=== PATIENT | male | born 1955 | race Caucasian/White ===

== ENCOUNTER 2017-06-16 23:08 | Inpatient (IN) | payer BC ==
--- NOTE | 2017-06-16 23:12 | PDOC ---
History of Present Illness - General History Source: Patient, Family, Old Records Exam Limitations: No Limitations - History of Present Illness Initial Comments: 06/17/17 03:52 Patient is a 61 year old male with a significant past medical history of sciatica who presents to the ED with complaints of fever that began 3 weeks ago. As per patient's daughter, patient was taken to urgent care 3 weeks ago for increased fever and body aches and was diagnosed with strep and given penicillin prescription. She reports after finishing prescription over 1 week, patient began to develop rash from the penicillin and began to take benadryl, relieving the rash in 2 days. Patient's daughter reports, [facility] symptoms of increased fever and associated bilateral leg pain and weakness. She reports patient was given X Ray, CT abdomen, flu culture and labs, before being diagnosed with pleuritic chest pain. Patient's daughter reports bringing patient into the ED for further evaluation tonight after patient's bilateral leg pain and weakness did not subside causing her to worry. She reports patient has been experiencing decreased appetite for the last few days. Denies chest pain, Sob. Denies nausea, vomiting. Denies contact with sick individuals, out of state traveling. Denies diarrhea, constipation, dysuria, hematuria. Denies any other symptoms. Allergies: Iodine, Shellfish. Social history: No smoking. No alcohol. No illicit drugs. Surgical history: None. PMD: Dr. Mendoza. <Elijah Ding - Last Filed: 06/17/17 05:50> <Kailey Rajan - Last Filed: 06/17/17 06:04> - General Stated Complaint: FEVER,WEAKNESS Time Seen by Provider: 06/16/17 23:12 Past History <Elijah Ding - Last Filed: 06/17/17 05:50> - Immunization History Immunization Up to Date: No - Suicide/Smoking/Psychosocial Hx Smoking History: Never smoked Have you smoked in the past 12 months: No Hx Alcohol Use: Yes Substance Use Type: Alcohol <Kailey Rajna - Last Filed: 06/17/17 06:04> - Past Medical History Allergies/Adverse Reactions: Allergies Allergy/AdvReac Type Severity Reaction Status Date / Time iodine Allergy Verified 06/16/17 23:23 shellfish derived Allergy Verified 06/16/17 23:23 Home Medications: Ambulatory Orders Ibuprofen [Motrin -] 800 mg PO TID PRN #21 tablet 11/04/13 Gabapentin [Neurontin -] 100 mg PO Q8H 06/16/17 Review of Systems - Review of Systems Able to Perform ROS?: Yes Comments:: 06/17/17 03:52 GENERAL/CONSTITUTIONAL: +Fevers. +Chills. No weakness. HEAD, EYES, EARS, NOSE AND THROAT: No change in vision. No ear pain or discharge. No sore throat. CARDIOVASCULAR: No chest pain or shortness of breath. RESPIRATORY: No cough, wheezing, or hemoptysis. GASTROINTESTINAL: No nausea, vomiting, diarrhea or constipation. GENITOURINARY: No dysuria, frequency, or change in urination. MUSCULOSKELETAL: +Bilateral leg pain. No joint or muscle swelling. No neck or back pain. SKIN: No rash NEUROLOGIC: +Bilateral leg weakness. No headache, vertigo, loss of consciousness, ENDOCRINE: No increased thirst. No abnormal weight change. HEMATOLOGIC/LYMPHATIC: No anemia, easy bleeding, or history of blood clots. ALLERGIC/IMMUNOLOGIC: No hives or skin allergy. All Other Systems: Reviewed and Negative <Elijah Ding - Last Filed: 06/17/17 05:50> *Physical Exam - Vital Signs Last Vital Signs Temp Pulse Resp BP Pulse Ox 102.8 F H 120 H 30 H 143/93 97 06/16/17 23:24 06/16/17 23:24 06/16/17 23:24 06/16/17 23:24 06/16/17 23:24 - Physical Exam Comments: 06/17/17 03:52 GENERAL: +Morbidly obese. +Barely able to move. +Warm to touch. Awake, alert, and fully oriented, in no acute distress HEAD: No signs of trauma EYES: PERRLA, EOMI, sclera anicteric, conjunctiva clear ENT: +Mouth extremely dry. Auricles normal inspection, hearing grossly normal, nares patent, oropharynx clear without exudates. NECK: Normal ROM, supple, no lymphadenopathy, JVD, or masses LUNGS: Breath sounds equal, clear to auscultation bilaterally. No wheezes, and no crackles HEART: +Tachycardic. Regular rhythm, normal S1 and S2, no murmurs, rubs or gallops ABDOMEN: Soft, nontender, normoactive bowel sounds. No guarding, no rebound. No masses EXTREMITIES: +Bilateral leg edema. +Old hematoma on upper right extremity. Normal range of motion, no edema. No clubbing or cyanosis. No cords, erythema, or tenderness NEUROLOGICAL: Cranial nerves II through XII grossly intact. Normal speech, normal gait SKIN: Warm, Dry, normal turgor, no rashes or lesions noted. <Elijah Ding - Last Filed: 06/17/17 05:50> ED Treatment Course - LABORATORY CBC & Chemistry Diagram: 06/17/17 00:30 06/17/17 00:30 - ADDITIONAL ORDERS Additional order review: Laboratory Results 06/17/17 06/17/17 06/17/17 00:30 00:30 00:30 PT with INR INR PTT (Actin FS) VBG pH POC VBG pCO2 POC VBG pO2 Mixed VBG HCO3 Sodium 134 L Potassium 4.1 Chloride 97 L Carbon Dioxide 29 Anion Gap 8 BUN 15 Creatinine 1.4 H Creat Clearance w eGFR 51.18 Random Glucose 156 H Lactic Acid 1.5 Calcium 8.8 Total Bilirubin 0.9 AST 130 H ALT 84 H Alkaline Phosphatase 115 Creatine Kinase 551 H Creatine Kinase Index 0.4 CK-MB (CK-2) 2.311 Troponin I 0.05 Total Protein 8.8 H Albumin 1.5 L Blood Type O POSITIVE Antibody Screen Negative 06/17/17 06/17/17 00:30 00:14 PT with INR 20.50 H INR 1.81 H PTT (Actin FS) 33.1 VBG pH 7.47 H POC VBG pCO2 38.5 POC VBG pO2 51.6 H Mixed VBG HCO3 27.7 H Sodium Potassium Chloride Carbon Dioxide Anion Gap BUN Creatinine Creat Clearance w eGFR Random Glucose Lactic Acid Calcium Total Bilirubin AST ALT Alkaline Phosphatase Creatine Kinase Creatine Kinase Index CK-MB (CK-2) Troponin I Total Protein Albumin Blood Type Antibody Screen 06/17/17 00:30 RBC 3.96 L MCV 80.5 MCHC 33.7 RDW 14.4 MPV 8.4 Neutrophils % 80.3 Lymphocytes % 8.5 Monocytes % 10.7 H Eosinophils % 0.2 Basophils % 0.3 - Medications Given in the ED: ED Medications Discontinued Medications Generic Name Dose Route Start Last Admin Trade Name Freq PRN Reason Stop Dose Admin Sodium Chloride 1,000 ml 06/16/17 23:58 06/17/17 00:41 Normal Saline - IV 06/16/17 23:59 1,000 ml ONCE STA Administration <Elijah Ding - Last Filed: 06/17/17 05:50> - LABORATORY CBC & Chemistry Diagram: 06/17/17 00:30 06/17/17 00:30 <Kailey Rajan - Last Filed: 06/17/17 06:04> Medical Decision Making - Medical Decision Making 06/17/17 05:[address] Mendoza @5:50am, called service number and cell phone number. Both mailboxes are full. <Elijah Ding - Last Filed: 06/17/17 05:50> - Medical Decision Making 06/17/17 03:30 Patient Name: SERA REESE THIS IS A PRELIMINARY REPORT FROM [facility] DATE OF SERVICE: 2017-06-17 01:46:04 IMAGES: 62 EXAM: DUPLEX VASCULAR US-2 LEGS HISTORY: Venous duplex bilateral lower extremity COMPARISON: Swelling FINDINGS: There is no DVT of the right or left lower extremity. 3.2 x 1.1 x 2.2 cm right-sided Beach's cyst is noted. IMPRESSION: No DVT. Moderate size right Beach's cyst. 06/17/17 05:29 Patient Name: SERA REESE THIS IS A PRELIMINARY REPORT FROM [facility] DATE OF SERVICE: 2017-06-17 03:22:56 IMAGES: 1 EXAM: CHEST X-RAY PORTABLE* HISTORY: Rule out pneumonia COMPARISON: None. FINDINGS: Heart size is not well evaluated portable technique. Lungs are grossly clear. Vague left basilar density appears to be due to overlying soft tissue. No pleural effusion. IMPRESSION: No evidence of acute pathology. THIS DOCUMENT HAS BEEN ELECTRONICALLY SIGNED Pt still has not gotten an EKG though I ordered it 6 grs ago. 06/17/17 05:34 UA is negative. Pt remains febrile.Motrin and Ofirmev given. I treated with ceftriaxione and zithromax IV, as he seems to have right sided increased markings which may indicate a pneumonia Pt will require ID eval. 06/17/17 06:02 Pt has a different daughter at the bedside and they are now telling me that pt' s fever resolved after step throat treatment and that he went to Dr. Mendoza's office for bilateral leg pain and swelling. Dr. Mendoza called back and tells me that she has not seen the patient in 3 years and that he suddenly went back to her office last week with the leg pain. He was not complaining of fever at that time. She will admit the patient and work him up. She is requesting another rapid strep. <Kailey Rajan - Last Filed: 06/17/17 06:04> *DC/Admit/Observation/Transfer - Attestations Scribe Attestion: 06/17/17 03:52 Documentation prepared by Elijah Ding, acting as medical laboratory scientist for Kailey Rajan MD/DO. <Elijah Ding - Last Filed: 06/17/17 05:50> - Discharge Dispostion Admit: Yes <Kailey Rajan - Last Filed: 06/17/17 06:04> Diagnosis at time of Disposition: Sepsis - Discharge Dispostion Condition at time of disposition: Poor
[2017-06-16] MEDS ORDERED: SODIUM CHLORIDE 0.9% 1000 ML INFUS.BAG IV STA (23:58)
[2017-06-17 00:47] LABS: VENOUS PC02 38.5 mmHg (38-52); VENOUS PH 7.47 (7.32-7.42); VENOUS PO2 51.6 mmHg (28-48)
[2017-06-17 00:49] LABS: BASO % 0.3 % (0-2.0); EOS % 0.2 % (0-4.5); HEMATOCRIT 31.9 % (35.4-49); HEMOGLOBIN 10.7 GM/dL (11.7-16.9); LYMPH % 8.5 % (8-40); MCH 27.1 pg (25.7-33.7); MCHC 33.7 g/dl (32.0-35.9); MEAN CELL VOLUME 80.5 fl (80-96); MEAN PLT VOLUME 8.4 fl (7.5-11.1); MONO % 10.7 % (3.8-10.2); NEUT % 80.3 % (42.8-82.8); PLATELET COUNT 304 K/MM3 (134-434); RBC 3.96 M/mm3 (4.00-5.60); RDW 14.4 % (11.9-15.9); WHITE BLOOD COUNT 11.2 K/mm3 (4.0-10.0)
[2017-06-17 01:02] LABS: INR 1.81 (0.82-1.09); PROTHROMBIN TIME (PATIENT) 20.5 SEC (9.98-11.88)
[2017-06-17 01:05] LABS: ACTIVATED PTT 33.1 SECONDS (26.9-34.4)
[2017-06-17 01:12] LABS: ALBUMIN 1.5 g/dl (3.4-5.0); ANION GAP 8 (8-16); BILIRUBIN,TOTAL 0.9 mg/dL (0.2-1.0); BLOOD UREA NITROGEN 15 mg/dL (7-18); CALCIUM 8.8 mg/dL (8.5-10.1); CHLORIDE 97 mmol/L (98-107); CO2 29 mmol/L (21-32); CREATININE 1.4 mg/dL (0.7-1.3); GLUCOSE,RANDOM 156 mg/dL (74-106); SGPT/ALT 84 U/L (12-78); SODIUM 134 mmol/L (136-145); TOT PROT 8.8 g/dl (6.4-8.2)
[2017-06-17 01:15] LABS: ALK PHOS 115 U/L (45-117); POTASSIUM 4.1 mmol/L (3.5-5.1); SGOT/AST 130 U/L (15-37)
[2017-06-17] MEDS ORDERED: CEFTRIAXONE 1 GM in DEXTROSE 5%-WATER - 50 ML IVPB ONE (03:55)
[2017-06-17] MEDS ORDERED: AZITHROMYCIN IVPB 500 MG in DEXTROSE 5%-WATER - 250 ML IVPB ONE (03:56)
[2017-06-17] MEDS ORDERED: CEFTRIAXONE 1 GM/50 ML BAG ONE (04:38)
[2017-06-17 04:59] LABS: URINE APPEARANCE SLCLOUDY; URINE BILIRUBIN NEGATIVE (NEGATIVE); URINE BLOOD NEGATIVE (NEGATIVE); URINE GLUCOSE (UA) NEGATIVE (NEGATIVE); URINE KETONE NEGATIVE (NEGATIVE); URINE LEUK ESTERASE NEGATIVE (NEGATIVE); URINE NITRITE NEGATIVE (NEGATIVE); URINE PROTEIN NEGATIVE (NEGATIVE); URINE UROBILINOGEN 4.0 E.U/dl mg/dL (0.2-1.0)
[2017-06-17 05:02] LABS: URINE COLOR YELLOW
[2017-06-17] MEDS ORDERED: ACETAMINOPHEN 1000 MG/100 ML VIAL (NON FORMULARY) IVPB ONE (05:30)
[2017-06-17] MEDS ORDERED: SODIUM CHLORIDE 0.9% 500 ML INFUS.BAG IV ONE (05:30)
[2017-06-17] MEDS ORDERED: IBUPROFEN 600 MG TABLET (FP) PO ONE ×3 (05:30→18:39)
--- NOTE | 2017-06-17 05:48 | PN ---
Teaching Attending Note Name of Resident: Tristen Pisano ATTENDING PHYSICIAN STATEMENT I saw and evaluated the patient. I reviewed the resident's note and discussed the case with the resident. I agree with the resident's findings and plan as documented. SUBJECTIVE: OBJECTIVE: ASSESSMENT AND PLAN:
[2017-06-17] MEDS ORDERED: ACETAMINOPHEN INJECTION 100 ML IVPB ONE (06:13)
[2017-06-17] MEDS ORDERED: OSELTAMIVIR PHOSPHATE 75 MG CAPSULE PO SCH (10:00)
--- NOTE | 2017-06-17 12:32 | HP ---
Admitting History and Physical - Primary Care Physician PCP: Heriberto Mendoza - Admission History of Present Illness: 61 year old male with a significant past medical history of sciatica who presents to the ED with complaints of fever that began 3 weeks ago. As per patient's daughter, patient was taken to urgent care 3 weeks ago for increased fever and body aches and was diagnosed with strep and given penicillin prescription. She reports after finishing prescription over 1 week, patient began to develop rash from the penicillin and began to take benadryl, relieving the rash in 2 days. Patient's daughter reports, patient was then taken to [facility] on June 08 for similar symptoms of increased fever and associated bilateral leg pain and weakness. She reports patient was given X Ray, CT abdomen, flu culture and labs, before being diagnosed with pleuritic chest pain. Patient's daughter reports bringing patient into the ED for further evaluation tonight after patient's bilateral leg pain and weakness did not subside causing her to worry. - Smoking History Smoking history: Never smoked Have you smoked in the past 12 months: No - Alcohol/Substance Use Hx Alcohol Use: Yes Home Medications - Allergies Allergies/Adverse Reactions: Allergies Allergy/AdvReac Type Severity Reaction Status Date / Time iodine Allergy Verified 06/16/17 23:23 shellfish derived Allergy Verified 06/16/17 23:23 - Home Medications Home Medications: Ambulatory Orders Ibuprofen [Motrin -] 800 mg PO TID PRN #21 tablet 11/04/13 Gabapentin [Neurontin -] 100 mg PO Q8H 06/16/17 Physical Examination Vital Signs: Vital Signs Temperature 100.1 F H 06/17/17 04:30 Pulse Rate 95 H 06/17/17 05:30 Respiratory Rate 18 06/17/17 05:30 Blood Pressure 126/63 06/17/17 05:30 O2 Sat by Pulse Oximetry (%) 97 06/17/17 05:30 Constitutional: Yes: Calm HENT: Yes: Atraumatic Neck: Yes: Supple Cardiovascular: Yes: Regular Rate and Rhythm Respiratory: Yes: CTA Bilaterally, Rhonchi Gastrointestinal: Yes: Normal Bowel Sounds Extremities: Yes: WNL Edema: LLE: 3+, RLE: 3+ Peripheral Pulses WNL: Yes Neurological: Yes: Alert, Oriented Labs: CBC, BMP 06/17/17 00:30 06/17/17 00:30 Problem List - Problems (1) Neuropathy Assessment/Plan: pt is on gabapentin will get neuro involved Code(s): G62.9 - POLYNEUROPATHY, UNSPECIFIED (2) Elevated creatine kinase Code(s): R74.8 - ABNORMAL LEVELS OF OTHER SERUM ENZYMES (3) Elevated serum creatinine Assessment/Plan: ckd? monitor iv hydration nephroconsult Code(s): R79.89 - OTHER SPECIFIED ABNORMAL FINDINGS OF BLOOD CHEMISTRY (4) Anasarca Code(s): R60.1 - GENERALIZED EDEMA (5) Anemia Assessment/Plan: chronic will do studies and get heme involved Code(s): D64.9 - ANEMIA, UNSPECIFIED (6) CKD (chronic kidney disease) Code(s): N18.9 - CHRONIC KIDNEY DISEASE, UNSPECIFIED (7) Coagulation defect Code(s): D68.9 - COAGULATION DEFECT, UNSPECIFIED Assessment/Plan Laboratory Tests 06/17/17 06/17/17 06/17/17 00:14 00:30 00:30 WBC 11.2 H RBC 3.96 L Hgb 10.7 L Hct 31.9 L MCV 80.5 MCH 27.1 MCHC 33.7 RDW 14.4 Plt Count 304 MPV 8.4 Neutrophils % 80.3 Lymphocytes % 8.5 Monocytes % 10.7 H Eosinophils % 0.2 Basophils % 0.3 PT with INR 20.50 H INR 1.81 H PTT (Actin FS) 33.1 VBG pH 7.47 H POC VBG pCO2 38.5 POC VBG pO2 51.6 H Mixed VBG HCO3 27.7 H Sodium Potassium Chloride Carbon Dioxide Anion Gap BUN Creatinine Creat Clearance w eGFR Random Glucose Lactic Acid Calcium Total Bilirubin AST ALT Alkaline Phosphatase Creatine Kinase Creatine Kinase Index CK-MB (CK-2) Troponin I Total Protein Albumin Urine Color Urine Appearance Urine pH Ur Specific [place] Urine Protein Urine Glucose (UA) Urine Ketones Urine Blood Urine Nitrite Urine Bilirubin Urine Urobilinogen Ur Leukocyte Esterase Blood Type Antibody Screen 06/17/17 06/17/17 06/17/17 00:30 00:30 00:30 WBC RBC Hgb Hct MCV MCH MCHC RDW Plt Count MPV Neutrophils % Lymphocytes % Monocytes % Eosinophils % Basophils % PT with INR INR PTT (Actin FS) VBG pH POC VBG pCO2 POC VBG pO2 Mixed VBG HCO3 Sodium 134 L Potassium 4.1 Chloride 97 L Carbon Dioxide 29 Anion Gap 8 BUN 15 Creatinine 1.4 H Creat Clearance w eGFR 51.18 Random Glucose 156 H Lactic Acid 1.5 Calcium 8.8 Total Bilirubin 0.9 AST 130 H ALT 84 H Alkaline Phosphatase 115 Creatine Kinase 551 H Creatine Kinase Index 0.4 CK-MB (CK-2) 2.311 Troponin I 0.05 Total Protein 8.8 H Albumin 1.5 L Urine Color Urine Appearance Urine pH Ur Specific [place] Urine Protein Urine Glucose (UA) Urine Ketones Urine Blood Urine Nitrite Urine Bilirubin Urine Urobilinogen Ur Leukocyte Esterase Blood Type O POSITIVE Antibody Screen Negative 06/17/17 04:51 WBC RBC Hgb Hct MCV MCH MCHC RDW Plt Count MPV Neutrophils % Lymphocytes % Monocytes % Eosinophils % Basophils % PT with INR INR PTT (Actin FS) VBG pH POC VBG pCO2 POC VBG pO2 Mixed VBG HCO3 Sodium Potassium Chloride Carbon Dioxide Anion Gap BUN Creatinine Creat Clearance w eGFR Random Glucose Lactic Acid Calcium Total Bilirubin AST ALT Alkaline Phosphatase Creatine Kinase Creatine Kinase Index CK-MB (CK-2) Troponin I Total Protein Albumin Urine Color Yellow Urine Appearance Slcloudy Urine pH 5.0 Ur Specific [place] 1.012 Urine Protein Negative Urine Glucose (UA) Negative Urine Ketones Negative Urine Blood Negative Urine Nitrite Negative Urine Bilirubin Negative Urine Urobilinogen 4.0 e.u/dl Ur Leukocyte Esterase Negative Blood Type Antibody Screen Active Medications Generic Name Dose Route Start Last Admin Trade Name Freq PRN Reason Stop Dose Admin Gabapentin 100 mg 06/17/17 14:00 06/17/17 14:34 Neurontin - PO 100 mg TID [facility] Administration Heparin Sodium (Porcine) 5,000 unit 06/17/17 12:45 06/17/17 17:35 Heparin - SQ Not Given BID [facility] CEFTRIAXONE 1 G/50 ML PREMIX 50 mls @ 100 mls/hr 06/18/17 10:00 Ceftriaxone 1 Gm-D5w Bag IVPB DAILY [facility]
--- NOTE | 2017-06-17 12:43 | CON.ID ---
Consult Consult Specialty:: infectious diseases Reason for Consultation:: fever,weakness - History of Present Illness Chief Complaint: weakness,lehtargy History of Present Illness: 61 year old male with a significant past medical history of sciatica who presents to the ED with complaints of fever that began 3 weeks ago. patient unable to give hisotry his at the bedside who gives the history according tot he patient has been sick for quite some times about a month, his symptoms started as weakness fatigue and swelling in the legs--she mentions thatn his legs wee never this swollen He initially went to urgent care couple of weeks back--was diagnosed with strep throat--given pcn--developed rash which improved in couple of days after taking benadryl. . Patient then according to the , patient was then taken to [facility] on June 08 for similar symptoms of increased fever and associated bilateral leg pain and weakness. She reports patient was given X Ray , CT abdomen, flu culture and labs, before being diagnosed with pleuritic chest pain. 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 - History Source History Provided By: Family Member Limitations to Obtaining History: Clinical Condition - Alcohol/Substance Use Hx Alcohol Use: Yes - Smoking History Smoking history: Never smoked Have you smoked in the past 12 months: No Home Medications - Allergies Allergies/Adverse Reactions: Allergies Allergy/AdvReac Type Severity Reaction Status Date / Time iodine Allergy Verified 06/16/17 23:23 shellfish derived Allergy Verified 06/16/17 23:23 - Home Medications Home Medications: Ambulatory Orders Ibuprofen [Motrin -] 800 mg PO TID PRN #21 tablet 11/04/13 Gabapentin [Neurontin -] 100 mg PO Q8H 06/16/17 Review of Systems Unable to obtain ROS, reason: unable to obtain Physical Exam Vital Signs: Vital Signs Temperature 100.1 F H 06/17/17 04:30 Pulse Rate 95 H 06/17/17 05:30 Respiratory Rate 18 06/17/17 05:30 Blood Pressure 126/63 06/17/17 05:30 O2 Sat by Pulse Oximetry (%) 97 06/17/17 05:30 Constitutional: Yes: No Distress, Calm, Obese (morbid) Eyes: Yes: Conjunctiva Clear HENT: Yes: Atraumatic, Normocephalic Neck: Yes: Supple, Trachea Midline Cardiovascular: Yes: Regular Rate and Rhythm Respiratory: Yes: Regular, Poor Air Entry Gastrointestinal: Yes: Normal Bowel Sounds, Soft Musculoskeletal: Yes: WNL Edema: LLE: 2+ (non pitting), RLE: 2+ (non pitting) Neurological: Yes: Lethargy, Other (opens eyes) Psychiatric: Yes: Other Labs: CBC, BMP 06/17/17 00:30 06/17/17 00:30 Imaging - Results Chest X-ray: Report Reviewed, Image Reviewed Cat Scan: Report Reviewed, Image Reviewed Assessment/Plan on evaluating this patient i cannot find specific cause of the fever,he did have a strp some time back but norman havees have osas treated. is the patient this lethargic because he does have charlene other thing is that patient has increased lft and has non pitting edema--does he any other process like connective tissue disorder going on r/o infective process ct disorder cardiac process sepsis i do not see any gross infective process at this time,but we dont have flu done as no swabs are there plan if patient continues to spike fever then justina valentin tamiflu will start patient on ceftriaxone rest as per primary cardiology to see the patient
[2017-06-17] MEDS: GABAPENTIN 100 MG CAPSULE (FP) PO SCH ×2 (14:34→21:03)
--- NOTE | 2017-06-17 14:48 | CON.CARD ---
Consult Consult Specialty:: cardiology Referred by:: Dr. Mendoza Reason for Consultation:: edema and an enlarged heart on chest x-ray with pulmonary vascular congestion - History of Present Illness Chief Complaint: fever or chills swelling body aches and sore throat weakness History of Present Illness: 61-year-old man with a history of obesity and sciatica recently treated for fever or chills body aches sore throat right neck swelling at [facility] for presumed strep throat. Treated with penicillin subsequently developed a rash which was treated with Benadryl. His initial complaint was bilateral lower extremity edema. He had a CTA of the chest that ruled out pulmonary embolism at [facility] and further workup of his edema was deferred to outpatient setting and he was treated for strep throat. As an outpatient his symptoms progressed with continued fever or chills total body weakness rash and edema thus he came to the emergency room. She was seen and examined in the emergency room lethargic but arousable, diaphoretic, complains of being thirsty as well as joint pain involving his right wrist right clavicle and bilateral feet. Denies having any chest pain or palpitations. No PND or orthopnea. He has had decreased appetite. 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 - History Source History Provided By: Patient, Family Member, Medical Record Limitations to Obtaining History: Physical Impairment - Alcohol/Substance Use Hx Alcohol Use: Yes - Smoking History Smoking history: Never smoked Have you smoked in the past 12 months: No - Social History Usual Living Arrangement: With Spouse ADL: Independent History of Recent Travel: No Home Medications - Allergies Allergies/Adverse Reactions: Allergies Allergy/AdvReac Type Severity Reaction Status Date / Time iodine Allergy Verified 06/16/17 23:23 shellfish derived Allergy Verified 06/16/17 23:23 - Home Medications Home Medications: Ambulatory Orders Ibuprofen [Motrin -] 800 mg PO TID PRN #21 tablet 11/04/13 Gabapentin [Neurontin -] 100 mg PO Q8H 06/16/17 Family Disease History - Family Disease History Family History: Denies Review of Systems - Review of Systems Constitutional: reports: Chills, Diaphoresis, Fever, Lethargy, Loss of Appetite , Malaise, Weakness. denies: No Symptoms, Night Sweats, Unintentional Wgt. Loss , Other Eyes: denies: No Symptoms, Blind Spots, Blurred Vision, Double Vision, Eye Pain , Floaters, Photophobia, Recent Change in Vision, Other HENT: reports: Difficult Swallowing, Throat Pain. denies: No Symptoms, Ear Discharge, Ear Pain, Epistaxis, Gingival Bleeding, Hearing Loss, Mouth Swelling , Nasal Congestion, Ocular Prosthesis, Toothache, Ringing in Ears, Other Neck: reports: Swollen Glands, Tenderness. denies: No Symptoms, Decreased ROM, Lumps, Pain on Movement, Stiffness, Other Cardiovascular: reports: Edema, Shortness of Breath. denies: No Symptoms, Chest Pain, Palpitations, Other Respiratory: reports: Exercise Intolerance, Snoring, SOB, SOB on Exertion. denies: No Symptoms, Cough, Hemoptysis, Orthopnea, PND, Wheezing, Other Gastrointestinal: denies: No Symptoms, Abdominal Pain, Bloating, Constipation, Diarrhea, Dysphagia, Indigestion, Melena, Nausea, Rectal Bleeding, Vomiting, Vomiting Blood, Other Genitourinary: denies: No Symptoms, Burning, Discharge, Dysuria, Flank Pain, Frequency, Hematuria, Incontinence, Lesions, Menses, Pain, Testicular Mass, Testicular Pain, Testicular Swelling, Urgency, Vaginal Bleeding, Other Breasts: denies: No Symptoms Reported, See HPI, Breast Implants, Discharge from Nipple, Lumps, Pain, Skin Changes, Other Musculoskeletal: reports: Extremity Pain, Joint Pain, Muscle Pain, Muscle Weakness. denies: No Symptoms, Back Pain, Crepitus, Decreased ROM, Joint Swelling, Muscle Cramps, Other Integumentary: reports: Rash. denies: No Symptoms, Blister, Bruising, Change in Color, Eczema, Erythema, Incision, Lesions, Lump, Pallor, Pruritis, Wound, Other Neurological: reports: Change in LOC, Unsteady Gait, Weakness. denies: No Symptoms, Change in Speech, Confusion, Dizziness, Headache, Incoordination, Numbness, Parasthesia, Pre-Existing Deficit, Seizure, Syncope, Tremors, Other Endocrine: denies: No Symptoms, Excessive Sweating, Flushing, Increased Hunger, Increased Thirst, Intolerance to Cold, Intolerance to Heat, Unexplained Weight Gain, Unexplained Weight Loss, Other Hematology/Lymphatic: denies: No Symptoms, Easily Bruised, Excessive Bleeding, Swollen Glands, Other Psychiatric: denies: No Symptoms, Altered Sleep Pattern, Anxiety, Depression, Hallucinations, Panic, Paranoia, Suicidal, Other Vital Signs: Vital Signs Temperature 100.1 F H 06/17/17 04:30 Pulse Rate 95 H 06/17/17 05:30 Respiratory Rate 19 06/17/17 09:00 Blood Pressure 126/63 06/17/17 05:30 O2 Sat by Pulse Oximetry (%) 97 06/17/17 09:00 Constitutional: Yes: Calm, Diaphoresis, Mild Distress, Obese Eyes: Yes: Conjunctiva Clear, EOM Intact, PERRL HENT: Yes: Atraumatic, Normocephalic Neck: Yes: Supple, Trachea Midline Respiratory: Yes: Regular, Diminished, On Nasal O2, SOB. No: Rales, Rhonchi, Wheezes Gastrointestinal: Yes: Normal Bowel Sounds, Soft. No: Distention, Tenderness Cardiovascular: Yes: Regular Rate and Rhythm. No: Bradycardia, Tachycardia, Pulse Irregular, Gallop, Rub, Varicosities JVD: No Carotid Bruit: No PMI: Non-Displaced Heart Sounds: Yes: S1, S2. No: Split S2, S3, S4, Clicks, Gallop, Rub, Bruit Murmur: No: Systolic Murmur, Diastolic Murmur Musculoskeletal: Yes: Joint Stiffness, Joint Swelling, Muscle Weakness Edema: Yes Edema: RUE: 1+ (nonpitting), LLE: 1+ (nonpitting), RLE: 1+ (nonpitting) Peripheral Pulses WNL: Yes Peripheral Pulses: 2+ Left Doralis Pedis, 2+ Right Dorsalis Pedis Integumentary: Yes: Rash Neurological: Yes: Oriented, Lethargy, Weakness. No: Alert Psychiatric: Yes: Oriented. No: Alert - Other Data Labs, Other Data: CBC, BMP 06/17/17 00:30 06/17/17 00:30 INR, PTT INR 1.81 (0.82-1.09) H 06/17/17 00:30 Troponin, BNP 06/17/17 06/17/17 00:30 13:27 Troponin I 0.05 0.03 D Troponin, BNP 06/17/17 06/17/17 00:30 13:27 Troponin I 0.05 0.03 D EKG was done in the emergency room not available currently for my review, no reported significant abnormalities Echo: Pending Imaging - Results Chest X-ray: Report Reviewed Ultrasound: Report Reviewed Other: Report Reviewed, Image Reviewed Assessment/Plan 61-year-old man with a history of obesity and sciatica recently treated for fever or chills body aches sore throat right neck swelling at [facility] for presumed strep throat. Treated with penicillin subsequently developed a rash which was treated with Benadryl. His initial complaint was bilateral lower extremity edema. He had a CTA of the chest that ruled out pulmonary embolism at [facility] and further workup of his edema was deferred to outpatient setting and he was treated for strep throat. As an outpatient his symptoms progressed with continued fever or chills total body weakness rash and edema thus he came to the emergency room. She was seen and examined in the emergency room lethargic but arousable, diaphoretic, complains of being thirsty as well as joint pain involving his right wrist right clavicle and bilateral feet. Denies having any chest pain or palpitations. No PND or orthopnea. He has had decreased appetite. edema-patient does not clinically appear volume overloaded in fact he appears more likely intravascularily depleted -likely a degree of third spacing given his hypoalbuminemia 1.5 -Would not diurese at this time -Concern for sepsis -Follow-up echo today to evaluate for structural heart disease, if structurally normal would recommend IV fluid hydration -if there is cardiac dysfunction will likely still be able to use IV fluid hydration but would be more cautious -Enlarged cardiac silhouette on chest x-ray not reliable due to portable imaging study fever chills body aches and muscle pain or joint pain swelling and right neck and recent diagnosis of strep throat -Concerning for sepsis/pneumonia -Possible viral illness which could include influenza -possible strep -receiving antibiotics -Consider Tamiflu although due to the duration of his illness may not be effective at this point -infectious disease is evaluating rash- -Possibly due to current infectious process or side effect to recent penicillin usage
--- NOTE | 2017-06-17 15:59 | PN ---
Progress Note (short form) - Note Progress Note: PULMONARY CONSULTATION DICTATED 06/17/17 IMP RECENT STREP THROAT S/P RX WITH PCN DEV RASH GENERALIZED EDEMA SECONDARY TO HYPOALBUMENIA ELEVATED TP ? MM,? INFECTIOUS,IMMUNOLOGIC KADIE COAGULOPATHY ELEVATED LFTS PULMONARY HTN SUSPECTED OSAS PLAN ABX PER ID CHEST /ABD CT ESR,CRP,RALPH,RF MONITOR LYTES,RENAL FUNCTION MONITOR CBC,INR SPEP,IPEP AVOID NSAIDS HIV SCREEN SLEEP STUDIES OUTPATIENT DR STEEN
--- NOTE | 2017-06-17 16:45 | CONSULT ---
Consult Consult Specialty:: hematology/oncology - History of Present Illness History of Present Illness: 61 year old male with a significant past medical history of sciatica who presents to the ED with complaints of fever that began 3 weeks ago. As per patient's daughter, patient was taken to urgent care 3 weeks ago for increased fever and body aches and was diagnosed with strep and given penicillin prescription. She reports after finishing prescription over 1 week, patient began to develop rash from the penicillin and began to take benadryl, relieving the rash in 2 days. Patient's daughter reports, patient was then taken to [facility] on June [facility] for similar symptoms of increased fever and associated bilateral leg pain and weakness. She reports patient was given X Ray, CT abdomen, flu culture and labs, before being diagnosed with pleuritic chest pain. Patient's daughter reports bringing patient into the ED for further evaluation tonight after patient's bilateral leg pain and weakness did not subside Pt seen and examined. Hematology is consulted for elevated total protein. Daughter and at pts bedside. - History Source History Provided By: Patient, Family Member - Alcohol/Substance Use Hx Alcohol Use: Yes - Smoking History Smoking history: Never smoked Have you smoked in the past 12 months: No - Social History Usual Living Arrangement: With Spouse ADL: Independent History of Recent Travel: No Home Medications - Allergies Allergies/Adverse Reactions: Allergies Allergy/AdvReac Type Severity Reaction Status Date / Time iodine Allergy Verified 06/16/17 23:23 shellfish derived Allergy Verified 06/16/17 23:23 - Home Medications Home Medications: Ambulatory Orders Ibuprofen [Motrin -] 800 mg PO TID PRN #21 tablet 11/04/13 Gabapentin [Neurontin -] 100 mg PO Q8H 06/16/17 Physical Exam Vital Signs: Vital Signs Temperature 98.7 F 06/17/17 14:15 Pulse Rate 81 06/17/17 14:15 Respiratory Rate 18 06/17/17 14:15 Blood Pressure 128/72 06/17/17 14:15 O2 Sat by Pulse Oximetry (%) 97 06/17/17 09:00 Constitutional: Yes: Well Nourished, Obese Eyes: Yes: Conjunctiva Clear HENT: Yes: Atraumatic, Normocephalic Neck: Yes: Supple, Trachea Midline Cardiovascular: Yes: Regular Rate and Rhythm Respiratory: Yes: Regular, CTA Bilaterally Gastrointestinal: Yes: Normal Bowel Sounds, Abdomen, Obese Extremities: Yes: Erythema Edema: Yes Edema: LUE: 2+, RUE: 2+, LLE: 2+, RLE: 2+ Labs: CBC, BMP 06/17/17 00:30 06/17/17 00:30 Assessment/Plan Patient with a high protein gap. concern for post-streptococcal sequel for a multi-tude of tests, work up in progress for screening anemia work-up renal/pulm/cardiology/ID consults reviewed consider rheum evaluation. will follow
[2017-06-17 17:23] VITALS: BMI 56.9
[2017-06-17] MEDS: HEPARIN NA (PORCINE) 5,000 UNITS/ML 1ML VIAL SQ SCH ×2 (17:35→21:03)
--- NOTE | 2017-06-17 18:12 | CONS ---
DATE OF CONSULTATION: 06/17/2017 PULMONARY CONSULTATION REFERRING PHYSICIAN: Heriberto Mendoza M.D. HISTORY OF PRESENT ILLNESS: The patient is a 61-year-old male with past medical history of obesity and sciatica, recently treated approximately 3 weeks ago in [facility] secondary to sore throat, generalized body aches. At the time, he had in 1 hospital also lower extremity edema. Apparently he has had presumed sore throat and he was treated with penicillin, for which he subsequently developed a rash, which was treated with Benadryl. He was also given gabapentin for the generalized pains. Initially he complained of bilateral lower extremity edema. Apparently at [place] he had a chest CTA which was negative for PE, and further workup edema as an outpatient. Over the course of the next 2-3 weeks he has been complaining of continued fevers, chills, generalized body aches and weakness, and rash as well as edema. He also noted increasing right upper extremity edema as well as some mild left upper extremity edema. He presented to the emergency room today with the above complaints. In the ER he was noted to be anemic. He was also noted to have mildly elevated creatinine at 1.4 and platelet count of 156. Labs also revealed evidence of albumin at 1.5 and protein of 8.8, a mild transaminase elevation. Patient is a nonsmoker. He denies any recent travel. He denies any history of occupational exposure to chemicals or fumes. He was born on [place] and moved to the [place] at age 2. He denies any history of DVT or PE in the past. There is no history of chronic cough or hemoptysis. Has been complaining of chest pain, which is pressure like, associated with all these other generalized pains. PAST MEDICAL HISTORY: Again includes sciatica as well as obesity. REVIEW OF SYSTEMS: Positive fever. Positive chills. Positive generalized body aches. Positive generalized extremity swelling and generalized pain throughout. Denies any weight loss or night sweats. There is no hemoptysis. CURRENT MEDICATIONS: Include gabapentin, Neurontin, ceftriaxone. PHYSICAL EXAMINATION: General: The patient is an obese male, alert, in no acute distress. Vital signs: T-max 102.8, he is currently 98.7. Blood pressure 128/72. Respiratory rate is 18. HEENT: Head is normocephalic, atraumatic. Neck: Supple. Heart: Regular. S1, S2. Chest: Diminished breath sounds bilaterally. Abdomen: Soft. Obese. Nontender. Extremities: Bilateral edema throughout all 4 extremities. LABORATORY: Sodium 134, BUN 15, creatinine 1.4, CK 551, protein 8.8, albumin 1.5, INR 1.81. WBC 11.2, hemoglobin 10.7, hematocrit 31.9 with platelet count of 304 ,000. Chest x-ray, poor inspiratory effort. No acute infiltrates or effusions. Echocardiogram, normal LV, normal RV, mild tricuspid as well as mitral regurgitation, pulmonary systolic pressure of 39, consistent with moderate pulmonary hypertension. IMPRESSION: 1. Fever, generalized joint pains, lower extremity swelling etiology to be determined whether it is infectious, the patient is being treated for strep. 2. Possible immunologic reaction. 3. Rule out possible malignancy, possible Multiple myeloma. 4. Acute kidney injury. 5. Anemia. 6. Coagulopathy. PLAN: Antibiotics as per infectious disease. Immunologic workup. Consider RALPH , CRP, rheumatoid factor, as well as ESR, consider HIV testing, consider SPEP and IPEP, also obtain CT scan of chest and abdomen. Monitor CBC and INR. Monitor electrolytes. LFTs. ELOY STEEN M.D. [id number] MTDD
[2017-06-17] MEDS ORDERED: guaiFENesin/D-METHORPHAN HB 10 ML UNIT-DOSE CUPS ONE (18:40)
--- NOTE | 2017-06-17 20:40 | CONSULT ---
Consult Consult Specialty:: Nephrology Reason for Consultation:: CKD - History of Present Illness Chief Complaint: fever History of Present Illness: Pt is a 61 year old male with pmhx of obesity and sciatica who presents to the ER complaining of a three week history of fever. He initially went to urgent care who prescribed PCN. He developed a rash after the PCN for which he took benedryl. HE denies weight loss. He complains of bilateral lower extremity pain. Pt also complains of generalized weakness. He denies shortness of breath or palpitations. He denies dysuria or hematuria. 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 He has a long history of heavy NSAID use. He was also found to have elevated total protein. He denies family history of kidney disease. - History Source History Provided By: Patient, Family Member, Medical Record - Past Medical History Musculoskeletal: Yes: Other (sciatica) Additional Medical History: obesity - Alcohol/Substance Use Hx Alcohol Use: Yes - Smoking History Smoking history: Never smoked Have you smoked in the past 12 months: No - Social History Usual Living Arrangement: With Spouse ADL: Independent History of Recent Travel: No Home Medications - Allergies Allergies/Adverse Reactions: Allergies Allergy/AdvReac Type Severity Reaction Status Date / Time iodine Allergy Verified 06/16/17 23:23 shellfish derived Allergy Verified 06/16/17 23:23 - Home Medications Home Medications: Ambulatory Orders Ibuprofen [Motrin -] 800 mg PO TID PRN #21 tablet 11/04/13 Gabapentin [Neurontin -] 100 mg PO Q8H 06/16/17 Family Disease History - Family Disease History Family History: Denies Review of Systems - Review of Systems Constitutional: reports: Fever, Loss of Appetite, Malaise. denies: Chills Eyes: reports: No Symptoms HENT: reports: No Symptoms Neck: reports: No Symptoms Cardiovascular: reports: No Symptoms Respiratory: reports: No Symptoms Gastrointestinal: reports: No Symptoms Genitourinary: reports: No Symptoms Musculoskeletal: reports: Extremity Pain, Muscle Weakness Integumentary: reports: Rash, Other (rash now resolved) Neurological: reports: Weakness Hematology/Lymphatic: reports: No Symptoms Psychiatric: reports: No Symptoms Physical Exam Vital Signs: Vital Signs Temperature 98.7 F 06/17/17 14:15 Pulse Rate 81 06/17/17 14:15 Respiratory Rate 18 06/17/17 14:15 Blood Pressure 128/72 06/17/17 14:15 O2 Sat by Pulse Oximetry (%) 97 06/17/17 09:00 Constitutional: Yes: Calm Eyes: Yes: Conjunctiva Clear HENT: Yes: Atraumatic Neck: Yes: Supple Cardiovascular: Yes: S1, S2 Respiratory: Yes: CTA Bilaterally Gastrointestinal: Yes: Soft, Abdomen, Obese Renal/: Yes: WNL Musculoskeletal: Yes: Muscle Weakness Edema: Yes Edema: LLE: 1+, RLE: 1+ Integumentary: Yes: WNL Neurological: Yes: Oriented Psychiatric: Yes: Oriented Labs: CBC, BMP 06/17/17 00:30 06/17/17 00:30 Laboratory Tests 06/17/17 06/17/17 06/17/17 00:30 00:30 00:30 WBC 11.2 H Hgb 10.7 L PT with INR 20.50 H INR 1.81 H Sodium 134 L Potassium 4.1 BUN 15 Creatinine 1.4 H AST 130 H ALT 84 H Creatine Kinase 551 H Total Protein 8.8 H Urine Protein Urine Blood 06/17/17 06/17/17 04:51 13:27 WBC Hgb PT with INR INR Sodium Potassium BUN Creatinine AST ALT Creatine Kinase 395 H Total Protein Urine Protein Negative Urine Blood Negative Imaging - Results Chest X-ray: Report Reviewed Ultrasound: Report Reviewed Problem List - Problems (1) Anemia Code(s): D64.9 - ANEMIA, UNSPECIFIED (2) CKD (chronic kidney disease) Code(s): N18.9 - CHRONIC KIDNEY DISEASE, UNSPECIFIED (3) Elevated creatine kinase Code(s): R74.8 - ABNORMAL LEVELS OF OTHER SERUM ENZYMES (4) Neuropathy Code(s): G62.9 - POLYNEUROPATHY, UNSPECIFIED Assessment/Plan Current Medications Generic Name Dose Route Start Last Admin Trade Name Freq PRN Reason Stop Dose Admin Acetaminophen 650 mg 06/17/17 19:17 Tylenol - PO Q6H PRN FEVER Gabapentin 100 mg 06/17/17 14:00 06/17/17 14:34 Neurontin - PO 100 mg TID AJ Administration Heparin Sodium (Porcine) 5,000 unit 06/17/17 12:45 06/17/17 17:35 Heparin - SQ Not Given BID AJ CEFTRIAXONE 1 G/50 ML PREMIX 50 mls @ 100 mls/hr 06/18/17 10:00 Ceftriaxone 1 Gm-D5w Bag IVPB DAILY AJ Sodium Chloride 1,000 mls @ 75 mls/hr 06/17/17 19:30 Normal Saline - IV ASDIR AJ Impression 1. likely CKD vs KADIE 2. anemia 3. fevers 4. rash - which has resolved 5. obesity 6. lower ext pain and weekness 7. elevated total protein 8. transaminitis Plan - check renal ultrasound - send spep and upep - urine is negative for blood or protein on ua - check prt produce manager ratio - pt had rash that resolved and muscle weakness, r/o myositis - recommend neuro and rheum eval - will need to r/o myeloma as well - differential is broad at this point, will collect more data and run further testing - repeat labs in am - send blood cultures - will follow pt closely - discussed case in detail and at great length with family who assisted with history - chronic nsaid use may have contributed to renal disease Dr Ugarte
[2017-06-17] MEDS: ACETAMINOPHEN 325 MG TABLET (FP) PO PRN (21:03)
[2017-06-17] MEDS: SODIUM CHLORIDE 1,000 ML IV SCH (21:04)
--- NOTE | 2017-06-17 23:16 | EKG ---
Test Reason : Blood Pressure : / mmHG Vent. Rate : 103 BPM Atrial Rate : 103 BPM P-R Int : 140 ms QRS Dur : 102 ms QT Int : 332 ms P-R-T Axes : 053 -30 016 degrees QTc Int : 434 ms SINUS TACHYCARDIA LEFT AXIS DEVIATION VOLTAGE CRITERIA FOR LEFT VENTRICULAR HYPERTROPHY ABNORMAL ECG NO PREVIOUS ECGS AVAILABLE Confirmed by JOSE MANUEL SALAZAR MD ([id number]) on 06/17/2017 11:16:17 PM Referred By: Confirmed By:JOSE MANUEL SALAZAR MD
[2017-06-18] MEDS: GABAPENTIN 100 MG CAPSULE (FP) PO SCH ×3 (05:46→22:49)
[2017-06-18] MEDS: ACETAMINOPHEN 325 MG TABLET (FP) PO PRN ×2 (05:46→22:52)
[2017-06-18 08:29] LABS: BASO % 0.2 % (0-2.0); EOS % 1.1 % (0-4.5); HEMATOCRIT 28.3 % (35.4-49); HEMOGLOBIN 9.4 GM/dL (11.7-16.9); LYMPH % 10.2 % (8-40); MCHC 33.3 g/dl (32.0-35.9); MEAN CELL VOLUME 81.1 fl (80-96); MONO % 10.1 % (3.8-10.2); NEUT % 78.4 % (42.8-82.8); PLATELET COUNT 248 K/MM3 (134-434); RDW 14.7 % (11.9-15.9); WHITE BLOOD COUNT 9.9 K/mm3 (4.0-10.0)
[2017-06-18 08:38] LABS: INR 1.78 (0.82-1.09); PROTHROMBIN TIME (PATIENT) 20.1 SEC (9.98-11.88)
[2017-06-18 08:40] LABS: ACTIVATED PTT 31.3 SECONDS (26.9-34.4)
[2017-06-18 09:01] LABS: ALBUMIN 1.5 g/dl (3.4-5.0); ANION GAP 7 (8-16); BILIRUBIN,TOTAL 0.9 mg/dL (0.2-1.0); BLOOD UREA NITROGEN 20 mg/dL (7-18); CALCIUM 8.1 mg/dL (8.5-10.1); CHLORIDE 100 mmol/L (98-107); CO2 27 mmol/L (21-32); CREATININE 1.1 mg/dL (0.7-1.3); GLUCOSE,RANDOM 102 mg/dL (74-106); POTASSIUM 4.1 mmol/L (3.5-5.1); SGOT/AST 86 U/L (15-37); SODIUM 134 mmol/L (136-145); TOT PROT 8.1 g/dl (6.4-8.2)
[2017-06-18 09:03] LABS: ALBUMIN 1.5 g/dl (3.4-5.0); ALK PHOS 98 U/L (45-117); ANION GAP 9 (8-16); BLOOD UREA NITROGEN 21 mg/dL (7-18); CHLORIDE 99 mmol/L (98-107); CO2 26 mmol/L (21-32); CREATININE 1.1 mg/dL (0.7-1.3); GLUCOSE,RANDOM 100 mg/dL (74-106); POTASSIUM 4.1 mmol/L (3.5-5.1); SGOT/AST 86 U/L (15-37); SGPT/ALT 64 U/L (12-78); SODIUM 134 mmol/L (136-145)
[2017-06-18 09:06] LABS: ALK PHOS 96 U/L (45-117); BILIRUBIN,TOTAL 0.7 mg/dL (0.2-1.0); SGPT/ALT 65 U/L (12-78); TOT PROT 8.1 g/dl (6.4-8.2)
--- NOTE | 2017-06-18 09:23 | PN ---
Progress Note, Physician Chief Complaint: no acute distress History of Present Illness: echo with dilated LV but normal LV fxn no effusion Mild PHTN which is likely due to body habitus, probable chronic ANJELICA and likely diastolic dysfx - Current Medication List Current Medications: Active Medications Acetaminophen (Tylenol -) 650 mg PO Q6H PRN PRN Reason: FEVER Last Admin: 06/18/17 05:46 Dose: 650 mg Gabapentin (Neurontin -) 100 mg PO TID [facility] Last Admin: 06/18/17 05:46 Dose: 100 mg Heparin Sodium (Porcine) (Heparin -) 5,000 unit SQ BID AJ Last Admin: 06/17/17 21:03 Dose: 5,000 unit CEFTRIAXONE 1 G/50 ML PREMIX (Ceftriaxone 1 Gm-D5w Bag) 50 mls @ 100 mls/hr IVPB DAILY [facility] Sodium Chloride (Normal Saline -) 1,000 mls @ 75 mls/hr IV ASDIR [facility] Last Admin: 06/17/17 21:04 Dose: 75 mls/hr - Objective Vital Signs: Vital Signs Temperature 100.3 F H 06/18/17 06:18 Pulse Rate 104 H 06/18/17 06:18 Respiratory Rate 20 06/18/17 06:18 Blood Pressure 147/71 06/18/17 06:18 O2 Sat by Pulse Oximetry (%) 95 06/17/17 21:00 Constitutional: Yes: Calm Eyes: Yes: Conjunctiva Clear Cardiovascular: Yes: Regular Rate and Rhythm Respiratory: Yes: CTA Bilaterally Gastrointestinal: Yes: Soft, Abdomen, Obese Edema: Yes Edema: LLE: 2+, RLE: 2+ Neurological: Yes: Alert, Oriented ...Motor Strength: WNL Labs: CBC, BMP 06/18/17 07:45 06/18/17 07:45 INR, PTT INR 1.81 (0.82-1.09) H 06/17/17 00:30 Microbiology 06/17/17 00:30 Blood - Peripheral Venous Blood Culture - Preliminary NO GROWTH OBTAINED AFTER 24 HOURS, INCUBATION TO CONTINUE FOR 4 DAYS. 06/17/17 00:30 Blood - Peripheral Venous Blood Culture - Preliminary NO GROWTH OBTAINED AFTER 24 HOURS, INCUBATION TO CONTINUE FOR 4 DAYS. Laboratory Tests 06/18/17 06/18/17 07:45 07:45 WBC 9.9 Hgb 9.4 L D Plt Count 248 Sodium 134 L Potassium 4.1 Creatinine 1.1 Assessment/Plan IMP: Fever Edema PHTN 1. Edema-patient does not clinically appear volume overloaded in fact he appears more likely intravascularily depleted -likely a degree of third spacing given his hypoalbuminemia 1.5 -Would not diurese at this time -Concern for sepsis -Echo shows normal LV function w/ mildly dilated LV 2. fever chills body aches: - recent diagnosis of strep throat -Concerning for sepsis/pneumonia -Possible viral illness which could include influenza -possible strep -infectious disease is evaluating 3. Rash- -Possibly due to current infectious process or side effect to recent penicillin usage; eval as per PMD
[2017-06-18] MEDS: CEFTRIAXONE 1 G/50 ML PREMIX 50 ML IVPB SCH (09:41)
[2017-06-18] MEDS: HEPARIN NA (PORCINE) 5,000 UNITS/ML 1ML VIAL SQ SCH ×2 (09:41→22:49)
--- NOTE | 2017-06-18 12:58 | PN ---
Progress Note, Physician History of Present Illness: PULMONARY ALERT,-RESP DISTRESS, TMAX 100.3. CHEST CT,CT ABD/PELVIS NEGATIVE ACUTE PATHOLOGY - Current Medication List Current Medications: Active Medications Acetaminophen (Tylenol -) 650 mg PO Q6H PRN PRN Reason: FEVER Last Admin: 06/18/17 05:46 Dose: 650 mg Gabapentin (Neurontin -) 100 mg PO TID [facility] Last Admin: 06/18/17 05:46 Dose: 100 mg Heparin Sodium (Porcine) (Heparin -) 5,000 unit SQ BID [facility] Last Admin: 06/18/17 09:41 Dose: 5,000 unit CEFTRIAXONE 1 G/50 ML PREMIX (Ceftriaxone 1 Gm-D5w Bag) 50 mls @ 100 mls/hr IVPB DAILY [facility] Last Admin: 06/18/17 09:41 Dose: 100 mls/hr Sodium Chloride (Normal Saline -) 1,000 mls @ 75 mls/hr IV ASDIR [facility] Last Admin: 06/17/17 21:04 Dose: 75 mls/hr - Objective Vital Signs: Vital Signs Temperature 99.6 F 06/18/17 09:58 Pulse Rate 103 H 06/18/17 09:58 Respiratory Rate 20 06/18/17 09:58 Blood Pressure 153/80 06/18/17 09:58 O2 Sat by Pulse Oximetry (%) 96 06/18/17 09:00 Constitutional: Yes: Calm, Obese Eyes: Yes: WNL HENT: Yes: WNL Neck: Yes: WNL Cardiovascular: Yes: Regular Rate and Rhythm, S1, S2 Respiratory: Yes: Diminished Gastrointestinal: Yes: Normal Bowel Sounds, Soft Extremities: Yes: WNL Edema: Yes Edema: LLE: 3+, RLE: 3+ Labs: CBC, BMP 06/18/17 07:45 06/18/17 07:45 INR, PTT INR 1.78 (0.82-1.09) H 06/18/17 07:45 Laboratory Tests 06/17/17 06/17/17 06/17/17 20:45 20:45 20:45 ESR 65 H C-Reactive Protein 22.2 H Rheumatoid Factor < 10.0 Problem List - Problems (1) Coagulation defect Code(s): D68.9 - COAGULATION DEFECT, UNSPECIFIED (2) Fever Code(s): R50.9 - FEVER, UNSPECIFIED (3) Pulmonary HTN Code(s): I27.20 - PULMONARY HYPERTENSION, UNSPECIFIED (4) Elevated creatine kinase Code(s): R74.8 - ABNORMAL LEVELS OF OTHER SERUM ENZYMES (5) Anasarca Code(s): R60.1 - GENERALIZED EDEMA Assessment/Plan IMP RECENT STREP THROAT S/P RX WITH PCN DEV RASH GENERALIZED EDEMA SECONDARY TO HYPOALBUMENIA ELEVATED TP ? MM,? INFECTIOUS,IMMUNOLOGIC KADIE COAGULOPATHY ELEVATED LFTS PULMONARY HTN SUSPECTED OSAS PLAN ABX PER ID MONITOR LYTES,RENAL FUNCTION MONITOR CBC,INR AVOID NSAIDS HIV SCREEN SLEEP STUDIES OUTPATIENT DR STEEN
--- NOTE | 2017-06-18 14:28 | CON.NEURO ---
Consult - History of Present Illness History of Present Illness: 61 year old male with a significant past medical history of sciatica who presents to the ED with complaints of fever that began 3 weeks ago. As per patient's daughter, patient was taken to urgent care 3 weeks ago for increased fever and body aches and was diagnosed with strep and given penicillin prescription. She reports after finishing prescription over 1 week, patient began to develop rash from the penicillin and began to take benadryl, relieving the rash in 2 days. Patient's daughter reports, patient was then taken to [facility] on June 08 for similar symptoms of increased fever and associated bilateral leg pain and weakness, LE >UE. mild numbness R hand. He reports patient was given X Ray, CT abdomen, flu culture and labs, before being diagnosed with pleuritic chest pain. noted to elevated CPKS, LFTS and elevated total protein, called for eval r/o myopathy. no hx of statin (only new RX was PCN0 , at baseline home walking and drives , now unable to walk. - History Source History Provided By: Patient, Medical Record - Past Medical History Musculoskeletal: Yes: Other (sciatica) Additional Medical History: obesity - Alcohol/Substance Use Hx Alcohol Use: Yes - Smoking History Smoking history: Never smoked Have you smoked in the past 12 months: No - Social History Usual Living Arrangement: With Spouse ADL: Independent History of Recent Travel: No Home Medications - Allergies Allergies/Adverse Reactions: Allergies Allergy/AdvReac Type Severity Reaction Status Date / Time iodine Allergy Verified 06/16/17 23:23 shellfish derived Allergy Verified 06/16/17 23:23 - Home Medications Home Medications: Ambulatory Orders Ibuprofen [Motrin -] 800 mg PO TID PRN #21 tablet 11/04/13 Gabapentin [Neurontin -] 100 mg PO Q8H 06/16/17 Physical Exam-Neuro Vital Signs: Vital Signs Temperature 99.6 F 06/18/17 09:58 Pulse Rate 103 H 06/18/17 09:58 Respiratory Rate 20 06/18/17 09:58 Blood Pressure 153/80 06/18/17 09:58 O2 Sat by Pulse Oximetry (%) 96 06/18/17 09:00 Constitutional: Yes: Mild Distress, Obese Neck: Yes: Supple Cardiovascular: Yes: Regular Rate and Rhythm Edema: LUE: 3+, RUE: 3+, LLE: 3+, RLE: 3+ Labs: CBC, BMP 06/18/17 07:45 06/18/17 07:45 INR, PTT INR 1.78 (0.82-1.09) H 06/18/17 07:45 - Neuro Exam Level Of Consciousness: Yes: Alert (awake and answering requests, EOMI, no facial, no neck stiffness, MOtoro UE 5/5, with best effeort; although weakness in hands intersossei, LE: weakness IP , quads, and hams TA --very limited 2/5( pain /swelling also may be factor) ) Assessment/Plan 61 year old male with a significant past medical history of sciatica who presents to the ED with complaints of fever that began 3 weeks ago. As per patient's daughter, patient was taken to urgent care 3 weeks ago for increased fever and body aches and was diagnosed with strep and given penicillin prescription. progressive weakness of limbs, LE >UE, setting of elevated CPks, LFTS and fever, and signifcant peripheral edema-- suspect underlying hematologic vs rheumatolgic issue at hand , though there may be a component of a neuropathy /myopathy would also check CT LS spine just to ensure no epidural abscess ( wont fit in MRI machine) FU sent labs, rheum/Hem check EMG (NC will be low yield given edema) , FU cpks Dr Redi
[2017-06-18] MEDS: SODIUM CHLORIDE 1,000 ML IV SCH ×2 (14:35→22:49)
--- NOTE | 2017-06-18 15:11 | PN ---
Progress Note, Physician History of Present Illness: patient much more awake and alert family in the room no complaints still weak - Current Medication List Current Medications: Active Medications Acetaminophen (Tylenol -) 650 mg PO Q6H PRN PRN Reason: FEVER Last Admin: 06/18/17 05:46 Dose: 650 mg Gabapentin (Neurontin -) 100 mg PO TID [facility] Last Admin: 06/18/17 14:35 Dose: 100 mg Heparin Sodium (Porcine) (Heparin -) 5,000 unit SQ BID [facility] Last Admin: 06/18/17 09:41 Dose: 5,000 unit CEFTRIAXONE 1 G/50 ML PREMIX (Ceftriaxone 1 Gm-D5w Bag) 50 mls @ 100 mls/hr IVPB DAILY [facility] Last Admin: 06/18/17 09:41 Dose: 100 mls/hr Sodium Chloride (Normal Saline -) 1,000 mls @ 75 mls/hr IV ASDIR [facility] Last Admin: 06/18/17 14:35 Dose: 75 mls/hr Oseltamivir Phosphate (Tamiflu -) 75 mg PO BID [facility] Stop: 06/23/17 21:59 - Objective Vital Signs: Vital Signs Temperature 99.7 F H 06/18/17 15:03 Pulse Rate 99 H 06/18/17 15:03 Respiratory Rate 20 06/18/17 09:58 Blood Pressure 146/87 06/18/17 15:03 O2 Sat by Pulse Oximetry (%) 96 06/18/17 09:00 Constitutional: Yes: No Distress, Calm Cardiovascular: Yes: Regular Rate and Rhythm Respiratory: Yes: Regular, Other (poor air entry) Musculoskeletal: Yes: WNL Extremities: Yes: Other Neurological: Yes: Alert, Oriented Psychiatric: Yes: Alert, Oriented Labs: CBC, BMP 06/18/17 07:45 06/18/17 07:45 INR, PTT INR 1.78 (0.82-1.09) H 06/18/17 07:45 Assessment/Plan r/o infective process ct disorder cardiac process sepsis plan will start tamiflu continue ceftriaxone rest await for all work up discussed with family in detail
--- NOTE | 2017-06-18 16:03 | PN ---
Progress Note, Physician History of Present Illness: Pt seen and examined at bedside. He feels a little better than he did yesterday. He denies shortness of breath however he now is on oxygen. - Current Medication List Current Medications: Active Medications Acetaminophen (Tylenol -) 650 mg PO Q6H PRN PRN Reason: FEVER Last Admin: 06/18/17 05:46 Dose: 650 mg Gabapentin (Neurontin -) 100 mg PO TID [facility] Last Admin: 06/18/17 14:35 Dose: 100 mg Heparin Sodium (Porcine) (Heparin -) 5,000 unit SQ BID [facility] Last Admin: 06/18/17 09:41 Dose: 5,000 unit CEFTRIAXONE 1 G/50 ML PREMIX (Ceftriaxone 1 Gm-D5w Bag) 50 mls @ 100 mls/hr IVPB DAILY [facility] Last Admin: 06/18/17 09:41 Dose: 100 mls/hr Sodium Chloride (Normal Saline -) 1,000 mls @ 75 mls/hr IV ASDIR [facility] Last Admin: 06/18/17 14:35 Dose: 75 mls/hr Oseltamivir Phosphate (Tamiflu -) 75 mg PO BID [facility] Stop: 06/23/17 21:59 - Objective Vital Signs: Vital Signs Temperature 99.7 F H 06/18/17 15:03 Pulse Rate 99 H 06/18/17 15:03 Respiratory Rate 20 06/18/17 09:58 Blood Pressure 146/87 06/18/17 15:03 O2 Sat by Pulse Oximetry (%) 96 06/18/17 09:00 Constitutional: Yes: Calm Eyes: Yes: Conjunctiva Clear HENT: Yes: Atraumatic Neck: Yes: Supple Cardiovascular: Yes: S1, S2 Respiratory: Yes: CTA Bilaterally, On Nasal O2 Gastrointestinal: Yes: Soft, Abdomen, Obese Genitourinary: Yes: WNL Musculoskeletal: Yes: Muscle Weakness Edema: Yes Edema: LLE: 1+, RLE: 1+ Neurological: Yes: Oriented Psychiatric: Yes: Oriented Labs: CBC, BMP 06/18/17 07:45 06/18/17 07:45 INR, PTT INR 1.78 (0.82-1.09) H 06/18/17 07:45 Problem List - Problems (1) Anemia Code(s): D64.9 - ANEMIA, UNSPECIFIED (2) CKD (chronic kidney disease) Code(s): N18.9 - CHRONIC KIDNEY DISEASE, UNSPECIFIED (3) Elevated creatine kinase Code(s): R74.8 - ABNORMAL LEVELS OF OTHER SERUM ENZYMES (4) Neuropathy Code(s): G62.9 - POLYNEUROPATHY, UNSPECIFIED Assessment/Plan Current Medications Generic Name Dose Route Start Last Admin Trade Name Freq PRN Reason Stop Dose Admin Acetaminophen 650 mg 06/17/17 19:17 06/18/17 05:46 Tylenol - PO 650 mg Q6H PRN Administration FEVER Gabapentin 100 mg 06/17/17 14:00 06/18/17 14:35 Neurontin - PO 100 mg TID AJ Administration Heparin Sodium (Porcine) 5,000 unit 06/17/17 12:45 06/18/17 09:41 Heparin - SQ 5,000 unit BID AJ Administration CEFTRIAXONE 1 G/50 ML PREMIX 50 mls @ 100 mls/hr 06/18/17 10:00 06/18/17 09: 41 Ceftriaxone 1 Gm-D5w Bag IVPB 100 mls/hr DAILY AJ Administration Sodium Chloride 1,000 mls @ 75 mls/hr 06/17/17 19:30 06/18/17 14:35 Normal Saline - IV 75 mls/hr ASDIR AJ Administration Oseltamivir Phosphate 75 mg 06/18/17 22:00 Tamiflu - PO 06/23/17 21:59 BID AJ Laboratory Tests 06/17/17 06/17/17 06/18/17 20:45 20:45 07:45 IgG Pending IgA Pending IgM Pending DOREEN & SPEP Interp Pending Rheumatoid Factor < 10.0 RALPH Screen Pending c-ANCA p-ANCA Atypical p-ANCA Myeloperoxidase Ab GERMAN-1 Antibody 06/18/17 06/18/17 07:45 07:45 IgG IgA IgM DOREEN & SPEP Interp Rheumatoid Factor RALPH Screen c-ANCA Pending p-ANCA Pending Atypical p-ANCA Pending Myeloperoxidase Ab Pending GERMAN-1 Antibody Pending Impression 1. likely CKD vs KADIE 2. anemia 3. fevers 4. rash - which has resolved 5. obesity 6. lower ext pain and weekness 7. elevated total protein 8. transaminitis Plan - workup is in progress - will decrease rate of fluids for now - repeat labs in am - rheumatology evaluation - discussed with neurology - cont to follow cultures - chronic nsaid use may have contributed to renal disease Dr Ugarte
--- NOTE | 2017-06-18 17:32 | PN ---
Progress Note, Physician History of Present Illness: no new complaints - Current Medication List Current Medications: Active Medications Acetaminophen (Tylenol -) 650 mg PO Q6H PRN PRN Reason: FEVER Last Admin: 06/18/17 05:46 Dose: 650 mg Gabapentin (Neurontin -) 100 mg PO TID [facility] Last Admin: 06/18/17 14:35 Dose: 100 mg Heparin Sodium (Porcine) (Heparin -) 5,000 unit SQ BID [facility] Last Admin: 06/18/17 09:41 Dose: 5,000 unit CEFTRIAXONE 1 G/50 ML PREMIX (Ceftriaxone 1 Gm-D5w Bag) 50 mls @ 100 mls/hr IVPB DAILY [facility] Last Admin: 06/18/17 09:41 Dose: 100 mls/hr Sodium Chloride (Normal Saline -) 1,000 mls @ 40 mls/hr IV ASDIR [facility] Oseltamivir Phosphate (Tamiflu -) 75 mg PO BID [facility] Stop: 06/23/17 21:59 - Objective Vital Signs: Vital Signs Temperature 99.7 F H 06/18/17 15:03 Pulse Rate 99 H 06/18/17 15:03 Respiratory Rate 20 06/18/17 09:58 Blood Pressure 146/87 06/18/17 15:03 O2 Sat by Pulse Oximetry (%) 96 06/18/17 09:00 Constitutional: Yes: No Distress HENT: Yes: Atraumatic Neck: Yes: Supple Cardiovascular: Yes: Regular Rate and Rhythm Respiratory: Yes: CTA Bilaterally Gastrointestinal: Yes: Normal Bowel Sounds Edema: RUE: 3+, LLE: 3+ Neurological: Yes: Alert, Oriented Labs: CBC, BMP 06/18/17 07:45 06/18/17 07:45 INR, PTT INR 1.78 (0.82-1.09) H 06/18/17 07:45 Problem List - Problems (1) Neuropathy Assessment/Plan: pt is on gabapentin will get neuro involved Code(s): G62.9 - POLYNEUROPATHY, UNSPECIFIED (2) Elevated creatine kinase Assessment/Plan: rhabdo iv hydration Code(s): R74.8 - ABNORMAL LEVELS OF OTHER SERUM ENZYMES (3) Elevated serum creatinine Assessment/Plan: ckd? monitor iv hydration nephroconsult Code(s): R79.89 - OTHER SPECIFIED ABNORMAL FINDINGS OF BLOOD CHEMISTRY (4) Anasarca Code(s): R60.1 - GENERALIZED EDEMA (5) Anemia Assessment/Plan: chronic? hematology consult reviewed Code(s): D64.9 - ANEMIA, UNSPECIFIED (6) CKD (chronic kidney disease) Code(s): N18.9 - CHRONIC KIDNEY DISEASE, UNSPECIFIED (7) Coagulation defect Code(s): D68.9 - COAGULATION DEFECT, UNSPECIFIED (8) Fever Assessment/Plan: cxs negative on abx Code(s): R50.9 - FEVER, UNSPECIFIED
[2017-06-18] MEDS: OSELTAMIVIR PHOSPHATE 75 MG CAPSULE PO SCH (22:49)
[2017-06-19 06:09] LABS: SERUM IRON SATURATION 17 (15-55); TOTAL IRON BINDING CAPACITY 126 (250-450); UIBC 105 ug/dL (111-343)
[2017-06-19] MEDS: GABAPENTIN 100 MG CAPSULE (FP) PO SCH ×3 (06:20→22:50)
[2017-06-19 08:08] LABS: BASO % 0.4 % (0-2.0); EOS % 0.5 % (0-4.5); HEMATOCRIT 29.6 % (35.4-49); HEMOGLOBIN 9.7 GM/dL (11.7-16.9); LYMPH % 10.5 % (8-40); MCH 26.4 pg (25.7-33.7); MCHC 32.9 g/dl (32.0-35.9); MEAN CELL VOLUME 80.3 fl (80-96); MEAN PLT VOLUME 8.7 fl (7.5-11.1); MONO % 10.4 % (3.8-10.2); NEUT % 78.2 % (42.8-82.8); PLATELET COUNT 257 K/MM3 (134-434); RBC 3.69 M/mm3 (4.00-5.60); RDW 14.6 % (11.9-15.9); WHITE BLOOD COUNT 10.2 K/mm3 (4.0-10.0)
[2017-06-19 08:38] LABS: ALBUMIN 1.4 g/dl (3.4-5.0); ANION GAP 8 (8-16); BLOOD UREA NITROGEN 16 mg/dL (7-18); CALCIUM 8.5 mg/dL (8.5-10.1); CHLORIDE 99 mmol/L (98-107); CO2 26 mmol/L (21-32); GLUCOSE,RANDOM 138 mg/dL (74-106); POTASSIUM 4.3 mmol/L (3.5-5.1); SODIUM 133 mmol/L (136-145)
[2017-06-19 08:44] LABS: ALK PHOS 105 U/L (45-117); BILIRUBIN,TOTAL 0.9 mg/dL (0.2-1.0); CREATININE 0.9 mg/dL (0.7-1.3); SGOT/AST 80 U/L (15-37); SGPT/ALT 63 U/L (12-78); TOT PROT 8.3 g/dl (6.4-8.2)
[2017-06-19] MEDS: OSELTAMIVIR PHOSPHATE 75 MG CAPSULE PO SCH ×2 (09:01→22:50)
[2017-06-19] MEDS: CEFTRIAXONE 1 G/50 ML PREMIX 50 ML IVPB SCH (09:02)
--- NOTE | 2017-06-19 09:04 | CONSULT ---
Consult Consult Specialty:: Rheumatology - History of Present Illness History of Present Illness: 61 year old male with a significant past medical history of morbid obesity and sciatica admitted with fever, edema of lower limbs and weakness. HPI. Three weeks ago the patient developed sore throat, fever and aches and pains. He was started on Penicillin and apparently later on on another antibiotic. He developed a skin rash treated with [place] since then he has had fever, back pain when he stands up, weakness and peroigression of edema in lower limbs (he usually has some edema). The patient was not able to walk, he was seen at the ER of [facility] on 06/09/17, and then admitted to [facility] on . At the present time he reports he is feeling better, he does not have pain when resting in bed and edema of lower limbs improved. On admission Temp was 102.8, on 06/18 T max 100.3 and then not febrile. He was started on Ceftriaxone. Work-up: ESR 65, creatinine on admission 1.4 and today 0.9, CK 551 and today 188 , AST: 130 and now 80, ALT: 84 now 63. ECHO: LV mildly dilated, Ej.Fr 55-60% pulm syst pressure 39. No pericardial effusion. CT chest and abdomen: mild bibasilar atelectasis, mild spenomegaly. - Past Medical History Musculoskeletal: Yes: Other (sciatica) Additional Medical History: obesity - Alcohol/Substance Use Hx Alcohol Use: Yes - Smoking History Smoking history: Never smoked Have you smoked in the past 12 months: No - Social History Usual Living Arrangement: With Spouse ADL: Independent History of Recent Travel: No Home Medications - Allergies Allergies/Adverse Reactions: Allergies Allergy/AdvReac Type Severity Reaction Status Date / Time iodine Allergy Verified 06/16/17 23:23 shellfish derived Allergy Verified 06/16/17 23:23 - Home Medications Home Medications: Ambulatory Orders Ibuprofen [Motrin -] 800 mg PO TID PRN #21 tablet 11/04/13 Gabapentin [Neurontin -] 100 mg PO Q8H 06/16/17 Review of Systems - Review of Systems Constitutional: reports: Lethargy, Malaise Eyes: reports: No Symptoms HENT: reports: No Symptoms Neck: reports: No Symptoms Cardiovascular: reports: No Symptoms Respiratory: reports: No Symptoms Gastrointestinal: reports: No Symptoms Musculoskeletal: reports: Muscle Weakness (No peripheral joint pain.), Other Physical Exam Vital Signs: Vital Signs Temperature 99.0 F 06/19/17 07:05 Pulse Rate 103 H 06/19/17 07:05 Respiratory Rate 20 06/19/17 07:05 Blood Pressure 114/75 06/19/17 07:05 O2 Sat by Pulse Oximetry (%) 96 06/18/17 21:00 Constitutional: Yes: Mild Distress Eyes: Yes: WNL HENT: Yes: WNL Neck: Yes: WNL Cardiovascular: Yes: WNL Respiratory: Yes: WNL Gastrointestinal: Yes: WNL Musculoskeletal: Yes: Other (No active joints. Mild edema in hands and feet.) Labs: CBC, BMP 06/19/17 07:33 06/19/17 07:35 Problem List - Problems (1) Elevated creatine kinase Assessment/Plan: Probable mild rhabdomyolysis related to septic process, improving. It is unlikely to have epidural abscess or connective tissue disease. Plan: Continue with PT and same medications. Code(s): R74.8 - ABNORMAL LEVELS OF OTHER SERUM ENZYMES
--- NOTE | 2017-06-19 10:31 | PN ---
Progress Note, Physician Chief Complaint: no acute complaints - Current Medication List Current Medications: Active Medications Acetaminophen (Tylenol -) 650 mg PO Q6H PRN PRN Reason: FEVER Last Admin: 06/18/17 22:52 Dose: 650 mg Gabapentin (Neurontin -) 100 mg PO TID [facility] Last Admin: 06/19/17 06:20 Dose: 100 mg Heparin Sodium (Porcine) (Heparin -) 5,000 unit SQ BID [facility] Last Admin: 06/18/17 22:49 Dose: 5,000 unit CEFTRIAXONE 1 G/50 ML PREMIX (Ceftriaxone 1 Gm-D5w Bag) 50 mls @ 100 mls/hr IVPB DAILY [facility] Last Admin: 06/19/17 09:02 Dose: 100 mls/hr Sodium Chloride (Normal Saline -) 1,000 mls @ 40 mls/hr IV ASDIR [facility] Last Admin: 06/18/17 22:49 Dose: 40 mls/hr Oseltamivir Phosphate (Tamiflu -) 75 mg PO BID [facility] Stop: 06/23/17 21:59 Last Admin: 06/19/17 09:01 Dose: 75 mg - Objective Vital Signs: Vital Signs Temperature 99.0 F 06/19/17 07:05 Pulse Rate 103 H 06/19/17 07:05 Respiratory Rate 20 06/19/17 07:05 Blood Pressure 114/75 06/19/17 07:05 O2 Sat by Pulse Oximetry (%) 96 06/18/17 21:00 Constitutional: Yes: No Distress Eyes: Yes: Conjunctiva Clear Cardiovascular: Yes: Regular Rate and Rhythm Respiratory: Yes: CTA Bilaterally Gastrointestinal: Yes: Soft, Abdomen, Obese Edema: Yes Edema: LLE: 1+, RLE: 1+ Neurological: Yes: Alert, Oriented Labs: CBC, BMP 06/19/17 07:33 06/19/17 07:35 INR, PTT INR 1.78 (0.82-1.09) H 06/18/17 07:45 Laboratory Tests 06/19/17 06/19/17 07:33 07:35 WBC 10.2 H Hgb 9.7 L Plt Count 257 Sodium 133 L Potassium 4.3 Creatinine 0.9 Assessment/Plan IMP: Fever Edema PHTN 1. Edema-patient does not clinically appear volume overloaded in fact he appears more likely intravascularily depleted -likely a degree of third spacing given his hypoalbuminemia 1.5 -Would not diurese at this time -Concern for sepsis -Echo shows normal LV function w/ mildly dilated LV 2. fever chills body aches: - recent diagnosis of strep throat -Concerning for sepsis/pneumonia -Possible viral illness which could include influenza -possible strep -infectious disease is evaluating 3. Rash- -Possibly due to current infectious process or side effect to recent penicillin usage; eval as per PMD
--- NOTE | 2017-06-19 11:34 | PN ---
Progress Note, Physician History of Present Illness: PULMONARY AWAKE,FEELING BETTER,-RESP DISTRESS. - Current Medication List Current Medications: Active Medications Acetaminophen (Tylenol -) 650 mg PO Q6H PRN PRN Reason: FEVER Last Admin: 06/18/17 22:52 Dose: 650 mg Gabapentin (Neurontin -) 100 mg PO TID [facility] Last Admin: 06/19/17 06:20 Dose: 100 mg Heparin Sodium (Porcine) (Heparin -) 5,000 unit SQ BID [facility] Last Admin: 06/18/17 22:49 Dose: 5,000 unit CEFTRIAXONE 1 G/50 ML PREMIX (Ceftriaxone 1 Gm-D5w Bag) 50 mls @ 100 mls/hr IVPB DAILY [facility] Last Admin: 06/19/17 09:02 Dose: 100 mls/hr Sodium Chloride (Normal Saline -) 1,000 mls @ 40 mls/hr IV ASDIR [facility] Last Admin: 06/18/17 22:49 Dose: 40 mls/hr Oseltamivir Phosphate (Tamiflu -) 75 mg PO BID [facility] Stop: 06/23/17 21:59 Last Admin: 06/19/17 09:01 Dose: 75 mg - Objective Vital Signs: Vital Signs Temperature 99.0 F 06/19/17 07:05 Pulse Rate 103 H 06/19/17 07:05 Respiratory Rate 20 06/19/17 07:05 Blood Pressure 114/75 06/19/17 07:05 O2 Sat by Pulse Oximetry (%) 96 06/18/17 21:00 Constitutional: Yes: Well Nourished, Calm, Obese Eyes: Yes: WNL HENT: Yes: WNL Neck: Yes: WNL Cardiovascular: Yes: Regular Rate and Rhythm, S1, S2 Respiratory: Yes: Diminished Gastrointestinal: Yes: Normal Bowel Sounds, Soft Extremities: Yes: WNL Edema: Yes Labs: CBC, BMP 06/19/17 07:33 06/19/17 07:35 INR, PTT INR 1.78 (0.82-1.09) H 06/18/17 07:45 Problem List - Problems (1) Coagulation defect Code(s): D68.9 - COAGULATION DEFECT, UNSPECIFIED (2) Fever Code(s): R50.9 - FEVER, UNSPECIFIED (3) Pulmonary HTN Code(s): I27.20 - PULMONARY HYPERTENSION, UNSPECIFIED (4) Elevated creatine kinase Code(s): R74.8 - ABNORMAL LEVELS OF OTHER SERUM ENZYMES (5) Anasarca Code(s): R60.1 - GENERALIZED EDEMA Assessment/Plan IMP RECENT STREP THROAT S/P RX WITH PCN DEV RASH GENERALIZED EDEMA SECONDARY TO HYPOALBUMENIA ELEVATED TP ? MM,? INFECTIOUS,IMMUNOLOGIC KADIE IMPROVED COAGULOPATHY ELEVATED LFTS PULMONARY HTN SUSPECTED OSAS PLAN ABX PER ID MONITOR LYTES,RENAL FUNCTION MONITOR CBC,INR AVOID NSAIDS HIV SCREEN SLEEP STUDIES OUTPATIENT DR STEEN
[2017-06-19] MEDS: HEPARIN NA (PORCINE) 5,000 UNITS/ML 1ML VIAL SQ SCH ×2 (13:33→21:54)
--- NOTE | 2017-06-19 13:33 | PN ---
Progress Note, Physician History of Present Illness: Pt seen and examined at bedside. He is awake and alert. He feels a little better today. - Current Medication List Current Medications: Active Medications Acetaminophen (Tylenol -) 650 mg PO Q6H PRN PRN Reason: FEVER Last Admin: 06/18/17 22:52 Dose: 650 mg Gabapentin (Neurontin -) 100 mg PO TID [facility] Last Admin: 06/19/17 06:20 Dose: 100 mg Heparin Sodium (Porcine) (Heparin -) 5,000 unit SQ BID [facility] Last Admin: 06/18/17 22:49 Dose: 5,000 unit CEFTRIAXONE 1 G/50 ML PREMIX (Ceftriaxone 1 Gm-D5w Bag) 50 mls @ 100 mls/hr IVPB DAILY [facility] Last Admin: 06/19/17 09:02 Dose: 100 mls/hr Sodium Chloride (Normal Saline -) 1,000 mls @ 40 mls/hr IV ASDIR [facility] Last Admin: 06/18/17 22:49 Dose: 40 mls/hr Oseltamivir Phosphate (Tamiflu -) 75 mg PO BID [facility] Stop: 06/23/17 21:59 Last Admin: 06/19/17 09:01 Dose: 75 mg - Objective Vital Signs: Vital Signs Temperature 99.0 F 06/19/17 07:05 Pulse Rate 103 H 06/19/17 07:05 Respiratory Rate 20 06/19/17 07:05 Blood Pressure 114/75 06/19/17 07:05 O2 Sat by Pulse Oximetry (%) 96 06/18/17 21:00 Constitutional: Yes: Calm Eyes: Yes: Conjunctiva Clear HENT: Yes: Atraumatic Cardiovascular: Yes: S1, S2 Respiratory: Yes: On Nasal O2 Gastrointestinal: Yes: Soft, Abdomen, Obese Genitourinary: Yes: WNL Musculoskeletal: Yes: Muscle Weakness Edema: Yes Edema: LLE: 1+, RLE: 1+ Neurological: Yes: Oriented Psychiatric: Yes: Oriented Labs: CBC, BMP 06/19/17 07:33 06/19/17 07:35 INR, PTT INR 1.78 (0.82-1.09) H 06/18/17 07:45 Problem List - Problems (1) Anemia Code(s): D64.9 - ANEMIA, UNSPECIFIED (2) CKD (chronic kidney disease) Code(s): N18.9 - CHRONIC KIDNEY DISEASE, UNSPECIFIED (3) Elevated creatine kinase Code(s): R74.8 - ABNORMAL LEVELS OF OTHER SERUM ENZYMES (4) Neuropathy Code(s): G62.9 - POLYNEUROPATHY, UNSPECIFIED Assessment/Plan Current Medications Generic Name Dose Route Start Last Admin Trade Name Freq PRN Reason Stop Dose Admin Acetaminophen 650 mg 06/17/17 19:17 06/18/17 22:52 Tylenol - PO 650 mg Q6H PRN Administration FEVER Gabapentin 100 mg 06/17/17 14:00 06/19/17 06:20 Neurontin - PO 100 mg TID AJ Administration Heparin Sodium (Porcine) 5,000 unit 06/17/17 12:45 06/18/17 22:49 Heparin - SQ 5,000 unit BID AJ Administration CEFTRIAXONE 1 G/50 ML PREMIX 50 mls @ 100 mls/hr 06/18/17 10:00 06/19/17 09: 02 Ceftriaxone 1 Gm-D5w Bag IVPB 100 mls/hr DAILY AJ Administration Sodium Chloride 1,000 mls @ 40 mls/hr 06/18/17 16:03 06/18/17 22:49 Normal Saline - IV 40 mls/hr ASDIR AJ Administration Oseltamivir Phosphate 75 mg 06/18/17 22:00 06/19/17 09:01 Tamiflu - PO 06/23/17 21:59 75 mg BID AJ Administration Laboratory Tests 06/17/17 06/17/17 06/18/17 20:45 20:45 07:45 Creatinine Total Protein (PEP) M-Murali % TSH 3.06 Urine Total Protein Urine PEP Interpret Rheumatoid Factor < 10.0 RALPH Screen Pending GERMAN-1 Antibody 06/18/17 06/18/17 06/19/17 07:45 18:15 07:35 Creatinine 0.9 Total Protein (PEP) Pending M-Murali % Pending TSH Urine Total Protein Pending Urine PEP Interpret Pending Rheumatoid Factor RALPH Screen GERMAN-1 Antibody Pending Impression 1. likely CKD vs KADIE 2. anemia 3. fevers 4. rash - which has resolved 5. obesity 6. lower ext pain and weekness 7. elevated total protein 8. transaminitis Plan - renal function is improved today - follow up renal function - check bladder scan tomorrow - urology eval for urinary retention - rheum eval appreciated - follow cultures - repeat cpk - chronic nsaid use may have contributed to renal disease Dr Ugarte
--- NOTE | 2017-06-19 14:10 | PN ---
Progress Note, Physician History of Present Illness: patient feeling much better has been afebrile now for some time weakness worried about the leg swelling - Current Medication List Current Medications: Active Medications Acetaminophen (Tylenol -) 650 mg PO Q6H PRN PRN Reason: FEVER Last Admin: 06/18/17 22:52 Dose: 650 mg Gabapentin (Neurontin -) 100 mg PO TID [facility] Last Admin: 06/19/17 06:20 Dose: 100 mg Heparin Sodium (Porcine) (Heparin -) 5,000 unit SQ BID [facility] Last Admin: 06/19/17 13:33 Dose: Not Given CEFTRIAXONE 1 G/50 ML PREMIX (Ceftriaxone 1 Gm-D5w Bag) 50 mls @ 100 mls/hr IVPB DAILY [facility] Last Admin: 06/19/17 09:02 Dose: 100 mls/hr Sodium Chloride (Normal Saline -) 1,000 mls @ 40 mls/hr IV ASDIR [facility] Last Admin: 06/18/17 22:49 Dose: 40 mls/hr Oseltamivir Phosphate (Tamiflu -) 75 mg PO BID [facility] Stop: 06/23/17 21:59 Last Admin: 06/19/17 09:01 Dose: 75 mg - Objective Vital Signs: Vital Signs Temperature 99.0 F 06/19/17 07:05 Pulse Rate 103 H 06/19/17 07:05 Respiratory Rate 20 06/19/17 07:05 Blood Pressure 114/75 06/19/17 07:05 O2 Sat by Pulse Oximetry (%) 96 06/18/17 21:00 Constitutional: Yes: No Distress, Calm, Obese Cardiovascular: Yes: Regular Rate and Rhythm Respiratory: Yes: Regular, CTA Bilaterally Gastrointestinal: Yes: Normal Bowel Sounds, Soft Musculoskeletal: Yes: WNL Extremities: Yes: Other Edema: LLE: 2+, RLE: 2+ Neurological: Yes: Alert, Oriented Psychiatric: Yes: Alert, Oriented Labs: CBC, BMP 06/19/17 07:33 06/19/17 07:35 INR, PTT INR 1.78 (0.82-1.09) H 06/18/17 07:45 Assessment/Plan r/o infective process ct disorder cardiac process sepsis plan will start tamiflu will stop abx watch without abx rest as per primary team
[2017-06-19 14:15] LABS: JO-1 ANTIBODY <0.2 AI (0.0-0.9)
--- NOTE | 2017-06-19 16:31 | PN ---
Progress Note (short form) - Note Progress Note: Pt seen and examined. says he is improving. Cr normalized. Seen by rhannam. O/E: General: Obese in NAD HEENT: NCAT Abd: obese LE: 2+ Pitting edema Lungs: CtA b/l Neuro: AAOx3 Last Vital Signs Temp Pulse Resp BP Pulse Ox 100.0 F H 105 H 20 158/85 96 06/19/17 14:36 06/19/17 14:36 06/19/17 07:05 06/19/17 14:36 06/18/17 21:00 CBC, BMP 06/19/17 07:33 06/19/17 07:35 Current Medications Generic Name Dose Route Start Last Admin Trade Name Freq PRN Reason Stop Dose Admin Acetaminophen 650 mg 06/17/17 19:17 06/18/17 22:52 Tylenol - PO 650 mg Q6H PRN Administration FEVER Gabapentin 100 mg 06/17/17 14:00 06/19/17 06:20 Neurontin - PO 100 mg TID AJ Administration Heparin Sodium (Porcine) 5,000 unit 06/17/17 12:45 06/19/17 13:33 Heparin - SQ Not Given BID AJ CEFTRIAXONE 1 G/50 ML PREMIX 50 mls @ 100 mls/hr 06/18/17 10:00 06/19/17 09: 02 Ceftriaxone 1 Gm-D5w Bag IVPB 100 mls/hr DAILY AJ Administration Sodium Chloride 1,000 mls @ 40 mls/hr 06/18/17 16:03 06/18/17 22:49 Normal Saline - IV 40 mls/hr ASDIR AJ Administration Oseltamivir Phosphate 75 mg 06/18/17 22:00 06/19/17 09:01 Tamiflu - PO 06/23/17 21:59 75 mg BID AJ Administration Still awaiting Protein studies, suspicious for a monoclonal disorder. Anemia, anemia of chronic disease Now on tamiflu Rheum consult noted. supportive care
--- NOTE | 2017-06-19 18:26 | PN ---
Progress Note, Physician History of Present Illness: no new complaints - Current Medication List Current Medications: Active Medications Acetaminophen (Tylenol -) 650 mg PO Q6H PRN PRN Reason: FEVER Last Admin: 06/18/17 22:52 Dose: 650 mg Gabapentin (Neurontin -) 100 mg PO TID [facility] Last Admin: 06/19/17 17:13 Dose: 100 mg Heparin Sodium (Porcine) (Heparin -) 5,000 unit SQ BID [facility] Last Admin: 06/19/17 13:33 Dose: Not Given CEFTRIAXONE 1 G/50 ML PREMIX (Ceftriaxone 1 Gm-D5w Bag) 50 mls @ 100 mls/hr IVPB DAILY [facility] Last Admin: 06/19/17 09:02 Dose: 100 mls/hr Sodium Chloride (Normal Saline -) 1,000 mls @ 40 mls/hr IV ASDIR [facility] Last Admin: 06/18/17 22:49 Dose: 40 mls/hr Oseltamivir Phosphate (Tamiflu -) 75 mg PO BID [facility] Stop: 06/23/17 21:59 Last Admin: 06/19/17 09:01 Dose: 75 mg - Objective Vital Signs: Vital Signs Temperature 100.0 F H 06/19/17 14:36 Pulse Rate 105 H 06/19/17 14:36 Respiratory Rate 20 06/19/17 07:05 Blood Pressure 158/85 06/19/17 14:36 O2 Sat by Pulse Oximetry (%) 96 06/18/17 21:00 Constitutional: Yes: No Distress HENT: Yes: Atraumatic Neck: Yes: Supple Cardiovascular: Yes: Regular Rate and Rhythm Respiratory: Yes: CTA Bilaterally Gastrointestinal: Yes: Normal Bowel Sounds Extremities: Yes: WNL Edema: RUE: 3+ (non pitting edema), LLE: 3+ Peripheral Pulses WNL: Yes Neurological: Yes: Alert, Oriented Labs: CBC, BMP 06/19/17 07:33 06/19/17 07:35 INR, PTT INR 1.78 (0.82-1.09) H 06/18/17 07:45 Problem List - Problems (1) Neuropathy Assessment/Plan: pt is on gabapentin better Code(s): G62.9 - POLYNEUROPATHY, UNSPECIFIED (2) Elevated creatine kinase Assessment/Plan: rhabdo iv hydration Code(s): R74.8 - ABNORMAL LEVELS OF OTHER SERUM ENZYMES (3) Elevated serum creatinine Assessment/Plan: ckd? monitor iv hydration nephroconsult Code(s): R79.89 - OTHER SPECIFIED ABNORMAL FINDINGS OF BLOOD CHEMISTRY (4) Anasarca Code(s): R60.1 - GENERALIZED EDEMA (5) Anemia Assessment/Plan: chronic? hematology consult reviewed Code(s): D64.9 - ANEMIA, UNSPECIFIED (6) CKD (chronic kidney disease) Code(s): N18.9 - CHRONIC KIDNEY DISEASE, UNSPECIFIED (7) Fever Assessment/Plan: cxs negative on abx Code(s): R50.9 - FEVER, UNSPECIFIED
[2017-06-19] MEDS: ACETAMINOPHEN 325 MG TABLET (FP) PO PRN (22:50)
[2017-06-19] MEDS: SODIUM CHLORIDE 1,000 ML IV SCH (22:52)
[2017-06-20] MEDS: GABAPENTIN 100 MG CAPSULE (FP) PO SCH ×3 (06:25→22:12)
[2017-06-20 06:51] LABS: HEMATOCRIT 28.6 % (35.4-49); HEMOGLOBIN 9.6 GM/dL (11.7-16.9); MCHC 33.6 g/dl (32.0-35.9); MEAN CELL VOLUME 80.3 fl (80-96); MEAN PLT VOLUME 9.1 fl (7.5-11.1); PLATELET COUNT 259 K/MM3 (134-434); RBC 3.56 M/mm3 (4.00-5.60); RDW 14.6 % (11.9-15.9); WHITE BLOOD COUNT 11.3 K/mm3 (4.0-10.0)
[2017-06-20 06:59] LABS: ALBUMIN 1.3 g/dl (3.4-5.0); ALK PHOS 120 U/L (45-117); ANION GAP 9 (8-16); BILIRUBIN,TOTAL 0.7 mg/dL (0.2-1.0); BLOOD UREA NITROGEN 19 mg/dL (7-18); CALCIUM 9.1 mg/dL (8.5-10.1); CHLORIDE 98 mmol/L (98-107); CO2 27 mmol/L (21-32); CREATININE 0.9 mg/dL (0.7-1.3); GLUCOSE,RANDOM 135 mg/dL (74-106); LDH 188 U/L (87-241); POTASSIUM 4.2 mmol/L (3.5-5.1); SGOT/AST 95 U/L (15-37); SGPT/ALT 66 U/L (12-78); SODIUM 134 mmol/L (136-145); TOT PROT 8.4 g/dl (6.4-8.2)
--- NOTE | 2017-06-20 10:26 | PN ---
Progress Note (short form) - Note Progress Note: Pt seen and examined. says he is improving. But continues to have Tmax around 100. +sweats Cr normalized. Seen by rhjose francisco. O/E: General: Obese in NAD HEENT: NCAT Abd: obese LE: 2+ Pitting edema Lungs: CtA b/l Neuro: AAOx3 Last Vital Signs Temp Pulse Resp BP Pulse Ox 100.0 F H 105 H 20 158/85 96 06/19/17 14:36 06/19/17 14:36 06/19/17 07:05 06/19/17 14:36 06/18/17 21:00 CBC, BMP 06/19/17 07:33 06/19/17 07:35 Current Medications Generic Name Dose Route Start Last Admin Trade Name Freq PRN Reason Stop Dose Admin Acetaminophen 650 mg 06/17/17 19:17 06/18/17 22:52 Tylenol - PO 650 mg Q6H PRN Administration FEVER Gabapentin 100 mg 06/17/17 14:00 06/19/17 06:20 Neurontin - PO 100 mg TID AJ Administration Heparin Sodium (Porcine) 5,000 unit 06/17/17 12:45 06/19/17 13:33 Heparin - SQ Not Given BID AJ CEFTRIAXONE 1 G/50 ML PREMIX 50 mls @ 100 mls/hr 06/18/17 10:00 06/19/17 09: 02 Ceftriaxone 1 Gm-D5w Bag IVPB 100 mls/hr DAILY AJ Administration Sodium Chloride 1,000 mls @ 40 mls/hr 06/18/17 16:03 06/18/17 22:49 Normal Saline - IV 40 mls/hr ASDIR AJ Administration Oseltamivir Phosphate 75 mg 06/18/17 22:00 06/19/17 09:01 Tamiflu - PO 06/23/17 21:59 75 mg BID JA Administration DOREEN noted, read as polyclonal IgG , IgA K and L. Unknown etiology for having a polyclonal spike. send K/L free Serum and urine. urine protein negative On tamiflu ?LE edema etiology supportive care
[2017-06-20] MEDS: HEPARIN NA (PORCINE) 5,000 UNITS/ML 1ML VIAL SQ SCH ×2 (10:55→22:12)
[2017-06-20] MEDS: OSELTAMIVIR PHOSPHATE 75 MG CAPSULE PO SCH ×2 (10:55→22:12)
[2017-06-20] MEDS: CEFTRIAXONE 1 G/50 ML PREMIX 50 ML IVPB SCH (10:55)
[2017-06-20 11:01] LABS: PLATELET ESTIMATE ADEQUATE
--- NOTE | 2017-06-20 12:13 | PN ---
Progress Note, Physician History of Present Illness: patient feeling much better afebrile no issues awaiting for all reports - Current Medication List Current Medications: Active Medications Acetaminophen (Tylenol -) 650 mg PO Q6H PRN PRN Reason: FEVER Last Admin: 06/19/17 22:50 Dose: 650 mg Gabapentin (Neurontin -) 100 mg PO TID [facility] Last Admin: 06/20/17 06:25 Dose: 100 mg Heparin Sodium (Porcine) (Heparin -) 5,000 unit SQ BID [facility] Last Admin: 06/20/17 10:55 Dose: 5,000 unit CEFTRIAXONE 1 G/50 ML PREMIX (Ceftriaxone 1 Gm-D5w Bag) 50 mls @ 100 mls/hr IVPB DAILY [facility] Last Admin: 06/20/17 10:55 Dose: 100 mls/hr Sodium Chloride (Normal Saline -) 1,000 mls @ 40 mls/hr IV ASDIR [facility] Last Admin: 06/19/17 22:52 Dose: 40 mls/hr Oseltamivir Phosphate (Tamiflu -) 75 mg PO BID [facility] Stop: 06/23/17 21:59 Last Admin: 06/20/17 10:55 Dose: 75 mg - Objective Vital Signs: Vital Signs Temperature 99.5 F 06/20/17 06:00 Pulse Rate 108 H 06/20/17 06:00 Respiratory Rate 20 06/20/17 06:00 Blood Pressure 128/70 06/20/17 06:00 O2 Sat by Pulse Oximetry (%) 98 06/19/17 21:00 Constitutional: Yes: No Distress, Calm, Obese Cardiovascular: Yes: Regular Rate and Rhythm Respiratory: Yes: Regular, CTA Bilaterally Gastrointestinal: Yes: Normal Bowel Sounds, Soft Musculoskeletal: Yes: WNL Extremities: Yes: WNL Neurological: Yes: Alert, Oriented Psychiatric: Yes: Alert, Oriented Labs: CBC, BMP 06/20/17 06:10 06/20/17 06:10 INR, PTT INR 1.78 (0.82-1.09) H 06/18/17 07:45 Assessment/Plan r/o infective process ct disorder cardiac process sepsis autoimmune process plan complete course of tamiflu await for all results rest as per primary team patient looks good
--- NOTE | 2017-06-20 13:09 | PN ---
Progress Note, Physician History of Present Illness: seen and examined today in [facility]. states he is feeling better, still has pain b/l feet. - Current Medication List Current Medications: Active Medications Acetaminophen (Tylenol -) 650 mg PO Q6H PRN PRN Reason: FEVER Last Admin: 06/19/17 22:50 Dose: 650 mg Gabapentin (Neurontin -) 100 mg PO TID [facility] Last Admin: 06/20/17 06:25 Dose: 100 mg Heparin Sodium (Porcine) (Heparin -) 5,000 unit SQ BID [facility] Last Admin: 06/20/17 10:55 Dose: 5,000 unit CEFTRIAXONE 1 G/50 ML PREMIX (Ceftriaxone 1 Gm-D5w Bag) 50 mls @ 100 mls/hr IVPB DAILY [facility] Last Admin: 06/20/17 10:55 Dose: 100 mls/hr Sodium Chloride (Normal Saline -) 1,000 mls @ 40 mls/hr IV ASDIR [facility] Last Admin: 06/19/17 22:52 Dose: 40 mls/hr Oseltamivir Phosphate (Tamiflu -) 75 mg PO BID [facility] Stop: 06/23/17 21:59 Last Admin: 06/20/17 10:55 Dose: 75 mg - Objective Vital Signs: Vital Signs Temperature 99.1 F 06/20/17 10:00 Pulse Rate 82 06/20/17 10:00 Respiratory Rate 20 06/20/17 10:00 Blood Pressure 160/80 06/20/17 10:00 O2 Sat by Pulse Oximetry (%) 98 06/20/17 09:00 Constitutional: Yes: No Distress, Calm, Obese Eyes: Yes: Conjunctiva Clear, EOM Intact, PERRL HENT: Yes: Atraumatic, Normocephalic Neck: Yes: Supple, Trachea Midline Cardiovascular: Yes: Regular Rate and Rhythm, S1, S2. No: Bradycardia, Tachycardia, Pulse Irregular, Bruit, JVD, Gallop, Murmur, Rub, S3, S4, Varicosities Respiratory: Yes: Regular, Diminished. No: Rales, Rhonchi, Wheezes Gastrointestinal: Yes: Normal Bowel Sounds, Soft. No: Distention, Tenderness Musculoskeletal: Yes: WNL Extremities: Yes: WNL Edema: Yes Peripheral Pulses WNL: Yes Neurological: Yes: Alert, Oriented Psychiatric: Yes: Alert, Oriented Labs: CBC, BMP 06/20/17 06:10 06/20/17 06:10 INR, PTT INR 1.78 (0.82-1.09) H 06/18/17 07:45 - ....Imaging Chest X-ray: Report Reviewed, Image Reviewed EKG: Report Reviewed, Image Reviewed Other: Report Reviewed, Image Reviewed Assessment/Plan IMP: Fever Edema PHTN 1. Edema-not clinically volume overloaded more likely intravascularily depleted -third spacing given his hypoalbuminemia -creatinine trended down -not diuresing, giving gentle IVF and po fluids -Echo shows normal LV function w/ mildly dilated LV 2. fever chills body aches: - recent diagnosis of strep throat -Concerning for sepsis/pneumonia -Possible viral illness which could include influenza -possible strep -infectious disease is evaluating 3. Rash- -Possibly due to current infectious process or side effect to recent penicillin usage; eval as per PMD
--- NOTE | 2017-06-20 13:53 | PN ---
Progress Note (short form) - Note Progress Note: PULMONARY Still with body aches but without shortness of breath, cough or wheezing. Sweats overnight. Last Vital Signs Temp Pulse Resp BP Pulse Ox 99.1 F 82 20 160/80 98 06/20/17 10:00 06/20/17 10:00 06/20/17 10:00 06/20/17 10:00 06/20/17 09:00 Gen: NAD at rest Heart: RRR Lung: decreased breath sounds at the bases Abd: soft, nontender Ext: + edema CBC, BMP 06/20/17 06:10 06/20/17 06:10 Active Medications Acetaminophen (Tylenol -) 650 mg PO Q6H PRN PRN Reason: FEVER Last Admin: 06/19/17 22:50 Dose: 650 mg Gabapentin (Neurontin -) 100 mg PO TID [facility] Last Admin: 06/20/17 06:25 Dose: 100 mg Heparin Sodium (Porcine) (Heparin -) 5,000 unit SQ BID [facility] Last Admin: 06/20/17 10:55 Dose: 5,000 unit CEFTRIAXONE 1 G/50 ML PREMIX (Ceftriaxone 1 Gm-D5w Bag) 50 mls @ 100 mls/hr IVPB DAILY [facility] Last Admin: 06/20/17 10:55 Dose: 100 mls/hr Sodium Chloride (Normal Saline -) 1,000 mls @ 40 mls/hr IV ASDIR [facility] Last Admin: 06/19/17 22:52 Dose: 40 mls/hr Oseltamivir Phosphate (Tamiflu -) 75 mg PO BID [facility] Stop: 06/23/17 21:59 Last Admin: 06/20/17 10:55 Dose: 75 mg A/P Recent Strep Throat Acute Kidney Injury improving Pulmonary HTN Likely ANJELICA - antibiotics per ID - monitor urine output, creatinine - outpt PFTs, PSG - DVT prophylaxis
--- NOTE | 2017-06-20 17:14 | PN ---
Progress Note, Physician History of Present Illness: complaining of night sweats - Current Medication List Current Medications: Active Medications Acetaminophen (Tylenol -) 650 mg PO Q6H PRN PRN Reason: FEVER Last Admin: 06/19/17 22:50 Dose: 650 mg Gabapentin (Neurontin -) 100 mg PO TID [facility] Last Admin: 06/20/17 15:18 Dose: 100 mg Heparin Sodium (Porcine) (Heparin -) 5,000 unit SQ BID [facility] Last Admin: 06/20/17 10:55 Dose: 5,000 unit CEFTRIAXONE 1 G/50 ML PREMIX (Ceftriaxone 1 Gm-D5w Bag) 50 mls @ 100 mls/hr IVPB DAILY [facility] Last Admin: 06/20/17 10:55 Dose: 100 mls/hr Sodium Chloride (Normal Saline -) 1,000 mls @ 40 mls/hr IV ASDIR [facility] Last Admin: 06/19/17 22:52 Dose: 40 mls/hr Oseltamivir Phosphate (Tamiflu -) 75 mg PO BID [facility] Stop: 06/23/17 21:59 Last Admin: 06/20/17 10:55 Dose: 75 mg - Objective Vital Signs: Vital Signs Temperature 98.1 F 06/20/17 15:19 Pulse Rate 98 H 06/20/17 15:19 Respiratory Rate 20 06/20/17 10:00 Blood Pressure 150/72 06/20/17 15:19 O2 Sat by Pulse Oximetry (%) 98 06/20/17 09:00 Constitutional: Yes: No Distress HENT: Yes: Atraumatic Neck: Yes: Supple Cardiovascular: Yes: Regular Rate and Rhythm Respiratory: Yes: CTA Bilaterally, Rhonchi Gastrointestinal: Yes: Normal Bowel Sounds Extremities: Yes: WNL Edema: Yes Edema: LLE: 3+, RLE: 3+ Peripheral Pulses WNL: Yes Neurological: Yes: Alert, Oriented, Weakness, Other (feels weak in lower extremities and sometimes upper extremeties) Labs: CBC, BMP 06/20/17 06:10 06/20/17 06:10 INR, PTT INR 1.78 (0.82-1.09) H 06/18/17 07:45 Problem List - Problems (1) Neuropathy Assessment/Plan: pt is on gabapentin better neuro on board Code(s): G62.9 - POLYNEUROPATHY, UNSPECIFIED (2) Elevated creatine kinase Assessment/Plan: rhabdo iv hydration Code(s): R74.8 - ABNORMAL LEVELS OF OTHER SERUM ENZYMES (3) Elevated serum creatinine Assessment/Plan: ckd? monitor iv hydration nephroconsult Code(s): R79.89 - OTHER SPECIFIED ABNORMAL FINDINGS OF BLOOD CHEMISTRY (4) Anasarca Code(s): R60.1 - GENERALIZED EDEMA (5) Anemia Assessment/Plan: chronic? hematology consult reviewed labs reviewed Code(s): D64.9 - ANEMIA, UNSPECIFIED (6) CKD (chronic kidney disease) Code(s): N18.9 - CHRONIC KIDNEY DISEASE, UNSPECIFIED (7) Fever Assessment/Plan: cxs negative on abx Code(s): R50.9 - FEVER, UNSPECIFIED
--- NOTE | 2017-06-20 17:20 | PN ---
Progress Note (short form) - Note Progress Note: 61 year old male with a significant past medical history of sciatica who presents to the ED with complaints of fever that began 3 weeks ago. As per patient's daughter, patient was taken to urgent care 3 weeks ago for increased fever and body aches and was diagnosed with strep and given penicillin prescription. She reports after finishing prescription over 1 week, patient began to develop rash from the penicillin and began to take benadryl, relieving the rash in 2 days. Patient's daughter reports, patient was then taken to [facility] on June 08 for similar symptoms of increased fever and associated bilateral leg pain and weakness, LE >UE. mild numbness R hand. He reports patient was given X Ray, CT abdomen, flu culture and labs, before being diagnosed with pleuritic chest pain. noted to elevated CPKS, LFTS and elevated total protein, called for eval r/o myopathy. no hx of statin (only new RX was PCN0 , at baseline home walking and drives , now unable to walk. FU : still with low grade temp diaphoretic as per always 'shakey" but more so now weakness TR 4/5 and paraplegia LE +asterixis painful joints L wrist and ankles seen by rheum - History Source History Provided By: Patient, Medical Record - Past Medical History Musculoskeletal: Yes: Other (sciatica) Additional Medical History: obesity - Alcohol/Substance Use Hx Alcohol Use: Yes - Smoking History Smoking history: Never smoked Have you smoked in the past 12 months: No - Social History Usual Living Arrangement: With Spouse ADL: Independent History of Recent Travel: No Home Medications - Allergies Allergies/Adverse Reactions: Allergies Allergy/AdvReac Type Severity Reaction Status Date / Time iodine Allergy Verified 06/16/17 23:23 shellfish derived Allergy Verified 06/16/17 23:23 - Home Medications Home Medications: Ambulatory Orders Ibuprofen [Motrin -] 800 mg PO TID PRN #21 tablet 11/04/13 Gabapentin [Neurontin -] 100 mg PO Q8H 06/16/17 Physical Exam-Neuro Vital Signs: Vital Signs Period Temp Pulse Resp BP Sys/Edmondson Pulse Ox Last 24 Hr 98.1 F-99.6 F 82-108 20-20 128-160/60-81 98-98 Constitutional: Yes: Mild Distress, Obese Neck: Yes: Supple Cardiovascular: Yes: Regular Rate and Rhythm Edema: LUE: 3+, RUE: 3+, LLE: 3+, RLE: 3+ Labs: CBCD WBC 11.3 K/mm3 (4.0-10.0) H 06/20/17 06:10 RBC 3.56 M/mm3 (4.00-5.60) L 06/20/17 06:10 Hgb 9.6 GM/dL (11.7-16.9) L 06/20/17 06:10 Hct 28.6 % (35.4-49) L 06/20/17 06:10 MCV 80.3 fl (80-96) 06/20/17 06:10 MCHC 33.6 g/dl (32.0-35.9) 06/20/17 06:10 RDW 14.6 % (11.9-15.9) 06/20/17 06:10 Plt Count 259 K/MM3 (134-434) 06/20/17 06:10 MPV 9.1 fl (7.5-11.1) 06/20/17 06:10 CMP Sodium 134 mmol/L (136-145) L 06/20/17 06:10 Potassium 4.2 mmol/L (3.5-5.1) 06/20/17 06:10 Chloride 98 mmol/L (98-107) 06/20/17 06:10 Carbon Dioxide 27 mmol/L (21-32) 06/20/17 06:10 Anion Gap 9 (8-16) 06/20/17 06:10 BUN 19 mg/dL (7-18) H 06/20/17 06:10 Creatinine 0.9 mg/dL (0.7-1.3) 06/20/17 06:10 Creat Clearance w eGFR > 60 (>60) 06/20/17 06:10 Calcium 9.1 mg/dL (8.5-10.1) 06/20/17 06:10 Total Bilirubin 0.7 mg/dL (0.2-1.0) D 06/20/17 06:10 AST 95 U/L (15-37) H 06/20/17 06:10 ALT 66 U/L (12-78) 06/20/17 06:10 Alkaline Phosphatase 120 U/L (45-117) H 06/20/17 06:10 Total Protein 8.4 g/dl (6.4-8.2) H 06/20/17 06:10 Albumin 1.3 g/dl (3.4-5.0) L 06/20/17 06:10 - Neuro Exam Level Of Consciousness: Yes: Alert (awake and answering requests, EOMI, no facial, no neck stiffness, MOtoro UE 5/5, with best effeort; although weakness in hands intersossei, LE: weakness IP , quads, and hams TA --very limited 2/5( pain /swelling also may be factor) ) Assessment/Plan 61 year old male with a significant past medical history of sciatica who presents to the ED with complaints of fever that began 3 weeks ago. As per patient's daughter, patient was taken to urgent care 3 weeks ago for increased fever and body aches and was diagnosed with strep and given penicillin prescription. progressive weakness of limbs, LE >UE, setting of elevated CPks, LFTS and fever , and signifcant peripheral edema-- suspect underlying hematologic vs rheumatolgic vs viral issue at hand , component of a neuropathy /myopathy weakness continues, worse as UE involved polyclonal spike-- ? infectious/inflam, rest labs P FU rheum/Hem CT LS SPINE will cosider LP, though suspect this is systemic issue (AIDP would not typically cause fever etc) check EMG (NC will be low yield given edema) , FU cpks Dr Reid
--- NOTE | 2017-06-20 19:42 | PN ---
Progress Note, Physician History of Present Illness: Pt seen and examined at bedside. He is awake and alert. He complains of night sweats. He also complains of lower ext edema. - Current Medication List Current Medications: Active Medications Acetaminophen (Tylenol -) 650 mg PO Q6H PRN PRN Reason: FEVER Last Admin: 06/19/17 22:50 Dose: 650 mg Gabapentin (Neurontin -) 100 mg PO TID [facility] Last Admin: 06/20/17 15:18 Dose: 100 mg Heparin Sodium (Porcine) (Heparin -) 5,000 unit SQ BID [facility] Last Admin: 06/20/17 10:55 Dose: 5,000 unit CEFTRIAXONE 1 G/50 ML PREMIX (Ceftriaxone 1 Gm-D5w Bag) 50 mls @ 100 mls/hr IVPB DAILY [facility] Last Admin: 06/20/17 10:55 Dose: 100 mls/hr Sodium Chloride (Normal Saline -) 1,000 mls @ 40 mls/hr IV ASDIR [facility] Last Admin: 06/19/17 22:52 Dose: 40 mls/hr Oseltamivir Phosphate (Tamiflu -) 75 mg PO BID [facility] Stop: 06/23/17 21:59 Last Admin: 06/20/17 10:55 Dose: 75 mg - Objective Vital Signs: Vital Signs Temperature 100.2 F H 06/20/17 19:31 Pulse Rate 107 H 06/20/17 19:31 Respiratory Rate 20 06/20/17 19:31 Blood Pressure 157/90 06/20/17 19:31 O2 Sat by Pulse Oximetry (%) 98 06/20/17 09:00 Constitutional: Yes: Calm Eyes: Yes: Conjunctiva Clear HENT: Yes: Atraumatic Neck: Yes: Supple Cardiovascular: Yes: S1, S2 Respiratory: Yes: On Nasal O2 Gastrointestinal: Yes: Soft, Abdomen, Obese Genitourinary: Yes: WNL Edema: Yes Edema: LLE: 1+, RLE: 1+ Neurological: Yes: Oriented Labs: CBC, BMP 06/20/17 06:10 06/20/17 06:10 INR, PTT INR 1.78 (0.82-1.09) H 06/18/17 07:45 Problem List - Problems (1) Anemia Code(s): D64.9 - ANEMIA, UNSPECIFIED (2) CKD (chronic kidney disease) Code(s): N18.9 - CHRONIC KIDNEY DISEASE, UNSPECIFIED (3) Elevated creatine kinase Code(s): R74.8 - ABNORMAL LEVELS OF OTHER SERUM ENZYMES (4) Neuropathy Code(s): G62.9 - POLYNEUROPATHY, UNSPECIFIED Assessment/Plan Current Medications Generic Name Dose Route Start Last Admin Trade Name Jamesq PRN Reason Stop Dose Admin Acetaminophen 650 mg 06/17/17 19:17 06/19/17 22:50 Tylenol - PO 650 mg Q6H PRN Administration FEVER Gabapentin 100 mg 06/17/17 14:00 06/20/17 15:18 Neurontin - PO 100 mg TID AJ Administration Heparin Sodium (Porcine) 5,000 unit 06/17/17 12:45 06/20/17 10:55 Heparin - SQ 5,000 unit BID AJ Administration CEFTRIAXONE 1 G/50 ML PREMIX 50 mls @ 100 mls/hr 06/18/17 10:00 06/20/17 10: 55 Ceftriaxone 1 Gm-D5w Bag IVPB 100 mls/hr DAILY AJ Administration Sodium Chloride 1,000 mls @ 40 mls/hr 06/18/17 16:03 06/19/17 22:52 Normal Saline - IV 40 mls/hr ASDIR AJ Administration Oseltamivir Phosphate 75 mg 06/18/17 22:00 06/20/17 10:55 Tamiflu - PO 06/23/17 21:59 75 mg BID AJ Administration Laboratory Tests 06/20/17 06:10 Creatine Kinase 137 Impression 1. likely CKD vs KADIE 2. anemia 3. fevers 4. rash - which has resolved 5. obesity 6. lower ext pain and weekness 7. elevated total protein 8. transaminitis Plan - renal function is stabilizing - pt still complains of night sweats - serologic workup in progress - follow kappa and lambda - neuro input appreciated - stop fluids as he has worsening edema - cpk improved Dr Ugarte
[2017-06-21 00:06] LABS: ATYPICAL pANCA <1:20 titer (Neg:<1:20); C-ANCA <1:20 titer (Neg:<1:20); P-ANCA <1:20 titer (Neg:<1:20); PROTEINASE-3 ANTIBODY <3.5 U/mL (0.0-3.5)
[2017-06-21] MEDS: GABAPENTIN 100 MG CAPSULE (FP) PO SCH ×3 (06:29→21:31)
--- NOTE | 2017-06-21 11:12 | CONS ---
DATE OF CONSULTATION: 06/21/2017 REFERRING PHYSICIAN: Leodan Reid DO HISTORY OF PRESENT ILLNESS: The patient is a 61-year-old man without reported past medical history who was admitted June 17, 2017, with weakness in his lower extremities, inability to ambulate. Patient evidently had a fever about 3 weeks prior to admission. Patient was taken to urgent care with complaints of fever, body aches, and diagnosed with strep throat, started on penicillin. The patient finished about a week of the medication but developed a rash. Penicillin resolved the rash; however, the patient was taken to [facility] with similar complaints of fever, lower extremity weakness, as well as pain in the lower extremities. Patient underwent imaging and was diagnosed with pleuritic chest pain. Patient developed further weakness, swelling, pain in the lower extremities and presented to the emergency room at [facility] later on June 16, 2017, and was admitted. Patient has undergone extensive workup including CT of the chest and vascular studies which showed no pulmonary embolism or DVT. Patient underwent rheumatologic evaluation and was thought to have rhabdomyolysis. CPKs were initially slightly elevated but have normalized. Last CPK done yesterday was 137 and normal. Had been as high as 395. Chemistry showed elevated creatinine on admission of 1.4. This has resolved also. Most recent chemistry showed a slightly low sodium 134, BUN elevated at 19, but normal creatinine 0.9. Creatinine clearance with estimated GFR was greater than 60. His AST is slightly elevated at 95, normal ALT at 66. CBC shows slight leukocytosis on admission, 11.2, and currently as of yesterday's CBC 11.3. He has decreased hemoglobin 9.6. Platelet count is normal at 259. Patient is on subcutaneous heparin for deep venous thrombosis prophylaxis and is on Neurontin 100 mg 3 times a day. He is also on Tamiflu started on June 18. Patient complains of a lot of swelling and pain in the lower extremities with movement, but he is able to move his lower extremities. He also has swelling in the right upper extremity and some numbness at times in the right upper extremity, weakness of the left upper limb. Patient was referred for electrodiagnostic evaluation to assess for peripheral neuropathy. Review of past medical and surgical history is essentially negative, although the patient has noted that at times in the past he has had transient weakness involving one of his lower extremities, with inability to move the lower extremity. SOCIAL HISTORY: Premorbidly he was working, ambulatory. Current function, patient is unable to stand or ambulate and is lying in the bed. REVIEW OF SYSTEMS: No headache. No lightheadedness, dizziness. No blurred vision, double vision. No nausea, vomiting, difficulty swallowing, difficulty chewing. No chest pain or shortness of breath. No abdominal discomfort. No bowel or bladder incontinence or retention. He does have some numbness as noted in the right hand, coldness in his feet, but no numbness, tingling in the feet. He has diffuse pain in the joints, swelling in the lower extremities and right upper extremity more than the left upper limb. No neck or back pain currently, but he has had complaints of back pain previous. PHYSICAL EXAMINATION: General: Morbidly obese man seen lying in bed. He is in no acute distress. He is awake, alert, and cooperative. HEENT: Normocephalic and atraumatic. Extraocular muscles appear intact. Neck: Supple. Musculoskeletal: Unable to examine his lumbar spine due to his size and being in the bed, inability to roll. Extremities: He has edema of the right upper extremity and bilateral lower extremities, +2 pitting edema, and diffuse both joint and muscle tenderness in the lower extremities as well as throughout his right hand. He is unable to supinate the left hand without significant pain. He also has difficulty raising his right shoulder due to pain, more than the left shoulder. He has normal sensation to pinprick, cold temperature, and vibration throughout the lower extremities, but he does have patches in the right upper extremity in ulnar and median nerve distributions with diminished pinprick. Unable to assess reflexes due to his guarding due to pain. Toes appear downgoing in the lower extremities, and he has significant swelling in the joints and tenderness knees, ankles, feet, and throughout his right hand, also left elbow and shoulders with some warmth. RESULTS OF ELECTROMYOGRAPHY NERVE CONDUCTION STUDIES: Please refer to reports for details. OVERALL IMPRESSION: 1. Very limited nerve conduction studies involving the lower extremities, as Neurology suspected, due to pitting edema as well as the patient's body habitus. 2. Limited needle electromyography of his lower extremities mainly due to pain when trying to recruit muscles. 3. He has no denervation in the lower extremities or evidence of an advanced axonal peripheral neuropathy or lumbosacral radiculopathy. 4. 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 5. Right moderate carpal tunnel syndrome. 6. Left borderline or mild carpal tunnel syndrome. 7. No myopathy or evidence of a diffuse delaminating neuropathy of the upper extremities. 8. Gait disorder, multifactorial. 9. Multiple swollen joints, myalgias, joint arthralgias. 10. Elevated risk for deep vein thrombosis due to immobility. 11. Morbid obesity. 12. Anemia. 13. Leukocytosis. PLAN/SUGGESTION: 1. Neurologic followup. 2. I explained to the patient to avoid bending the right elbow and keeping his wrists and elbows straight without any pressure through the right elbow. 3. Consider cockup splint for right carpal tunnel syndrome. 4. Agree with rheumatologic followup. 5. Physical therapy when appropriate. 6. Continue subcutaneous heparin for DVT prophylaxis until more mobile. 7. Skin precautions. Monitor heels and sacrum. 8. Patient will probably need extensive rehabilitation. Thank you very much for this consultation. IRAIDA ADKINS M.D. [id number]
[2017-06-21] MEDS: HEPARIN NA (PORCINE) 5,000 UNITS/ML 1ML VIAL SQ SCH ×2 (11:21→21:32)
[2017-06-21] MEDS: OSELTAMIVIR PHOSPHATE 75 MG CAPSULE PO SCH ×2 (11:21→21:31)
[2017-06-21] MEDS: CEFTRIAXONE 1 G/50 ML PREMIX 50 ML IVPB SCH (11:21)
[2017-06-21] MEDS: ACETAMINOPHEN 325 MG TABLET (FP) PO PRN (11:22)
--- NOTE | 2017-06-21 12:41 | PN ---
Progress Note (short form) - Note Progress Note: Pt seen and examined. chart reviewed in detail.Neuro/Rehab/Renal/Rheum/ID consults noted. still with night sweats O/E: General: Obese in NAD HEENT: NCAT Abd: obese LE: 2+ Pitting edema Lungs: CtA b/l Neuro: AAOx3 Last Vital Signs Temp Pulse Resp BP Pulse Ox 98.8 F 104 H 18 115/63 98 06/21/17 07:13 06/21/17 07:13 06/21/17 07:13 06/21/17 07:13 06/20/17 20:14 CBC, BMP 06/20/17 06:10 06/20/17 06:10 Current Medications Generic Name Dose Route Start Last Admin Trade Name Freq PRN Reason Stop Dose Admin Acetaminophen 650 mg 06/17/17 19:17 06/21/17 11:22 Tylenol - PO 650 mg Q6H PRN Administration FEVER Gabapentin 100 mg 06/17/17 14:00 06/21/17 06:29 Neurontin - PO 100 mg TID AJ Administration Heparin Sodium (Porcine) 5,000 unit 06/17/17 12:45 06/21/17 11:21 Heparin - SQ 5,000 unit BID AJ Administration CEFTRIAXONE 1 G/50 ML PREMIX 50 mls @ 100 mls/hr 06/18/17 10:00 06/21/17 11: 21 Ceftriaxone 1 Gm-D5w Bag IVPB 100 mls/hr DAILY AJ Administration Oseltamivir Phosphate 75 mg 06/18/17 22:00 06/21/17 11:21 Tamiflu - PO 06/23/17 21:59 75 mg BID AJ Administration DOREEN is polyclonal IgG , IgA K and L. Unknown etiology for having a polyclonal spike. etiology thus far seems an inflammatory infectious? f/u K/L free Serum and urine. urine protein negative f/u flow. On tamiflu ACD/ACI, continue to monitor appreciate neuro c/s supportive care
--- NOTE | 2017-06-21 13:36 | PN ---
Progress Note, Physician History of Present Illness: patient stable no complaints awaiting for imaging studies report remaining afebrile - Current Medication List Current Medications: Active Medications Acetaminophen (Tylenol -) 650 mg PO Q6H PRN PRN Reason: FEVER Last Admin: 06/21/17 11:22 Dose: 650 mg Gabapentin (Neurontin -) 100 mg PO TID [facility] Last Admin: 06/21/17 06:29 Dose: 100 mg Heparin Sodium (Porcine) (Heparin -) 5,000 unit SQ BID [facility] Last Admin: 06/21/17 11:21 Dose: 5,000 unit CEFTRIAXONE 1 G/50 ML PREMIX (Ceftriaxone 1 Gm-D5w Bag) 50 mls @ 100 mls/hr IVPB DAILY [facility] Last Admin: 06/21/17 11:21 Dose: 100 mls/hr Oseltamivir Phosphate (Tamiflu -) 75 mg PO BID [facility] Stop: 06/23/17 21:59 Last Admin: 06/21/17 11:21 Dose: 75 mg - Objective Vital Signs: Vital Signs Temperature 98.8 F 06/21/17 07:13 Pulse Rate 104 H 06/21/17 07:13 Respiratory Rate 18 06/21/17 07:13 Blood Pressure 115/63 06/21/17 07:13 O2 Sat by Pulse Oximetry (%) 98 06/20/17 20:14 Constitutional: Yes: No Distress, Calm, Obese (severe) Cardiovascular: Yes: Regular Rate and Rhythm Respiratory: Yes: Regular, Poor Air Entry (bases) Gastrointestinal: Yes: Normal Bowel Sounds, Soft Musculoskeletal: Yes: WNL Extremities: Yes: WNL Edema: LLE: 1+, RLE: 1+ Neurological: Yes: Alert, Oriented Psychiatric: Yes: Alert, Oriented Labs: CBC, BMP 06/20/17 06:10 06/20/17 06:10 INR, PTT INR 1.78 (0.82-1.09) H 06/18/17 07:45 Assessment/Plan r/o infective process ct disorder cardiac process sepsis autoimmune process plan will await for imaging result await for all results rest as per primary team patient looks good
--- NOTE | 2017-06-21 16:23 | PN ---
Progress Note, Physician History of Present Illness: Pt seen and examined at bedside. He still gets night sweats. - Current Medication List Current Medications: Active Medications Acetaminophen (Tylenol -) 650 mg PO Q6H PRN PRN Reason: FEVER Last Admin: 06/21/17 11:22 Dose: 650 mg Gabapentin (Neurontin -) 100 mg PO TID [facility] Last Admin: 06/21/17 14:49 Dose: 100 mg Heparin Sodium (Porcine) (Heparin -) 5,000 unit SQ BID [facility] Last Admin: 06/21/17 11:21 Dose: 5,000 unit CEFTRIAXONE 1 G/50 ML PREMIX (Ceftriaxone 1 Gm-D5w Bag) 50 mls @ 100 mls/hr IVPB DAILY [facility] Last Admin: 06/21/17 11:21 Dose: 100 mls/hr Oseltamivir Phosphate (Tamiflu -) 75 mg PO BID [facility] Stop: 06/23/17 21:59 Last Admin: 06/21/17 11:21 Dose: 75 mg - Objective Vital Signs: Vital Signs Temperature 99.7 F H 06/21/17 14:34 Pulse Rate 106 H 06/21/17 14:34 Respiratory Rate 20 06/21/17 10:00 Blood Pressure 153/86 06/21/17 14:34 O2 Sat by Pulse Oximetry (%) 97 06/21/17 09:00 Constitutional: Yes: Calm Eyes: Yes: Conjunctiva Clear HENT: Yes: Atraumatic Cardiovascular: Yes: S1, S2 Respiratory: Yes: CTA Bilaterally Gastrointestinal: Yes: Soft, Abdomen, Obese Genitourinary: Yes: WNL Edema: Yes Edema: LLE: 1+, RLE: 1+ Neurological: Yes: Oriented Psychiatric: Yes: Oriented Labs: CBC, BMP 06/20/17 06:10 06/20/17 06:10 INR, PTT INR 1.78 (0.82-1.09) H 06/18/17 07:45 Problem List - Problems (1) Anemia Code(s): D64.9 - ANEMIA, UNSPECIFIED (2) CKD (chronic kidney disease) Code(s): N18.9 - CHRONIC KIDNEY DISEASE, UNSPECIFIED (3) Elevated creatine kinase Code(s): R74.8 - ABNORMAL LEVELS OF OTHER SERUM ENZYMES (4) Neuropathy Code(s): G62.9 - POLYNEUROPATHY, UNSPECIFIED Assessment/Plan Current Medications Generic Name Dose Route Start Last Admin Trade Name Jamesq PRN Reason Stop Dose Admin Acetaminophen 650 mg 06/17/17 19:17 06/21/17 11:22 Tylenol - PO 650 mg Q6H PRN Administration FEVER Gabapentin 100 mg 06/17/17 14:00 06/21/17 14:49 Neurontin - PO 100 mg TID AJ Administration Heparin Sodium (Porcine) 5,000 unit 06/17/17 12:45 06/21/17 11:21 Heparin - SQ 5,000 unit BID AJ Administration CEFTRIAXONE 1 G/50 ML PREMIX 50 mls @ 100 mls/hr 06/18/17 10:00 06/21/17 11: 21 Ceftriaxone 1 Gm-D5w Bag IVPB 100 mls/hr DAILY AJ Administration Oseltamivir Phosphate 75 mg 06/18/17 22:00 06/21/17 11:21 Tamiflu - PO 06/23/17 21:59 75 mg BID AJ Administration Impression 1. likely CKD vs KADIE 2. anemia 3. fevers 4. rash - which has resolved 5. obesity 6. lower ext pain and weekness 7. elevated total protein 8. transaminitis Plan - renal function is stable - follow serologic workup - monitor renal function - follow kappa and lambda - will follow PRN - avoid nsaids Dr Ugarte
[2017-06-21 16:28] LABS: TOTAL PROTEIN, URINE 48.8 mg/dL (Not Estab.)
--- NOTE | 2017-06-21 17:03 | PATH ---
Surgical Pathology Report Patient Name: SERA REESE Med. Rec. #: [id number] /Age/Gender: 1955 (Age: 61) / M Account: [id number] Location: [address] [place] [address] Taken: 06/20/2017 Received: 06/20/2017 Reported: 06/21/2017 Physicians: Sparkle Whitlock M.D. Specimen(s) Received PERIPHERAL BLOOD Clinical History Rule out any plasma cells in peripheral blood Anemia/leukocytosis Final Diagnosis COMPREHENSIVE FLOW CYTOMETRY performed and interpreted at [facility], [place], [place] ([id number]) INTERPRETATION: There is no evidence of B or T-cell proliferative disorders or increased blasts. The monocytic cells are 10% of total cells. PHENOTYPE: In the sample analyzed there is a mixed population of granulocytes, monocytes, and lymphoid cells. CD34+ myeloblasts are less than 0.1%. Granulocytes are 79% of total cells. Monocytes are 10% of total cells. There is no overt abnormal myeloid antigen expression. The B-cells (1% of total) appear polytypic. The T-cells (8% of total) show no pal T-cell antigenic deletion. The C is D4:CD8 ratio is 3.5:1. The T-LGLs are 0.4% of total, the NK cells are 2.3% of total events. See [facility] report for details ([id number]). Electronically Signed Marisa Kothari M.D. Gross Description Received are 2 green top tubes of peripheral blood which are sent to [facility]. /06/20/2017 saudi/06/20/2017
--- NOTE | 2017-06-21 19:13 | PN ---
Progress Note, Physician - Current Medication List Current Medications: Active Medications Acetaminophen (Tylenol -) 650 mg PO Q6H PRN PRN Reason: FEVER Last Admin: 06/21/17 11:22 Dose: 650 mg Gabapentin (Neurontin -) 100 mg PO TID [facility] Last Admin: 06/21/17 14:49 Dose: 100 mg Heparin Sodium (Porcine) (Heparin -) 5,000 unit SQ BID [facility] Last Admin: 06/21/17 11:21 Dose: 5,000 unit CEFTRIAXONE 1 G/50 ML PREMIX (Ceftriaxone 1 Gm-D5w Bag) 50 mls @ 100 mls/hr IVPB DAILY [facility] Last Admin: 06/21/17 11:21 Dose: 100 mls/hr Oseltamivir Phosphate (Tamiflu -) 75 mg PO BID [facility] Stop: 06/23/17 21:59 Last Admin: 06/21/17 11:21 Dose: 75 mg - Objective Vital Signs: Vital Signs Temperature 99.7 F H 06/21/17 14:34 Pulse Rate 106 H 06/21/17 14:34 Respiratory Rate 20 06/21/17 10:00 Blood Pressure 153/86 06/21/17 14:34 O2 Sat by Pulse Oximetry (%) 97 06/21/17 09:00 Constitutional: Yes: Calm HENT: Yes: Atraumatic Neck: Yes: Supple Cardiovascular: Yes: Regular Rate and Rhythm Respiratory: Yes: CTA Bilaterally Edema: LLE: 3+, RLE: 3+ Neurological: Yes: Alert, Oriented Labs: CBC, BMP 06/20/17 06:10 06/20/17 06:10 INR, PTT INR 1.78 (0.82-1.09) H 06/18/17 07:45 Problem List - Problems (1) Neuropathy Assessment/Plan: pt is on gabapentin better neuro on board Code(s): G62.9 - POLYNEUROPATHY, UNSPECIFIED (2) Elevated creatine kinase Assessment/Plan: rhabdo iv hydration...improved Code(s): R74.8 - ABNORMAL LEVELS OF OTHER SERUM ENZYMES (3) Elevated serum creatinine Assessment/Plan: wnl Code(s): R79.89 - OTHER SPECIFIED ABNORMAL FINDINGS OF BLOOD CHEMISTRY (4) Anasarca Code(s): R60.1 - GENERALIZED EDEMA (5) Anemia Assessment/Plan: chronic? hematology consult reviewed labs reviewed Code(s): D64.9 - ANEMIA, UNSPECIFIED (6) CKD (chronic kidney disease) Code(s): N18.9 - CHRONIC KIDNEY DISEASE, UNSPECIFIED (7) Fever Assessment/Plan: cxs negative on abx Code(s): R50.9 - FEVER, UNSPECIFIED
[2017-06-22] MEDS: GABAPENTIN 100 MG CAPSULE (FP) PO SCH ×3 (06:19→22:01)
[2017-06-22 08:11] LABS: HEMOGLOBIN 9.5 GM/dL (11.7-16.9); MCH 26.5 pg (25.7-33.7); MCHC 32.8 g/dl (32.0-35.9); MEAN CELL VOLUME 80.9 fl (80-96); MEAN PLT VOLUME 9.5 fl (7.5-11.1); PLATELET COUNT 297 K/MM3 (134-434); RBC 3.58 M/mm3 (4.00-5.60); WHITE BLOOD COUNT 13.2 K/mm3 (4.0-10.0)
[2017-06-22 10:10] LABS: ALBUMIN 1.3 g/dl (3.4-5.0); ANION GAP 6 (8-16); BLOOD UREA NITROGEN 17 mg/dL (7-18); CHLORIDE 97 mmol/L (98-107); CO2 28 mmol/L (21-32); GLUCOSE,RANDOM 135 mg/dL (74-106); POTASSIUM 4.7 mmol/L (3.5-5.1); SGOT/AST 374 U/L (15-37); SGPT/ALT 168 U/L (12-78); SODIUM 131 mmol/L (136-145); TOT PROT 8.2 g/dl (6.4-8.2)
[2017-06-22 10:15] LABS: ALK PHOS 195 U/L (45-117); CALCIUM 9.6 mg/dL (8.5-10.1); CREATININE 0.9 mg/dL (0.7-1.3)
[2017-06-22] MEDS: OSELTAMIVIR PHOSPHATE 75 MG CAPSULE PO SCH (10:17)
[2017-06-22] MEDS: HEPARIN NA (PORCINE) 5,000 UNITS/ML 1ML VIAL SQ SCH ×2 (10:17→22:00)
[2017-06-22] MEDS: CEFTRIAXONE 1 G/50 ML PREMIX 50 ML IVPB SCH (10:17)
[2017-06-22 10:58] LABS: ANISOCYTOSIS 0; MACROCYTOSIS 0; PLATELET ESTIMATE NORMAL
--- NOTE | 2017-06-22 11:34 | PN ---
Progress Note (short form) - Note Progress Note: PULMONARY VSS/AFEBRILE POOR HISTORIAN:ORIGINAL COMPLAINT WEAKNESS/FEVER/B/L LEG PAIN FEELS IMPROVED BUT APPEARS CHRONICALLY ILL ANICTERIC DISTANT BREATH SOUNDS B/L ANTERIOR S1S2 DISTANT OBESE SOFT + EDEMA B/L LOWER EXT LABS/MEDS/NOTES/IMAGES/CT SPINE/MICRO/CONSULTS REVIEWED INTERMITTENT LOW GRADE TEMPS SINCE ADMISSION TREATED WITH TAMIFLU/ROCEPHIN/ZITHROMAX THUS FAR BUMP IN LFT'S THIS AM WITH NORMAL LIVER /GB/BILE DUCTS ON RECENT CT ABD NO INFILTRATE ON CT CHEST L/S SPINE REVEALS DESTRUCTION OF L4 ? OSTEO(FURTHER STUDIES REQUIRED)ESR 103 RECENT H/O STREP THROAT([facility]) WITH TREATMENT INTERRUPTED DUE TO RASH WOULD PURSUE OSTEOMYELITIS WORKUP WITH CONTRAST MRI SUGGESTED CONSIDER GI EVAL FOR TRANSAMINITIS HAVE ORDERED PSA/HIV PULMONARY STATUS APPEARS STABLE PRESENTLY WILL FOLLOW Patricia ZAPATA MD
--- NOTE | 2017-06-22 11:49 | PN ---
Progress Note, Physician History of Present Illness: stable no complaints - Current Medication List Current Medications: Active Medications Acetaminophen (Tylenol -) 650 mg PO Q6H PRN PRN Reason: FEVER Last Admin: 06/21/17 11:22 Dose: 650 mg Gabapentin (Neurontin -) 100 mg PO TID [facility] Last Admin: 06/22/17 06:19 Dose: 100 mg Heparin Sodium (Porcine) (Heparin -) 5,000 unit SQ BID [facility] Last Admin: 06/22/17 10:17 Dose: 5,000 unit CEFTRIAXONE 1 G/50 ML PREMIX (Ceftriaxone 1 Gm-D5w Bag) 50 mls @ 100 mls/hr IVPB DAILY [facility] Last Admin: 06/22/17 10:17 Dose: 100 mls/hr - Objective Vital Signs: Vital Signs Temperature 97.7 F 06/22/17 10:08 Pulse Rate 115 H 06/22/17 10:08 Respiratory Rate 20 06/22/17 10:08 Blood Pressure 137/94 06/22/17 10:08 O2 Sat by Pulse Oximetry (%) 97 06/22/17 09:00 Constitutional: Yes: No Distress, Calm, Obese Cardiovascular: Yes: Regular Rate and Rhythm Respiratory: Yes: Regular, Poor Air Entry (bases) Gastrointestinal: Yes: Normal Bowel Sounds, Soft Musculoskeletal: Yes: WNL Extremities: Yes: Other Edema: LLE: 2+, RLE: 2+ Neurological: Yes: Alert, Oriented Psychiatric: Yes: Alert, Oriented Labs: CBC, BMP 06/22/17 06:30 06/22/17 09:45 INR, PTT INR 1.78 (0.82-1.09) H 06/18/17 07:45 - ....Imaging Cat Scan: Report Reviewed, Image Reviewed Assessment/Plan r/o infective process ct disorder cardiac process sepsis autoimmune process r/o osteo plan work up for osteo mri as planned if the patient too big for that--i think tissues would be a very good choice i think we should try to get the biopsy from the spine rest continue current mgmt await for all rheum work up and plan from there side
--- NOTE | 2017-06-22 12:22 | PN ---
Progress Note (short form) - Note Progress Note: 61 year old male with a significant past medical history of sciatica who presents to the ED with complaints of fever that began 3 weeks ago. As per patient's daughter, patient was taken to urgent care 3 weeks ago for increased fever and body aches and was diagnosed with strep and given penicillin prescription. She reports after finishing prescription over 1 week, patient began to develop rash from the penicillin and began to take benadryl, relieving the rash in 2 days. Patient's daughter reports, patient was then taken to [facility] on June 08 for similar symptoms of increased fever and associated bilateral leg pain and weakness, LE >UE. mild numbness R hand. He reports patient was given X Ray, CT abdomen, flu culture and labs, before being diagnosed with pleuritic chest pain. noted to elevated CPKS, LFTS and elevated total protein, called for eval r/o myopathy. no hx of statin (only new RX was PCN0 , at baseline home walking and drives , now unable to walk. FU : CTL SPINE noted : IMPRESSION: Limited evaluation of soft tissue due to the patient's body habitus. L3-L4 moderate bilateral facet hypertrophy. L4-L5 marked left and moderate to marked right facet hypertrophy with deformity and decreased attenuation of the left L4 inferior facet with and questionable deformity of L5 and facet suspicious for bone destruction. Rule out osteomyelitis in view of the clinical history. Evaluation of the spinal canal contents is quite limited due to the patient's body habitus with questionable mild disc bulge and possibly moderate degenerative central spinal canal stenosis at this level. Correlation with contrast-enhanced MRI, if possible would be the study of choice to rule out osteomyelitis and to further evaluate for spinal canal. still with low grade temp diaphoretic as per always 'shakey" but more so now weakness TR 4/5 and paraplegia LE +asterixis painful joints L wrist and ankles seen by rheum - History Source History Provided By: Patient, Medical Record - Past Medical History Musculoskeletal: Yes: Other (sciatica) Additional Medical History: obesity - Alcohol/Substance Use Hx Alcohol Use: Yes - Smoking History Smoking history: Never smoked Have you smoked in the past 12 months: No - Social History Usual Living Arrangement: With Spouse ADL: Independent History of Recent Travel: No Home Medications - Allergies Allergies/Adverse Reactions: Allergies Allergy/AdvReac Type Severity Reaction Status Date / Time iodine Allergy Verified 06/16/17 23:23 shellfish derived Allergy Verified 06/16/17 23:23 - Home Medications Home Medications: Ambulatory Orders Ibuprofen [Motrin -] 800 mg PO TID PRN #21 tablet 11/04/13 Gabapentin [Neurontin -] 100 mg PO Q8H 06/16/17 Physical Exam-Neuro Vital Signs: Vital Signs Temperature 99.7 F H 06/21/17 14:34 Pulse Rate 106 H 06/21/17 14:34 Respiratory Rate 20 06/21/17 10:00 Blood Pressure 153/86 06/21/17 14:34 O2 Sat by Pulse Oximetry (%) 97 06/21/17 09:00 Constitutional: Yes: Mild Distress, Obese Neck: Yes: Supple Cardiovascular: Yes: Regular Rate and Rhythm Edema: LUE: 3+, RUE: 3+, LLE: 3+, RLE: 3+ Labs: CBCD WBC 11.3 K/mm3 (4.0-10.0) H 06/20/17 06:10 RBC 3.56 M/mm3 (4.00-5.60) L 06/20/17 06:10 Hgb 9.6 GM/dL (11.7-16.9) L 06/20/17 06:10 Hct 28.6 % (35.4-49) L 06/20/17 06:10 MCV 80.3 fl (80-96) 06/20/17 06:10 MCHC 33.6 g/dl (32.0-35.9) 06/20/17 06:10 RDW 14.6 % (11.9-15.9) 06/20/17 06:10 Plt Count 259 K/MM3 (134-434) 06/20/17 06:10 MPV 9.1 fl (7.5-11.1) 06/20/17 06:10 CMP Sodium 134 mmol/L (136-145) L 06/20/17 06:10 Potassium 4.2 mmol/L (3.5-5.1) 06/20/17 06:10 Chloride 98 mmol/L (98-107) 06/20/17 06:10 Carbon Dioxide 27 mmol/L (21-32) 06/20/17 06:10 Anion Gap 9 (8-16) 06/20/17 06:10 BUN 19 mg/dL (7-18) H 06/20/17 06:10 Creatinine 0.9 mg/dL (0.7-1.3) 06/20/17 06:10 Creat Clearance w eGFR > 60 (>60) 06/20/17 06:10 Calcium 9.1 mg/dL (8.5-10.1) 06/20/17 06:10 Total Bilirubin 0.7 mg/dL (0.2-1.0) D 06/20/17 06:10 AST 95 U/L (15-37) H 06/20/17 06:10 ALT 66 U/L (12-78) 06/20/17 06:10 Alkaline Phosphatase 120 U/L (45-117) H 06/20/17 06:10 Total Protein 8.4 g/dl (6.4-8.2) H 06/20/17 06:10 Albumin 1.3 g/dl (3.4-5.0) L 06/20/17 06:10 - Neuro Exam Level Of Consciousness: Yes: Alert (awake and answering requests, EOMI, no facial, no neck stiffness, MOtoro UE 5/5, with best effeort; although weakness in hands intersossei, LE: weakness IP , quads, and hams TA --very limited 2/5( pain /swelling also may be factor) ) Assessment/Plan 61 year old male with a significant past medical history of sciatica who presents to the ED with complaints of fever that began 3 weeks ago. As per patient's daughter, patient was taken to urgent care 3 weeks ago for increased fever and body aches and was diagnosed with strep and given penicillin prescription. progressive weakness of limbs, LE >UE, setting of elevated CPks, LFTS and fever , and signifcant peripheral edema-- suspect underlying hematologic vs rheumatolgic vs viral issue at hand , component of a neuropathy /myopathy weakness continues, worse as UE involved polyclonal spike-- ? infectious/inflam, CRP 22 FU rheum/Hem CT LS SPINE -- ? L4 bony destruction osetomyelitis-- repeat ESR/CRP- will need fluorguided BIOPSY /DR PRUETT, spoke to ID as well check EMG (NC will be low yield given edema) , FU cpks Will get CT C and T spine with contrast to r/o destructive lesions there.
--- NOTE | 2017-06-22 13:16 | PN ---
Progress Note (short form) - Note Progress Note: Pt seen and examined. chart reviewed in detail. unchanged status feels weak and continues to have temps around 100., tmx of 100.3 case d/w ID. O/E: General: Obese in NAD HEENT: NCAT Abd: obese LE: 2+ Pitting edema Lungs: CtA b/l Neuro: AAOx3 Last Vital Signs Temp Pulse Resp BP Pulse Ox 97.7 F 115 H 20 137/94 97 06/22/17 10:08 06/22/17 10:08 06/22/17 10:08 06/22/17 10:08 06/22/17 09:00 CBC, BMP 06/22/17 06:30 06/22/17 09:45 Current Medications Generic Name Dose Route Start Last Admin Trade Name Freq PRN Reason Stop Dose Admin Acetaminophen 650 mg 06/17/17 19:17 06/21/17 11:22 Tylenol - PO 650 mg Q6H PRN Administration FEVER Gabapentin 100 mg 06/17/17 14:00 06/22/17 06:19 Neurontin - PO 100 mg TID AJ Administration Heparin Sodium (Porcine) 5,000 unit 06/17/17 12:45 06/22/17 10:17 Heparin - SQ 5,000 unit BID AJ Administration CEFTRIAXONE 1 G/50 ML PREMIX 50 mls @ 100 mls/hr 06/18/17 10:00 06/22/17 10: 17 Ceftriaxone 1 Gm-D5w Bag IVPB 100 mls/hr DAILY AJ Administration DOREEN is polyclonal IgG , IgA K and L. Unknown etiology for having a polyclonal spike. the underlying etiology ?Osteo , ferritin and CRP elevated ( acute phase reactants) f/u K/L free Serum and urine. urine protein negative peripheral blood flow negative. ACD/ACI, continue to monitor appreciate neuro c/s , for bone biopsy. supportive care
[2017-06-22] MEDS: ACETAMINOPHEN 325 MG TABLET (FP) PO PRN ×2 (16:25→22:01)
--- NOTE | 2017-06-22 17:47 | PN ---
Progress Note, Physician Chief Complaint: Pt, with daughter at bedside, denies chest pain, dyspnea, or palpitations, but feels "hot' (febrile earlier). History of Present Illness: Patient is a 61 year old male with a significant past medical history of sciatica who presents to the ED with complaints of fever that began 3 weeks ago. As per patient's daughter, patient was taken to urgent care 3 weeks ago for increased fever and body aches and was diagnosed with strep and given penicillin prescription. She reports after finishing prescription over 1 week, patient began to develop rash from the penicillin and began to take benadryl, relieving the rash in 2 days. Patient's daughter reports, patient was then taken to [facility] on June 08 for similar symptoms of increased fever and associated bilateral leg pain and weakness. She reports patient was given X Ray, CT abdomen, flu culture and labs, before being diagnosed with pleuritic chest pain. Patient's daughter reports bringing patient into the ED for further evaluation tonight after patient's bilateral leg pain and weakness did not subside causing her to worry. She reports patient has been experiencing decreased appetite for the last few days. - Current Medication List Current Medications: Active Medications Acetaminophen (Tylenol -) 650 mg PO Q6H PRN PRN Reason: FEVER Last Admin: 06/22/17 16:25 Dose: 650 mg Gabapentin (Neurontin -) 100 mg PO TID [facility] Last Admin: 06/22/17 13:59 Dose: 100 mg Heparin Sodium (Porcine) (Heparin -) 5,000 unit SQ BID [facility] Last Admin: 06/22/17 10:17 Dose: 5,000 unit CEFTRIAXONE 1 G/50 ML PREMIX (Ceftriaxone 1 Gm-D5w Bag) 50 mls @ 100 mls/hr IVPB DAILY [facility] Last Admin: 06/22/17 10:17 Dose: 100 mls/hr - Objective Vital Signs: Vital Signs Temperature 100.4 F H 06/22/17 16:23 Pulse Rate 114 H 06/22/17 14:35 Respiratory Rate 20 06/22/17 14:35 Blood Pressure 135/73 06/22/17 14:35 O2 Sat by Pulse Oximetry (%) 97 06/22/17 09:00 Constitutional: Yes: Anxious Eyes: Yes: WNL HENT: Yes: WNL Neck: Yes: WNL Cardiovascular: Yes: S1, S2, S4 Respiratory: Yes: Diminished, Tachypnea Gastrointestinal: Yes: Soft, Abdomen, Obese ...Rectal Exam: Yes: Deferred Genitourinary: No: Anuria Musculoskeletal: Yes: Joint Stiffness, Muscle Weakness Extremities: Yes: Other (knees with decreased ROM) Edema: No Peripheral Pulses WNL: Yes Integumentary: Yes: WNL Neurological: Yes: WNL Psychiatric: Yes: Other Labs: CBC, BMP 06/22/17 06:30 06/22/17 09:45 INR, PTT INR 1.78 (0.82-1.09) H 06/18/17 07:45 Problem List - Problems (1) Diabetes Assessment/Plan: elevated glucose and HGBA1c. Strong family hx of diabetes. Morbid obesity; sedentary. Suggest further workup, and dietary consult. (Pt's insight into the relation of obesity with diabetes and other infirmities seems poor). Code(s): E11.9 - TYPE 2 DIABETES MELLITUS WITHOUT COMPLICATIONS (2) Hyperlipidemia Assessment/Plan: lipid profile. Code(s): E78.5 - HYPERLIPIDEMIA, UNSPECIFIED (3) Morbid obesity Assessment/Plan: see under "Diabetes" Code(s): E66.01 - MORBID (SEVERE) OBESITY DUE TO EXCESS CALORIES (4) Anasarca Code(s): R60.1 - GENERALIZED EDEMA (5) Anemia Code(s): D64.9 - ANEMIA, UNSPECIFIED (6) Fever Assessment/Plan: F/u cultures; on antibiotics; completed flu Rx. Code(s): R50.9 - FEVER, UNSPECIFIED (7) Sepsis Code(s): A41.9 - SEPSIS, UNSPECIFIED ORGANISM (8) Elevated LFTs Assessment/Plan: f/u GI workup; r/o hepatitis, acute rise from sepsis, cardiac congestion, autoimmune process, medications. Code(s): R79.89 - OTHER SPECIFIED ABNORMAL FINDINGS OF BLOOD CHEMISTRY (9) Osteomyelitis Code(s): M86.9 - OSTEOMYELITIS, UNSPECIFIED (10) Lower extremity weakness Assessment/Plan: ongoing neuro workup. Code(s): R29.898 - OTH SYMPTOMS AND SIGNS INVOLVING THE MUSCULOSKELETAL SYSTEM
--- NOTE | 2017-06-22 21:05 | PN ---
Progress Note, Physician - Current Medication List Current Medications: Active Medications Acetaminophen (Tylenol -) 650 mg PO Q6H PRN PRN Reason: FEVER Last Admin: 06/22/17 16:25 Dose: 650 mg Gabapentin (Neurontin -) 100 mg PO TID [facility] Last Admin: 06/22/17 13:59 Dose: 100 mg Heparin Sodium (Porcine) (Heparin -) 5,000 unit SQ BID [facility] Last Admin: 06/22/17 10:17 Dose: 5,000 unit CEFTRIAXONE 1 G/50 ML PREMIX (Ceftriaxone 1 Gm-D5w Bag) 50 mls @ 100 mls/hr IVPB DAILY [facility] Last Admin: 06/22/17 10:17 Dose: 100 mls/hr - Objective Vital Signs: Vital Signs Temperature 100.6 F H 06/22/17 18:00 Pulse Rate 113 H 06/22/17 18:00 Respiratory Rate 18 06/22/17 18:00 Blood Pressure 143/81 06/22/17 18:00 O2 Sat by Pulse Oximetry (%) 98 06/22/17 20:48 Labs: CBC, BMP 06/22/17 06:30 06/22/17 09:45 INR, PTT INR 1.78 (0.82-1.09) H 06/18/17 07:45
[2017-06-23 00:05] LABS: FREE KAPPA,SERUM 151.8 mg/L (3.3-19.4)
[2017-06-23 02:50] LABS: CHOLESTEROL 90 mg/dL (50-200); HDL CHOLESTEROL 13 mg/dL (40-60); LDL CHOLESTEROL (ONLY SJRH) 70 mg/dL (5-100); TRIGLYCERIDES 99 mg/dL (35-160)
[2017-06-23] MEDS: GABAPENTIN 100 MG CAPSULE (FP) PO SCH ×3 (06:25→21:23)
[2017-06-23 07:52] LABS: INR 1.71 (0.82-1.09); PROTHROMBIN TIME (PATIENT) 19.3 SEC (9.98-11.88)
[2017-06-23 07:55] LABS: ACTIVATED PTT 31.2 SECONDS (26.9-34.4)
[2017-06-23] MEDS: CEFTRIAXONE 1 G/50 ML PREMIX 50 ML IVPB SCH (09:34)
[2017-06-23] MEDS: HEPARIN NA (PORCINE) 5,000 UNITS/ML 1ML VIAL SQ SCH ×2 (09:35→21:23)
--- NOTE | 2017-06-23 11:15 | PN ---
Progress Note, Physician History of Present Illness: starting to spike fevers patient feels weak no specific cause of infection noted all cx negative so far - Current Medication List Current Medications: Active Medications Acetaminophen (Tylenol -) 650 mg PO Q6H PRN PRN Reason: FEVER Last Admin: 06/22/17 22:01 Dose: 650 mg Gabapentin (Neurontin -) 100 mg PO TID [facility] Last Admin: 06/23/17 06:25 Dose: 100 mg Heparin Sodium (Porcine) (Heparin -) 5,000 unit SQ BID [facility] Last Admin: 06/23/17 09:35 Dose: 5,000 unit - Objective Vital Signs: Vital Signs Temperature 100.4 F H 06/23/17 06:00 Pulse Rate 108 H 06/23/17 10:00 Respiratory Rate 20 06/23/17 10:00 Blood Pressure 136/72 06/23/17 10:00 O2 Sat by Pulse Oximetry (%) 98 06/23/17 09:00 Constitutional: Yes: No Distress, Calm, Obese Cardiovascular: Yes: Regular Rate and Rhythm Respiratory: Yes: Regular, CTA Bilaterally, Poor Air Entry (bases) Musculoskeletal: Yes: WNL Extremities: Yes: WNL Neurological: Yes: Alert, Oriented Psychiatric: Yes: Alert, Oriented Labs: CBC, BMP 06/22/17 06:30 06/22/17 09:45 INR, PTT INR 1.71 (0.82-1.09) H 06/23/17 06:40 Assessment/Plan r/o infective process ct disorder cardiac process sepsis autoimmune process r/o osteo plan work up for osteo mri as planned will see how patient does if continues to spike fever will start abx cause of fever still unclear as well as his general condition await for rheum neuro on case
--- NOTE | 2017-06-23 11:23 | PN ---
Progress Note (short form) - Note Progress Note: PULMONARY VSS/FEBRILE POOR HISTORIAN:ORIGINAL COMPLAINT WEAKNESS/FEVER/B/L LEG PAIN FEELS IMPROVED BUT APPEARS CHRONICALLY ILL ANICTERIC DISTANT BREATH SOUNDS B/L ANTERIOR S1S2 DISTANT OBESE SOFT + EDEMA B/L LOWER EXT LABS/MEDS/NOTES/IMAGES/CT SPINE/MICRO/CONSULTS REVIEWED INTERMITTENT LOW GRADE TEMPS SINCE ADMISSION TREATED WITH TAMIFLU/ROCEPHIN/ZITHROMAX THUS FAR BUMP IN LFT'S THIS AM WITH NORMAL LIVER /GB/BILE DUCTS ON RECENT CT ABD NO INFILTRATE ON CT CHEST L/S SPINE REVEALS DESTRUCTION OF L4 ? OSTEO(FURTHER STUDIES REQUIRED)ESR 103 RECENT H/O STREP THROAT([facility]) WITH TREATMENT INTERRUPTED DUE TO RASH WOULD PURSUE OSTEOMYELITIS WORKUP WITH CONTRAST MRI SUGGESTED CONSIDER GI EVAL FOR TRANSAMINITIS LUMBAR BX PLANNED PSA IS PENDING/HIV IS NEGATIVE PULMONARY STATUS APPEARS STABLE PRESENTLY WILL FOLLOW Patricia ZAPATA MD
--- NOTE | 2017-06-24 02:14 | PN ---
Progress Note, Physician Chief Complaint: Pt, with at bedside, denies chest pain, dyspnea, palpitations History of Present Illness: Patient is a 61 year old male with a significant past medical history of sciatica who presents to the ED with complaints of fever that began 3 weeks ago. As per patient's daughter, patient was taken to urgent care 3 weeks ago for increased fever and body aches and was diagnosed with strep and given penicillin prescription. She reports after finishing prescription over 1 week, patient began to develop rash from the penicillin and began to take benadryl, relieving the rash in 2 days. Patient's daughter reports, patient was then taken to [facility] on June 08 for similar symptoms of increased fever and associated bilateral leg pain and weakness. She reports patient was given X Ray, CT abdomen, flu culture and labs, before being diagnosed with pleuritic chest pain. Patient's daughter reports bringing patient into the ED for further evaluation tonight after patient's bilateral leg pain and weakness did not subside causing her to worry. She reports patient has been experiencing decreased appetite for the last few days. - Current Medication List Current Medications: Active Medications Acetaminophen (Tylenol -) 650 mg PO Q6H PRN PRN Reason: FEVER Last Admin: 06/22/17 22:01 Dose: 650 mg Gabapentin (Neurontin -) 100 mg PO TID [facility] Last Admin: 06/23/17 21:23 Dose: 100 mg Heparin Sodium (Porcine) (Heparin -) 5,000 unit SQ BID [facility] Last Admin: 06/23/17 21:23 Dose: 5,000 unit - Objective Vital Signs: Vital Signs Temperature 103 F H 06/24/17 01:30 Pulse Rate 112 H 06/24/17 01:30 Respiratory Rate 20 06/24/17 01:30 Blood Pressure 152/66 06/24/17 01:30 O2 Sat by Pulse Oximetry (%) 98 06/23/17 21:00 Constitutional: Yes: Anxious Eyes: Yes: WNL HENT: Yes: WNL Neck: Yes: WNL Cardiovascular: Yes: Tachycardia, S1, S2, S4 Respiratory: Yes: WNL Gastrointestinal: Yes: Soft, Abdomen, Obese ...Rectal Exam: Yes: Deferred Genitourinary: No: Anuria Musculoskeletal: Yes: Joint Swelling, Muscle Weakness Extremities: Yes: Cool Edema: No Peripheral Pulses WNL: Yes Integumentary: Yes: WNL Neurological: Yes: WNL Psychiatric: Yes: Other Labs: CBC, BMP 06/22/17 06:30 06/22/17 09:45 INR, PTT INR 1.71 (0.82-1.09) H 06/23/17 06:40 Abnormal Lab Results 06/22/17 06/23/17 09:45 06:40 PT with INR 19.30 H INR 1.71 H HDL Cholesterol 13 L Problem List - Problems (1) Diabetes Assessment/Plan: elevated glucose and HGBA1c. Strong family hx of diabetes. Morbid obesity; sedentary. Suggest further workup, and dietary consult. (Pt's insight into the relation of obesity with diabetes and other infirmities seems poor). Pt's (speaking to ) says the family has been trying to get him to change habits (diet, alcohol, lack of exercise) for years, but "he has to make up his mind". Code(s): E11.9 - TYPE 2 DIABETES MELLITUS WITHOUT COMPLICATIONS (2) Hyperlipidemia Assessment/Plan: total cholesterol 90 mg/dL. Code(s): E78.5 - HYPERLIPIDEMIA, UNSPECIFIED (3) Morbid obesity Assessment/Plan: see under "Diabetes" Code(s): E66.01 - MORBID (SEVERE) OBESITY DUE TO EXCESS CALORIES (4) Anasarca Code(s): R60.1 - GENERALIZED EDEMA (5) Anemia Code(s): D64.9 - ANEMIA, UNSPECIFIED (6) Fever Assessment/Plan: F/u cultures; on antibiotics; completed influenza Rx. Code(s): R50.9 - FEVER, UNSPECIFIED (7) Sepsis Code(s): A41.9 - SEPSIS, UNSPECIFIED ORGANISM (8) Elevated LFTs Assessment/Plan: f/u GI workup; r/o hepatitis, acute rise from sepsis, cardiac congestion, autoimmune process, medications. Code(s): R79.89 - OTHER SPECIFIED ABNORMAL FINDINGS OF BLOOD CHEMISTRY (9) Osteomyelitis Code(s): M86.9 - OSTEOMYELITIS, UNSPECIFIED (10) Lower extremity weakness Assessment/Plan: ongoing neuro workup. Code(s): R29.898 - OTH SYMPTOMS AND SIGNS INVOLVING THE MUSCULOSKELETAL SYSTEM (11) Hypoalbuminemia Code(s): E88.09 - OTH DISORDERS OF PLASMA-PROTEIN METABOLISM, NEC
[2017-06-24] MEDS: GABAPENTIN 100 MG CAPSULE (FP) PO SCH ×3 (06:34→22:30)
[2017-06-24] MEDS: HEPARIN NA (PORCINE) 5,000 UNITS/ML 1ML VIAL SQ SCH (10:31)
--- NOTE | 2017-06-24 10:49 | PN ---
Progress Note (short form) - Note Progress Note: 61 year old male with a significant past medical history of sciatica who presents to the ED with complaints of fever that began 3 weeks ago. As per patient's daughter, patient was taken to urgent care 3 weeks ago for increased fever and body aches and was diagnosed with strep and given penicillin prescription. She reports after finishing prescription over 1 week, patient began to develop rash from the penicillin and began to take benadryl, relieving the rash in 2 days. Patient's daughter reports, patient was then taken to [facility] on June 08 for similar symptoms of increased fever and associated bilateral leg pain and weakness, LE >UE. mild numbness R hand. He reports patient was given X Ray, CT abdomen, flu culture and labs, before being diagnosed with pleuritic chest pain. noted to elevated CPKS, LFTS and elevated total protein, called for eval r/o myopathy. no hx of statin (only new RX was PCN0 , at baseline home walking and drives , now unable to walk. FU : He denies back pain, appears mildly encephgalopathyic with inattentiveness CTL SPINE noted : IMPRESSION: Limited evaluation of soft tissue due to the patient's body habitus. L3-L4 moderate bilateral facet hypertrophy. L4-L5 marked left and moderate to marked right facet hypertrophy with deformity and decreased attenuation of the left L4 inferior facet with and questionable deformity of L5 and facet suspicious for bone destruction. Rule out osteomyelitis in view of the clinical history. Evaluation of the spinal canal contents is quite limited due to the patient's body habitus with questionable mild disc bulge and possibly moderate degenerative central spinal canal stenosis at this level. Correlation with contrast-enhanced MRI, if possible would be the study of choice to rule out osteomyelitis and to further evaluate for spinal canal. still with low grade temp diaphoretic as per always 'shakey" but more so now weakness TR 4/5 and paraplegia LE-is able to wiggle toes only +asterixis but less intense than yesterday ?? thoracic/lumbar epidural absces, await CT T/L spine.
--- NOTE | 2017-06-24 11:07 | PN ---
Progress Note, Physician History of Present Illness: seen and examined today in [facility]. states he is feeling better. remains very weak. has trouble just moving around in bed due to weakness. continued pain b/l LE but improving. - Current Medication List Current Medications: Active Medications Acetaminophen (Tylenol -) 650 mg PO Q6H PRN PRN Reason: FEVER Last Admin: 06/22/17 22:01 Dose: 650 mg Gabapentin (Neurontin -) 100 mg PO TID [facility] Last Admin: 06/24/17 06:34 Dose: 100 mg Heparin Sodium (Porcine) (Heparin -) 5,000 unit SQ BID [facility] Last Admin: 06/24/17 10:31 Dose: 5,000 unit - Objective Vital Signs: Vital Signs Temperature 100.3 F H 06/24/17 06:00 Pulse Rate 106 H 06/24/17 06:00 Respiratory Rate 20 06/24/17 06:00 Blood Pressure 134/60 06/24/17 06:00 O2 Sat by Pulse Oximetry (%) 98 06/23/17 21:00 Constitutional: Yes: No Distress, Calm Eyes: Yes: Conjunctiva Clear, EOM Intact, PERRL HENT: Yes: Atraumatic, Normocephalic Neck: Yes: Supple, Trachea Midline Cardiovascular: Yes: Regular Rate and Rhythm, S1, S2. No: Bradycardia, Tachycardia, Pulse Irregular, Bruit, JVD, Gallop, Murmur, Rub, S3, S4, Varicosities Respiratory: Yes: Regular, Diminished, On Nasal O2. No: Rales, Rhonchi, SOB, Wheezes Gastrointestinal: Yes: Normal Bowel Sounds, Soft. No: Distention, Tenderness Edema: Yes Edema: LUE: Trace, RUE: Trace, LLE: 1+, RLE: 1+ Peripheral Pulses WNL: Yes Neurological: Yes: Alert, Oriented Psychiatric: Yes: Alert, Oriented Labs: CBC, BMP 06/22/17 06:30 06/22/17 09:45 INR, PTT INR 1.71 (0.82-1.09) H 06/23/17 06:40 - ....Imaging Chest X-ray: Report Reviewed, Image Reviewed EKG: Report Reviewed, Image Reviewed Other: Report Reviewed, Image Reviewed Assessment/Plan IMP: Fever Edema PHTN 1. Edema-slightly improving -likely component of third spacing due to hypoalbuminemia -creatinine trended down -encourage adequate po fluid intake -Echo showed normal LV function w/ mildly dilated LV 2. fever chills body aches: -recent diagnosis of strep throat -Concerning for sepsis/pneumonia -Possible viral illness which could include influenza -possible strep -infectious disease is following -Creatinine trended down, WBC, LFTs were trending up over the weekend, repeat labs today 3. Muscle weaknes/rash -Lumbar spine CT was done, possibly c/w multiple myeloma, could not rule out osteomyelitis -ID/Rheum/Heme/Neuro following
[2017-06-24 13:10] LABS: HEMATOCRIT 30.3 % (35.4-49); HEMOGLOBIN 9.8 GM/dL (11.7-16.9); MCHC 32.3 g/dl (32.0-35.9); MEAN CELL VOLUME 80.5 fl (80-96); MEAN PLT VOLUME 8.8 fl (7.5-11.1); PLATELET COUNT 336 K/MM3 (134-434); RBC 3.77 M/mm3 (4.00-5.60); RDW 14.7 % (11.9-15.9); WHITE BLOOD COUNT 14.3 K/mm3 (4.0-10.0)
--- NOTE | 2017-06-24 13:17 | PN ---
Progress Note, Physician History of Present Illness: patient starting to spike fevers again spoke with daughter now starting to have periods of confusion currently awake and alert last set of wbc was on the higher side also patients shakes have increased according to the family - Current Medication List Current Medications: Active Medications Acetaminophen (Tylenol -) 650 mg PO Q6H PRN PRN Reason: FEVER Last Admin: 06/22/17 22:01 Dose: 650 mg Gabapentin (Neurontin -) 100 mg PO TID AJ Last Admin: 06/24/17 06:34 Dose: 100 mg Vancomycin HCl 1,250 mg/ (Dextrose) 250 mls @ 166.667 mls/hr IVPB DAILY AJ PRN Reason: Protocol Ertapenem 1 gm/ Sodium (Chloride) 50 mls @ 50 mls/hr IVPB DAILY AJ PRN Reason: Protocol - Objective Vital Signs: Vital Signs Temperature 100.5 F H 06/24/17 08:00 Pulse Rate 100 H 06/24/17 08:00 Respiratory Rate 20 06/24/17 08:00 Blood Pressure 152/88 06/24/17 08:00 O2 Sat by Pulse Oximetry (%) 96 06/24/17 08:00 Constitutional: Yes: No Distress, Calm, Obese Eyes: Yes: Conjunctiva Clear Cardiovascular: Yes: Regular Rate and Rhythm Respiratory: Yes: Regular, CTA Bilaterally Gastrointestinal: Yes: Normal Bowel Sounds, Soft Musculoskeletal: Yes: WNL Extremities: Yes: WNL Neurological: Yes: Alert, Confusion Psychiatric: Yes: Alert Labs: INR, PTT INR 1.71 (0.82-1.09) H 06/23/17 06:40 Assessment/Plan r/o infective process ct disorder cardiac process sepsis autoimmune process r/o osteo abn lft leukocytosis with the current patients condition and starting to spike fever i have restarted abx though i still think infectious process is on the lower spectrum causing him his fever though spine still needs to be evaluated properly his wbc has also started to increase and i have ordered a stat cbc now and will see where it stands neuro note noted patient needs an imaging studies to see if there is any pathology in his spine his liver enzymes have been going up including inr and if his confusion is a sign of hepatic encephalopathy also his muscles looks like it are quite weak and his inabilit plan await for cbc and bmp will start him on vanco and ertapenam close watch on his condition imaging studies of the spine if biopsy is planned please let me now so we can stop abx for at least 48 hours before biopsy is done monitor lft consider muscle biopsy
[2017-06-24 13:33] LABS: ANION GAP 10 (8-16); BLOOD UREA NITROGEN 21 mg/dL (7-18); CALCIUM 9.5 mg/dL (8.5-10.1); CHLORIDE 97 mmol/L (98-107); CO2 26 mmol/L (21-32); CREATININE 0.9 mg/dL (0.7-1.3); GLUCOSE,RANDOM 180 mg/dL (74-106); POTASSIUM 4.4 mmol/L (3.5-5.1); SODIUM 133 mmol/L (136-145)
[2017-06-24] MEDS ORDERED: ERTAPENEM SODIUM 1 GM in SODIUM CHLORIDE 50 ML IVPB SCH (13:45)
[2017-06-24] MEDS ORDERED: ERTAPENEM SODIUM 1 GM in SODIUM CHLORIDE 100 ML IVPB SCH (13:59)
[2017-06-24] MEDS: VANCOMYCIN 1,250 MG in DEXTROSE 5%-WATER - 250 ML IVPB SCH (14:28)
--- NOTE | 2017-06-24 15:30 | PN ---
Progress Note, Physician History of Present Illness: Pt seen and examined at bedside. He is having chills and fevers at times. He does get confused as well. - Current Medication List Current Medications: Active Medications Acetaminophen (Tylenol -) 650 mg PO Q6H PRN PRN Reason: FEVER Last Admin: 06/22/17 22:01 Dose: 650 mg Gabapentin (Neurontin -) 100 mg PO TID AJ Last Admin: 06/24/17 14:16 Dose: 100 mg Vancomycin HCl 1,250 mg/ (Dextrose) 250 mls @ 166.667 mls/hr IVPB DAILY AJ PRN Reason: Protocol Last Admin: 06/24/17 14:28 Dose: 166.667 mls/hr Ertapenem 1 gm/ Sodium (Chloride) 100 mls @ 100 mls/hr IVPB DAILY JA PRN Reason: Protocol - Objective Vital Signs: Vital Signs Temperature 100.5 F H 06/24/17 08:00 Pulse Rate 100 H 06/24/17 08:00 Respiratory Rate 20 06/24/17 08:00 Blood Pressure 152/88 06/24/17 08:00 O2 Sat by Pulse Oximetry (%) 96 06/24/17 08:00 Constitutional: Yes: Calm Eyes: Yes: Conjunctiva Clear HENT: Yes: Atraumatic Neck: Yes: Supple Cardiovascular: Yes: S1, S2 Respiratory: Yes: CTA Bilaterally Gastrointestinal: Yes: Soft, Abdomen, Obese Genitourinary: Yes: WNL Musculoskeletal: Yes: WNL Edema: Yes Edema: LLE: Trace, RLE: Trace Neurological: Yes: Oriented Labs: CBC, BMP 06/24/17 12:40 06/24/17 12:40 INR, PTT INR 1.71 (0.82-1.09) H 06/23/17 06:40 Problem List - Problems (1) Anemia Code(s): D64.9 - ANEMIA, UNSPECIFIED (2) CKD (chronic kidney disease) Code(s): N18.9 - CHRONIC KIDNEY DISEASE, UNSPECIFIED (3) Elevated creatine kinase Code(s): R74.8 - ABNORMAL LEVELS OF OTHER SERUM ENZYMES (4) Neuropathy Code(s): G62.9 - POLYNEUROPATHY, UNSPECIFIED Assessment/Plan Current Medications Generic Name Dose Route Start Last Admin Trade Name Freq PRN Reason Stop Dose Admin Acetaminophen 650 mg 06/17/17 19:17 06/22/17 22:01 Tylenol - PO 650 mg Q6H PRN Administration FEVER Gabapentin 100 mg 06/17/17 14:00 06/24/17 14:16 Neurontin - PO 100 mg TID AJ Administration Vancomycin HCl 1,250 mg/ 250 mls @ 166.667 mls/hr 06/24/17 12:45 06/24/17 14: 28 Dextrose IVPB 166.667 mls/hr DAILY AJ Administration Protocol Ertapenem 1 gm/ Sodium 100 mls @ 100 mls/hr 06/24/17 13:59 Chloride IVPB DAILY [facility] Protocol Laboratory Tests 06/17/17 06/17/17 06/17/17 04:51 20:45 20:45 Creatinine Urine Protein Negative Urine Blood Negative U Free Triumph Light Ch U Free Lambda Light Ch U Free Triumph/Lambda 24 Rheumatoid Factor < 10.0 RALPH Screen Negative c-ANCA Proteinase 3 (PR3) p-ANCA Atypical p-ANCA Myeloperoxidase Ab GERMAN-1 Antibody Free Triumph LC, Quant Free Lambda LC, Quant Free Triumph/Lambda Ratio HIV 1&2 Antibody Screen HIV P24 Antigen 06/18/17 06/18/17 06/21/17 07:45 07:45 07:15 Creatinine Urine Protein Urine Blood U Free Triumph Light Ch Pending U Free Lambda Light Ch Pending U Free Triumph/Lambda 24 Pending Rheumatoid Factor RALPH Screen c-ANCA <1:20 Proteinase 3 (PR3) <3.5 p-ANCA <1:20 Atypical p-ANCA <1:20 Myeloperoxidase Ab <9.0 GERMAN-1 Antibody <0.2 Free Triumph LC, Quant 151.8 H Free Lambda LC, Quant 194.7 H Free Triumph/Lambda Ratio 0.78 HIV 1&2 Antibody Screen HIV P24 Antigen 06/22/17 06/24/17 06:30 12:40 Creatinine 0.9 Urine Protein Urine Blood U Free Triumph Light Ch U Free Lambda Light Ch U Free Triumph/Lambda 24 Rheumatoid Factor RALPH Screen c-ANCA Proteinase 3 (PR3) p-ANCA Atypical p-ANCA Myeloperoxidase Ab GERMAN-1 Antibody Free Triumph LC, Quant Free Lambda LC, Quant Free Triumph/Lambda Ratio HIV 1&2 Antibody Screen Negative HIV P24 Antigen Negative Impression 1. likely CKD vs KADIE 2. anemia 3. fevers 4. rash - which has resolved 5. obesity 6. lower ext pain and weekness 7. elevated total protein 8. transaminitis Plan - renal workup negative so far - cont serologic workup per primary team - neuro/ID/rheum follow up - follow kappa and lambda - will follow PRN - avoid nsaids Dr Ugarte
[2017-06-24 15:48] LABS: PLATELET ESTIMATE NORMAL; TARGET CELLS 2+
--- NOTE | 2017-06-24 19:14 | PN ---
Progress Note, Physician History of Present Illness: feeling better has been having chills and fevers - Current Medication List Current Medications: Active Medications Acetaminophen (Tylenol -) 650 mg PO Q6H PRN PRN Reason: FEVER Last Admin: 06/22/17 22:01 Dose: 650 mg Gabapentin (Neurontin -) 100 mg PO TID AJ Last Admin: 06/24/17 14:16 Dose: 100 mg Vancomycin HCl 1,250 mg/ (Dextrose) 250 mls @ 166.667 mls/hr IVPB DAILY AJ PRN Reason: Protocol Last Admin: 06/24/17 14:28 Dose: 166.667 mls/hr Ertapenem 1 gm/ Sodium (Chloride) 100 mls @ 100 mls/hr IVPB DAILY AJ PRN Reason: Protocol - Objective Vital Signs: Vital Signs Temperature 99.4 F 06/24/17 15:56 Pulse Rate 112 H 06/24/17 15:56 Respiratory Rate 20 06/24/17 15:56 Blood Pressure 133/79 06/24/17 15:56 O2 Sat by Pulse Oximetry (%) 96 06/24/17 08:00 Constitutional: Yes: Calm HENT: Yes: Atraumatic Neck: Yes: Supple Cardiovascular: Yes: Regular Rate and Rhythm Respiratory: Yes: Rhonchi Gastrointestinal: Yes: Normal Bowel Sounds Extremities: Yes: WNL Edema: Yes Edema: LLE: 3+, RLE: 3+ Peripheral Pulses WNL: Yes Neurological: Yes: Alert, Oriented Labs: CBC, BMP 06/24/17 12:40 06/24/17 12:40 INR, PTT INR 1.71 (0.82-1.09) H 06/23/17 06:40 Problem List - Problems (1) Neuropathy Assessment/Plan: pt is on gabapentin better neuro on board Code(s): G62.9 - POLYNEUROPATHY, UNSPECIFIED (2) Elevated creatine kinase Assessment/Plan: rhabdo iv hydration...improved Code(s): R74.8 - ABNORMAL LEVELS OF OTHER SERUM ENZYMES (3) Elevated serum creatinine Assessment/Plan: wnl Code(s): R79.89 - OTHER SPECIFIED ABNORMAL FINDINGS OF BLOOD CHEMISTRY (4) Anasarca Code(s): R60.1 - GENERALIZED EDEMA (5) Anemia Assessment/Plan: chronic? hematology consult reviewed labs reviewed Code(s): D64.9 - ANEMIA, UNSPECIFIED (6) CKD (chronic kidney disease) Assessment/Plan: renal work up in progress Code(s): N18.9 - CHRONIC KIDNEY DISEASE, UNSPECIFIED (7) Fever Assessment/Plan: cxs negative on abx per id osteo lumbar spine?? biopsy pending Code(s): R50.9 - FEVER, UNSPECIFIED (8) Diabetes Code(s): E11.9 - TYPE 2 DIABETES MELLITUS WITHOUT COMPLICATIONS
--- NOTE | 2017-06-24 20:22 | PN ---
Progress Note, Physician History of Present Illness: Pt seen and examined on 06/23/17 however note is being entered late - Current Medication List Current Medications: Active Medications Acetaminophen (Tylenol -) 650 mg PO Q6H PRN PRN Reason: FEVER Last Admin: 06/22/17 22:01 Dose: 650 mg Gabapentin (Neurontin -) 100 mg PO TID AJ Last Admin: 06/24/17 14:16 Dose: 100 mg Vancomycin HCl 1,250 mg/ (Dextrose) 250 mls @ 166.667 mls/hr IVPB DAILY AJ PRN Reason: Protocol Last Admin: 06/24/17 14:28 Dose: 166.667 mls/hr Ertapenem 1 gm/ Sodium (Chloride) 100 mls @ 100 mls/hr IVPB DAILY AJ PRN Reason: Protocol - Objective Vital Signs: Vital Signs Temperature 99.4 F 06/24/17 15:56 Pulse Rate 112 H 06/24/17 15:56 Respiratory Rate 20 06/24/17 15:56 Blood Pressure 133/79 06/24/17 15:56 O2 Sat by Pulse Oximetry (%) 96 06/24/17 08:00 Labs: CBC, BMP 06/24/17 12:40 06/24/17 12:40 INR, PTT INR 1.71 (0.82-1.09) H 06/23/17 06:40
[2017-06-25] MEDS ORDERED: PT OWN MED DRAWER 7, Y5N ONE (03:04)
[2017-06-25] MEDS: GABAPENTIN 100 MG CAPSULE (FP) PO SCH ×3 (06:29→21:52)
--- NOTE | 2017-06-25 09:08 | PN ---
Progress Note, Physician Chief Complaint: no chest pain or SOB - Current Medication List Current Medications: Active Medications Acetaminophen (Tylenol -) 650 mg PO Q6H PRN PRN Reason: FEVER Last Admin: 06/22/17 22:01 Dose: 650 mg Gabapentin (Neurontin -) 100 mg PO TID JA Last Admin: 06/25/17 06:29 Dose: 100 mg Vancomycin HCl 1,250 mg/ (Dextrose) 250 mls @ 166.667 mls/hr IVPB DAILY AJ PRN Reason: Protocol Last Admin: 06/24/17 14:28 Dose: 166.667 mls/hr Ertapenem 1 gm/ Sodium (Chloride) 100 mls @ 100 mls/hr IVPB DAILY AJ PRN Reason: Protocol - Objective Vital Signs: Vital Signs Temperature 99.7 F H 06/25/17 06:00 Pulse Rate 108 H 06/25/17 06:00 Respiratory Rate 20 06/25/17 06:00 Blood Pressure 100/50 06/25/17 06:00 O2 Sat by Pulse Oximetry (%) 96 06/24/17 21:00 Constitutional: Yes: No Distress Eyes: Yes: Conjunctiva Clear Cardiovascular: Yes: Regular Rate and Rhythm Respiratory: Yes: CTA Bilaterally Gastrointestinal: Yes: Soft (non-tender), Abdomen, Obese Edema: No Neurological: Yes: Alert, Oriented Labs: CBC, BMP 06/24/17 12:40 06/24/17 12:40 INR, PTT INR 1.71 (0.82-1.09) H 06/23/17 06:40 Microbiology 06/17/17 00:30 Blood - Peripheral Venous Blood Culture - Final NO GROWTH AFTER 5 DAYS INCUBATION 06/17/17 00:30 Blood - Peripheral Venous Blood Culture - Final NO GROWTH AFTER 5 DAYS INCUBATION Laboratory Tests 06/24/17 06/24/17 12:40 12:40 WBC 14.3 H Hgb 9.8 L Hct 30.3 L Plt Count 336 Sodium 133 L Potassium 4.4 BUN 21 H D Creatinine 0.9 Assessment/Plan IMP: Fever Edema PHTN 1. Edema- improving -likely component of third spacing due to hypoalbuminemia -creatinine trended down -encourage adequate po fluid intake -Echo showed normal LV function w/ mildly dilated LV 2. Fever: -recent diagnosis of strep throat -initial concern for sepsis/PNA -Possible viral illness -infectious disease is following -Creatinine trended down, WBC, LFTs were trending up over the weekend 3. Muscle weaknes/rash -Lumbar spine CT was done, possibly c/w multiple myeloma, could not rule out osteomyelitis -ID/Rheum/Heme/Neuro following 4. Mild sinus tach -Likely due to deconditioned status, infection, anemia
[2017-06-25 09:41] LABS: INR 1.64 (0.82-1.09); PROTHROMBIN TIME (PATIENT) 18.5 SEC (9.98-11.88)
[2017-06-25] MEDS: VANCOMYCIN 1,250 MG in DEXTROSE 5%-WATER - 250 ML IVPB SCH (10:03)
--- NOTE | 2017-06-25 10:16 | PN ---
Progress Note (short form) - Note Progress Note: Resting in NAD on NC O2. No CP or SOB. Low grade temps persist. Intake & Output 06/22/17 06/23/17 06/24/17 06/25/17 23:59 23:59 23:59 23:59 Intake Total 1050 450 650 Output Total 1500 Balance 1050 450 650 -1500 Weight 394 lb 8 oz 390 lb 9.6 oz 388 lb 380 lb Last Vital Signs Temp Pulse Resp BP Pulse Ox 99.7 F H 108 H 20 100/50 96 06/25/17 06:00 06/25/17 06:00 06/25/17 06:00 06/25/17 06:00 06/24/17 21:00 Active Medications Acetaminophen (Tylenol -) 650 mg PO Q6H PRN PRN Reason: FEVER Last Admin: 06/22/17 22:01 Dose: 650 mg Gabapentin (Neurontin -) 100 mg PO TID AJ Last Admin: 06/25/17 06:29 Dose: 100 mg Vancomycin HCl 1,250 mg/ (Dextrose) 250 mls @ 166.667 mls/hr IVPB DAILY AJ PRN Reason: Protocol Last Admin: 06/25/17 10:03 Dose: 166.667 mls/hr Ertapenem 1 gm/ Sodium (Chloride) 100 mls @ 100 mls/hr IVPB DAILY AJ PRN Reason: Protocol Last Admin: 06/25/17 10:03 Dose: 100 mls/hr Gen: NAD at rest Heart: RRR Lung: decreased breath sounds at the bases Abd: soft, nontender Ext: + edema Laboratory Results - last 24 hr 06/23/17 06/24/17 06/24/17 06:40 12:40 12:40 WBC 14.3 H RBC 3.77 L Hgb 9.8 L Hct 30.3 L MCV 80.5 MCH 26.0 MCHC 32.3 RDW 14.7 Plt Count 336 MPV 8.8 Neutrophils % No Result Required. Neutrophils % (Manual) 72.0 Band Neutrophils % 0.0 Lymphocytes % No Result Required. Lymphocytes % (Manual) 12.0 Monocytes % (Manual) 11 H Eosinophils % (Manual) 2.0 D Basophils % (Manual) 0.0 Myelocytes % (Man) 1 Promyelocytes % (Man) 0 Nucleated RBC % 0 Metamyelocytes 2 Hypochromia 1+ Platelet Estimate Normal Target Cells 2+ PT with INR INR Sodium 133 L Potassium 4.4 Chloride 97 L Carbon Dioxide 26 Anion Gap 10 BUN 21 H D Creatinine 0.9 Random Glucose 180 H D Calcium 9.5 Prostate Specific Ag 0.50 06/25/17 09:05 WBC RBC Hgb Hct MCV MCH MCHC RDW Plt Count MPV Neutrophils % Neutrophils % (Manual) Band Neutrophils % Lymphocytes % Lymphocytes % (Manual) Monocytes % (Manual) Eosinophils % (Manual) Basophils % (Manual) Myelocytes % (Man) Promyelocytes % (Man) Nucleated RBC % Metamyelocytes Hypochromia Platelet Estimate Target Cells PT with INR 18.50 H INR 1.64 H Sodium Potassium Chloride Carbon Dioxide Anion Gap BUN Creatinine Random Glucose Calcium Prostate Specific Ag A/P Recent Strep Throat Fever DO not suspect PNA Acute Kidney Injury improving Pulmonary HTN Likely ANJELICA (?) MM (?) Osteomyelitis - antibiotics per ID - Fever workup ongoing - monitor urine output, creatinine - outpatient PFTs, PSG - DVT prophylaxis Dr Lopez
--- NOTE | 2017-06-25 10:20 | PN ---
Progress Note (short form) - Note Progress Note: Pt seen and examined. chart reviewed in detail. continues to spike. re-started on abx. All the outside sales consultant notes reviewed O/E: General: Obese in NAD HEENT: NCAT Abd: obese LE: 2+ Pitting edema Lungs: CtA b/l Neuro:appears fatigued Last Vital Signs Temp Pulse Resp BP Pulse Ox 100.0 F H 110 H 20 150/69 96 06/25/17 09:30 06/25/17 09:30 06/25/17 09:30 06/25/17 09:30 06/24/17 21:00 CBC, BMP 06/25/17 09:05 Current Medications Generic Name Dose Route Start Last Admin Trade Name Freq PRN Reason Stop Dose Admin Acetaminophen 650 mg 06/17/17 19:17 06/22/17 22:01 Tylenol - PO 650 mg Q6H PRN Administration FEVER Gabapentin 100 mg 06/17/17 14:00 06/25/17 06:29 Neurontin - PO 100 mg TID AJ Administration Vancomycin HCl 1,250 mg/ 250 mls @ 166.667 mls/hr 06/24/17 12:45 06/25/17 10: 03 Dextrose IVPB 166.667 mls/hr DAILY AJ Administration Protocol Ertapenem 1 gm/ Sodium 100 mls @ 100 mls/hr 06/24/17 13:59 06/25/17 10:03 Chloride IVPB 100 mls/hr DAILY AJ Administration Protocol 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 Abnormal LFts, Coagulopathy. progressive weakness. DOREEN is polyclonal IgG , IgA K and L. having a polyclonal spike. K/L ratio negative. urine protein studies negative The above making a monoclonal gammopathy less likely. peripheral blood flow negative. the underlying etiology ?Osteo , the CT c/L/S spine was reviewed concerning for septic joint, has ferritin and CRP elevated ( acute phase reactants) , for IR guided biopsy as per chart. give Vit K to correct INR. Etiology for LFTs increase? , ordered stat Chem consider NSG/GI eval
[2017-06-25] MEDS ORDERED: PHYTONADIONE 10 MG/1 ML AMP IVPB ONE (11:30)
--- NOTE | 2017-06-25 11:41 | PN ---
Progress Note (short form) - Note Progress Note: 61 year old male with a significant past medical history of sciatica who presents to the ED with complaints of fever that began 3 weeks ago. As per patient's daughter, patient was taken to urgent care 3 weeks ago for increased fever and body aches and was diagnosed with strep and given penicillin prescription. She reports after finishing prescription over 1 week, patient began to develop rash from the penicillin and began to take benadryl, relieving the rash in 2 days. Patient's daughter reports, patient was then taken to [facility] on June 08 for similar symptoms of increased fever and associated bilateral leg pain and weakness, LE >UE. mild numbness R hand. He reports patient was given X Ray, CT abdomen, flu culture and labs, before being diagnosed with pleuritic chest pain. noted to elevated CPKS, LFTS and elevated total protein, called for eval r/o myopathy. no hx of statin (only new RX was PCN0 , at baseline home walking and drives , now unable to walk. FU : CTL SPINE noted : IMPRESSION: Limited evaluation of soft tissue due to the patient's body habitus. L3-L4 moderate bilateral facet hypertrophy. L4-L5 marked left and moderate to marked right facet hypertrophy with deformity and decreased attenuation of the left L4 inferior facet with and questionable deformity of L5 and facet suspicious for bone destruction. Rule out osteomyelitis in view of the clinical history. Evaluation of the spinal canal contents is quite limited due to the patient's body habitus with questionable mild disc bulge and possibly moderate degenerative central spinal canal stenosis at this level. Correlation with contrast-enhanced MRI, if possible would be the study of choice to rule out osteomyelitis and to further evaluate for spinal canal. still with low grade temp diaphoretic as per always 'shakey" but more so now weakness TR 4/5 and paraplegia LE +asterixis painful joints L wrist and ankles seen by rheum - History Source History Provided By: Patient, Medical Record - Past Medical History Musculoskeletal: Yes: Other (sciatica) Additional Medical History: obesity - Alcohol/Substance Use Hx Alcohol Use: Yes - Smoking History Smoking history: Never smoked Have you smoked in the past 12 months: No - Social History Usual Living Arrangement: With Spouse ADL: Independent History of Recent Travel: No Home Medications - Allergies Allergies/Adverse Reactions: Allergies Allergy/AdvReac Type Severity Reaction Status Date / Time iodine Allergy Verified 06/16/17 23:23 shellfish derived Allergy Verified 06/16/17 23:23 - Home Medications Home Medications: Ambulatory Orders Ibuprofen [Motrin -] 800 mg PO TID PRN #21 tablet 11/04/13 Gabapentin [Neurontin -] 100 mg PO Q8H 06/16/17 Physical Exam-Neuro Vital Signs: Vital Signs Temperature 99.7 F H 06/21/17 14:34 Pulse Rate 106 H 06/21/17 14:34 Respiratory Rate 20 06/21/17 10:00 Blood Pressure 153/86 06/21/17 14:34 O2 Sat by Pulse Oximetry (%) 97 06/21/17 09:00 Constitutional: Yes: Mild Distress, Obese Neck: Yes: Supple Cardiovascular: Yes: Regular Rate and Rhythm Edema: LUE: 3+, RUE: 3+, LLE: 3+, RLE: 3+ Labs: CBCD WBC 11.3 K/mm3 (4.0-10.0) H 06/20/17 06:10 RBC 3.56 M/mm3 (4.00-5.60) L 06/20/17 06:10 Hgb 9.6 GM/dL (11.7-16.9) L 06/20/17 06:10 Hct 28.6 % (35.4-49) L 06/20/17 06:10 MCV 80.3 fl (80-96) 06/20/17 06:10 MCHC 33.6 g/dl (32.0-35.9) 06/20/17 06:10 RDW 14.6 % (11.9-15.9) 06/20/17 06:10 Plt Count 259 K/MM3 (134-434) 06/20/17 06:10 MPV 9.1 fl (7.5-11.1) 06/20/17 06:10 CMP Sodium 134 mmol/L (136-145) L 06/20/17 06:10 Potassium 4.2 mmol/L (3.5-5.1) 06/20/17 06:10 Chloride 98 mmol/L (98-107) 06/20/17 06:10 Carbon Dioxide 27 mmol/L (21-32) 06/20/17 06:10 Anion Gap 9 (8-16) 06/20/17 06:10 BUN 19 mg/dL (7-18) H 06/20/17 06:10 Creatinine 0.9 mg/dL (0.7-1.3) 06/20/17 06:10 Creat Clearance w eGFR > 60 (>60) 06/20/17 06:10 Calcium 9.1 mg/dL (8.5-10.1) 06/20/17 06:10 Total Bilirubin 0.7 mg/dL (0.2-1.0) D 06/20/17 06:10 AST 95 U/L (15-37) H 06/20/17 06:10 ALT 66 U/L (12-78) 06/20/17 06:10 Alkaline Phosphatase 120 U/L (45-117) H 06/20/17 06:10 Total Protein 8.4 g/dl (6.4-8.2) H 06/20/17 06:10 Albumin 1.3 g/dl (3.4-5.0) L 06/20/17 06:10 - Neuro Exam Level Of Consciousness: Yes: Alert (awake and answering requests, EOMI, no facial, no neck stiffness, MOtoro UE 5/5, with best effeort; although weakness in hands intersossei, LE: weakness IP , quads, and hams TA --very limited 2/5( pain /swelling also may be factor) ) Assessment/Plan 61 year old male with a significant past medical history of sciatica who presents to the ED with complaints of fever that began 3 weeks ago. As per patient's daughter, patient was taken to urgent care 3 weeks ago for increased fever and body aches and was diagnosed with strep and given penicillin prescription. progressive weakness of limbs, LE >UE, setting of elevated CPks, LFTS and fever , and signifcant peripheral edema-- suspect underlying hematologic vs rheumatolgic vs viral issue at hand , component of a neuropathy /myopathy weakness continues, worse as UE involved polyclonal spike-- ? infectious/inflam, CRP 22 FU rheum/Hem CT LS SPINE -- ? L4 bony destruction osetomyelitis-- repeat ESR/CRP- will need fluorguided BIOPSY /DR HERNANDEZ, spoke to ID as well CT T spine T8-9 evidence of possible infection as well as associated possible associated collection. CT check EMG (NC will be low yield given edema) , FU cpks Will get CT C and T spine without contrast (he has iodine allergy) to r/o destructive lesions there. CT guided biopsy of lesions not yet done yet due to elevated INR which is gradually trending down. Discussed with ID DR. Gillis, and left message for Dr. Hernandez of IR. Patient was started on empiric antibiotics out of concern that we couldn't just leave him unprotected, yet we also need to obtain tissue diagnosis. Will need to either do this through IR or open surgical intervention, and decide best site to obtain now, as he appears to have lesions at T8-9 and Cervical. Thanks. Will follow with you. Dr. Reid or Jesus to F/U tomorrow.
[2017-06-25 12:49] LABS: HEMATOCRIT 29.4 % (35.4-49); HEMOGLOBIN 9.5 GM/dL (11.7-16.9); MCH 26.3 pg (25.7-33.7); MCHC 32.2 g/dl (32.0-35.9); MEAN CELL VOLUME 81.8 fl (80-96); MEAN PLT VOLUME 9.7 fl (7.5-11.1); PLATELET COUNT 332 K/MM3 (134-434); WHITE BLOOD COUNT 13.6 K/mm3 (4.0-10.0)
[2017-06-25 13:12] LABS: ALBUMIN 1.2 g/dl (3.4-5.0); ALK PHOS 184 U/L (45-117); ANION GAP 6 (8-16); BLOOD UREA NITROGEN 20 mg/dL (7-18); CALCIUM 9.1 mg/dL (8.5-10.1); CHLORIDE 98 mmol/L (98-107); CO2 28 mmol/L (21-32); CREATININE 0.8 mg/dL (0.7-1.3); GLUCOSE,RANDOM 131 mg/dL (74-106); POTASSIUM 4.5 mmol/L (3.5-5.1); SGOT/AST 233 U/L (15-37); SGPT/ALT 115 U/L (12-78); SODIUM 132 mmol/L (136-145); TOT PROT 7.8 g/dl (6.4-8.2)
--- NOTE | 2017-06-25 14:02 | PN ---
Progress Note, Physician History of Present Illness: stable for biopsy today still wiht fevers tolerating abx still in and out of confusion - Current Medication List Current Medications: Active Medications Acetaminophen (Tylenol -) 650 mg PO Q6H PRN PRN Reason: FEVER Last Admin: 06/22/17 22:01 Dose: 650 mg Gabapentin (Neurontin -) 100 mg PO TID AJ Last Admin: 06/25/17 06:29 Dose: 100 mg Vancomycin HCl 1,250 mg/ (Dextrose) 250 mls @ 166.667 mls/hr IVPB DAILY AJ PRN Reason: Protocol Last Admin: 06/25/17 10:03 Dose: 166.667 mls/hr Ertapenem 1 gm/ Sodium (Chloride) 100 mls @ 100 mls/hr IVPB DAILY AJ PRN Reason: Protocol Last Admin: 06/25/17 10:03 Dose: 100 mls/hr - Objective Vital Signs: Vital Signs Temperature 100.0 F H 06/25/17 09:30 Pulse Rate 125 H 06/25/17 13:55 Respiratory Rate 23 06/25/17 13:55 Blood Pressure 176/99 06/25/17 13:55 O2 Sat by Pulse Oximetry (%) 99 06/25/17 13:55 Constitutional: Yes: No Distress, Calm, Obese Eyes: Yes: Conjunctiva Clear Cardiovascular: Yes: Regular Rate and Rhythm Respiratory: Yes: Regular, CTA Bilaterally Gastrointestinal: Yes: Normal Bowel Sounds, Soft Musculoskeletal: Yes: Other Extremities: Yes: Other Neurological: Yes: Alert, Oriented Psychiatric: Yes: Alert, Oriented Labs: CBC, BMP 06/25/17 09:05 06/25/17 09:05 INR, PTT INR 1.64 (0.82-1.09) H 06/25/17 09:05 Assessment/Plan r/o infective process ct disorder cardiac process sepsis autoimmune process r/o osteo abn lft leukocytosis will await for biopsy results continue current mgmt wbc marginally low plan continue abx close watch on the patient neuro following the case will repeat markers again in couple of days rest continue as per primary and neuro
[2017-06-25 14:16] LABS: ANISOCYTOSIS 1+; MACROCYTOSIS 0; PLATELET ESTIMATE NORMAL
--- NOTE | 2017-06-25 18:21 | PN ---
Progress Note, Physician - Current Medication List Current Medications: Active Medications Acetaminophen (Tylenol -) 650 mg PO Q6H PRN PRN Reason: FEVER Last Admin: 06/22/17 22:01 Dose: 650 mg Gabapentin (Neurontin -) 100 mg PO TID AJ Last Admin: 06/25/17 15:40 Dose: Not Given Vancomycin HCl 1,250 mg/ (Dextrose) 250 mls @ 166.667 mls/hr IVPB DAILY AJ PRN Reason: Protocol Last Admin: 06/25/17 10:03 Dose: 166.667 mls/hr Ertapenem 1 gm/ Sodium (Chloride) 100 mls @ 100 mls/hr IVPB DAILY AJ PRN Reason: Protocol Last Admin: 06/25/17 10:03 Dose: 100 mls/hr - Objective Vital Signs: Vital Signs Temperature 99.8 F H 06/25/17 15:35 Pulse Rate 115 H 06/25/17 15:35 Respiratory Rate 24 06/25/17 15:35 Blood Pressure 137/99 06/25/17 15:35 O2 Sat by Pulse Oximetry (%) 98 06/25/17 14:01 Constitutional: Yes: No Distress HENT: Yes: Atraumatic Neck: Yes: Supple Cardiovascular: Yes: Regular Rate and Rhythm Respiratory: Yes: CTA Bilaterally Gastrointestinal: Yes: Normal Bowel Sounds Extremities: Yes: WNL Edema: Yes Edema: RUE: 3+, LLE: 3+ Peripheral Pulses WNL: Yes Neurological: Yes: Alert, Oriented ...Motor Strength: LLE, RLE (weak...3/5) Labs: CBC, BMP 06/25/17 09:05 06/25/17 09:05 INR, PTT INR 1.64 (0.82-1.09) H 06/25/17 09:05 Problem List - Problems (1) Neuropathy Assessment/Plan: pt is on gabapentin also weak in b/l sanket d/w neuro and neuro surgery...need to have spinal decompression surgery Code(s): G62.9 - POLYNEUROPATHY, UNSPECIFIED (2) Elevated creatine kinase Assessment/Plan: rhabdo iv hydration...wnl now Code(s): R74.8 - ABNORMAL LEVELS OF OTHER SERUM ENZYMES (3) Elevated serum creatinine Assessment/Plan: wnl Code(s): R79.89 - OTHER SPECIFIED ABNORMAL FINDINGS OF BLOOD CHEMISTRY (4) Anasarca Assessment/Plan: same...no change from before Code(s): R60.1 - GENERALIZED EDEMA (5) Anemia Assessment/Plan: chronic? hematology consult reviewed labs reviewed Code(s): D64.9 - ANEMIA, UNSPECIFIED (6) CKD (chronic kidney disease) Assessment/Plan: renal work up negative cr wnl Code(s): N18.9 - CHRONIC KIDNEY DISEASE, UNSPECIFIED (7) Fever Assessment/Plan: cxs negative on abx per id osteo lumbar spine?? biopsy pending Code(s): R50.9 - FEVER, UNSPECIFIED (8) Diabetes Code(s): E11.9 - TYPE 2 DIABETES MELLITUS WITHOUT COMPLICATIONS Assessment/Plan s/p back biopsy will transfer pt to icu for monitoring
[2017-06-25] MEDS: ACETAMINOPHEN 325 MG TABLET (FP) PO PRN (19:57)
--- NOTE | 2017-06-25 21:26 | CONSULT ---
Consult Consult Specialty:: Pulmonary/Critical Care Medicine Reason for Consultation:: sepsis - History of Present Illness Chief Complaint: tachypnea, fever c/f sepsis History of Present Illness: Mr. Diaz is a 61yo male with a significant pmhx of morbid obesity, sciatica, and DMII, who initially presented to the ED with c/o fever x3 weeks prior to presentation. According to prior documentation, patient's daughter took patient to [facility] 3 weeks prior to admission for increased fever and body aches and was diagnosed with strep and given penicillin prescription. She reports after finishing prescription over 1 week, the patient began to develop a rash from the penicillin and began to self treat with benadryl, relieving the rash in 2 days. On Jun 08, patient went [facility] for similar symptoms of increased fever and associated bilateral LE pain and weakness. CXR, CTAP, flu culture and labs were done and patient was diagnosed with pleuritic chest pain. Bilateral LE pain and weakness continued, promping patient's daughter to bring patient to [facility] ER. While at [facility], patient has been seen by ID, Nuria , Heme, Renal, Neuro, and Rheum. Currently, patient continues with fevers with associated tachypnea and tachycardia. Normotensive. Being transferred to ICU for closer airway monitoring. Seen by MD Lopez earlier today. - History Source History Provided By: Patient, Transfer Record Limitations to Obtaining History: Other (altered) - Past Medical History Renal/: No: Other Musculoskeletal: Yes: Other (sciatica) Endocrine: Yes: Diabetes Mellitus Additional Medical History: obesity - Past Surgical History Additional Surgical History: s/p back biopsy - Alcohol/Substance Use Hx Alcohol Use: Yes - Smoking History Smoking history: Never smoked Have you smoked in the past 12 months: No - Social History Usual Living Arrangement: With Spouse ADL: Independent History of Recent Travel: No Home Medications - Allergies Allergies/Adverse Reactions: Allergies Allergy/AdvReac Type Severity Reaction Status Date / Time iodine Allergy Verified 06/16/17 23:23 shellfish derived Allergy Verified 06/16/17 23:23 - Home Medications Home Medications: Ambulatory Orders Ibuprofen [Motrin -] 800 mg PO TID PRN #21 tablet 11/04/13 Gabapentin [Neurontin -] 100 mg PO Q8H 06/16/17 Physical Exam Vital Signs: Home Medication List Medication Instructions Recorded Confirmed Type Gabapentin [Neurontin -] 100 mg PO Q8H 06/16/17 06/16/17 History Active Medications Generic Name Dose Route Start Last Admin Trade Name Freq PRN Reason Stop Dose Admin Acetaminophen 650 mg 06/17/17 19:17 06/25/17 19:57 Tylenol - PO 650 mg Q6H PRN Administration FEVER Gabapentin 100 mg 06/17/17 14:00 06/25/17 21:52 Neurontin - PO 100 mg TID AJ Administration Vancomycin HCl 1,250 mg/ 250 mls @ 166.667 mls/hr 06/24/17 12:45 06/25/17 10: 03 Dextrose IVPB 166.667 mls/hr DAILY AJ Administration Protocol Ertapenem 1 gm/ Sodium 100 mls @ 100 mls/hr 06/24/17 13:59 06/25/17 10:03 Chloride IVPB 100 mls/hr DAILY AJ Administration Protocol Vital Signs Temperature 99.8 F H 06/25/17 15:35 Pulse Rate 115 H 06/25/17 15:35 Respiratory Rate 24 06/25/17 15:35 Blood Pressure 137/99 06/25/17 15:35 O2 Sat by Pulse Oximetry (%) 98 06/25/17 14:01 Intake & Output 06/22/17 06/23/17 06/24/17 06/25/17 23:59 23:59 23:59 23:59 Intake Total 1050 450 650 150 Output Total 1900 Balance 1050 450 650 -1750 Weight 178.942 kg 177.173 kg 175.994 kg 172.365 kg Microbiology 06/17/17 00:30 Blood - Peripheral Venous Blood Culture - Final NO GROWTH AFTER 5 DAYS INCUBATION 06/17/17 00:30 Blood - Peripheral Venous Blood Culture - Final NO GROWTH AFTER 5 DAYS INCUBATION 06/17/17 04:51 Urine - Urine Clean Catch Urine Culture - Final NO GROWTH OBTAINED 06/17/17 06:00 Throat Throat Culture - Final NO BETA HEMOLYTIC STREPTOCOCCI ISOLATED 06/17/17 06:00 Throat Group A Strep Rapid Antigen - Final Constitutional: Yes: Obese Eyes: Yes: PERRL Neck: Yes: Supple Cardiovascular: Yes: Tachycardia. No: Regular Rate and Rhythm Respiratory: Yes: Diminished (diminished bases) Gastrointestinal: Yes: Normal Bowel Sounds, Soft, Abdomen, Obese ...Rectal Exam: Yes: Deferred Extremities: Yes: Other (warm) Peripheral Pulses WNL: Yes Neurological: Yes: Lethargy (AOx1-2, very lethargic, MAEx4 to command, nods yes/ no intermittently to questions) Labs: CBC, BMP 06/25/17 09:05 06/25/17 09:05 Hepatic Panel Total Bilirubin 1.0 mg/dL (0.2-1.0) 06/25/17 09:05 AST 233 U/L (15-37) H D 06/25/17 09:05 ALT 115 U/L (12-78) H D 06/25/17 09:05 Alkaline Phosphatase 184 U/L (45-117) H 06/25/17 09:05 Albumin 1.2 g/dl (3.4-5.0) L 06/25/17 09:05 Laboratory Results - last 24 hr 06/23/17 06/25/17 06/25/17 06:40 09:05 09:05 WBC 13.6 H RBC 3.60 L Hgb 9.5 L Hct 29.4 L MCV 81.8 MCH 26.3 MCHC 32.2 RDW 15.0 Plt Count 332 MPV 9.7 D Neutrophils % No Result Required. Neutrophils % (Manual) 67.0 Band Neutrophils % 5.0 Lymphocytes % No Result Required. Lymphocytes % (Manual) 10.0 Monocytes % (Manual) 10 Eosinophils % (Manual) 5.0 H D Basophils % (Manual) 0.0 Myelocytes % (Man) 1 Promyelocytes % (Man) 0 Nucleated RBC % 0 Metamyelocytes 0 D Hypochromia 0 Platelet Estimate Normal Polychromasia 0 Poikilocytosis 0 Anisocytosis 1+ Microcytosis 1+ Macrocytosis 0 PT with INR 18.50 H INR 1.64 H Sodium Potassium Chloride Carbon Dioxide Anion Gap BUN Creatinine Creat Clearance w eGFR Random Glucose Calcium Total Bilirubin AST ALT Alkaline Phosphatase Total Protein Albumin Prostate Specific Ag 0.50 Imaging - Results Cat Scan: Report Reviewed (THORACIC CT: IMPRESSION: 1. Fluid within bilateral T3-T4 and T8-T9 facets is likely secondary to degenerative arthropathy. However, cortical irregularity along the right T8-T9 posterior facet complex as described above is suspicious for superimposed nfection/ septic joint. Please correlate clinically. 2. Approximately 0.9 x 0.8 cm lateral to right posterolateral epidural lesion in between the T8 and T9 pedicles, at least mildly compromising the canal may be a degenerative or phlegmon/abscess. Further evaluation with contrast-enhanced MRI of the thoracic spine is recommended. 3. Severe narrowing of the right T8-T9 neural foramen with impingement of the exiting right T8 nerve root.), Other (LUMBAR CT : IMPRESSION: Limited evaluation of soft tissue due to the patient's body habitus. L3-L4 moderate bilateral facet hypertrophy. L4-L5 marked left and moderate to marked right facet hypertrophy with deformity and decreased attenuation of the left L4 inferior facet with and questionable deformity of L5 and facet suspicious for bone destruction. Rule out osteomyelitis in view of the clinical history. Evaluation of the spinal canal contents is quite limited due to the patient's body habitus with questionable mild disc bulge and possibly moderate degenerative central spinal canal stenosis at this level. Correlation with contrast-enhanced MRI, if possible would be the study of choice to rule out osteomyelitis and to further evaluate for spinal canal.) Ultrasound: Report Reviewed (ABD U/S: The gallbladder is normal in size and free of calculi with no evidence of intra or extrahepatic biliary duct dilatation. The liver is normal in size. It is hyperechoic in texture consistent with diffuse fatty infiltration. No discrete intrahepatic masses could be entified. Hepatopedal flow is documented within the main portal vein. The pancreas is poorly visualized due to overlying bowel gas. There is no evidence of hydronephrosis or acute abnormalities of the right kidney. There is no evidence of AAA. The IVC is patent. IMPRESSION: Limited study with suspected diffuse fatty infiltration of the liver), Other Assessment/Plan A/P: Ongoing fevers with associated tachypnea and tachycardia m/l in setting of sepsis, recent strep. Minimal O2 requirements, low s/f HAP. Likely has ANJELICA. KADIE improving. s/p lumbar biopsy today. Being ruled out of osteomyelitis. - continue antibiotics per ID - ongoing fever workup - monitor UOP, SCr - outpatient PFTs, PSG - monitor airway and O2 requirements, wean as able - incentive spirometer - consider lactulose given AMS with transaminitis, ? hepatic encephalopathy, ? HUGHES - check ABG to rule out hypercapneic component to patient's altered mental status - pt received versed for procedure today then was febrile and likely has ANJELICA, likely can benefit NIV overnight - DVT ppx - no inidication for GI ppx Critical Care Time: 35 minutes
[2017-06-25] MEDS ORDERED: MUPIROCIN 2% TOPICAL OINTMENT FOR DECOLONIZATION NS SCH (22:00)
[2017-06-25] MEDS ORDERED: CHLORHEXIDINE GLUCONATE 4% CLEANSER FOR DECOLONIZATION TP SCH (22:00)
[2017-06-25 23:00] LABS: ARTERIAL BLD GAS O2 SATURATION 93.5 % (90-98.9); ARTERIAL BLOOD GAS BASE EXCESS 5.4 meq/l (-2-2); ARTERIAL BLOOD GAS PCO2 43.1 mmHg (35-45); ARTERIAL BLOOD GAS PO2 69.4 mmHg (80-100); ARTERIAL BLOOD GAS pH 7.45 (7.35-7.45)
[2017-06-25 23:02] LABS: ALLENS TEST POSITIVE
[2017-06-25] MEDS ORDERED: ACETAMINOPHEN 325 MG TABLET (FP) PO PRN (23:30)
[2017-06-26] MEDS: GABAPENTIN 100 MG CAPSULE (FP) PO SCH ×4 (06:01→21:46)
[2017-06-26] MEDS ORDERED: BENZOIN/ALOE VERA/STORAX/TOLU 58 ML BOTTLE ONE (06:18)
[2017-06-26 06:55] LABS: INR 1.64 (0.82-1.09); PROTHROMBIN TIME (PATIENT) 18.5 SEC (9.98-11.88)
[2017-06-26 07:42] LABS: ACTIVATED PTT 30.6 SECONDS (26.9-34.4)
--- NOTE | 2017-06-26 08:28 | PN ---
Progress Note, Physician Chief Complaint: transferred to ICU overnight for closer monitoring as he became consistently tachypneic and mildly tachycardic Seen and examined in ICU. He does appear tachypneic Complains only of "dry mouth" TELE: Sinus tach History of Present Illness: Concern for L4 osteo - Current Medication List Current Medications: Active Medications Acetaminophen (Tylenol -) 650 mg PO Q6H PRN PRN Reason: FEVER Gabapentin (Neurontin -) 100 mg PO TID AJ Last Admin: 06/26/17 06:01 Dose: 100 mg Ertapenem 1 gm/ Sodium (Chloride) 100 mls @ 100 mls/hr IVPB DAILY AJ PRN Reason: Protocol Vancomycin HCl 1,250 mg/ (Dextrose) 250 mls @ 166.667 mls/hr IVPB DAILY AJ PRN Reason: Protocol - Objective Vital Signs: Vital Signs Temperature 98.6 F 06/26/17 06:00 Pulse Rate 100 H 06/26/17 07:00 Respiratory Rate 32 H 06/26/17 07:00 Blood Pressure 138/67 06/26/17 07:00 O2 Sat by Pulse Oximetry (%) 95 06/25/17 22:30 Cardiovascular: Yes: Tachycardia Respiratory: Yes: Other (no active wheezing) Gastrointestinal: Yes: Soft, Abdomen, Obese (nontender) Edema: Yes Edema: LLE: 1+, RLE: 1+ Neurological: Yes: Alert Labs: INR, PTT INR 1.64 (0.82-1.09) H 06/26/17 05:30 Fibrinogen 637.0 mg/dL (238-498) H 06/26/17 05:30 Laboratory Tests 06/17/17 06/25/17 06/25/17 20:45 09:05 09:05 WBC 13.6 H Hgb 9.5 L Plt Count 332 Fibrinogen ABG pH ABG pCO2 at Pt Temp ABG pO2 at Pt Temp Vent Mode Sodium Potassium 4.5 BUN 20 H Creatinine 0.8 AST 233 H D ALT 115 H D Alkaline Phosphatase 184 H TB Test (QFT) Negative 06/25/17 06/26/17 06/26/17 22:54 05:30 05:30 WBC Pending Hgb Pending Plt Count Fibrinogen 637.0 H ABG pH 7.45 ABG pCO2 at Pt Temp 43.1 ABG pO2 at Pt Temp 69.4 L Vent Mode No Result Required. 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 Edema- improving -likely component of third spacing due to hypoalbuminemia -creatinine trended down -Echo showed normal LV function w/ mildly dilated LV 2. Fever: -recent diagnosis of strep throat -initial concern for sepsis/PNA -Now concern for L4 osteo?, awaits CT guided biopsy -infectious disease is following -If INR remains an issue, can be given low dose Vitamin K to allow for biopsy 3. Muscle weaknes/rash -Lumbar spine CT was done, possibly c/w multiple myeloma, could not rule out osteomyelitis: plan as above -ID/Rheum/Heme/Neuro following 4. Mild sinus tach, tachypnea: -Likely due to deconditioned status, infection, anemia. Now transferred to ICU for closer monitoring -Repeat CXR this morning. -If CXR shows no obvious cause for tachypnea, would consider CTA to rule out PE.
[2017-06-26 08:32] LABS: HEMATOCRIT 28.3 % (35.4-49); HEMOGLOBIN 9.2 GM/dL (11.7-16.9); MCH 26.2 pg (25.7-33.7); MCHC 32.3 g/dl (32.0-35.9); MEAN CELL VOLUME 81.2 fl (80-96); MEAN PLT VOLUME 9.5 fl (7.5-11.1); PLATELET COUNT 344 K/MM3 (134-434); RBC 3.49 M/mm3 (4.00-5.60); RDW 15.1 % (11.9-15.9); WHITE BLOOD COUNT 13.3 K/mm3 (4.0-10.0)
[2017-06-26 08:43] LABS: ALBUMIN 1.2 g/dl (3.4-5.0); ALK PHOS 162 U/L (45-117); ANION GAP 6 (8-16); BLOOD UREA NITROGEN 21 mg/dL (7-18); CALCIUM 9.4 mg/dL (8.5-10.1); CHLORIDE 100 mmol/L (98-107); CO2 30 mmol/L (21-32); CREATININE 0.8 mg/dL (0.7-1.3); GLUCOSE,RANDOM 107 mg/dL (74-106); MAGNESIUM 1.9 mg/dL (1.8-2.4); PHOSPHOROUS 4.4 mg/dL (2.5-4.9); POTASSIUM 4.7 mmol/L (3.5-5.1); SGOT/AST 184 U/L (15-37); SGPT/ALT 96 U/L (12-78); SODIUM 136 mmol/L (136-145); TOT PROT 7.6 g/dl (6.4-8.2)
--- NOTE | 2017-06-26 09:29 | PN ---
Physical Exam: Patient transferred to ICU due to tachypena, tachycardia, for airway protection and closer monitoring. SUBJECTIVE: Patient seen and examined at bed side this morning. Complaints of random jerking movements since few weeks along with extremity tremors. Denies chest pain, sob, cough, palpitation, abdominal pain, nausea or vomiting. Overnight, had a Tmax of 103F. OBJECTIVE: Vital Signs Period Temp Pulse Resp BP Sys/Edmondson Pulse Ox Last 24 Hr 98.1 F-103 F 100-127 20-35 122-220/67-114 94-99 GENERAL: The patient is awake, alert, and oriented x 3 but seems to be confused , in no acute distress. HEAD: Normal with no signs of trauma. EYES: EOM intact, no pallor or icterus. ENT: Ears normal, moist mucous membranes. NECK: Supple. LUNGS: Breath sounds equal, clear to auscultation bilaterally, no wheezes, no crackles, no accessory muscle use. HEART: Regular rate and rhythm, S1, S2 without murmur. ABDOMEN: Soft, nontender, nondistended, normoactive bowel sounds, no guarding, no rebound, no hepatosplenomegaly, no masses. EXTREMITIES: 2+ pulses, warm, well-perfused, no edema. NEUROLOGICAL: No facial droop, power 3/5 in upper extremities, in LE- can wiggle toes-has pain; has tremors in the extremity with jerking movements lasting for 10 secs which resolves spontaneously, no other signs of seizure. PSYCH: Normal mood, normal affect. SKIN: Warm, dry, normal turgor, no rashes or lesions noted Laboratory Results - last 24 hr 06/25/17 06/25/17 06/25/17 09:05 09:05 09:05 WBC 13.6 H RBC 3.60 L Hgb 9.5 L Hct 29.4 L MCV 81.8 MCH 26.3 MCHC 32.2 RDW 15.0 Plt Count 332 MPV 9.7 D Neutrophils % No Result Required. Neutrophils % (Manual) 67.0 Band Neutrophils % 5.0 Lymphocytes % No Result Required. Lymphocytes % (Manual) 10.0 Monocytes % (Manual) 10 Eosinophils % (Manual) 5.0 H D Basophils % (Manual) 0.0 Myelocytes % (Man) 1 Promyelocytes % (Man) 0 Nucleated RBC % 0 Metamyelocytes 0 D Hypochromia 0 Platelet Estimate Normal Polychromasia 0 Poikilocytosis 0 Anisocytosis 1+ Microcytosis 1+ Macrocytosis 0 PT with INR 18.50 H INR 1.64 H PTT (Actin FS) Fibrinogen Anticoagulation Therapy Puncture Site ABG pH ABG pCO2 at Pt Temp ABG pO2 at Pt Temp ABG HCO3 ABG O2 Sat (Measured) ABG O2 Content ABG Base Excess Herbert Test O2 Delivery Device Oxygen Flow Rate Vent Mode Vent Rate Mechanical Rate Pressure Support Vent Sodium 132 L Potassium 4.5 Chloride 98 Carbon Dioxide 28 Anion Gap 6 L BUN 20 H Creatinine 0.8 Creat Clearance w eGFR > 60 Random Glucose 131 H D Calcium 9.1 Phosphorus Magnesium Total Bilirubin 1.0 AST 233 H D ALT 115 H D Alkaline Phosphatase 184 H Total Protein 7.8 Albumin 1.2 L 06/25/17 06/26/17 06/26/17 22:54 05:30 05:30 WBC RBC Hgb Hct MCV MCH MCHC RDW Plt Count MPV Neutrophils % Neutrophils % (Manual) Band Neutrophils % Lymphocytes % Lymphocytes % (Manual) Monocytes % (Manual) Eosinophils % (Manual) Basophils % (Manual) Myelocytes % (Man) Promyelocytes % (Man) Nucleated RBC % Metamyelocytes Hypochromia Platelet Estimate Polychromasia Poikilocytosis Anisocytosis Microcytosis Macrocytosis PT with INR 18.50 H INR 1.64 H PTT (Actin FS) 30.6 Fibrinogen 637.0 H Anticoagulation Therapy No Result Required. Puncture Site Right radial ABG pH 7.45 ABG pCO2 at Pt Temp 43.1 ABG pO2 at Pt Temp 69.4 L ABG HCO3 29.5 H ABG O2 Sat (Measured) 93.5 ABG O2 Content 14.9 L ABG Base Excess 5.4 H Herbert Test Positive O2 Delivery Device N/c-2lp Oxygen Flow Rate 2% Vent Mode No Result Required. Vent Rate No Result Required. Mechanical Rate No Result Required. Pressure Support Vent No Result Required. Sodium Potassium Chloride Carbon Dioxide Anion Gap BUN Creatinine Creat Clearance w eGFR Random Glucose Calcium Phosphorus Magnesium Total Bilirubin AST ALT Alkaline Phosphatase Total Protein Albumin 06/26/17 06/26/17 05:30 05:30 WBC 13.3 H RBC 3.49 L Hgb 9.2 L Hct 28.3 L MCV 81.2 MCH 26.2 MCHC 32.3 RDW 15.1 Plt Count 344 MPV 9.5 Neutrophils % No Result Required. Neutrophils % (Manual) Band Neutrophils % Lymphocytes % No Result Required. Lymphocytes % (Manual) Monocytes % (Manual) Eosinophils % (Manual) Basophils % (Manual) Myelocytes % (Man) Promyelocytes % (Man) Nucleated RBC % Metamyelocytes Hypochromia Platelet Estimate Polychromasia Poikilocytosis Anisocytosis Microcytosis Macrocytosis PT with INR INR PTT (Actin FS) Fibrinogen Anticoagulation Therapy Puncture Site ABG pH ABG pCO2 at Pt Temp ABG pO2 at Pt Temp ABG HCO3 ABG O2 Sat (Measured) ABG O2 Content ABG Base Excess Herbert Test O2 Delivery Device Oxygen Flow Rate Vent Mode Vent Rate Mechanical Rate Pressure Support Vent Sodium 136 Potassium 4.7 Chloride 100 Carbon Dioxide 30 Anion Gap 6 L BUN 21 H Creatinine 0.8 Creat Clearance w eGFR > 60 Random Glucose 107 H Calcium 9.4 Phosphorus 4.4 Magnesium 1.9 Total Bilirubin 1.0 AST 184 H D ALT 96 H Alkaline Phosphatase 162 H Total Protein 7.6 Albumin 1.2 L Active Medications Generic Name Dose Route Start Last Admin Trade Name Freq PRN Reason Stop Dose Admin Acetaminophen 650 mg 06/25/17 23:30 Tylenol - PO Q6H PRN FEVER Gabapentin 100 mg 06/26/17 06:00 06/26/17 06:01 Neurontin - PO 100 mg TID AJ Administration Ertapenem 1 gm/ Sodium 100 mls @ 100 mls/hr 06/26/17 10:00 Chloride IVPB DAILY AJ Protocol Vancomycin HCl 1,250 mg/ 250 mls @ 166.667 mls/hr 06/26/17 10:00 Dextrose IVPB DAILY AJ Protocol ASSESSMENT/PLAN: Patient is a 62 year old male with significant past medical history of recent Strep pharyngitis (rx with penicillin and had a rash after completion of abx) presented to the ED with fever, B/L weakness of his LE admitted in the ICU for Sepsis likely secondary to Epidural abscess and airway protection. # Neurology Sepsis likely secondary to epidural abscess, r/o tumor. Presented with B/L weakness of LE, hasn't walked since 10days. Had multiple imaging- CT spine, Thoracic spine CT, Abd/Pelvis CT CT spine showed 0.9 x0.8 lesion between T8-T9 Tmax 103 F last night, afebrile since, leukocytosis 13.6-->13.3 Blood cultures/Urine cultures negative CT guided bone biopsy done on 06/26/17- LACI, AFB, Fungal cx pending IV D5-1/2 NS @ 100mls/hr IV Tylenol 650mg Q6H IV Ertapenam 1gm IV Vancomycin 1000 mg BID Discussed case with Dr. Beal. Plan: possible Epidural abscess drainage in AM. NPO after midnight, Goal of INR < 1.2. 6 FFP to be given today, INR checks every 6 hrs. # Hematology Elevated INR- pt not on any meds causing rise in INR INR today: 1.64, s/p Vit K given yesterday FFP ordered for today-6 units Repeat INR at 3pm and 9 pm, will endorse it to the night team to check INR as needed after 9 pm depending upon the number Polyclonal gammopathy Hemoonc consult appreciated # Infectious Disease Sepsis likely secondary to epidural abscess ? Septic joint- L4 osteomyelitis Treatment as discussed above # Cardiovascular Echo: normal LV function with mildly dilated LV IV Lasix 40mg on hold due to sepsis, pt requiring IV fluids. # FEN IV IV D5-1/2 NS @ 100mls/hr Electrolyes: wnl Sodium controlled diet, NPO after midnight for possible epidural drainage # Prophylaxis FoR DVT: SCD's For GI: Not indicated # Code Status: Full Code # Dispo: Admitted in ICU. Continue further monitoring. Illness, Investigation and Plan of care explained to the patient. He verbalized understanding. Case discussed with Dr. Knox and Dr. Mosquera. Visit type - Emergency Visit Emergency Visit: Yes ED Registration Date: 06/17/17 Care time: The patient presented to the Emergency Department on the above date and was hospitalized for further evaluation of their emergent condition. - New Patient This patient is new to me today: Yes Date on this admission: 06/26/17 - Critical Care Critical Care patient: Yes Total Critical Care Time (in minutes): 35 Critical Care Statement: The care of this patient involved high complexity decision making to prevent further life threatening deterioration of the patient 's condition and/or to evaluate & treat vital organ system(s) failure or risk of failure. - Discharge Referral Referred to [facility] No
[2017-06-26] MEDS ORDERED: FUROSEMIDE 40 MG/4 ML INJECTABLE VIAL IVPUSH SCH (10:00)
[2017-06-26] MEDS: ERTAPENEM SODIUM 1 GM in SODIUM CHLORIDE 100 ML IVPB SCH (10:18)
[2017-06-26] MEDS: VANCOMYCIN 1,250 MG in DEXTROSE 5%-WATER - 250 ML IVPB SCH (10:19)
--- NOTE | 2017-06-26 10:37 | CONSULT ---
Consult - text type - Consultation Consultation Note: NEUROSURGERY CONSULTATION Fede Diaz is a 62 year old male who has a history of morbid obesity, Type 2 DM, and 2 months of fevers. He has been to see several physicians at different practice sites and ultimately presented to the [facility] ER on June 17 with progressive numbness and weakness in his legs. He has had progressive Neurological decline in his lower extremities since this time and now has only trace movements in his legs and gross sensation with no joint position sense. The patient cannot have MRI due to geometric concerns. CT demonstrates several areas of potential osteomyelitis, in particular, there is focal pathology at T89 involving the Right sided facet complex and a suggestion of 9mm epidural lesion (abscess versus cyst versus neoplasm). 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 Cultures appear to be negative to date although patient continues to spike fevers to 103F. I had a discussion with the patient concerning the multiple competing medical concerns. He has some process which is resulting in paraplegia, likely compression at T89 from epidural abscess versus tumor. Biopsy and cultures have not yielded a diagnosis and imaging options are limited. Delay in treatment will likely make his paraplegia permanent, if it is not already. Delay in diagnosis will make treatment of any infection/tumor more difficult. Decompression of the spinal cord may afford him a chance at recovery of Neurological function, at the risk of focal destabilization. This could be obviated by placing hardware, however, this can make frontload driver infection clearance harder, although stabilization and aggressive debridement are typically beneficial to clearance of infection. Selection of stabilization options should allow for subsequent easy removal in the possible setting of solid arthrodesis with persisting infection. I explained that a balanced consideration of these competing concerns may allow for a good outcome in a challenging clinical scenario, and that this may require extensive care, multiple procedures and a prolonged course of antibiotics and rehabilitation. I do not see a simple solution and fear that inaction will lead to an almost certainly poor outcome. I plan to discuss the surgical plans with the patient and family later today and if his PT/PTT and INR can be corrected, will plan for T89 decompression and stabilization with establishment of a tissue diagnosis for tomorrow morning. I remain available to discuss this case further with other members of the care team.
[2017-06-26 10:55] LABS: N-TERMINAL BNP 163.03 pg/ml (5-125)
[2017-06-26 11:06] LABS: PLATELET ESTIMATE NORMAL; TARGET CELLS 1+
[2017-06-26] MEDS ORDERED: PHYTONADIONE 5 MG TABLET PO ONE (11:18)
--- NOTE | 2017-06-26 11:54 | PN ---
Teaching Attending Note Name of Resident: Sylvie Blackman ATTENDING PHYSICIAN STATEMENT I saw and evaluated the patient. I reviewed the resident's note and discussed the case with the resident. I agree with the resident's findings and plan as documented. SUBJECTIVE: Pt seen and examined in the ICU. Transferred down for fevers, tachycardia, tachypnea. OBJECTIVE: Last Vital Signs Temp Pulse Resp BP Pulse Ox 98.8 F 105 H 20 111/77 94 L 06/26/17 10:00 06/26/17 10:00 06/26/17 10:00 06/26/17 10:06/26/17 08:49 Intake & Output 06/23/17 06/24/17 06/25/17 06/26/17 23:59 23:59 23:59 23:59 Intake Total 450 650 150 500 Output Total 1900 Balance 450 650 -1750 500 Weight 177.173 kg 175.994 kg 179.339 kg 181.3 kg Gen: mildly tachypneic at rest HEENT: dry mucous membranes Heart: tachycardic, regular Lung: decreased breath sounds at the bases Abd: soft, obese, nontender Ext: no edema CBC, BMP 06/26/17 05:30 06/26/17 05:30 Active Medications Acetaminophen (Tylenol -) 650 mg PO Q6H PRN PRN Reason: FEVER Furosemide (Lasix Injection -) 40 mg IVPUSH DAILY AJ Gabapentin (Neurontin -) 100 mg PO TID AJ Last Admin: 06/26/17 06:01 Dose: 100 mg Ertapenem 1 gm/ Sodium (Chloride) 100 mls @ 100 mls/hr IVPB DAILY AJ PRN Reason: Protocol Last Admin: 06/26/17 10:18 Dose: 100 mls/hr Vancomycin HCl 1,250 mg/ (Dextrose) 250 mls @ 166.667 mls/hr IVPB DAILY AJ PRN Reason: Protocol Last Admin: 06/26/17 10:19 Dose: 166.667 mls/hr Dextrose/Sodium Chloride (D5-1/2ns -) 1,000 mls @ 75 mls/hr IV ASDIR AJ ASSESSMENT AND PLAN: r/o Osteomyelitis r/o Epidural Abscess vs Mass Altered Mental Status Polyclonal Gammopathy Pulmonary HTN Elevated LFTs Coagulopathy - continue antibiotics per ID - f/u biopsy cultures and pathology - neurosurgery following - vitamin K, FFP today - monitor coags - hold lasix - IVF as pt appears clinically dry - outpt PFTs, PSG - hold AM heparin for OR tomorrow
[2017-06-26] MEDS ORDERED: PHYTONADIONE 10 MG/1 ML AMP IVPB ONE (12:01)
[2017-06-26] MEDS: DEXTROSE 5%-0.45% SALINE 1,000 ML IV SCH (12:13)
--- NOTE | 2017-06-26 12:13 | PN ---
Progress Note, Physician History of Present Illness: feeling better has been having chills and fevers - Current Medication List Current Medications: Active Medications Acetaminophen (Tylenol -) 650 mg PO Q6H PRN PRN Reason: FEVER Furosemide (Lasix Injection -) 40 mg IVPUSH DAILY AJ Gabapentin (Neurontin -) 100 mg PO TID [facility] Last Admin: 06/26/17 06:01 Dose: 100 mg Ertapenem 1 gm/ Sodium (Chloride) 100 mls @ 100 mls/hr IVPB DAILY AJ PRN Reason: Protocol Last Admin: 06/26/17 10:18 Dose: 100 mls/hr Vancomycin HCl 1,250 mg/ (Dextrose) 250 mls @ 166.667 mls/hr IVPB DAILY AJ PRN Reason: Protocol Last Admin: 06/26/17 10:19 Dose: 166.667 mls/hr Dextrose/Sodium Chloride (D5-1/2ns -) 1,000 mls @ 75 mls/hr IV ASDIR JA Phytonadione (Aqua Mephyton Injection -) 10 mg IVPB ONCE ONE Stop: 06/26/17 12:02 - Objective Vital Signs: Vital Signs Temperature 98.8 F 06/26/17 10:00 Pulse Rate 105 H 06/26/17 10:00 Respiratory Rate 20 06/26/17 10:00 Blood Pressure 111/77 06/26/17 10:00 O2 Sat by Pulse Oximetry (%) 94 L 06/26/17 08:49 Constitutional: Yes: Calm HENT: Yes: Atraumatic Neck: Yes: Supple Cardiovascular: Yes: Regular Rate and Rhythm Respiratory: Yes: CTA Bilaterally, Rhonchi Gastrointestinal: Yes: Normal Bowel Sounds Extremities: Yes: WNL Edema: Yes Edema: LLE: 3+, RLE: 3+ Neurological: Yes: Weakness ...Motor Strength: WNL (3/5), LUE, LLE, RUE (3/5) Labs: CBC, BMP 06/26/17 05:30 06/26/17 05:30 INR, PTT INR 1.64 (0.82-1.09) H 06/26/17 05:30 Fibrinogen 637.0 mg/dL (238-498) H 06/26/17 05:30 Problem List - Problems (1) Neuropathy Assessment/Plan: pt is on gabapentin also weak in b/l sanket d/w neuro and neuro surgery...need to have spinal decompression surgery Code(s): G62.9 - POLYNEUROPATHY, UNSPECIFIED (2) Elevated creatine kinase Assessment/Plan: rhabdo iv hydration...wnl now Code(s): R74.8 - ABNORMAL LEVELS OF OTHER SERUM ENZYMES (3) Elevated serum creatinine Assessment/Plan: wnl Code(s): R79.89 - OTHER SPECIFIED ABNORMAL FINDINGS OF BLOOD CHEMISTRY (4) Anasarca Assessment/Plan: same...no change from before Code(s): R60.1 - GENERALIZED EDEMA (5) Anemia Assessment/Plan: h/h stable Code(s): D64.9 - ANEMIA, UNSPECIFIED (6) CKD (chronic kidney disease) Assessment/Plan: renal work up negative cr wnl Code(s): N18.9 - CHRONIC KIDNEY DISEASE, UNSPECIFIED (7) Fever Assessment/Plan: cxs have sent Code(s): R50.9 - FEVER, UNSPECIFIED (8) Diabetes Code(s): E11.9 - TYPE 2 DIABETES MELLITUS WITHOUT COMPLICATIONS (9) Coagulation defect Assessment/Plan: will order ffp, vit K hematology to review Code(s): D68.9 - COAGULATION DEFECT, UNSPECIFIED (10) Elevated LFTs Assessment/Plan: will fu Code(s): R79.89 - OTHER SPECIFIED ABNORMAL FINDINGS OF BLOOD CHEMISTRY (11) Morbid obesity Code(s): E66.01 - MORBID (SEVERE) OBESITY DUE TO EXCESS CALORIES (12) Paraparesis of both lower limbs Assessment/Plan: for back surgery tomorrow Code(s): G82.20 - PARAPLEGIA, UNSPECIFIED
--- NOTE | 2017-06-26 13:41 | PN ---
Progress Note, Physician History of Present Illness: Pt seen and examined at bedside. He is now in the ICU. He is awake and appears comfortable. He has respiratory distress last night. - Current Medication List Current Medications: Active Medications Acetaminophen (Tylenol -) 650 mg PO Q6H PRN PRN Reason: FEVER Furosemide (Lasix Injection -) 40 mg IVPUSH DAILY [facility] Last Admin: 06/26/17 12:01 Dose: Not Given Gabapentin (Neurontin -) 100 mg PO TID [facility] Last Admin: 06/26/17 13:25 Dose: 100 mg Ertapenem 1 gm/ Sodium (Chloride) 100 mls @ 100 mls/hr IVPB DAILY AJ PRN Reason: Protocol Last Admin: 06/26/17 10:18 Dose: 100 mls/hr Vancomycin HCl 1,250 mg/ (Dextrose) 250 mls @ 166.667 mls/hr IVPB DAILY AJ PRN Reason: Protocol Last Admin: 06/26/17 10:19 Dose: 166.667 mls/hr Dextrose/Sodium Chloride (D5-1/2ns -) 1,000 mls @ 75 mls/hr IV ASDIR [facility] Last Admin: 06/26/17 12:13 Dose: 75 mls/hr Phytonadione (Aqua Mephyton Injection -) 10 mg IVPB ONCE ONE Stop: 06/26/17 12:02 - Objective Vital Signs: Vital Signs Temperature 98.8 F 06/26/17 10:00 Pulse Rate 105 H 06/26/17 10:00 Respiratory Rate 20 06/26/17 10:00 Blood Pressure 111/77 06/26/17 10:00 O2 Sat by Pulse Oximetry (%) 94 L 06/26/17 08:49 Constitutional: Yes: Calm Eyes: Yes: Conjunctiva Clear HENT: Yes: Atraumatic Cardiovascular: Yes: S1, S2 Respiratory: Yes: On Nasal O2 Gastrointestinal: Yes: Soft, Abdomen, Obese Genitourinary: Yes: WNL Musculoskeletal: Yes: Muscle Weakness Edema: Yes Edema: LLE: Trace, RLE: Trace Neurological: Yes: Oriented Labs: CBC, BMP 06/26/17 05:30 06/26/17 05:30 INR, PTT INR 1.64 (0.82-1.09) H 06/26/17 05:30 Fibrinogen 637.0 mg/dL (238-498) H 06/26/17 05:30 Problem List - Problems (1) Anemia Code(s): D64.9 - ANEMIA, UNSPECIFIED (2) CKD (chronic kidney disease) Code(s): N18.9 - CHRONIC KIDNEY DISEASE, UNSPECIFIED (3) Elevated creatine kinase Code(s): R74.8 - ABNORMAL LEVELS OF OTHER SERUM ENZYMES (4) Neuropathy Code(s): G62.9 - POLYNEUROPATHY, UNSPECIFIED Assessment/Plan Current Medications Generic Name Dose Route Start Last Admin Trade Name Freq PRN Reason Stop Dose Admin Acetaminophen 650 mg 06/25/17 23:30 Tylenol - PO Q6H PRN FEVER Furosemide 40 mg 06/26/17 10:00 06/26/17 12:01 Lasix Injection - IVPUSH Not Given DAILY AJ Gabapentin 100 mg 06/26/17 06:00 06/26/17 13:25 Neurontin - PO 100 mg TID AJ Administration Ertapenem 1 gm/ Sodium 100 mls @ 100 mls/hr 06/26/17 10:00 06/26/17 10:18 Chloride IVPB 100 mls/hr DAILY AJ Administration Protocol Vancomycin HCl 1,250 mg/ 250 mls @ 166.667 mls/hr 06/26/17 10:00 06/26/17 10: 19 Dextrose IVPB 166.667 mls/hr DAILY AJ Administration Protocol Dextrose/Sodium Chloride 1,000 mls @ 75 mls/hr 06/26/17 11:15 06/26/17 12:13 D5-1/2ns - IV 75 mls/hr ASDIR AJ Administration Phytonadione 10 mg 06/26/17 12:01 Aqua Mephyton Injection - IVPB 06/26/17 12:02 ONCE ONE Laboratory Tests 06/17/17 06/17/17 06/17/17 04:51 20:45 20:45 Urine Protein Negative Urine Blood Negative Rheumatoid Factor < 10.0 RALPH Screen Negative c-ANCA Proteinase 3 (PR3) p-ANCA Atypical p-ANCA Myeloperoxidase Ab GERMAN-1 Antibody Free Mcfarlan/Lambda Ratio 06/18/17 06/18/17 06/21/17 07:45 07:45 07:15 Urine Protein Urine Blood Rheumatoid Factor RALPH Screen c-ANCA <1:20 Proteinase 3 (PR3) <3.5 p-ANCA <1:20 Atypical p-ANCA <1:20 Myeloperoxidase Ab <9.0 GERMAN-1 Antibody <0.2 Free Mcfarlan/Lambda Ratio 0.78 Impression 1. likely CKD vs KADIE 2. anemia 3. fevers 4. rash - which has resolved 5. obesity 6. lower ext pain and weekness 7. elevated total protein 8. transaminitis 9. r/o Osteomyelitis 10. r/o Epidural Abscess vs Mass Plan - renal function is stable, likely had KADIE - renal workup negative so far - cont serologic workup per primary team - discussed with family - neuro and neurosurgery follow up - avoid NSAIDS Dr Ugarte
--- NOTE | 2017-06-26 13:55 | PN ---
Progress Note, Physician History of Present Illness: events noted from last night patient started spiking high grade fevers increased confusion patient transferred to icu currently feels better still with weakness in the lower legs neurosurgery on case had a bone biopsy done has bee afebrile liver enzymes and coag still on the higher side - Current Medication List Current Medications: Active Medications Acetaminophen (Tylenol -) 650 mg PO Q6H PRN PRN Reason: FEVER Furosemide (Lasix Injection -) 40 mg IVPUSH DAILY [facility] Last Admin: 06/26/17 12:01 Dose: Not Given Gabapentin (Neurontin -) 100 mg PO TID AJ Last Admin: 06/26/17 13:25 Dose: 100 mg Ertapenem 1 gm/ Sodium (Chloride) 100 mls @ 100 mls/hr IVPB DAILY AJ PRN Reason: Protocol Last Admin: 06/26/17 10:18 Dose: 100 mls/hr Vancomycin HCl 1,250 mg/ (Dextrose) 250 mls @ 166.667 mls/hr IVPB DAILY AJ PRN Reason: Protocol Last Admin: 06/26/17 10:19 Dose: 166.667 mls/hr Dextrose/Sodium Chloride (D5-1/2ns -) 1,000 mls @ 75 mls/hr IV ASDIR [facility] Last Admin: 06/26/17 12:13 Dose: 75 mls/hr Phytonadione (Aqua Mephyton Injection -) 10 mg IVPB ONCE ONE Stop: 06/26/17 12:02 - Objective Vital Signs: Vital Signs Temperature 98.8 F 06/26/17 10:00 Pulse Rate 110 H 06/26/17 13:00 Respiratory Rate 22 06/26/17 13:00 Blood Pressure 113/95 06/26/17 13:00 O2 Sat by Pulse Oximetry (%) 94 L 06/26/17 08:49 Constitutional: Yes: No Distress, Calm, Obese Cardiovascular: Yes: Regular Rate and Rhythm Respiratory: Yes: Regular, CTA Bilaterally Gastrointestinal: Yes: Normal Bowel Sounds, Soft Musculoskeletal: Yes: WNL Extremities: Yes: Other Neurological: Yes: Alert, Oriented Psychiatric: Yes: Alert, Oriented Labs: CBC, BMP 06/26/17 05:30 06/26/17 05:30 INR, PTT INR 1.64 (0.82-1.09) H 06/26/17 05:30 Fibrinogen 637.0 mg/dL (238-498) H 06/26/17 05:30 - ....Imaging Chest X-ray: Report Reviewed, Image Reviewed Ultrasound: Report Reviewed, Image Reviewed Assessment/Plan r/o infective process ct disorder cardiac process sepsis autoimmune process r/o osteo abn lft leukocytosis Problem List - Problems (1) Neuropathy Code(s): G62.9 - POLYNEUROPATHY, UNSPECIFIED (2) Elevated creatine kinase Code(s): R74.8 - ABNORMAL LEVELS OF OTHER SERUM ENZYMES (3) Elevated serum creatinine Code(s): R79.89 - OTHER SPECIFIED ABNORMAL FINDINGS OF BLOOD CHEMISTRY (4) Anasarca Code(s): R60.1 - GENERALIZED EDEMA (5) Anemia Code(s): D64.9 - ANEMIA, UNSPECIFIED (6) CKD (chronic kidney disease) Code(s): N18.9 - CHRONIC KIDNEY DISEASE, UNSPECIFIED (7) Fever Code(s): R50.9 - FEVER, UNSPECIFIED (8) Diabetes Code(s): E11.9 - TYPE 2 DIABETES MELLITUS WITHOUT COMPLICATIONS (9) Coagulation defect Code(s): D68.9 - COAGULATION DEFECT, UNSPECIFIED will await for biopsy results continue current mgmt plan continue abx close watch on the patient neuro following the case neurosurgery on case plan for or tomorrow awaiting for the biopsy result watch for fevers correction of inr cc time 40 min
[2017-06-26 15:17] LABS: KAPPA LAMBDA RATIO URIN 7.95
--- NOTE | 2017-06-26 15:40 | PATH ---
Surgical Pathology Report Patient Name: SERA REESE [facility]. Rec. 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 Specimen(s) Received BX L4 SPINE BIOPSY Clinical History 62-year-old male with focal osteopenia and possible destructive or?, r/o facet osteomyelitis, L4-L5 facet Final Diagnosis SPINE, LEFT, BIOPSY: FRAGMENTS OF SCANT FIBROUS TISSUE WITH ACUTE INFLAMMATION AND GRANULATION TISSUE IN A HEMORRHAGIC BACKGROUND. NO BONE FRAGMENTS IDENTIFIED. Electronically Signed Marisa Kothari M.D. Gross Description Received in formalin labeled "left spine biopsy," is a 1.2 x 0.9 x 0.1 cm aggregate of red-brown blood clot, possibly containing bone fragments. No definite bone is identified grossly. The specimen is submitted in toto in one cassette, following decalcification. /06/25/2017 saudi06/25/2017
--- NOTE | 2017-06-26 20:05 | PN ---
Progress Note (short form) - Note Progress Note: Pt seen and examined. chart reviewed in detail. Now in ICU All the field technical support consultant notes reviewed O/E: General: Obese in NAD HEENT: NCAT Abd: obese LE: 2+ Pitting edema Lungs: CtA b/l Neuro:appears fatigued Last Vital Signs Temp Pulse Resp BP Pulse Ox 99.6 F 109 H 28 H 150/89 94 L 06/26/17 18:37 06/26/17 18:00 06/26/17 18:00 06/26/17 18:00 06/26/17 08:49 CBC, BMP 06/26/17 05:30 06/26/17 05:30 Current Medications Generic Name Dose Route Start Last Admin Trade Name Freq PRN Reason Stop Dose Admin Acetaminophen 650 mg 06/25/17 23:30 Tylenol - PO Q6H PRN FEVER Furosemide 40 mg 06/26/17 10:00 06/26/17 12:01 Lasix Injection - IVPUSH Not Given DAILY AJ Gabapentin 100 mg 06/26/17 06:00 06/26/17 13:25 Neurontin - PO 100 mg TID AJ Administration Ertapenem 1 gm/ Sodium 100 mls @ 100 mls/hr 06/26/17 10:00 06/26/17 10:18 Chloride IVPB 100 mls/hr DAILY AJ Administration Protocol Vancomycin HCl 1,250 mg/ 250 mls @ 166.667 mls/hr 06/26/17 10:00 06/26/17 10: 19 Dextrose IVPB 166.667 mls/hr DAILY AJ Administration Protocol Dextrose/Sodium Chloride 1,000 mls @ 75 mls/hr 06/26/17 11:15 06/26/17 12:13 D5-1/2ns - IV 75 mls/hr ASDIR AJ Administration 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 Abnormal LFT, Coagulopathy. progressive weakness. Fatty liver OM Coagulaopathy, in the setting of an active inflammatory/infectious process/poor PO intake/now with LFT abn, no DIC ( high fibrinogen , an acute phase reactant) , was given vit K IV yesterday, noted that he received today, repeat coags pending Pt need to receive FFP prior to procedure. DOREEN is polyclonal IgG , IgA K and L. having a polyclonal spike. K/L ratio negative. urine protein studies negative,peripheral blood flow negative, making a monoclonal gammopathy less likely. the underlying etiology ?Osteo , the CT c/L/S spine was reviewed concerning for septic joint, has ferritin and CRP elevated ( acute phase reactants) ,NSG eval noted, for OR tomorrow
--- NOTE | 2017-06-26 20:07 | PN ---
Progress Note (short form) - Note Progress Note: 61 year old male with a significant past medical history of sciatica who presents to the ED with complaints of fever that began 3 weeks ago. As per patient's daughter, patient was taken to urgent care 3 weeks ago for increased fever and body aches and was diagnosed with strep and given penicillin prescription. She reports after finishing prescription over 1 week, patient began to develop rash from the penicillin and began to take benadryl, relieving the rash in 2 days. Patient's daughter reports, patient was then taken to [facility] on June 08 for similar symptoms of increased fever and associated bilateral leg pain and weakness, LE >UE. mild numbness R hand. He reports patient was given X Ray, CT abdomen, flu culture and labs, before being diagnosed with pleuritic chest pain. noted to elevated CPKS, LFTS and elevated total protein, called for eval r/o myopathy. no hx of statin (only new RX was PCN0 , at baseline home walking and drives , now unable to walk. FU : He denies back pain, appears mildly encephgalopathyic with inattentiveness CTL SPINE noted : IMPRESSION: Limited evaluation of soft tissue due to the patient's body habitus. L3-L4 moderate bilateral facet hypertrophy. L4-L5 marked left and moderate to marked right facet hypertrophy with deformity and decreased attenuation of the left L4 inferior facet with and questionable deformity of L5 and facet suspicious for bone destruction. Rule out osteomyelitis in view of the clinical history. Evaluation of the spinal canal contents is quite limited due to the patient's body habitus with questionable mild disc bulge and possibly moderate degenerative central spinal canal stenosis at this level. Correlation with contrast-enhanced MRI, if possible would be the study of choice to rule out osteomyelitis and to further evaluate for spinal canal. still with low grade temp diaphoretic as per always 'shakey" but more so now weakness TR 4/5 and paraplegia LE-is able to wiggle toes only +asterixis but less intense than yesterday ?? thoracic/lumbar epidural absces, await CT T/L spine. 06/26/17 Last 2 days events noted, he has been febrile, confused. Now mental status appears improved, he remains with paraplegia/areflexia in LEs. Motor strength in UEs-5/5. -?? T8/T9 region epid.abscess vs tumour -Await bone marrow bx. results -N/S eval.noted/d/w neurosurgery.
[2017-06-26 20:26] LABS: INR 1.5 (0.82-1.09)
[2017-06-26] MEDS ORDERED: PT OWN MED DRAWER 7, Y5N ONE (21:42)
[2017-06-27 06:13] LABS: HEMATOCRIT 25.3 % (35.4-49); HEMOGLOBIN 8.7 GM/dL (11.7-16.9); MCHC 34.5 g/dl (32.0-35.9); MEAN CELL VOLUME 81.1 fl (80-96); MEAN PLT VOLUME 9.2 fl (7.5-11.1); PLATELET COUNT 335 K/MM3 (134-434); RBC 3.12 M/mm3 (4.00-5.60); RDW 14.7 % (11.9-15.9); WHITE BLOOD COUNT 10.4 K/mm3 (4.0-10.0)
[2017-06-27] MEDS: GABAPENTIN 100 MG CAPSULE (FP) PO SCH ×3 (06:17→21:05)
[2017-06-27 06:27] LABS: INR 1.47 (0.82-1.09); PROTHROMBIN TIME (PATIENT) 16.6 SEC (9.98-11.88)
[2017-06-27 06:39] LABS: ALBUMIN 1.5 g/dl (3.4-5.0); BLOOD UREA NITROGEN 20 mg/dL (7-18); CALCIUM 10.1 mg/dL (8.5-10.1); CHLORIDE 97 mmol/L (98-107); GLUCOSE,RANDOM 125 mg/dL (74-106); POTASSIUM 4.2 mmol/L (3.5-5.1); SODIUM 137 mmol/L (136-145)
[2017-06-27 06:45] LABS: ALK PHOS 170 U/L (45-117); ANION GAP 11 (8-16); BILIRUBIN,TOTAL 0.9 mg/dL (0.2-1.0); CO2 29 mmol/L (21-32); CREATININE 0.7 mg/dL (0.7-1.3); MAGNESIUM 2.2 mg/dL (1.8-2.4); PHOSPHOROUS 3.9 mg/dL (2.5-4.9); SGOT/AST 123 U/L (15-37); SGPT/ALT 72 U/L (12-78); TOT PROT 7.9 g/dl (6.4-8.2)
--- NOTE | 2017-06-27 06:59 | PN ---
Progress Note, Physician History of Present Illness: 61 YOM with sciatica and supermorbid obesity who presented to ED with 3 wks of fever, body aches, leg weakness with inability to walk (ambulatory at baseline) , shakiness, asterixis, and mild encephalopathy, recently dx with Strep throat at and took one wk of PCN as prescribed, then developed a rash relieved by Benadryl. Subsequently had gone to [facility] with BLE>BUE pain and weakness, RUE mild numbness, pleuritic chest pain. Has elevated CPK, elevated total protein, elevated LFTs. CTL spine CT notable for T8-9 epidural abscess, awaiting bone marrow bx results, possibly to OR today or tomorrow awaiting INR < 1.2. 24 HOUR EVENTS INR still high; ordered 2 units FFP for this AM per Dr. Solomon. SUBJECTIVE States feeling well, no pain, nausea, SOB, or other sxs. Continues to be shaky. 24 HOUR INTAKE & OUTPUT Intake: 2632cc Output: 150cc Net: 2432cc + unmeasured voids BM: None reported LINES/TUBES/DRAINS - Current Medication List Current Medications: Active Medications Acetaminophen (Tylenol -) 650 mg PO Q6H PRN PRN Reason: FEVER Last Admin: 06/26/17 20:17 Dose: 650 mg Furosemide (Lasix Injection -) 40 mg IVPUSH DAILY [facility] Last Admin: 06/26/17 12:01 Dose: Not Given Gabapentin (Neurontin -) 100 mg PO TID AJ Last Admin: 06/27/17 06:17 Dose: 100 mg Ertapenem 1 gm/ Sodium (Chloride) 100 mls @ 100 mls/hr IVPB DAILY AJ PRN Reason: Protocol Last Admin: 06/26/17 10:18 Dose: 100 mls/hr Vancomycin HCl 1,250 mg/ (Dextrose) 250 mls @ 166.667 mls/hr IVPB DAILY AJ PRN Reason: Protocol Last Admin: 06/26/17 10:19 Dose: 166.667 mls/hr Dextrose/Sodium Chloride (D5-1/2ns -) 1,000 mls @ 75 mls/hr IV ASDIR AJ Last Admin: 06/26/17 12:13 Dose: 75 mls/hr - Objective Vital Signs: Vital Signs Temperature 99 F 06/27/17 04:00 Pulse Rate 99 H 06/27/17 04:00 Respiratory Rate 26 H 06/27/17 04:00 Blood Pressure 130/76 06/27/17 04:00 O2 Sat by Pulse Oximetry (%) 98 06/26/17 20:51 Constitutional: Yes: Well Nourished, No Distress, Calm, Obese, Other (BUE tremor , very tired, falling asleep mid-conversation) Eyes: Yes: WNL, Conjunctiva Clear, EOM Intact HENT: Yes: WNL, Atraumatic, Normocephalic Neck: Yes: WNL, Supple, Trachea Midline Cardiovascular: Yes: Tachycardia Respiratory: Yes: Regular, CTA Bilaterally, Tachypnea Gastrointestinal: Yes: WNL, Normal Bowel Sounds, Soft, Abdomen, Obese. No: Palpable Mass, Pulsatile Mass Musculoskeletal: Yes: WNL. No: Back Pain Extremities: No: Cold, Cool, Cyanosis, Deformity, Erythema, Pallor Edema: No Peripheral Pulses: Left Doralis Pedis: 2+, Right Dorsalis Pedis: 2+ Integumentary: Yes: WNL. No: Bruising, Erythema, Jaundice Neurological: Yes: WNL, Alert (tired but arousable), Oriented, Asterixis (marked ), Other. No: Dysarthria, Facial Droop ...Motor Strength: LUE (4/5 proximally, 4/5 distally), LLE (0/5 proximally, 3/5 toes), RUE (3/5 proximally, 4/5 distally), RLE (0/5 proximally, 3/5 toes) Psychiatric: No: Agitated Labs: CBC, BMP 06/27/17 05:10 06/27/17 05:10 INR, PTT INR 1.47 (0.82-1.09) H 06/27/17 05:10 Fibrinogen 637.0 mg/dL (238-498) H 06/26/17 05:30 Assessment/Plan 62 YOM with h/o recent Strep pharyngitis (rx with penicillin and had a rash after completion of abx) presented to the ED with fever, B/L weakness of his LE admitted in the ICU for sepsis (likely secondary to epidural abscess) and airway protection. NEURO #Sepsis, likely secondary to epidural abscess, r/o tumor. Presented with B/L weakness of LE, hasn't walked in almost 2 weeks. Had multiple imaging (CT CTL spine CT, Abd/Pelvis CT), showed e/o 0.9 x0.8 lesion between T8-T9. Febrile but improving. Leukocytosis to 13k's but improving now in 10k's. Blood cultures/ Urine cultures negative. CT guided bone biopsy done on 06/26/17- LACI, AFB, Fungal cx pending. -IV D5-1/2 NS @ 100mls/hr -IV Tylenol 650mg Q6H -IV Ertapenam 1gm -IV Vancomycin 1000 mg BID -Possible Epidural abscess drainage today if repeat INR improves enough after FFP x2 this AM HEME #Elevated INR, improving after multiple units FFP and vitamin K. Pt not on any meds causing rise in INR. -2 Units FFP this AM -Recheck INR and report to Neurosurgery #Polyclonal gammopathy #Anemia, worsening. Could be an argument for expanding epidural hematoma. -FU OR report from Neurosurgery -Trend H/H -Patient has T&S in system -Transfuse if necessary ID Sepsis likely secondary to epidural abscess ? Septic joint- L4 osteomyelitis Treatment as discussed above CV Echo: normal LV function with mildly dilated LV IV Lasix 40mg on hold due to sepsis, pt requiring IV fluids. FEN IV IV D5-1/2 NS @ 100mls/hr Electrolyes: wnl Sodium controlled diet, NPO after midnight for possible epidural drainage PPX DVT: SCD's GI: Not indicated PT: When able CODE STATUS Full Code DISPO Admitted in ICU. Continue further monitoring.
[2017-06-27] MEDS ORDERED: ACETAMINOPHEN 1000 MG/100 ML VIAL (NON FORMULARY) IVPB ONE (08:47)
[2017-06-27] MEDS ORDERED: PT OWN MED DRAWER 7, Y5N ONE ×3 (09:21→19:14)
[2017-06-27] MEDS: ERTAPENEM SODIUM 1 GM in SODIUM CHLORIDE 100 ML IVPB SCH (09:25)
[2017-06-27] MEDS: VANCOMYCIN 1,250 MG in DEXTROSE 5%-WATER - 250 ML IVPB SCH (09:26)
[2017-06-27] MEDS ORDERED: THROMBIN (BOVINE) 20,000 UNIT VIAL TP ONE (10:20)
[2017-06-27] MEDS ORDERED: VANCOMYCIN 1,000 MG VIAL (RESTRICTED TO ID ONLY) ONE (10:20)
[2017-06-27] MEDS ORDERED: GENTAMICIN SO4 80 MG/2 ML VIAL ONE (10:20)
[2017-06-27] MEDS ORDERED: LIDOCAINE 1%/EPI 1:100000 (20 ML MULTI DOSE VIAL) ONE (10:20)
[2017-06-27] MEDS ORDERED: PHYTONADIONE 10 MG/1 ML AMP IVPB ONE (10:35)
--- NOTE | 2017-06-27 11:03 | PN ---
Progress Note, Physician History of Present Illness: seen and examined today. - Current Medication List Current Medications: Active Medications Acetaminophen (Tylenol -) 650 mg PO Q6H PRN PRN Reason: FEVER Last Admin: 06/26/17 20:17 Dose: 650 mg Gabapentin (Neurontin -) 100 mg PO TID AJ Last Admin: 06/27/17 06:17 Dose: 100 mg Ertapenem 1 gm/ Sodium (Chloride) 100 mls @ 100 mls/hr IVPB DAILY AJ PRN Reason: Protocol Last Admin: 06/27/17 09:25 Dose: 100 mls/hr Vancomycin HCl 1,250 mg/ (Dextrose) 250 mls @ 166.667 mls/hr IVPB DAILY AJ PRN Reason: Protocol Last Admin: 06/27/17 09:26 Dose: 166.667 mls/hr Dextrose/Sodium Chloride (D5-1/2ns -) 1,000 mls @ 75 mls/hr IV ASDIR [facility] Last Admin: 06/26/17 12:13 Dose: 75 mls/hr - Objective Vital Signs: Vital Signs Temperature 100.4 F H 06/27/17 10:00 Pulse Rate 94 H 06/27/17 10:00 Respiratory Rate 32 H 06/27/17 10:00 Blood Pressure 143/75 06/27/17 10:00 O2 Sat by Pulse Oximetry (%) 94 L 06/27/17 09:00 Constitutional: Yes: No Distress, Calm HENT: Yes: Atraumatic, Normocephalic Neck: Yes: Supple, Trachea Midline Cardiovascular: Yes: Tachycardia, S1, S2. No: Regular Rate and Rhythm, Bradycardia, Pulse Irregular, Bruit, JVD, Gallop, Murmur, Rub, S3, S4, Varicosities Respiratory: Yes: Regular, Diminished. No: Rales, Rhonchi, SOB, Wheezes Gastrointestinal: Yes: Normal Bowel Sounds, Soft. No: Distention, Tenderness Extremities: Yes: WNL Edema: Yes Peripheral Pulses WNL: Yes Labs: CBC, BMP 06/27/17 05:10 06/27/17 05:10 INR, PTT INR 1.47 (0.82-1.09) H 06/27/17 05:10 Fibrinogen 637.0 mg/dL (238-498) H 06/26/17 05:30 - ....Imaging Chest X-ray: Report Reviewed, Image Reviewed EKG: Report Reviewed, Image Reviewed Other: Report Reviewed, Image Reviewed (tele-nsr, sinus tach, no sig arrhythmias recorded) Assessment/Plan IMP: Fever, sinus tachycardia, tachypnea Possible L4 Osteo Polyclonal gammopathy Edema PHTN 1. Edema- -likely component of third spacing due to hypoalbuminemia -creatinine trended down -Echo showed normal LV function w/ mildly dilated LV -diuresis on hold, receiving IVF 2. Fever: -recent diagnosis of strep throat -initial concern for sepsis/PNA -Now concern for L4 osteo, planned for OR stabilization and biopsy of spine today -infectious disease is following 3. Muscle weaknes/rash -Lumbar spine CT was done, possibly c/w multiple myeloma, could not rule out osteomyelitis: plan as above -ID/Rheum/Heme/Neuro following 4. Mild sinus tach, tachypnea: -Likely due to deconditioned status, infection, anemia.
[2017-06-27] MEDS ORDERED: ETOMIDATE 20 MG/10 ML AMPUL IVPUSH ONE (11:12)
[2017-06-27] MEDS ORDERED: fentaNYL CITRATE 250 MCG/5 ML VIAL ONE (11:12)
[2017-06-27] MEDS ORDERED: LIDOCAINE HCL/PF 2% SDV 5ML VIAL ONE (11:12)
[2017-06-27] MEDS ORDERED: ROCURONIUM BROMIDE 50 MG/5 ML VIAL ONE ×3 (11:12→15:08)
[2017-06-27] MEDS ORDERED: PROPOFOL 20 ML ONE ×3 (11:12→16:05)
--- NOTE | 2017-06-27 12:04 | PN ---
Teaching Attending Note Name of Resident: Katarina Maggie ATTENDING PHYSICIAN STATEMENT I saw and evaluated the patient. I reviewed the resident's note and discussed the case with the resident. I agree with the resident's findings and plan as documented. SUBJECTIVE: Pt seen and examined in the ICU. Fevers persist. Somnolent but arousable. For OR today. OBJECTIVE: Last Vital Signs Temp Pulse Resp BP Pulse Ox 100.4 F H 94 H 32 H 143/75 94 L 06/27/17 10:00 06/27/17 10:00 06/27/17 10:00 06/27/17 10:00 06/27/17 09:00 Intake & Output 06/24/17 06/25/17 06/26/17 06/27/17 23:59 23:59 23:59 23:59 Intake Total 774 867 9174 Output Total 1900 150 Balance 650 -1750 2482 Weight 175.994 kg 179.339 kg 181.3 kg 168.793 kg Gen: somnolent but arousalbe, diaphoretic Heart: RRR Lung: decreased breath sounds at the bases Abd: soft, nontender Ext: no edema CBC, BMP 06/27/17 05:10 06/27/17 05:10 Active Medications Acetaminophen (Tylenol -) 650 mg PO Q6H PRN PRN Reason: FEVER Last Admin: 06/26/17 20:17 Dose: 650 mg Gabapentin (Neurontin -) 100 mg PO TID [facility] Last Admin: 06/27/17 06:17 Dose: 100 mg Ertapenem 1 gm/ Sodium (Chloride) 100 mls @ 100 mls/hr IVPB DAILY AJ PRN Reason: Protocol Last Admin: 06/27/17 09:25 Dose: 100 mls/hr Vancomycin HCl 1,250 mg/ (Dextrose) 250 mls @ 166.667 mls/hr IVPB DAILY AJ PRN Reason: Protocol Last Admin: 06/27/17 09:26 Dose: 166.667 mls/hr Dextrose/Sodium Chloride (D5-1/2ns -) 1,000 mls @ 75 mls/hr IV ASDIR [facility] Last Admin: 06/26/17 12:13 Dose: 75 mls/hr ASSESSMENT AND PLAN: r/o Osteomyelitis r/o Epidural Abscess Altered Mental Status Polyclonal Gammopathy Pulmonary HTN Elevated LFTs Coagulopathy - continue antibiotics per ID - f/u biopsy cultures and pathology - to OR today for exploration - FFP today prior to OR - monitor coags - d/c lasix - continue IVF as pt appears clinically dry - outpt PFTs, PSG - hold heparin for OR tomorrow
[2017-06-27 12:23] LABS: INR 1.41 (0.82-1.09); PROTHROMBIN TIME (PATIENT) 15.9 SEC (9.98-11.88)
[2017-06-27 12:25] LABS: ACTIVATED PTT 29.2 SECONDS (26.9-34.4)
[2017-06-27] MEDS: DEXTROSE 5%-0.45% SALINE 1,000 ML IV SCH (12:47)
[2017-06-27] MEDS ORDERED: LIDOCAINE 1%/EPI 1:100000 (20 ML MULTI DOSE VIAL) IJ ONE (13:00)
--- NOTE | 2017-06-27 14:51 | PN ---
Progress Note, Physician History of Present Illness: continues to have intermittent confusion for operating room today calm no other issues still no specific cause higher lfts and inr - Current Medication List Current Medications: Active Medications Acetaminophen (Tylenol -) 650 mg PO Q6H PRN PRN Reason: FEVER Last Admin: 06/26/17 20:17 Dose: 650 mg Gabapentin (Neurontin -) 100 mg PO TID [facility] Last Admin: 06/27/17 14:22 Dose: Not Given Ertapenem 1 gm/ Sodium (Chloride) 100 mls @ 100 mls/hr IVPB DAILY AJ PRN Reason: Protocol Last Admin: 06/27/17 09:25 Dose: 100 mls/hr Vancomycin HCl 1,250 mg/ (Dextrose) 250 mls @ 166.667 mls/hr IVPB DAILY AJ PRN Reason: Protocol Last Admin: 06/27/17 09:26 Dose: 166.667 mls/hr Dextrose/Sodium Chloride (D5-1/2ns -) 1,000 mls @ 75 mls/hr IV ASDIR [facility] Last Admin: 06/27/17 12:47 Dose: 75 mls/hr - Objective Vital Signs: Vital Signs Temperature 99.5 F 06/27/17 12:00 Pulse Rate 122 H 06/27/17 12:00 Respiratory Rate 24 06/27/17 12:00 Blood Pressure 156/90 06/27/17 12:00 O2 Sat by Pulse Oximetry (%) 94 L 06/27/17 09:00 Constitutional: Yes: No Distress, Calm, Obese Eyes: Yes: Conjunctiva Clear Cardiovascular: Yes: Regular Rate and Rhythm Respiratory: Yes: Regular, CTA Bilaterally, On Nasal O2 Gastrointestinal: Yes: Normal Bowel Sounds, Soft Musculoskeletal: Yes: WNL Extremities: Yes: Other (weakness) Integumentary: Yes: WNL Neurological: Yes: Alert, Confusion Psychiatric: Yes: Alert, Other Labs: CBC, BMP 06/27/17 05:10 06/27/17 05:10 INR, PTT INR 1.41 (0.82-1.09) H 06/27/17 11:45 Fibrinogen 637.0 mg/dL (238-498) H 06/26/17 05:30 Assessment/Plan r/o infective process ct disorder cardiac process sepsis autoimmune process r/o osteo abn lft leukocytosis Problem List - Problems (1) Neuropathy Code(s): G62.9 - POLYNEUROPATHY, UNSPECIFIED (2) Elevated creatine kinase Code(s): R74.8 - ABNORMAL LEVELS OF OTHER SERUM ENZYMES (3) Elevated serum creatinine Code(s): R79.89 - OTHER SPECIFIED ABNORMAL FINDINGS OF BLOOD CHEMISTRY (4) Anasarca Code(s): R60.1 - GENERALIZED EDEMA (5) Anemia Code(s): D64.9 - ANEMIA, UNSPECIFIED (6) CKD (chronic kidney disease) Code(s): N18.9 - CHRONIC KIDNEY DISEASE, UNSPECIFIED (7) Fever Code(s): R50.9 - FEVER, UNSPECIFIED (8) Diabetes Code(s): E11.9 - TYPE 2 DIABETES MELLITUS WITHOUT COMPLICATIONS (9) Coagulation defect Code(s): D68.9 - COAGULATION DEFECT, UNSPECIFIED will await for biopsy results continue current mgmt plan continue abx close watch on the patient patient for or neuro following the case post or will await findings watch for fevers still no specific cause onco on case rheum on case cc time 40 min
[2017-06-27] MEDS ORDERED: MIDAZOLAM HCL 2 MG/2 ML SINGLE DOSE VIAL ONE (15:20)
--- NOTE | 2017-06-27 15:58 | PN ---
Progress Note (short form) - Note Progress Note: Pt seen and examined. chart reviewed in detail. Pt appears lethargic O/E: General: Obese in NAD HEENT: NCAT Abd: obese LE: 2+ Pitting edema Lungs: CtA b/l Neuro:appears fatigued Last Vital Signs Temp Pulse Resp BP Pulse Ox 99.5 F 122 H 24 156/90 94 L 06/27/17 12:00 06/27/17 12:00 06/27/17 12:00 06/27/17 12:00 06/27/17 09:00 CBC, BMP 06/27/17 05:10 06/27/17 05:10 Current Medications Generic Name Dose Route Start Last Admin Trade Name Freq PRN Reason Stop Dose Admin Acetaminophen 650 mg 06/25/17 23:30 06/26/17 20:17 Tylenol - PO 650 mg Q6H PRN Administration FEVER Gabapentin 100 mg 06/26/17 06:00 06/27/17 14:22 Neurontin - PO Not Given TID AJ Ertapenem 1 gm/ Sodium 100 mls @ 100 mls/hr 06/26/17 10:00 06/27/17 09:25 Chloride IVPB 100 mls/hr DAILY AJ Administration Protocol Vancomycin HCl 1,250 mg/ 250 mls @ 166.667 mls/hr 06/26/17 10:00 06/27/17 09: 26 Dextrose IVPB 166.667 mls/hr DAILY AJ Administration Protocol Dextrose/Sodium Chloride 1,000 mls @ 75 mls/hr 06/26/17 11:15 06/27/17 12:47 D5-1/2ns - IV 75 mls/hr ASDIR AJ Administration 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 Abnormal LFT, Coagulopathy. progressive weakness. Fatty liver OM Coagulaopathy, VitK/FFP pre-procedural DOREEN is polyclonal IgG , IgA K and L. having a polyclonal spike. K/L ratio negative. urine protein studies negative,peripheral blood flow negative, making a monoclonal gammopathy less likely. the underlying etiology ?Osteo , the CT c/L/S spine was reviewed concerning for septic joint, has ferritin and CRP elevated ( acute phase reactants) ,NSG eval noted, for OR today
[2017-06-27] MEDS ORDERED: PROPOFOL 1,000,000 MCG/100 ML VIAL ONE (16:05)
[2017-06-27] MEDS ORDERED: HYDROmorphone HCL CARPU-JECT 1 MG/1 ML DISP.SYRIN IVPUSH PRN (16:06)
[2017-06-27] MEDS ORDERED: ONDANSETRON 4 MG/2 ML VIAL IVPUSH PRN (16:06)
--- NOTE | 2017-06-27 16:25 | PN ---
Progress Note (short form) - Note Progress Note: Pt returned to ICU post-op. Remains intubated due to body habitus and sepsis syndrome with propofol gtt sedation. AC mode vent TV 500, rate 15, SpO2 50%. Reported 500cc EBL with 100-200cc urine output. Input of 1.5L to 2L of LR during procedure. Brief PE: Gen: I&S Lung: Rhonchous breath sounds anteriorly Cards: Tachycardic, no murmurs, distant sounds due to body habitus Abd: Obese, soft, hypoactive BS Legs: No overt pitting edema LINES/Drains/Tubes: Size 8 ET tube secured, CHERRY drain with about 10-20cc sanginuous fluid, espinal catheter in place with minimal collection (most likely bag changed over) a/p --Continue sedation while intubated with sedation vacation and possible extubation tomorrow --CXR and limb xrays --monitor CHERRY drainage --Monitor for signs of bleeding --Pt already received total of 8 ffp (6 pre-op, 2 perioperatively) and 1U PRBCs --Continue rest per daytime plans. --Monitor outputs Gianfranco West, DO - IM PGY-1
--- NOTE | 2017-06-27 16:54 | PN ---
Progress Note, Physician History of Present Illness: intubated and sedated s/p open biopsy today, bone and CSF cltx sent. still febrile, -?? T8/T9 region epid.abscess vs tumour - Current Medication List Current Medications: Active Medications Acetaminophen (Tylenol -) 650 mg PO Q6H PRN PRN Reason: FEVER Last Admin: 06/26/17 20:17 Dose: 650 mg Gabapentin (Neurontin -) 100 mg PO TID AJ Last Admin: 06/27/17 14:22 Dose: Not Given Hydromorphone HCl (Dilaudid Injection -) 0.5 mg IVPUSH [id number] PRN PRN Reason: PAIN-PACU ORDER X 4 DOSES ONLY Ertapenem 1 gm/ Sodium (Chloride) 100 mls @ 100 mls/hr IVPB DAILY AJ PRN Reason: Protocol Last Admin: 06/27/17 09:25 Dose: 100 mls/hr Vancomycin HCl 1,250 mg/ (Dextrose) 250 mls @ 166.667 mls/hr IVPB DAILY AJ PRN Reason: Protocol Last Admin: 06/27/17 09:26 Dose: 166.667 mls/hr Dextrose/Sodium Chloride (D5-1/2ns -) 1,000 mls @ 75 mls/hr IV ASDIR AJ Last Admin: 06/27/17 12:47 Dose: 75 mls/hr Propofol (Diprivan -) 1,000,000 mcg in 100 mls @ 30.383 mls/hr IVPB TITR AJ; 30 MCG/KG/MIN PRN Reason: Protocol Ondansetron HCl (Zofran Injection) 4 mg IVPUSH Q6H PRN PRN Reason: NAUSEA AND/OR VOMITING - Objective Vital Signs: Vital Signs Temperature 99.5 F 06/27/17 12:00 Pulse Rate 122 H 06/27/17 12:00 Respiratory Rate 18 06/27/17 16:45 Blood Pressure 156/90 06/27/17 12:00 O2 Sat by Pulse Oximetry (%) 96 06/27/17 16:45 Constitutional: Yes: Calm HENT: Yes: Atraumatic Neck: Yes: Supple Cardiovascular: Yes: Regular Rate and Rhythm Respiratory: Yes: Rhonchi Gastrointestinal: Yes: Normal Bowel Sounds Edema: Yes Edema: LLE: 3+, RLE: 3+ Peripheral Pulses WNL: Yes Neurological: Yes: Other (sedated) Labs: CBC, BMP 06/27/17 05:10 06/27/17 05:10 INR, PTT INR 1.41 (0.82-1.09) H 06/27/17 11:45 Fibrinogen 637.0 mg/dL (238-498) H 06/26/17 05:30 Problem List - Problems (1) Neuropathy Assessment/Plan: s/p spinal decompression surgery Code(s): G62.9 - POLYNEUROPATHY, UNSPECIFIED (2) Elevated creatine kinase Assessment/Plan: rhabdo iv hydration...wnl now Code(s): R74.8 - ABNORMAL LEVELS OF OTHER SERUM ENZYMES (3) Elevated serum creatinine Assessment/Plan: wnl Code(s): R79.89 - OTHER SPECIFIED ABNORMAL FINDINGS OF BLOOD CHEMISTRY (4) Anasarca Assessment/Plan: same...no change from before Code(s): R60.1 - GENERALIZED EDEMA (5) Anemia Assessment/Plan: h/h stable Code(s): D64.9 - ANEMIA, UNSPECIFIED (6) CKD (chronic kidney disease) Assessment/Plan: renal work up negative cr wnl Code(s): N18.9 - CHRONIC KIDNEY DISEASE, UNSPECIFIED (7) Fever Assessment/Plan: cxs have sent Code(s): R50.9 - FEVER, UNSPECIFIED (8) Diabetes Assessment/Plan: monitor blood sugars poor po intake Code(s): E11.9 - TYPE 2 DIABETES MELLITUS WITHOUT COMPLICATIONS (9) Coagulation defect Assessment/Plan: was given ffp and vit k Code(s): D68.9 - COAGULATION DEFECT, UNSPECIFIED (10) Morbid obesity Code(s): E66.01 - MORBID (SEVERE) OBESITY DUE TO EXCESS CALORIES (11) Paraparesis of both lower limbs Assessment/Plan: no change in condition Code(s): G82.20 - PARAPLEGIA, UNSPECIFIED Assessment/Plan cc time 35 min
[2017-06-27] MEDS: PROPOFOL 1,000,000 MCG/100 ML VIAL IVPB SCH ×2 (17:19→21:06)
--- NOTE | 2017-06-27 18:17 | PN ---
Progress Note, Physician History of Present Illness: 62 year old male with a significant past medical history of sciatica who presents to the ED with complaints of fever that began 3 weeks ago. As per patient's daughter, patient was taken to urgent care 3 weeks ago for increased fever and body aches and was diagnosed with strep and given penicillin prescription. She reports after finishing prescription over 1 week, patient began to develop rash from the penicillin and began to take benadryl, relieving the rash in 2 days. Patient's daughter reports, [facility] then [facility] for similar symptoms of increased fever and associated bilateral leg pain and weakness, LE >UE. mild numbness R hand. He reports patient was given X Ray, CT abdomen, flu culture and labs, before being diagnosed with pleuritic chest pain. noted to elevated CPKS, LFTS and elevated total protein, called for eval r/o myopathy. no hx of statin (only new RX was PCN0 , at baseline home walking and drives , now unable to walk. FU : s/p open biopsy today, bone and CSF cltx sent. still febrile, he remains with paraplegia/areflexia in LEs. Motor strength in UEs-5/5. -?? T8/T9 region epid.abscess vs tumour -- Fu BIOPSY results,cont ABX Dr Reid - Current Medication List Current Medications: Active Medications Acetaminophen (Tylenol -) 650 mg PO Q6H PRN PRN Reason: FEVER Last Admin: 06/26/17 20:17 Dose: 650 mg Gabapentin (Neurontin -) 100 mg PO TID [facility] Last Admin: 06/27/17 14:22 Dose: Not Given Hydromorphone HCl (Dilaudid Injection -) 0.5 mg IVPUSH [id number] PRN PRN Reason: PAIN-PACU ORDER X 4 DOSES ONLY Ertapenem 1 gm/ Sodium (Chloride) 100 mls @ 100 mls/hr IVPB DAILY [facility] PRN Reason: Protocol Last Admin: 06/27/17 09:25 Dose: 100 mls/hr Vancomycin HCl 1,250 mg/ (Dextrose) 250 mls @ 166.667 mls/hr IVPB DAILY [facility] PRN Reason: Protocol Last Admin: 06/27/17 09:26 Dose: 166.667 mls/hr Dextrose/Sodium Chloride (D5-1/2ns -) 1,000 mls @ 75 mls/hr IV ASDIR AJ Last Admin: 06/27/17 12:47 Dose: 75 mls/hr Propofol (Diprivan -) 1,000,000 mcg in 100 mls @ 30.383 mls/hr IVPB TITR AJ; 30 MCG/KG/MIN PRN Reason: Protocol Last Admin: 06/27/17 17:19 Dose: 30 mcg/kg/min, 30.383 mls/hr Ondansetron HCl (Zofran Injection) 4 mg IVPUSH Q6H PRN PRN Reason: NAUSEA AND/OR VOMITING - Objective Vital Signs: Vital Signs Temperature 99 F 06/27/17 18:09 Pulse Rate 86 06/27/17 18:09 Respiratory Rate 18 06/27/17 18:09 Blood Pressure 137/78 06/27/17 18:09 O2 Sat by Pulse Oximetry (%) 96 06/27/17 17:26 Labs: CBC, BMP 06/27/17 05:10 06/27/17 05:10 INR, PTT INR 1.41 (0.82-1.09) H 06/27/17 11:45 Fibrinogen 637.0 mg/dL (238-498) H 06/26/17 05:30 Problem List - Problems (1) Paraparesis of both lower limbs Code(s): G82.20 - PARAPLEGIA, UNSPECIFIED (2) Morbid obesity Code(s): E66.01 - MORBID (SEVERE) OBESITY DUE TO EXCESS CALORIES (3) Neuropathy Code(s): G62.9 - POLYNEUROPATHY, UNSPECIFIED
[2017-06-27 19:38] LABS: GLUCOSE,CSF 80 mg/dL (50-80)
[2017-06-27 20:11] LABS: INR 1.42 (0.82-1.09); PROTHROMBIN TIME (PATIENT) 16.1 SEC (9.98-11.88)
[2017-06-28] MEDS: GABAPENTIN 100 MG CAPSULE (FP) PO SCH ×3 (05:59→21:47)
--- NOTE | 2017-06-28 06:58 | PN ---
Progress Note, Physician History of Present Illness: 61 YOM with sciatica and supermorbid obesity who presented to ED with 3 wks of fever, body aches, leg weakness with inability to walk (ambulatory at baseline) , shakiness, asterixis, and mild encephalopathy, recently dx with Strep throat at and took one wk of PCN as prescribed, then developed a rash relieved by Benadryl. Subsequently had gone to [facility] with BLE>BUE pain and weakness, RUE mild numbness, pleuritic chest pain. Has elevated CPK, elevated total protein, elevated LFTs. CTL spine CT notable for T8-9 epidural abscess, awaiting bone marrow bx results, possibly to OR today or tomorrow awaiting INR < 1.2. 24 HOUR EVENTS Went to OR for Neurosurgery decompression, bone/muscle/CSF bx, posterior stabilization under general anesthesia with EBL 500 (UOP 125 and rec'd 1500cc LR intraoperatively). Received another 2 units FFP yesterday pre-op. SUBJECTIVE N/A 24 HOUR INTAKE & OUTPUT Intake: 2610cc Output: 1625cc Net: 985cc BM: None reported LINES/TUBES/DRAINS CHERRY drain placed 06/27/17 Fitzpatrick placed 06/27/17 PIV - Current Medication List Current Medications: Active Medications Acetaminophen (Tylenol -) 650 mg PO Q6H PRN PRN Reason: FEVER Last Admin: 06/26/17 20:17 Dose: 650 mg Gabapentin (Neurontin -) 100 mg PO TID AJ Last Admin: 06/28/17 05:59 Dose: Not Given Ertapenem 1 gm/ Sodium (Chloride) 100 mls @ 100 mls/hr IVPB DAILY AJ PRN Reason: Protocol Last Admin: 06/27/17 09:25 Dose: 100 mls/hr Vancomycin HCl 1,250 mg/ (Dextrose) 250 mls @ 166.667 mls/hr IVPB DAILY AJ PRN Reason: Protocol Last Admin: 06/27/17 09:26 Dose: 166.667 mls/hr Dextrose/Sodium Chloride (D5-1/2ns -) 1,000 mls @ 75 mls/hr IV ASDIR AJ Last Admin: 06/27/17 12:47 Dose: 75 mls/hr Propofol (Diprivan -) 1,000,000 mcg in 100 mls @ 30.383 mls/hr IVPB TITR AJ; 30 MCG/KG/MIN PRN Reason: Protocol Last Admin: 06/27/17 21:06 Dose: 25 mcg/kg/min, 25.319 mls/hr Ondansetron HCl (Zofran Injection) 4 mg IVPUSH Q6H PRN PRN Reason: NAUSEA AND/OR VOMITING - Objective Vital Signs: Vital Signs Temperature 100.3 F H 06/28/17 02:00 Pulse Rate 82 06/28/17 06:00 Respiratory Rate 16 06/28/17 06:00 Blood Pressure 149/87 06/28/17 06:00 O2 Sat by Pulse Oximetry (%) 100 06/27/17 20:25 Constitutional: Yes: Well Nourished, No Distress, Calm, Obese, Other (initially lightly sedated and intubated, family at bedside, after extubation is speaking with normal phonation, answering questions appropriately, states tired but able to stay awake for exam and conversation) Eyes: Yes: WNL, Conjunctiva Clear, EOM Intact HENT: Yes: WNL, Atraumatic, Normocephalic Neck: Yes: WNL, Supple, Trachea Midline Cardiovascular: Yes: WNL, Regular Rate and Rhythm Respiratory: Yes: Other (coarse bilaterally while still intubated but improved after suctioning, patient desaturates to 90% quickly after suctioning with prolonged persistent cough reflex lasting x30 seconds) Gastrointestinal: Yes: WNL, Normal Bowel Sounds, Soft, Abdomen, Obese Extremities: Yes: WNL. No: Cold, Cyanosis, Delayed Capillary Refill, Erythema, Pallor Edema: No Peripheral Pulses: Left Doralis Pedis: 2+, Right Dorsalis Pedis: 2+ Integumentary: Yes: WNL. No: Erythema Wound/Incision: Yes: Clean/Dry, Dressing Dry and Intact, Other (CHERRY drain with about 20 cc serosanguinous drainage) Neurological: Yes: Other (initially sedated/intubated but responsive, after extubation has grossly normal CNII-XII, moving all extremities) Psychiatric: Yes: WNL, Alert, Oriented Labs: CBC, BMP 06/27/17 05:10 06/27/17 05:10 INR, PTT INR 1.42 (0.82-1.09) H 06/27/17 18:00 Fibrinogen 637.0 mg/dL (238-498) H 06/26/17 05:30 - ....Imaging Chest X-ray: Report Reviewed, Image Reviewed, Other (mild bibasilar atelectasis , mild elevated right hemidiaphragm) Assessment/Plan 62 YOM with h/o recent Strep pharyngitis (rx with penicillin and had a rash after completion of abx) presented to the ED with fever, B/L weakness of his LE admitted in the ICU for sepsis (likely secondary to epidural abscess) and airway protection. S/P OR on 06/27/17 awaiting tissue and fluid sample workup. NEURO #Sepsis, likely secondary to epidural abscess, r/o tumor. Presented with B/L weakness of LE, hasn't walked in almost 2 weeks. Had multiple imaging (CT CTL spine CT, Abd/Pelvis CT), showed e/o 0.9 x0.8 lesion between T8-T9. Febrile but improving. Leukocytosis to 13k's but improving now in 10k's. Blood cultures/ Urine cultures negative. CT guided bone biopsy done on 06/26/17- LACI, AFB, Fungal cx pending. Now s/p OR on 06/27/17 awaiting sample workup. Returned to ICU still intubated d/t body habitus. -IV D5-1/2 NS @ 100mls/hr -IV Tylenol 650mg Q6H -IV Ertapenam 1gm -IV Vancomycin 1000 mg BID -Extubated today HEME #Elevated INR, improving after multiple units FFP and vitamin K. Pt not on any meds causing rise in INR. -Monitor coags #Polyclonal gammopathy -Heme following #Anemia, worsening. Hgb 8.4 this AM and patient states tired but otherwise no symptoms. -Trend H/H -Monitor CHERRY drain output, other sources of bleeding -Patient has T&S in system -Transfuse if necessary ID Sepsis likely secondary to epidural abscess, possible septic joint or L4 osteomyelitis. S/P OR on 06/27/17. -ID following -Continue ertapenem, vancomycin -FU biopsy and culture results CV Echo: normal LV function with mildly dilated LV IV Lasix 40mg on hold due to sepsis, pt requiring IV fluids FEN IV IV D5-1/2 NS @ 100mls/hr Electrolyes: wnl Sodium controlled diet PPX DVT: SCD's GI: Not indicated PT: When able CODE STATUS Full Code DISPO Continue further ICU monitoring.
--- NOTE | 2017-06-28 08:34 | PN ---
Progress Note, Physician Chief Complaint: intubated and sedated on propofol s/p open biopsy yesterday, bone and CSF cltx sent. -?? T8/T9 region epid.abscess vs tumo History of Present Illness: febrile TELE: NSR at 85bpm - Current Medication List Current Medications: Active Medications Acetaminophen (Tylenol -) 650 mg PO Q6H PRN PRN Reason: FEVER Last Admin: 06/26/17 20:17 Dose: 650 mg Gabapentin (Neurontin -) 100 mg PO TID [facility] Last Admin: 06/28/17 05:59 Dose: Not Given Ertapenem 1 gm/ Sodium (Chloride) 100 mls @ 100 mls/hr IVPB DAILY AJ PRN Reason: Protocol Last Admin: 06/27/17 09:25 Dose: 100 mls/hr Vancomycin HCl 1,250 mg/ (Dextrose) 250 mls @ 166.667 mls/hr IVPB DAILY AJ PRN Reason: Protocol Last Admin: 06/27/17 09:26 Dose: 166.667 mls/hr Dextrose/Sodium Chloride (D5-1/2ns -) 1,000 mls @ 75 mls/hr IV ASDIR AJ Last Admin: 06/27/17 12:47 Dose: 75 mls/hr Propofol (Diprivan -) 1,000,000 mcg in 100 mls @ 30.383 mls/hr IVPB TITR AJ; 30 MCG/KG/MIN PRN Reason: Protocol Last Admin: 06/27/17 21:06 Dose: 25 mcg/kg/min, 25.319 mls/hr Ondansetron HCl (Zofran Injection) 4 mg IVPUSH Q6H PRN PRN Reason: NAUSEA AND/OR VOMITING - Objective Vital Signs: Vital Signs Temperature 100.3 F H 06/28/17 02:00 Pulse Rate 82 06/28/17 06:00 Respiratory Rate 14 06/28/17 06:30 Blood Pressure 149/87 06/28/17 06:00 O2 Sat by Pulse Oximetry (%) 100 06/27/17 20:25 HENT: Yes: Other (+ ETT) Cardiovascular: Yes: Regular Rate and Rhythm Respiratory: Yes: Other (= breath sounds bilaterally, no wheezing or rales.) Gastrointestinal: Yes: Soft, Abdomen, Obese Edema: Yes Edema: LLE: 1+, RLE: 1+ Neurological: Yes: Other (as per Dr. Reid's note.) Labs: INR, PTT INR 1.42 (0.82-1.09) H 06/27/17 18:00 Fibrinogen 637.0 mg/dL (238-498) H 06/26/17 05:30 - ....Imaging Chest X-ray: Image Reviewed EKG: Image Reviewed Assessment/Plan Assessment/Plan IMP: Fever, sinus tachycardia, tachypnea 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 Edema- -likely component of third spacing due to hypoalbuminemia -creatinine trended down -Echo showed normal LV function w/ mildly dilated LV -diuresis on hold 2. Fever: -recent diagnosis of strep throat -initial concern for sepsis/PNA -Now concern for L4 osteo, s/p open bx yesterday -infectious disease is following 3. Muscle weaknes/rash -Lumbar spine CT was done, possibly c/w multiple myeloma, could not rule out osteomyelitis: plan as above -ID/Rheum/Heme/Neuro following 4. Mild sinus tach, tachypnea: -Likely due to deconditioned status, infection, anemia. 5. Respiratory failure: -remains intubated post op -Wean vent as tolerated as per Critical Care Team
[2017-06-28 08:39] LABS: BASO % 0.6 % (0-2.0); EOS % 3.1 % (0-4.5); HEMATOCRIT 24.8 % (35.4-49); HEMOGLOBIN 8.4 GM/dL (11.7-16.9); LYMPH % 11.5 % (8-40); MCH 27.9 pg (25.7-33.7); MCHC 33.9 g/dl (32.0-35.9); MEAN CELL VOLUME 82.5 fl (80-96); MEAN PLT VOLUME 8.7 fl (7.5-11.1); MONO % 8.2 % (3.8-10.2); NEUT % 76.6 % (42.8-82.8); PLATELET COUNT 264 K/MM3 (134-434); RDW 15.1 % (11.9-15.9); WHITE BLOOD COUNT 9.7 K/mm3 (4.0-10.0)
[2017-06-28 08:51] LABS: INR 1.47 (0.82-1.09); PROTHROMBIN TIME (PATIENT) 16.6 SEC (9.98-11.88)
[2017-06-28 08:53] LABS: ACTIVATED PTT 25.2 SECONDS (26.9-34.4)
--- NOTE | 2017-06-28 09:00 | PN ---
Progress Note (short form) - Note Progress Note: anesthesia POD#1 S/P Thoracic decompression CSF sampling and muscle biopsy under GA Remained intubated and sedated overnight. Stable hemodynamics. Temp 100.4 VSS, Hct 24 after one PRBC. A/P Extubation is planned as tolerated. PRBC as indicated. Pain is under control. Violetta Dan MD.
[2017-06-28 09:19] LABS: ALBUMIN 1.5 g/dl (3.4-5.0); ANION GAP 9 (8-16); BLOOD UREA NITROGEN 17 mg/dL (7-18); CALCIUM 9.5 mg/dL (8.5-10.1); CHLORIDE 99 mmol/L (98-107); CO2 30 mmol/L (21-32); GLUCOSE,RANDOM 139 mg/dL (74-106); POTASSIUM 4.4 mmol/L (3.5-5.1); SODIUM 138 mmol/L (136-145)
[2017-06-28 09:22] LABS: ALK PHOS 156 U/L (45-117); BILIRUBIN,TOTAL 0.7 mg/dL (0.2-1.0); CREATININE 0.8 mg/dL (0.7-1.3); MAGNESIUM 1.7 mg/dL (1.8-2.4); PHOSPHOROUS 4.3 mg/dL (2.5-4.9); SGOT/AST 93 U/L (15-37); SGPT/ALT 51 U/L (12-78); TOT PROT 7.3 g/dl (6.4-8.2)
[2017-06-28] MEDS: VANCOMYCIN 1,250 MG in DEXTROSE 5%-WATER - 250 ML IVPB SCH (09:24)
[2017-06-28] MEDS: DEXTROSE 5%-0.45% SALINE 1,000 ML IV SCH ×2 (09:24→15:05)
[2017-06-28] MEDS ORDERED: PT OWN MED DRAWER 7, Y5N ONE (09:28)
[2017-06-28] MEDS: ERTAPENEM SODIUM 1 GM in SODIUM CHLORIDE 100 ML IVPB SCH (09:34)
--- NOTE | 2017-06-28 11:52 | PN ---
Teaching Attending Note Name of Resident: Katarina Maggie ATTENDING PHYSICIAN STATEMENT I saw and evaluated the patient. I reviewed the resident's note and discussed the case with the resident. I agree with the resident's findings and plan as documented. SUBJECTIVE: Patient seen and examined in the ICU. Awake on AC Mode of vent. No pressors. OBJECTIVE: Intake & Output 06/25/17 06/26/17 06/27/17 06/28/17 23:59 23:59 23:59 23:59 Intake Total 150 2632 3571 Output Total 1786 455 8757 Balance -1750 2482 1946 Weight 395 lb 6 oz 399 lb 11.169 oz 372 lb 2 oz 321 lb 5 oz Last Vital Signs Temp Pulse Resp BP Pulse Ox 99.8 F H 102 H 25 H 168/81 98 06/28/17 10:00 06/28/17 10:00 06/28/17 10:59 06/28/17 10:00 06/28/17 08:38 Active Medications Acetaminophen (Tylenol -) 650 mg PO Q6H PRN PRN Reason: FEVER Last Admin: 06/26/17 20:17 Dose: 650 mg Gabapentin (Neurontin -) 100 mg PO TID AJ Last Admin: 06/28/17 05:59 Dose: Not Given Ertapenem 1 gm/ Sodium (Chloride) 100 mls @ 100 mls/hr IVPB DAILY AJ PRN Reason: Protocol Last Admin: 06/28/17 09:34 Dose: 100 mls/hr Vancomycin HCl 1,250 mg/ (Dextrose) 250 mls @ 166.667 mls/hr IVPB DAILY AJ PRN Reason: Protocol Last Admin: 06/28/17 09:24 Dose: 166.667 mls/hr Dextrose/Sodium Chloride (D5-1/2ns -) 1,000 mls @ 75 mls/hr IV ASDIR AJ Last Admin: 06/28/17 09:24 Dose: 75 mls/hr Propofol (Diprivan -) 1,000,000 mcg in 100 mls @ 30.383 mls/hr IVPB TITR AJ; 30 MCG/KG/MIN PRN Reason: Protocol Last Titration: 06/28/17 09:15 Dose: 0 mcg/kg/min, 0 mls/hr Ondansetron HCl (Zofran Injection) 4 mg IVPUSH Q6H PRN PRN Reason: NAUSEA AND/OR VOMITING Gen: Awake and alert, intubated Heart: RRR Lung: decreased breath sounds at the bases Abd: soft, obese, nontender Ext: (+) edema Neuro: LE weakness Laboratory Results - last 24 hr 06/26/17 06/26/17 06/27/17 10:03 11:16 11:45 WBC RBC Hgb Hct MCV MCH MCHC RDW Plt Count MPV Neutrophils % Lymphocytes % Monocytes % Eosinophils % Basophils % PT with INR 15.90 H INR 1.41 H PTT (Actin FS) 29.2 Sodium Potassium Chloride Carbon Dioxide Anion Gap BUN Creatinine Creat Clearance w eGFR Random Glucose Calcium Phosphorus Magnesium Total Bilirubin AST ALT Alkaline Phosphatase Total Protein Albumin CSF Glucose CSF Total Protein Blood Type O POSITIVE Antibody Screen Negative Crossmatch See Detail See Detail 06/27/17 06/27/17 06/28/17 17:45 18:00 08:10 WBC 9.7 RBC 3.00 L Hgb 8.4 L Hct 24.8 L MCV 82.5 MCH 27.9 MCHC 33.9 RDW 15.1 Plt Count 264 D MPV 8.7 Neutrophils % 76.6 Lymphocytes % 11.5 Monocytes % 8.2 Eosinophils % 3.1 D Basophils % 0.6 PT with INR 16.10 H INR 1.42 H PTT (Actin FS) Sodium Potassium Chloride Carbon Dioxide Anion Gap BUN Creatinine Creat Clearance w eGFR Random Glucose Calcium Phosphorus Magnesium Total Bilirubin AST ALT Alkaline Phosphatase Total Protein Albumin CSF Glucose 80 CSF Total Protein 62 H Blood Type Antibody Screen Crossmatch 06/28/17 06/28/17 08:10 08:10 WBC RBC Hgb Hct MCV MCH MCHC RDW Plt Count MPV Neutrophils % Lymphocytes % Monocytes % Eosinophils % Basophils % PT with INR 16.60 H INR 1.47 H PTT (Actin FS) 25.2 L Sodium 138 Potassium 4.4 Chloride 99 Carbon Dioxide 30 Anion Gap 9 BUN 17 Creatinine 0.8 Creat Clearance w eGFR > 60 Random Glucose 139 H Calcium 9.5 Phosphorus 4.3 Magnesium 1.7 L D Total Bilirubin 0.7 D AST 93 H D ALT 51 D Alkaline Phosphatase 156 H Total Protein 7.3 Albumin 1.5 L CSF Glucose CSF Total Protein Blood Type Antibody Screen Crossmatch ASSESSMENT AND PLAN: POS # 1: decompression, bone/muscle/CSF biopsy, posterior stabilization (?) Osteomyelitis (?) Epidural Abscess Altered Mental Status Polyclonal Gammopathy Pulmonary HTN Elevated LFTs Coagulopathy - continue antibiotics per ID - f/u biopsy cultures and pathology - Wean trials - monitor coags - Daily assessment for Lasix - IVF - outpt PFTs, PSG - VTE prophylaxis Dr Lopez Critical care time spent in reviewing chart, evaluating patient and formulating plan - 36 minutes.hold heparin for OR tomorrow
--- NOTE | 2017-06-28 14:33 | PN ---
Progress Note (short form) - Note Progress Note: surgery POD #1 right thoracic T8-T9 transpedicular costoveterbral decompression of epidural soft tissue mass, Muscle bx, CSF sampling and posterior stabilization. Patient seen and examined at bedside. He is off the vent and on a face mask. He denies any LE radicular pain or paresthesias and states his back pain is controlled and he only has minimal tenderness. He denies any CP, N/V/D or chills. Vital Signs Temp 99.8 F H 06/28/17 10:00 Pulse 102 H 06/28/17 10:00 Resp 22 06/28/17 11:45 BP 168/81 06/28/17 10:00 Pulse Ox 98 06/28/17 08:38 Intake & Output 06/27/17 06/28/17 06/28/17 23:59 11:59 23:59 Intake Total 3571 Output Total 1625 Balance 1946 Weight 321 lb 5 oz Intake: IV 2160 D5-1/2Ns - 1,000 ml @ 75 600 mls/hr IV ASDIR AJ Rx#: [id number] DIPRIVAN - 1,000,000 mcg 60 In 100 ml @ 30 MCG/KG/MIN 30.383 mls/hr IVPB TITR AJ Rx#:[id number] IVPB 450 Blood Product 961 Output: Urine 1125 Fitzpatrick 1000 Estimated Blood Loss 500 Other: Voiding Method Indwelling Catheter Indwelling Catheter Bowel Movement No Weight Measurement Method Built in [facility] CBC, BMP 06/28/17 08:10 06/28/17 08:10 PE: A&Ox3, NAD unlabored resp on 10L facemask dressing c/d/I with a few small spots of ss/brown d/c but no signs of active d/c , Surrounding tissue intact with no evidence of erythema/ecchymosis. J/P drain with SS/ brown discharge. B/L LE exam limited 2/2 pain with SCDS and +3 pitting edema over feet with +2 pedal pulses pain on palpation of plantar surface b/l which is a baseline for patient. No evidence of breakdown. Problem List - Problems (1) Fever Assessment/Plan: s/p thoracic decompression with biopsy and stabilization. In patient with FUO and several comorbidities. Plan: 1) CT myeolgram to be arranged by Dr Mosquera 2) Keep dressing clean and dry 3) Nutrition consult 4) DVT prophylaxis 5) Neuro sx to follow Code(s): R50.9 - FEVER, UNSPECIFIED
--- NOTE | 2017-06-28 15:22 | PN ---
Progress Note, Physician History of Present Illness: patient post op feeling well family in room no complaints patient extubated - Current Medication List Current Medications: Active Medications Acetaminophen (Tylenol -) 650 mg PO Q6H PRN PRN Reason: FEVER Last Admin: 06/26/17 20:17 Dose: 650 mg Gabapentin (Neurontin -) 100 mg PO TID AJ Last Admin: 06/28/17 15:06 Dose: Not Given Ertapenem 1 gm/ Sodium (Chloride) 100 mls @ 100 mls/hr IVPB DAILY AJ PRN Reason: Protocol Last Admin: 06/28/17 09:34 Dose: 100 mls/hr Vancomycin HCl 1,250 mg/ (Dextrose) 250 mls @ 166.667 mls/hr IVPB DAILY AJ PRN Reason: Protocol Last Admin: 06/28/17 09:24 Dose: 166.667 mls/hr Dextrose/Sodium Chloride (D5-1/2ns -) 1,000 mls @ 75 mls/hr IV ASDIR AJ Last Admin: 06/28/17 15:05 Dose: Not Given Propofol (Diprivan -) 1,000,000 mcg in 100 mls @ 30.383 mls/hr IVPB TITR AJ; 30 MCG/KG/MIN PRN Reason: Protocol Last Titration: 06/28/17 09:15 Dose: 0 mcg/kg/min, 0 mls/hr Ondansetron HCl (Zofran Injection) 4 mg IVPUSH Q6H PRN PRN Reason: NAUSEA AND/OR VOMITING - Objective Vital Signs: Vital Signs Temperature 99.8 F H 06/28/17 10:00 Pulse Rate 102 H 06/28/17 10:00 Respiratory Rate 22 06/28/17 11:45 Blood Pressure 168/81 06/28/17 10:00 O2 Sat by Pulse Oximetry (%) 98 06/28/17 08:38 Constitutional: Yes: No Distress, Calm, Obese Neck: Yes: Supple Cardiovascular: Yes: Regular Rate and Rhythm Respiratory: Yes: Other (on ventimask) Gastrointestinal: Yes: Normal Bowel Sounds, Soft Musculoskeletal: Yes: WNL Extremities: Yes: WNL, Other (weakness in lower legs) Integumentary: Yes: WNL Wound/Incision: Yes: Dressing Dry and Intact Neurological: Yes: Alert, Oriented Psychiatric: Yes: Alert, Oriented Labs: CBC, BMP 06/28/17 08:10 06/28/17 08:10 INR, PTT INR 1.47 (0.82-1.09) H 06/28/17 08:10 Fibrinogen 637.0 mg/dL (238-498) H 06/26/17 05:30 Assessment/Plan r/o infective process ct disorder cardiac process sepsis autoimmune process r/o osteo abn lft leukocytosis Problem List - Problems (1) Neuropathy Code(s): G62.9 - POLYNEUROPATHY, UNSPECIFIED (2) Elevated creatine kinase Code(s): R74.8 - ABNORMAL LEVELS OF OTHER SERUM ENZYMES (3) Elevated serum creatinine Code(s): R79.89 - OTHER SPECIFIED ABNORMAL FINDINGS OF BLOOD CHEMISTRY (4) Anasarca Code(s): R60.1 - GENERALIZED EDEMA (5) Anemia Code(s): D64.9 - ANEMIA, UNSPECIFIED (6) CKD (chronic kidney disease) Code(s): N18.9 - CHRONIC KIDNEY DISEASE, UNSPECIFIED (7) Fever Code(s): R50.9 - FEVER, UNSPECIFIED (8) Diabetes Code(s): E11.9 - TYPE 2 DIABETES MELLITUS WITHOUT COMPLICATIONS (9) Coagulation defect Code(s): D68.9 - COAGULATION DEFECT, UNSPECIFIED will await for biopsy results continue current mgmt plan continue abx close watch on the patient neuro following the case awaiting for the biopsy result watch for fevers await all results will check vanco levels cc time 40 min
[2017-06-28] MEDS: PROPOFOL 1,000,000 MCG/100 ML VIAL IVPB SCH (17:17)
--- NOTE | 2017-06-28 17:50 | PN ---
Progress Note, Physician Chief Complaint: paraplegia History of Present Illness: 62 year old male with a significant past medical history of sciatica who presents to the ED with complaints of fever that began 3 weeks ago. As per patient's daughter, patient was taken to urgent care 3 weeks ago for increased fever and body aches and was diagnosed with strep and given penicillin prescription. She reports after finishing prescription over 1 week, patient began to develop rash from the penicillin and began to take benadryl, relieving the rash in 2 days. Patient's daughter reports, patient was then taken to [facility] on June 08 for similar symptoms of increased fever and associated bilateral leg pain and weakness, LE >UE. mild numbness R hand. He reports patient was given X Ray, CT abdomen, flu culture and labs, before being diagnosed with pleuritic chest pain. noted to elevated CPKS, LFTS and elevated total protein, called for eval r/o myopathy. no hx of statin (only new RX was PCN0 , at baseline home walking and drives , now unable to walk. FU : s/p open biopsy today, bone and CSF cltx sent. still febrile, he remains with paraplegia/areflexia in LEs. Motor strength in UEs-5/5. -?? T8/T9 region epid.abscess vs tumour -- Fu BIOPSY results,cont ABX - Current Medication List Current Medications: Active Medications Acetaminophen (Tylenol -) 650 mg PO Q6H PRN PRN Reason: FEVER Last Admin: 06/26/17 20:17 Dose: 650 mg Gabapentin (Neurontin -) 100 mg PO TID [facility] Last Admin: 06/28/17 15:06 Dose: Not Given Ertapenem 1 gm/ Sodium (Chloride) 100 mls @ 100 mls/hr IVPB DAILY AJ PRN Reason: Protocol Last Admin: 06/28/17 09:34 Dose: 100 mls/hr Vancomycin HCl 1,250 mg/ (Dextrose) 250 mls @ 166.667 mls/hr IVPB DAILY AJ PRN Reason: Protocol Last Admin: 06/28/17 09:24 Dose: 166.667 mls/hr Dextrose/Sodium Chloride (D5-1/2ns -) 1,000 mls @ 75 mls/hr IV ASDIR [facility] Last Admin: 06/28/17 15:05 Dose: Not Given Propofol (Diprivan -) 1,000,000 mcg in 100 mls @ 30.383 mls/hr IVPB TITR AJ; 30 MCG/KG/MIN PRN Reason: Protocol Last Admin: 06/28/17 17:17 Dose: Not Given Ondansetron HCl (Zofran Injection) 4 mg IVPUSH Q6H PRN PRN Reason: NAUSEA AND/OR VOMITING - Objective Vital Signs: Vital Signs Temperature 99.1 F 06/28/17 14:00 Pulse Rate 89 06/28/17 17:08 Respiratory Rate 16 06/28/17 14:00 Blood Pressure 155/86 06/28/17 14:00 O2 Sat by Pulse Oximetry (%) 93 L 06/28/17 17:21 Neurological: Yes: Cran Nerves II-XII Intact, Lethargy, Other (lethargic, but easily roused.) ...Motor Strength: LUE, RUE (full strenght uppers, lower extremities 1/5) Labs: CBC, BMP 06/28/17 08:10 06/28/17 08:10 INR, PTT INR 1.47 (0.82-1.09) H 06/28/17 08:10 Fibrinogen 637.0 mg/dL (238-498) H 06/26/17 05:30 Problem List - Problems (1) Anasarca Code(s): R60.1 - GENERALIZED EDEMA (2) Anemia Code(s): D64.9 - ANEMIA, UNSPECIFIED (3) CKD (chronic kidney disease) Code(s): N18.9 - CHRONIC KIDNEY DISEASE, UNSPECIFIED (4) Coagulation defect Code(s): D68.9 - COAGULATION DEFECT, UNSPECIFIED (5) Diabetes Code(s): E11.9 - TYPE 2 DIABETES MELLITUS WITHOUT COMPLICATIONS (6) Elevated LFTs Code(s): R79.89 - OTHER SPECIFIED ABNORMAL FINDINGS OF BLOOD CHEMISTRY (7) Elevated creatine kinase Code(s): R74.8 - ABNORMAL LEVELS OF OTHER SERUM ENZYMES (8) Elevated serum creatinine Code(s): R79.89 - OTHER SPECIFIED ABNORMAL FINDINGS OF BLOOD CHEMISTRY (9) Fever Code(s): R50.9 - FEVER, UNSPECIFIED (10) Fever Code(s): R50.9 - FEVER, UNSPECIFIED (11) Hyperlipidemia Code(s): E78.5 - HYPERLIPIDEMIA, UNSPECIFIED (12) Lower extremity weakness Code(s): R29.898 - OTH SYMPTOMS AND SIGNS INVOLVING THE MUSCULOSKELETAL SYSTEM (13) Morbid obesity Code(s): E66.01 - MORBID (SEVERE) OBESITY DUE TO EXCESS CALORIES (14) Osteomyelitis Code(s): M86.9 - OSTEOMYELITIS, UNSPECIFIED (15) Paraparesis of both lower limbs Code(s): G82.20 - PARAPLEGIA, UNSPECIFIED (16) Pulmonary HTN Code(s): I27.20 - PULMONARY HYPERTENSION, UNSPECIFIED (17) Sepsis Code(s): A41.9 - SEPSIS, UNSPECIFIED ORGANISM (18) Foot arch pain Code(s): M79.673 - PAIN IN UNSPECIFIED FOOT (19) Neuropathy Code(s): G62.9 - POLYNEUROPATHY, UNSPECIFIED Assessment/Plan Must f/u result of biopsy, and treat ID accordingly.
[2017-06-28] MEDS ORDERED: ACETAMINOPHEN 1000 MG/100 ML VIAL (NON FORMULARY) IVPB ONE (17:57)
[2017-06-29] MEDS: GABAPENTIN 100 MG CAPSULE (FP) PO SCH ×3 (06:11→23:06)
[2017-06-29 06:36] LABS: BASO % 0.6 % (0-2.0); HEMATOCRIT 25.4 % (35.4-49); HEMOGLOBIN 8.7 GM/dL (11.7-16.9); LYMPH % 10.6 % (8-40); MCH 28.1 pg (25.7-33.7); MCHC 34.1 g/dl (32.0-35.9); MEAN CELL VOLUME 82.2 fl (80-96); MEAN PLT VOLUME 8.9 fl (7.5-11.1); MONO % 7.4 % (3.8-10.2); NEUT % 78.4 % (42.8-82.8); PLATELET COUNT 325 K/MM3 (134-434); RBC 3.09 M/mm3 (4.00-5.60); RDW 15.2 % (11.9-15.9); WHITE BLOOD COUNT 10.6 K/mm3 (4.0-10.0)
[2017-06-29 06:52] LABS: INR 1.44 (0.82-1.09); PROTHROMBIN TIME (PATIENT) 16.3 SEC (9.98-11.88)
[2017-06-29 06:54] LABS: ACTIVATED PTT 23.1 SECONDS (26.9-34.4)
[2017-06-29 07:04] LABS: ALBUMIN 1.5 g/dl (3.4-5.0); ANION GAP 6 (8-16); BILIRUBIN,TOTAL 0.9 mg/dL (0.2-1.0); BLOOD UREA NITROGEN 14 mg/dL (7-18); CALCIUM 8.9 mg/dL (8.5-10.1); CHLORIDE 102 mmol/L (98-107); CO2 31 mmol/L (21-32); CREATININE 0.7 mg/dL (0.7-1.3); GLUCOSE,RANDOM 116 mg/dL (74-106); MAGNESIUM 1.8 mg/dL (1.8-2.4); PHOSPHOROUS 3.5 mg/dL (2.5-4.9); POTASSIUM 4.3 mmol/L (3.5-5.1); SGOT/AST 75 U/L (15-37); SGPT/ALT 46 U/L (12-78); SODIUM 139 mmol/L (136-145); TOT PROT 7.5 g/dl (6.4-8.2)
[2017-06-29 07:05] LABS: ALK PHOS 154 U/L (45-117)
[2017-06-29] MEDS ORDERED: PT OWN MED DRAWER 7, Y5N ONE (09:26)
[2017-06-29] MEDS: ERTAPENEM SODIUM 1 GM in SODIUM CHLORIDE 100 ML IVPB SCH (09:28)
[2017-06-29] MEDS: VANCOMYCIN 1,250 MG in DEXTROSE 5%-WATER - 250 ML IVPB SCH ×2 (09:28→23:07)
--- NOTE | 2017-06-29 11:04 | PN ---
Progress Note, Physician History of Present Illness: seen and examined today. awake, alert, communicative. - Current Medication List Current Medications: Active Medications Acetaminophen (Tylenol -) 650 mg PO Q6H PRN PRN Reason: FEVER Last Admin: 06/26/17 20:17 Dose: 650 mg Gabapentin (Neurontin -) 100 mg PO TID [facility] Last Admin: 06/29/17 06:11 Dose: 100 mg Ertapenem 1 gm/ Sodium (Chloride) 100 mls @ 100 mls/hr IVPB DAILY [facility] PRN Reason: Protocol Last Admin: 06/29/17 09:28 Dose: 100 mls/hr Vancomycin HCl 1,250 mg/ (Dextrose) 250 mls @ 166.667 mls/hr IVPB DAILY AJ PRN Reason: Protocol Last Admin: 06/29/17 09:28 Dose: 166.667 mls/hr Ondansetron HCl (Zofran Injection) 4 mg IVPUSH Q6H PRN PRN Reason: NAUSEA AND/OR VOMITING - Objective Vital Signs: Vital Signs Temperature 98.4 F 06/29/17 10:00 Pulse Rate 108 H 06/29/17 10:00 Respiratory Rate 32 H 06/29/17 10:00 Blood Pressure 119/73 06/29/17 10:00 O2 Sat by Pulse Oximetry (%) 97 06/29/17 08:00 Constitutional: Yes: No Distress, Calm, Obese Eyes: Yes: Conjunctiva Clear, EOM Intact, PERRL HENT: Yes: Atraumatic, Normocephalic Neck: Yes: Supple, Trachea Midline Cardiovascular: Yes: Regular Rate and Rhythm, S1, S2. No: Bradycardia, Tachycardia, Pulse Irregular, Bruit, JVD, Gallop, Murmur, Rub, S3, S4, Varicosities Respiratory: Yes: Regular, Diminished, On Venti-Mask. No: Rales, Rhonchi, SOB, Wheezes Gastrointestinal: Yes: Normal Bowel Sounds, Soft. No: Distention, Tenderness Musculoskeletal: Yes: Muscle Weakness Edema: Yes Edema: LUE: 1+, RUE: 1+, LLE: 1+, RLE: 1+ Peripheral Pulses WNL: Yes Neurological: Yes: Alert, Oriented Psychiatric: Yes: Alert, Oriented Labs: CBC, BMP 06/29/17 05:30 06/29/17 05:30 INR, PTT INR 1.44 (0.82-1.09) H 06/29/17 05:30 Fibrinogen 637.0 mg/dL (238-498) H 06/26/17 05:30 - ....Imaging Chest X-ray: Report Reviewed, Image Reviewed EKG: Report Reviewed, Image Reviewed Other: Report Reviewed, Image Reviewed (tele-nsr, sinus tach) Assessment/Plan IMP: Fever, sinus tachycardia, tachypnea 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 Edema- -likely component of third spacing due to hypoalbuminemia with intravascular depletion -BUn/creat normalized -Echo showed normal LV function w/ mildly dilated LV 2. Fever: - concern for L4 osteo, s/p open bx/stabilization awaiting results -infectious disease is following 3. Muscle weaknes/rash -f/up bx results -ID/Rheum/Heme/Neuro following 4. Mild sinus tach, tachypnea: -Likely due to deconditioned status, infection, anemia. 5. Respiratory failure: -extubated
--- NOTE | 2017-06-29 11:05 | PN ---
Progress Note (short form) - Note Progress Note: PULMONARY/CCM Pt seen and examined in the ICU. Fever to 101.4 yesterday but afebrile since. c/ o back pain at surgical site. Last Vital Signs Temp Pulse Resp BP Pulse Ox 98.4 F 108 H 32 H 119/73 97 06/29/17 10:00 06/29/17 10:00 06/29/17 10:00 06/29/17 10:00 06/29/17 08:00 Intake & Output 06/26/17 06/27/17 06/28/17 06/29/17 23:59 23:59 23:59 23:59 Intake Total 2632 3571 2250 540 Output Total 150 1625 1940 530 Balance 2482 1946 310 10 Weight 181.3 kg 168.793 kg 145.745 kg 131.797 kg Gen: NAD at rest Heart: tachycardic, regular Lung: decreased breath sounds at the bases Abd: soft, nontender Ext: + edema, no leg motor strength CBC, BMP 06/29/17 05:30 06/29/17 05:30 Active Medications Acetaminophen (Tylenol -) 650 mg PO Q6H PRN PRN Reason: FEVER Last Admin: 06/26/17 20:17 Dose: 650 mg Gabapentin (Neurontin -) 100 mg PO TID [facility] Last Admin: 06/29/17 06:11 Dose: 100 mg Ertapenem 1 gm/ Sodium (Chloride) 100 mls @ 100 mls/hr IVPB DAILY AJ PRN Reason: Protocol Last Admin: 06/29/17 09:28 Dose: 100 mls/hr Vancomycin HCl 1,250 mg/ (Dextrose) 250 mls @ 166.667 mls/hr IVPB DAILY AJ PRN Reason: Protocol Last Admin: 06/29/17 09:28 Dose: 166.667 mls/hr Morphine Sulfate (Morphine Injection -) 2 mg IVPUSH Q4H PRN PRN Reason: PAIN LEVEL 6-10 Ondansetron HCl (Zofran Injection) 4 mg IVPUSH Q6H PRN PRN Reason: NAUSEA AND/OR VOMITING A/P r/o Osteomyelitis Epidural Abscess vs Mass Altered Mental Status resolved Polyclonal Gammopathy Pulmonary HTN Elevated LFTs Coagulopathy - continue antibiotics per ID - f/u biopsy cultures and pathology - monitor coags - pain control - incentive spirometry - PO as tolerated - outpt PFTs, PSG - mechanical DVT prophylaxis
--- NOTE | 2017-06-29 11:29 | PN ---
Progress Note, Physician History of Present Illness: extubated - Current Medication List Current Medications: Active Medications Acetaminophen (Tylenol -) 650 mg PO Q6H PRN PRN Reason: FEVER Last Admin: 06/26/17 20:17 Dose: 650 mg Gabapentin (Neurontin -) 100 mg PO TID [facility] Last Admin: 06/29/17 06:11 Dose: 100 mg Ertapenem 1 gm/ Sodium (Chloride) 100 mls @ 100 mls/hr IVPB DAILY AJ PRN Reason: Protocol Last Admin: 06/29/17 09:28 Dose: 100 mls/hr Vancomycin HCl 1,250 mg/ (Dextrose) 250 mls @ 166.667 mls/hr IVPB DAILY AJ PRN Reason: Protocol Last Admin: 06/29/17 09:28 Dose: 166.667 mls/hr Morphine Sulfate (Morphine Sulfate) 2 mg IVPUSH Q4H PRN PRN Reason: PAIN LEVEL 6-10 Ondansetron HCl (Zofran Injection) 4 mg IVPUSH Q6H PRN PRN Reason: NAUSEA AND/OR VOMITING - Objective Vital Signs: Vital Signs Temperature 98.4 F 06/29/17 10:00 Pulse Rate 108 H 06/29/17 10:00 Respiratory Rate 32 H 06/29/17 10:00 Blood Pressure 119/73 06/29/17 10:00 O2 Sat by Pulse Oximetry (%) 97 06/29/17 08:00 HENT: Yes: Atraumatic Neck: Yes: Supple Cardiovascular: Yes: Regular Rate and Rhythm Respiratory: Yes: CTA Bilaterally Gastrointestinal: Yes: Normal Bowel Sounds Edema: LLE: 4+, RLE: 4+ Peripheral Pulses WNL: Yes Neurological: Yes: Alert, Oriented Labs: CBC, BMP 06/29/17 05:30 06/29/17 05:30 INR, PTT INR 1.44 (0.82-1.09) H 06/29/17 05:30 Fibrinogen 637.0 mg/dL (238-498) H 06/26/17 05:30 Problem List - Problems (1) Neuropathy Assessment/Plan: s/p spinal decompression awaiting pathology reports Code(s): G62.9 - POLYNEUROPATHY, UNSPECIFIED (2) Elevated creatine kinase Assessment/Plan: rhabdo iv hydration...wnl now Code(s): R74.8 - ABNORMAL LEVELS OF OTHER SERUM ENZYMES (3) Elevated serum creatinine Assessment/Plan: wnl Code(s): R79.89 - OTHER SPECIFIED ABNORMAL FINDINGS OF BLOOD CHEMISTRY (4) Anasarca Assessment/Plan: same...no change from before Code(s): R60.1 - GENERALIZED EDEMA (5) Anemia Assessment/Plan: h/h stable Code(s): D64.9 - ANEMIA, UNSPECIFIED (6) CKD (chronic kidney disease) Assessment/Plan: renal work up negative cr wnl Code(s): N18.9 - CHRONIC KIDNEY DISEASE, UNSPECIFIED (7) Fever Assessment/Plan: cxs have sent Code(s): R50.9 - FEVER, UNSPECIFIED (8) Diabetes Assessment/Plan: monitor blood sugars poor po intake Code(s): E11.9 - TYPE 2 DIABETES MELLITUS WITHOUT COMPLICATIONS (9) Coagulation defect Assessment/Plan: will order ffp, vit K hematology to review Code(s): D68.9 - COAGULATION DEFECT, UNSPECIFIED (10) Elevated LFTs Assessment/Plan: monitor Code(s): R79.89 - OTHER SPECIFIED ABNORMAL FINDINGS OF BLOOD CHEMISTRY (11) Morbid obesity Code(s): E66.01 - MORBID (SEVERE) OBESITY DUE TO EXCESS CALORIES (12) Paraparesis of both lower limbs Assessment/Plan: no change in condition Code(s): G82.20 - PARAPLEGIA, UNSPECIFIED Assessment/Plan cc time 35 min
[2017-06-29] MEDS: morphine SULFATE 4 MG/ML VIAL IVPUSH PRN ×2 (11:34→23:09)
--- NOTE | 2017-06-29 16:31 | PN ---
Progress Note (short form) - Note Progress Note: Patient recovering from Surgery. Cultures pending. No positive results identified. CSF protein and appearance stongly suggest myelographic/CSF blockage rostral to surgical level of T89. Clinical exam suggests impairment below T1. Case and imaging reviewed with Dr. Hernandez in detail. Plans for CT Myelogram via Lumbar puncture on Saturday. Hopefully this will allow identification of the level of maximum spinal cord compression which may guide potential decompression. -CT Myelogram Saturday -Follow Cultures -Follow biopsy/Histology Results -GI/DVT prophylaxis -Physical Therapy for Range of Motion to prevent contractures -Follow CHERRY output, likely will remove Saturday -Patient with small decubitus over gluteal region, would benefit from wound care evaluation and aggressive decubitus prevention regimen -nutrition evaluation/support Case and clinical course discussed with family in detail.
--- NOTE | 2017-06-29 16:37 | PN ---
Progress Note, Physician History of Present Illness: Pt seen and examined. Events, labs, imaging noted. s/p Thoracic epidural decompression/biopsy yesterday. Extubated. Fever of 101.4 yesterday. Afebrile today. Pt is responsive, without acute distress. Denies any specific complaints. - Current Medication List Current Medications: Active Medications Acetaminophen (Tylenol -) 650 mg PO Q6H PRN PRN Reason: FEVER Last Admin: 06/26/17 20:17 Dose: 650 mg Gabapentin (Neurontin -) 100 mg PO TID [facility] Last Admin: 06/29/17 14:40 Dose: 100 mg Ertapenem 1 gm/ Sodium (Chloride) 100 mls @ 100 mls/hr IVPB DAILY AJ PRN Reason: Protocol Last Admin: 06/29/17 09:28 Dose: 100 mls/hr Vancomycin HCl 1,250 mg/ (Dextrose) 250 mls @ 166.667 mls/hr IVPB DAILY AJ PRN Reason: Protocol Last Admin: 06/29/17 09:28 Dose: 166.667 mls/hr Morphine Sulfate (Morphine Sulfate) 2 mg IVPUSH Q4H PRN PRN Reason: PAIN LEVEL 6-10 Last Admin: 06/29/17 11:34 Dose: 2 mg Ondansetron HCl (Zofran Injection) 4 mg IVPUSH Q6H PRN PRN Reason: NAUSEA AND/OR VOMITING - Objective Vital Signs: Vital Signs Temperature 98.4 F 06/29/17 14:00 Pulse Rate 104 H 06/29/17 14:00 Respiratory Rate 27 H 06/29/17 14:00 Blood Pressure 139/63 06/29/17 14:00 O2 Sat by Pulse Oximetry (%) 96 06/29/17 13:56 Constitutional: Yes: No Distress Cardiovascular: Yes: Tachycardia Respiratory: Yes: Regular Gastrointestinal: Yes: Normal Bowel Sounds, Soft Genitourinary: Yes: Fitzpatrick Present Extremities: Yes: WNL Neurological: Yes: Alert Labs: CBC, BMP 06/29/17 05:30 06/29/17 05:30 INR, PTT INR 1.44 (0.82-1.09) H 06/29/17 05:30 Fibrinogen 637.0 mg/dL (238-498) H 06/26/17 05:30 Vancomycin level - 4 (subtherapeutic) Microbiology 06/27/17 17:45 Cerebral Spinal Fluid - Lumbar Puncture Gram Stain - Final 06/27/17 17:45 Cerebral Spinal Fluid - Lumbar Puncture CSF Culture - Preliminary 06/27/17 17:45 Biopsy Tissue Gram Stain - Final 06/27/17 17:45 Biopsy Tissue Tissue Culture - Preliminary NO AEROBIC GROWTH, 24 HRS 06/27/17 17:45 Biopsy Tissue Gram Stain - Final 06/27/17 17:45 Biopsy Tissue Tissue Culture - Preliminary NO AEROBIC GROWTH, 24 HRS 06/27/17 17:45 Tissue-Other Gram Stain - Final 06/27/17 17:45 Tissue-Other Tissue Culture - Preliminary NO AEROBIC GROWTH, 24 HRS 06/27/17 17:45 Wound-Other Gram Stain - Final 06/27/17 17:45 Wound-Other Wound Culture - Preliminary NO GROWTH OBTAINED AFTER 24 HOURS INCUBATION, REINCUBATED. 06/27/17 17:45 Wound Gram Stain - Final 06/27/17 17:45 Wound Wound Culture - Preliminary NO GROWTH OBTAINED AFTER 24 HOURS INCUBATION, REINCUBATED. 06/27/17 17:45 Wound Gram Stain - Final 06/27/17 17:45 Wound Wound Culture - Preliminary NO GROWTH OBTAINED AFTER 24 HOURS INCUBATION, REINCUBATED. 06/27/17 07:30 Blood - Peripheral Venous Blood Culture - Preliminary NO GROWTH OBTAINED AFTER 48 HOURS, INCUBATION TO CONTINUE FOR 3 DAYS. 06/27/17 05:10 Blood - Peripheral Venous Blood Culture - Preliminary NO GROWTH OBTAINED AFTER 48 HOURS, INCUBATION TO CONTINUE FOR 3 DAYS. 06/25/17 14:30 Body Fluid - Other Gram Stain - Final 06/25/17 14:30 Body Fluid - Other Body Fluid Culture - Final NO GROWTH OF AEROBIC ORGANISMS AFTER 48 HOURS INCUBATION 06/25/17 14:30 Body Fluid - Other Anaerobic Culture - Final NO ANAEROBES WERE ISOLATED 06/27/17 17:45 Cerebral Spinal Fluid - Lumbar Puncture LACI Preparation - Preliminary 06/27/17 17:45 Cerebral Spinal Fluid - Lumbar Puncture Fungal Culture - Preliminary 06/27/17 17:45 Cerebral Spinal Fluid - Lumbar Puncture AFB Smear Concentration - Preliminary 06/27/17 17:45 Cerebral Spinal Fluid - Lumbar Puncture Mycobacterial Culture - Preliminary 06/27/17 15:00 Wound Gram Stain - Final 06/25/17 14:30 Body Fluid - Other AFB Smear Concentration - Final 06/25/17 14:30 Body Fluid - Other Mycobacterial Culture - Preliminary 06/25/17 14:30 Body Fluid - Other LACI Preparation - Preliminary 06/25/17 14:30 Body Fluid - Other Fungal Culture - Preliminary 06/17/17 00:30 Blood - Peripheral Venous Blood Culture - Final NO GROWTH AFTER 5 DAYS INCUBATION 06/17/17 00:30 Blood - Peripheral Venous Blood Culture - Final NO GROWTH AFTER 5 DAYS INCUBATION 06/17/17 04:51 Urine - Urine Clean Catch Urine Culture - Final NO GROWTH OBTAINED 06/17/17 06:00 Throat Throat Culture - Final NO BETA HEMOLYTIC STREPTOCOCCI ISOLATED 06/17/17 06:00 Throat Group A Strep Rapid Antigen - Final HIV AB negative TB quant negative Problem List - Problems (1) Diabetes Code(s): E11.9 - TYPE 2 DIABETES MELLITUS WITHOUT COMPLICATIONS (2) Elevated creatine kinase Code(s): R74.8 - ABNORMAL LEVELS OF OTHER SERUM ENZYMES (3) Morbid obesity Code(s): E66.01 - MORBID (SEVERE) OBESITY DUE TO EXCESS CALORIES (4) Neuropathy Code(s): G62.9 - POLYNEUROPATHY, UNSPECIFIED Assessment/Plan Fever - r/o infectious etiology/OM - f/u spinal/CSF culture/biopsy results pending - continue current antibiotics for now - Vancomycin dose adjusted based on level, monitor renal function, obtain Vancomycin Trough prior to 4th dose - monitor temperature trend cc: 40 min
[2017-06-29] MEDS ORDERED: VANCOMYCIN 1,250 MG in DEXTROSE 5%-WATER - 250 ML IVPB SCH (17:00)
--- NOTE | 2017-06-29 19:26 | PN ---
Progress Note, Physician History of Present Illness: 62 year old male with a significant past medical history of sciatica who presents to the ED with complaints of fever that began 3 weeks ago. As per patient's daughter, patient was taken to urgent care 3 weeks ago for increased fever and body aches and was diagnosed with strep and given penicillin prescription. She reports after finishing prescription over 1 week, patient began to develop rash from the penicillin and began to take benadryl, relieving the rash in 2 days. Patient's daughter reports, patient was then taken to [facility] on June 08 for similar symptoms of increased fever and associated bilateral leg pain and weakness, LE >UE. mild numbness R hand. He reports patient was given X Ray, CT abdomen, flu culture and labs, before being diagnosed with pleuritic chest pain. noted to elevated CPKS, LFTS and elevated total protein, called for eval r/o myopathy. no hx of statin (only new RX was PCN0 , at baseline home walking and drives , now unable to walk. FU : s/p open biopsy of L4 ; comfortably lying down on his bed ; no fever . PE: Morbid obese; A & O X3 , no dysarthria CN: no face droop or asymmetria Motor: Squeeze my fingers w his hands , no movement on LEs Sensory: Feels less sharp waist down ; Vib absent at L distal knee and severely decreased at R toes. ECHO: WNL except mild dilated LV A/P: ? 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 Thank you. Ernie Tobin MD - Current Medication List Current Medications: Active Medications Acetaminophen (Tylenol -) 650 mg PO Q6H PRN PRN Reason: FEVER Last Admin: 06/26/17 20:17 Dose: 650 mg Gabapentin (Neurontin -) 100 mg PO TID [facility] Last Admin: 06/29/17 14:40 Dose: 100 mg Ertapenem 1 gm/ Sodium (Chloride) 100 mls @ 100 mls/hr IVPB DAILY AJ PRN Reason: Protocol Last Admin: 06/29/17 09:28 Dose: 100 mls/hr Vancomycin HCl 1,250 mg/ (Dextrose) 250 mls @ 166.667 mls/hr IVPB BID AJ Morphine Sulfate (Morphine Sulfate) 2 mg IVPUSH Q4H PRN PRN Reason: PAIN LEVEL 6-10 Last Admin: 06/29/17 11:34 Dose: 2 mg Ondansetron HCl (Zofran Injection) 4 mg IVPUSH Q6H PRN PRN Reason: NAUSEA AND/OR VOMITING - Objective Vital Signs: Vital Signs Temperature 100.0 F H 06/29/17 18:00 Pulse Rate 106 H 06/29/17 18:00 Respiratory Rate 28 H 06/29/17 18:00 Blood Pressure 136/69 06/29/17 18:00 O2 Sat by Pulse Oximetry (%) 96 06/29/17 17:27 Labs: CBC, BMP 06/29/17 05:30 06/29/17 05:30 INR, PTT INR 1.44 (0.82-1.09) H 06/29/17 05:30 Fibrinogen 637.0 mg/dL (238-498) H 06/26/17 05:30
[2017-06-30] MEDS: GABAPENTIN 100 MG CAPSULE (FP) PO SCH ×3 (06:24→21:41)
[2017-06-30 06:40] LABS: BASO % 0.5 % (0-2.0); HEMOGLOBIN 8.7 GM/dL (11.7-16.9); LYMPH % 13.6 % (8-40); MCH 28.7 pg (25.7-33.7); MEAN CELL VOLUME 82.1 fl (80-96); MEAN PLT VOLUME 8.8 fl (7.5-11.1); MONO % 8.4 % (3.8-10.2); NEUT % 74.5 % (42.8-82.8); PLATELET COUNT 321 K/MM3 (134-434); RBC 3.04 M/mm3 (4.00-5.60); RDW 15.5 % (11.9-15.9); WHITE BLOOD COUNT 9.7 K/mm3 (4.0-10.0)
[2017-06-30 06:53] LABS: INR 1.5 (0.82-1.09); PROTHROMBIN TIME (PATIENT) 16.9 SEC (9.98-11.88)
[2017-06-30 07:05] LABS: CHLORIDE 100 mmol/L (98-107); POTASSIUM 4.4 mmol/L (3.5-5.1); SODIUM 140 mmol/L (136-145)
[2017-06-30 07:12] LABS: ALBUMIN 1.4 g/dl (3.4-5.0); ALK PHOS 151 U/L (45-117); ANION GAP 11 (8-16); BILIRUBIN,TOTAL 0.7 mg/dL (0.2-1.0); BLOOD UREA NITROGEN 14 mg/dL (7-18); CALCIUM 9.5 mg/dL (8.5-10.1); CO2 29 mmol/L (21-32); CREATININE 0.6 mg/dL (0.7-1.3); GLUCOSE,RANDOM 121 mg/dL (74-106); MAGNESIUM 2.1 mg/dL (1.8-2.4); SGOT/AST 80 U/L (15-37); SGPT/ALT 45 U/L (12-78); TOT PROT 7.5 g/dl (6.4-8.2)
[2017-06-30] MEDS: ERTAPENEM SODIUM 1 GM in SODIUM CHLORIDE 100 ML IVPB SCH (09:13)
[2017-06-30] MEDS: VANCOMYCIN 1,250 MG in DEXTROSE 5%-WATER - 250 ML IVPB SCH ×2 (09:14→21:40)
--- NOTE | 2017-06-30 10:13 | PN ---
Progress Note (short form) - Note Progress Note: PULMONARY/CCM Pt seen and examined in the ICU. Low grade temp overnight. States back pain improved. No fevers or chills. Last Vital Signs Temp Pulse Resp BP Pulse Ox 99.6 F 100 H 31 H 136/89 98 06/30/17 10:00 06/30/17 10:00 06/30/17 10:00 06/30/17 10:00 06/30/17 08:54 Intake & Output 06/27/17 06/28/17 06/29/17 06/30/17 23:59 23:59 23:59 23:59 Intake Total 3571 2250 1650 360 Output Total 1625 1940 1630 Balance 1946 310 20 360 Weight 168.793 kg 145.745 kg 131.797 kg Gen: NAD at rest Heart: tachycardic, regular Lung: decreased breath sounds at the bases Abd: soft, nontender Ext: + edema CBC, BMP 06/30/17 05:20 06/30/17 05:20 Active Medications Acetaminophen (Tylenol -) 650 mg PO Q6H PRN PRN Reason: FEVER Last Admin: 06/26/17 20:17 Dose: 650 mg Gabapentin (Neurontin -) 100 mg PO TID [facility] Last Admin: 06/30/17 06:24 Dose: 100 mg Ertapenem 1 gm/ Sodium (Chloride) 100 mls @ 100 mls/hr IVPB DAILY [facility] PRN Reason: Protocol Last Admin: 06/30/17 09:13 Dose: 100 mls/hr Vancomycin HCl 1,250 mg/ (Dextrose) 250 mls @ 166.667 mls/hr IVPB BID [facility] Last Admin: 06/30/17 09:14 Dose: 166.667 mls/hr Morphine Sulfate (Morphine Sulfate) 2 mg IVPUSH Q4H PRN PRN Reason: PAIN LEVEL 6-10 Last Admin: 06/29/17 23:09 Dose: 2 mg Ondansetron HCl (Zofran Injection) 4 mg IVPUSH Q6H PRN PRN Reason: NAUSEA AND/OR VOMITING A/P r/o Osteomyelitis Epidural Abscess vs Mass Altered Mental Status resolved Polyclonal Gammopathy Pulmonary HTN Elevated LFTs Coagulopathy - continue antibiotics per ID - f/u biopsy cultures and pathology - for CT myelogram per neuro - monitor coags - pain control - incentive spirometry - PO as tolerated - outpt PFTs, PSG - mechanical DVT prophylaxis
--- NOTE | 2017-06-30 11:03 | PN ---
Progress Note (short form) - Note Progress Note: Patient remains Neurosurgically stable. Back pain is abating. CHERRY output reducing. PLAN -CT Myelogram in AM -D/C CHERRY in AM -follow exam -follow cultures/biopsy specimen results -GI/DVT prophylaxis
--- NOTE | 2017-06-30 14:12 | PN ---
Progress Note, Physician History of Present Illness: seen and examined today in [facility]. - Current Medication List Current Medications: Active Medications Acetaminophen (Tylenol -) 650 mg PO Q6H PRN PRN Reason: FEVER Last Admin: 06/26/17 20:17 Dose: 650 mg Gabapentin (Neurontin -) 100 mg PO TID [facility] Last Admin: 06/30/17 13:41 Dose: 100 mg Ertapenem 1 gm/ Sodium (Chloride) 100 mls @ 100 mls/hr IVPB DAILY [facility] PRN Reason: Protocol Last Admin: 06/30/17 09:13 Dose: 100 mls/hr Vancomycin HCl 1,250 mg/ (Dextrose) 250 mls @ 166.667 mls/hr IVPB BID [facility] Last Admin: 06/30/17 09:14 Dose: 166.667 mls/hr Morphine Sulfate (Morphine Sulfate) 2 mg IVPUSH Q4H PRN PRN Reason: PAIN LEVEL 6-10 Last Admin: 06/29/17 23:09 Dose: 2 mg Ondansetron HCl (Zofran Injection) 4 mg IVPUSH Q6H PRN PRN Reason: NAUSEA AND/OR VOMITING - Objective Vital Signs: Vital Signs Temperature 99.6 F 06/30/17 10:00 Pulse Rate 95 H 06/30/17 12:00 Respiratory Rate 32 H 06/30/17 12:00 Blood Pressure 145/69 06/30/17 12:00 O2 Sat by Pulse Oximetry (%) 98 06/30/17 08:54 Constitutional: Yes: No Distress, Calm Eyes: Yes: Conjunctiva Clear HENT: Yes: Atraumatic, Normocephalic Cardiovascular: Yes: Regular Rate and Rhythm, S1, S2. No: Bradycardia, Tachycardia, Pulse Irregular, Bruit, JVD, Gallop, Murmur, Rub, S3, S4, Varicosities Respiratory: Yes: Regular, Diminished. No: Rales, Rhonchi, SOB, Wheezes Gastrointestinal: Yes: Normal Bowel Sounds, Soft Edema: Yes Edema: LUE: 1+, RUE: 1+, LLE: 1+, RLE: 1+ Peripheral Pulses WNL: Yes Neurological: Yes: Alert Psychiatric: Yes: Alert Labs: CBC, BMP 06/30/17 05:20 06/30/17 05:20 INR, PTT INR 1.50 (0.82-1.09) H 06/30/17 05:20 Fibrinogen 637.0 mg/dL (238-498) H 06/26/17 05:30 - ....Imaging Chest X-ray: Report Reviewed, Image Reviewed EKG: Report Reviewed, Image Reviewed Other: Report Reviewed, Image Reviewed Assessment/Plan IMP: Fever, sinus tachycardia, tachypnea 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 Edema- -likely component of third spacing due to hypoalbuminemia with intravascular depletion -BUn/creat normalized -Echo showed normal LV function w/ mildly dilated LV 2. Fever: -concern for L4 osteo, s/p open bx/stabilization awaiting full results -cultures no growth so far -infectious disease is following 3. Muscle weaknes/rash -f/up bx results -ID/Rheum/Heme/Neuro following 4. Mild sinus tach, tachypnea: -Likely due to deconditioned status, infection, anemia. 5. Respiratory failure: -extubated, stable currently
--- NOTE | 2017-06-30 15:15 | PN ---
Progress Note, Physician History of Present Illness: awake talking - Current Medication List Current Medications: Active Medications Acetaminophen (Tylenol -) 650 mg PO Q6H PRN PRN Reason: FEVER Last Admin: 06/26/17 20:17 Dose: 650 mg Gabapentin (Neurontin -) 100 mg PO TID [facility] Last Admin: 06/30/17 13:41 Dose: 100 mg Ertapenem 1 gm/ Sodium (Chloride) 100 mls @ 100 mls/hr IVPB DAILY [facility] PRN Reason: Protocol Last Admin: 06/30/17 09:13 Dose: 100 mls/hr Vancomycin HCl 1,250 mg/ (Dextrose) 250 mls @ 166.667 mls/hr IVPB BID [facility] Last Admin: 06/30/17 09:14 Dose: 166.667 mls/hr Morphine Sulfate (Morphine Sulfate) 2 mg IVPUSH Q4H PRN PRN Reason: PAIN LEVEL 6-10 Last Admin: 06/29/17 23:09 Dose: 2 mg Ondansetron HCl (Zofran Injection) 4 mg IVPUSH Q6H PRN PRN Reason: NAUSEA AND/OR VOMITING - Objective Vital Signs: Vital Signs Temperature 99.6 F 06/30/17 10:00 Pulse Rate 95 H 06/30/17 12:00 Respiratory Rate 32 H 06/30/17 12:00 Blood Pressure 145/69 06/30/17 12:00 O2 Sat by Pulse Oximetry (%) 98 06/30/17 08:54 Constitutional: Yes: No Distress HENT: Yes: Atraumatic Neck: Yes: Supple Cardiovascular: Yes: Regular Rate and Rhythm Respiratory: Yes: Rhonchi Gastrointestinal: Yes: Normal Bowel Sounds Edema: Yes Edema: LLE: 4+, RLE: 4+ Neurological: Yes: Alert Labs: CBC, BMP 06/30/17 05:20 06/30/17 05:20 INR, PTT INR 1.50 (0.82-1.09) H 06/30/17 05:20 Fibrinogen 637.0 mg/dL (238-498) H 06/26/17 05:30 Problem List - Problems (1) Neuropathy Assessment/Plan: s/p spinal decompression surgery for ct myelogram in am Code(s): G62.9 - POLYNEUROPATHY, UNSPECIFIED (2) Elevated creatine kinase Assessment/Plan: rhabdo iv hydration...wnl now Code(s): R74.8 - ABNORMAL LEVELS OF OTHER SERUM ENZYMES (3) Elevated serum creatinine Assessment/Plan: wnl Code(s): R79.89 - OTHER SPECIFIED ABNORMAL FINDINGS OF BLOOD CHEMISTRY (4) Anasarca Assessment/Plan: same...no change from before Code(s): R60.1 - GENERALIZED EDEMA (5) Anemia Assessment/Plan: h/h stable Code(s): D64.9 - ANEMIA, UNSPECIFIED (6) CKD (chronic kidney disease) Assessment/Plan: renal work up negative cr wnl Code(s): N18.9 - CHRONIC KIDNEY DISEASE, UNSPECIFIED (7) Fever Assessment/Plan: cxs have sent Code(s): R50.9 - FEVER, UNSPECIFIED (8) Diabetes Assessment/Plan: monitor blood sugars poor po intake Code(s): E11.9 - TYPE 2 DIABETES MELLITUS WITHOUT COMPLICATIONS (9) Coagulation defect Assessment/Plan: was given ffp and vit k Code(s): D68.9 - COAGULATION DEFECT, UNSPECIFIED (10) Morbid obesity Code(s): E66.01 - MORBID (SEVERE) OBESITY DUE TO EXCESS CALORIES (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
--- NOTE | 2017-06-30 15:30 | PN ---
Progress Note, Physician History of Present Illness: Pt is alert and fully responsive. Family at bedside. All notes reviewed. Temp currently 99.6F. No obvious distress. - Current Medication List Current Medications: Active Medications Acetaminophen (Tylenol -) 650 mg PO Q6H PRN PRN Reason: FEVER Last Admin: 06/26/17 20:17 Dose: 650 mg Gabapentin (Neurontin -) 100 mg PO TID [facility] Last Admin: 06/30/17 13:41 Dose: 100 mg Ertapenem 1 gm/ Sodium (Chloride) 100 mls @ 100 mls/hr IVPB DAILY [facility] PRN Reason: Protocol Last Admin: 06/30/17 09:13 Dose: 100 mls/hr Vancomycin HCl 1,250 mg/ (Dextrose) 250 mls @ 166.667 mls/hr IVPB BID [facility] Last Admin: 06/30/17 09:14 Dose: 166.667 mls/hr Morphine Sulfate (Morphine Sulfate) 2 mg IVPUSH Q4H PRN PRN Reason: PAIN LEVEL 6-10 Last Admin: 06/29/17 23:09 Dose: 2 mg Ondansetron HCl (Zofran Injection) 4 mg IVPUSH Q6H PRN PRN Reason: NAUSEA AND/OR VOMITING - Objective Vital Signs: Vital Signs Temperature 99.6 F 06/30/17 10:00 Pulse Rate 95 H 06/30/17 12:00 Respiratory Rate 32 H 06/30/17 12:00 Blood Pressure 145/69 06/30/17 12:00 O2 Sat by Pulse Oximetry (%) 98 06/30/17 08:54 Constitutional: Yes: No Distress Cardiovascular: Yes: Tachycardia Respiratory: Yes: Regular Gastrointestinal: Yes: Normal Bowel Sounds, Soft, Abdomen, Obese Genitourinary: Yes: Fitzpatrick Present Edema: LLE: 4+, RLE: 4+ Neurological: Yes: Alert Labs: CBC, BMP 06/30/17 05:20 06/30/17 05:20 INR, PTT INR 1.50 (0.82-1.09) H 06/30/17 05:20 Fibrinogen 637.0 mg/dL (238-498) H 06/26/17 05:30 Microbiology 06/27/17 17:45 Biopsy Tissue Gram Stain - Final 06/27/17 17:45 Biopsy Tissue Tissue Culture - Final NO GROWTH OF AEROBIC ORGANISMS AFTER 48 HOURS INCUBATION 06/27/17 17:45 Biopsy Tissue Anaerobic Culture - Final NO ANAEROBES WERE ISOLATED 06/27/17 17:45 Biopsy Tissue Gram Stain - Final 06/27/17 17:45 Biopsy Tissue Tissue Culture - Final NO GROWTH OF AEROBIC ORGANISMS AFTER 48 HOURS INCUBATION 06/27/17 17:45 Biopsy Tissue Anaerobic Culture - Final NO ANAEROBES WERE ISOLATED 06/27/17 17:45 Tissue-Other Gram Stain - Final 06/27/17 17:45 Tissue-Other Tissue Culture - Final NO GROWTH OF AEROBIC ORGANISMS AFTER 48 HOURS INCUBATION 06/27/17 17:45 Tissue-Other Anaerobic Culture - Final NO ANAEROBES WERE ISOLATED 06/27/17 17:45 Wound-Other Gram Stain - Final 06/27/17 17:45 Wound-Other Wound Culture - Final NO AEROBIC OR ANAEROBIC GROWTH OBTAINED. 06/27/17 17:45 Wound Gram Stain - Final 06/27/17 17:45 Wound Wound Culture - Final NO GROWTH OF AEROBIC ORGANISMS AFTER 48 HOURS INCUBATION 06/27/17 17:45 Wound Gram Stain - Final 06/27/17 17:45 Wound Wound Culture - Final NO AEROBIC OR ANAEROBIC GROWTH OBTAINED. 06/27/17 17:45 Cerebral Spinal Fluid - Lumbar Puncture Gram Stain - Final 06/27/17 17:45 Cerebral Spinal Fluid - Lumbar Puncture CSF Culture - Final 06/27/17 07:30 Blood - Peripheral Venous Blood Culture - Preliminary NO GROWTH OBTAINED AFTER 72 HOURS, INCUBATION TO CONTINUE FOR 2 DAYS. 06/27/17 05:10 Blood - Peripheral Venous Blood Culture - Preliminary NO GROWTH OBTAINED AFTER 72 HOURS, INCUBATION TO CONTINUE FOR 2 DAYS. Problem List - Problems (1) Diabetes Code(s): E11.9 - TYPE 2 DIABETES MELLITUS WITHOUT COMPLICATIONS (2) Elevated creatine kinase Code(s): R74.8 - ABNORMAL LEVELS OF OTHER SERUM ENZYMES (3) Morbid obesity Code(s): E66.01 - MORBID (SEVERE) OBESITY DUE TO EXCESS CALORIES (4) Neuropathy Code(s): G62.9 - POLYNEUROPATHY, UNSPECIFIED Assessment/Plan Fever of Unknown etiology Polyclonal Gammopathy - r/o infectious etiology/OM - f/u culture/biopsy results pending - all previous cultures negative - continue current antibiotics , Vancomycin Trough prior to 4th dose - monitor temperature trend cc: 40 min
[2017-06-30] MEDS: POLYETHYLENE GLYCOL 3350 119 GM BTL PO SCH (21:40)
--- NOTE | 2017-07-01 07:21 | PN ---
Progress Note, Physician History of Present Illness: 61 YOM with sciatica and supermorbid obesity who presented to ED with 3 wks of fever, body aches, leg weakness with inability to walk (ambulatory at baseline) , shakiness, asterixis, and mild encephalopathy, recently dx with Strep throat at and took one wk of PCN as prescribed, then developed a rash relieved by Benadryl. Subsequently had gone to [facility] with BLE>BUE pain and weakness, RUE mild numbness, pleuritic chest pain. Has elevated CPK, elevated total protein, elevated LFTs. CTL spine CT notable for T8-9 epidural abscess, awaiting bone marrow bx results, possibly to OR today or tomorrow awaiting INR < 1.2. 24 HOUR EVENTS BUE strength increasing and pitting edema improving. Cannot lift feet of hospital bed but is able to abduct legs. SUBJECTIVE C/O pain with repositioning of RLE. 24 HOUR INTAKE & OUTPUT Intake: 1970cc Output: 840cc Net: 1130cc BM: None reported LINES/TUBES/DRAINS CHERRY drain placed 06/27/17 Fitzpatrick placed 06/27/17 PIV - Current Medication List Current Medications: Active Medications Acetaminophen (Tylenol -) 650 mg PO Q6H PRN PRN Reason: FEVER Last Admin: 06/26/17 20:17 Dose: 650 mg Gabapentin (Neurontin -) 100 mg PO TID [facility] Last Admin: 06/30/17 21:41 Dose: 100 mg Ertapenem 1 gm/ Sodium (Chloride) 100 mls @ 100 mls/hr IVPB DAILY [facility] PRN Reason: Protocol Last Admin: 06/30/17 09:13 Dose: 100 mls/hr Vancomycin HCl 1,250 mg/ (Dextrose) 250 mls @ 166.667 mls/hr IVPB BID [facility] Last Admin: 06/30/17 21:40 Dose: 166.667 mls/hr Morphine Sulfate (Morphine Sulfate) 2 mg IVPUSH Q4H PRN PRN Reason: PAIN LEVEL 6-10 Last Admin: 06/29/17 23:09 Dose: 2 mg Ondansetron HCl (Zofran Injection) 4 mg IVPUSH Q6H PRN PRN Reason: NAUSEA AND/OR VOMITING Polyethylene Glycol (Miralax (For Daily Use) -) 17 gm PO BID [facility] Last Admin: 06/30/17 21:40 Dose: 17 gm - Objective Vital Signs: Vital Signs Temperature 98.5 F 07/01/17 06:00 Pulse Rate 103 H 07/01/17 06:00 Respiratory Rate 23 07/01/17 06:00 Blood Pressure 122/71 07/01/17 06:00 O2 Sat by Pulse Oximetry (%) 96 06/30/17 20:09 Constitutional: Yes: Well Nourished, No Distress, Calm, Obese Eyes: Yes: WNL, Conjunctiva Clear, EOM Intact HENT: Yes: WNL, Atraumatic, Normocephalic Neck: Yes: WNL, Supple, Trachea Midline Cardiovascular: Yes: Tachycardia (mild, regular) Respiratory: Yes: WNL, Regular, CTA Bilaterally, On Nasal O2 Gastrointestinal: Yes: WNL, Normal Bowel Sounds, Soft, Abdomen, Obese Musculoskeletal: Yes: Back Pain Extremities: Yes: WNL. No: Calf Tenderness, Cold, Cyanosis, Erythema, Pallor Edema: No Peripheral Pulses: Left Doralis Pedis: 2+, Right Dorsalis Pedis: 2+ Integumentary: Yes: WNL Wound/Incision: Yes: Clean/Dry, Well Approximated Neurological: Yes: WNL, Alert, Oriented Psychiatric: Yes: WNL, Alert, Oriented Labs: CBC, BMP 06/30/17 05:20 06/30/17 05:20 INR, PTT INR 1.50 (0.82-1.09) H 06/30/17 05:20 Fibrinogen 637.0 mg/dL (238-498) H 06/26/17 05:30 Assessment/Plan 62 YOM with h/o recent Strep pharyngitis (rx with penicillin and had a rash after completion of abx) presented to the ED with fever, B/L weakness of his LE admitted in the ICU for sepsis (likely secondary to epidural abscess) and airway protection. S/P OR on 06/27/17 awaiting tissue and fluid sample workup. NEURO #Sepsis, likely secondary to epidural abscess, r/o tumor. Presented with B/L weakness of LE, hasn't walked in almost 2 weeks. Had multiple imaging (CT CTL spine CT, Abd/Pelvis CT), showed e/o 0.9 x0.8 lesion between T8-T9. Febrile but improving. Leukocytosis to 13k's but improving now in 10k's. Blood cultures/ Urine cultures negative. CT guided bone biopsy done on 06/26/17- LACI, AF[employer], Fungal cx pending. Now s/p OR on 06/27/17 awaiting sample workup. Returned to ICU still intubated d/t body habitus. -IV Tylenol 650mg Q6H -IV Ertapenam -IV Vancomycin -CT myelogram T and L spine today -Discuss transfer to floor possibility with neurosurgery HEME #Elevated INR, improved after multiple units FFP and vitamin K. Pt not on any meds causing rise in INR. -Monitor coags #Polyclonal gammopathy -Heme following #Anemia, persistent. Hgb 8.7 this AM and patient has no symptoms. -Trend H/H -Monitor CHERRY drain output, other sources of bleeding -Patient has T&S in system -Transfuse if necessary ID Sepsis likely secondary to epidural abscess, possible septic joint or L4 osteomyelitis. S/P OR on 06/27/17. -ID following -Continue ertapenem, vancomycin -FU biopsy and culture results CV -Echo: normal LV function with mildly dilated LV -IV Lasix 40mg on hold FEN Electrolyes: wnl Sodium controlled, diabetic, soft diet PPX DVT: SCD's GI: Not indicated PT: When able CODE STATUS Full Code DISPO Continue further ICU monitoring.
[2017-07-01] MEDS ORDERED: PT OWN MED DRAWER 7, Y5N ONE ×2 (09:29→21:12)
[2017-07-01] MEDS: ERTAPENEM SODIUM 1 GM in SODIUM CHLORIDE 100 ML IVPB SCH (09:39)
[2017-07-01] MEDS: VANCOMYCIN 1,250 MG in DEXTROSE 5%-WATER - 250 ML IVPB SCH ×2 (09:39→21:20)
[2017-07-01] MEDS: POLYETHYLENE GLYCOL 3350 119 GM BTL PO SCH ×2 (09:39→21:19)
--- NOTE | 2017-07-01 11:01 | PN ---
Progress Note, Physician History of Present Illness: seen and examined today. more awake and alert today. no new events. - Current Medication List Current Medications: Active Medications Acetaminophen (Tylenol -) 650 mg PO Q6H PRN PRN Reason: FEVER Last Admin: 06/26/17 20:17 Dose: 650 mg Gabapentin (Neurontin -) 100 mg PO TID [facility] Last Admin: 06/30/17 21:41 Dose: 100 mg Ertapenem 1 gm/ Sodium (Chloride) 100 mls @ 100 mls/hr IVPB DAILY [facility] PRN Reason: Protocol Last Admin: 07/01/17 09:39 Dose: 100 mls/hr Vancomycin HCl 1,250 mg/ (Dextrose) 250 mls @ 166.667 mls/hr IVPB BID [facility] Last Admin: 07/01/17 09:39 Dose: 166.667 mls/hr Morphine Sulfate (Morphine Sulfate) 2 mg IVPUSH Q4H PRN PRN Reason: PAIN LEVEL 6-10 Last Admin: 06/29/17 23:09 Dose: 2 mg Ondansetron HCl (Zofran Injection) 4 mg IVPUSH Q6H PRN PRN Reason: NAUSEA AND/OR VOMITING Polyethylene Glycol (Miralax (For Daily Use) -) 17 gm PO BID [facility] Last Admin: 07/01/17 09:39 Dose: 17 gm - Objective Vital Signs: Vital Signs Temperature 98.5 F 07/01/17 06:00 Pulse Rate 98 H 07/01/17 10:00 Respiratory Rate 18 07/01/17 10:00 Blood Pressure 132/80 07/01/17 10:00 O2 Sat by Pulse Oximetry (%) 96 07/01/17 09:00 Constitutional: Yes: No Distress, Calm Eyes: Yes: Conjunctiva Clear, EOM Intact HENT: Yes: Atraumatic, Normocephalic Neck: Yes: Supple, Trachea Midline Cardiovascular: Yes: Regular Rate and Rhythm, S1, S2. No: Bradycardia, Tachycardia, Pulse Irregular, Bruit, JVD, Gallop, Murmur, Rub, S3, S4, Varicosities, Other Respiratory: Yes: Regular, Diminished. 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 Edema- -likely component of third spacing due to hypoalbuminemia with intravascular depletion -BUN/creat normalized -Echo showed normal LV function w/ mildly dilated LV 2. Fever: -concern for L4 osteo, s/p open bx/stabilization awaiting full results -cultures no growth so far -infectious disease is following 3. Muscle weaknes/rash -f/up bx results -ID/Rheum/Heme/Neuro following -planned for myelogram today 4. Mild sinus tach, tachypnea: -Likely due to deconditioned status, infection, anemia. 5. Respiratory failure: -stable currently
--- NOTE | 2017-07-01 13:04 | PN ---
Teaching Attending Note Name of Resident: Katarina Serrano ATTENDING PHYSICIAN STATEMENT I saw and evaluated the patient. I reviewed the resident's note and discussed the case with the resident. I agree with the resident's findings and plan as documented. SUBJECTIVE: Patient seen and examined in the ICU. States back pain is improving. No fevers or chills. For CT Myelogram. Intake & Output 06/28/17 06/29/17 06/30/17 07/01/17 23:59 23:59 23:59 23:59 Intake Total 2250 1650 1970 730 Output Total 1940 1630 1540 610 Balance 310 20 430 120 Weight 321 lb 5 oz 290 lb 9 oz Last Vital Signs Temp Pulse Resp BP Pulse Ox 98.5 F 100 H 18 136/82 96 07/01/17 06:00 07/01/17 12:49 07/01/17 12:49 07/01/17 12:49 07/01/17 09:00 Active Medications Acetaminophen (Tylenol -) 650 mg PO Q6H PRN PRN Reason: FEVER Last Admin: 06/26/17 20:17 Dose: 650 mg Gabapentin (Neurontin -) 100 mg PO TID [facility] Last Admin: 06/30/17 21:41 Dose: 100 mg Ertapenem 1 gm/ Sodium (Chloride) 100 mls @ 100 mls/hr IVPB DAILY [facility] PRN Reason: Protocol Last Admin: 07/01/17 09:39 Dose: 100 mls/hr Vancomycin HCl 1,250 mg/ (Dextrose) 250 mls @ 166.667 mls/hr IVPB BID [facility] Last Admin: 07/01/17 09:39 Dose: 166.667 mls/hr Morphine Sulfate (Morphine Sulfate) 2 mg IVPUSH Q4H PRN PRN Reason: PAIN LEVEL 6-10 Last Admin: 06/29/17 23:09 Dose: 2 mg Ondansetron HCl (Zofran Injection) 4 mg IVPUSH Q6H PRN PRN Reason: NAUSEA AND/OR VOMITING Polyethylene Glycol (Miralax (For Daily Use) -) 17 gm PO BID [facility] Last Admin: 07/01/17 09:39 Dose: 17 gm Gen: NAD at rest Heart: tachycardic, regular Lung: decreased breath sounds at the bases Abd: soft, nontender Ext: + edema Laboratory Results - last 24 hr 06/26/17 07/01/17 10:03 08:00 Vancomycin Pre-Dose 16.256 H* Blood Type O POSITIVE Antibody Screen Negative Crossmatch See Detail A/P (?) Osteomyelitis Epidural Abscess vs Mass Altered Mental Status resolved Polyclonal Gammopathy Pulmonary HTN Elevated LFTs Coagulopathy - continue antibiotics per ID - f/u final biopsy cultures and pathology - for CT myelogram per neuro - monitor coags - pain control - incentive spirometry - PO as tolerated - outpt PFTs, PSG - mechanical DVT prophylaxis - Depending on CT results: Neuro unit monitoring Dr Lopez Critical care time spent in reviewing chart, evaluating patient and formulating plan - 36 minutes.
--- NOTE | 2017-07-01 13:26 | PATH ---
Surgical Pathology Report Patient Name: SERA REESE [facility]. Rec. #: [id number] /Age/Gender: 1955 (Age: 62) / M Account: [id number] Location: ICU CANNONEER Taken: 06/27/2017 Received: 06/28/2017 Reported: 07/01/2017 Physicians: Amrit Sanders M.D. Specimen(s) Received A: PARASPINAL MUSCLE B: PARASPINAL SOFT TISSUE C: SPINOUS PROCESS D: EPIDURAL SOFT TISSUE Clinical History Fever unknown origin Final Diagnosis A. SOFT TISSUE, PARASPINAL MUSCLE, EXCISION: BENIGN SKELETAL MUSCLE AND BENIGN ADIPOSE TISSUE. NO INFLAMMATORY INFILTRATE IDENTIFIED. B. SOFT TISSUE, PARASPINAL, EXCISION: BENIGN SKELETAL MUSCLE, ADIPOSE TISSUE, AND FIBROUS TISSUE. NO INFLAMMATORY INFILTRATE IDENTIFIED. C. BONE, SPINOUS PROCESS, PARTIAL EXCISION: UNREMARKABLE BONE AND BONE MARROW, ALONG WITH BENIGN SKELETAL MUSCLE AND ADIPOSE TISSUE. NO INFLAMMATORY INFILTRATE IDENTIFIED. D. SOFT TISSUE, EPIDURAL, EXCISION: BONE WITH INTERSTITIAL FIBROSIS AND REACTIVE CHANGES, AND FIBROUS TISSUE WITH AREAS WITH ACUTE INFLAMMATION. Comment: Recommend correlation with clinical and radiologic findings and follow up as clinically indicated. Electronically Signed Jai Cavazos M.D. Gross Description A. Received in formalin labeled "paraspinal muscle," is a 2.1 x 1.5 x 0.3 cm mendieta-brown, irregular portion of soft tissue and muscle. The specimen is sectioned and entirely submitted in one cassette. B. Received in formalin labeled "paraspinal soft tissue," is a 0.7 x 0.5 x 0.3 cm mendieta, irregular portion of fibrous tissue. The specimen is submitted in toto in one cassette. C. Received in formalin labeled "spinous process," is a 3.5 x 2.4 x 0.6 cm aggregate of mendieta fragments of fibrocartilaginous tissue and bone. [employer] sections are submitted in one cassette, following decalcification. D. Received in formalin labeled "epidural soft tissue," is a 1.2 x 0.7 x 0.3 cm mendieta-brown, irregular portion of fibrous tissue. The specimen is submitted in toto in one cassette. 06/28/2017 saudi06/28/2017
[2017-07-01] MEDS: GABAPENTIN 100 MG CAPSULE (FP) PO SCH ×2 (14:00→21:20)
--- NOTE | 2017-07-01 14:33 | PN ---
Progress Note, Physician History of Present Illness: stable no new events post op had myelogram done awaiting for the read no other issues - Current Medication List Current Medications: Active Medications Acetaminophen (Tylenol -) 650 mg PO Q6H PRN PRN Reason: FEVER Last Admin: 06/26/17 20:17 Dose: 650 mg Gabapentin (Neurontin -) 100 mg PO TID [facility] Last Admin: 06/30/17 21:41 Dose: 100 mg Ertapenem 1 gm/ Sodium (Chloride) 100 mls @ 100 mls/hr IVPB DAILY [facility] PRN Reason: Protocol Last Admin: 07/01/17 09:39 Dose: 100 mls/hr Vancomycin HCl 1,250 mg/ (Dextrose) 250 mls @ 166.667 mls/hr IVPB BID [facility] Last Admin: 07/01/17 09:39 Dose: 166.667 mls/hr Morphine Sulfate (Morphine Sulfate) 2 mg IVPUSH Q4H PRN PRN Reason: PAIN LEVEL 6-10 Last Admin: 06/29/17 23:09 Dose: 2 mg Ondansetron HCl (Zofran Injection) 4 mg IVPUSH Q6H PRN PRN Reason: NAUSEA AND/OR VOMITING Polyethylene Glycol (Miralax (For Daily Use) -) 17 gm PO BID [facility] Last Admin: 07/01/17 09:39 Dose: 17 gm - Objective Vital Signs: Vital Signs Temperature 98.5 F 07/01/17 06:00 Pulse Rate 100 H 07/01/17 12:49 Respiratory Rate 18 07/01/17 12:49 Blood Pressure 136/82 07/01/17 12:49 O2 Sat by Pulse Oximetry (%) 96 07/01/17 09:00 Constitutional: Yes: No Distress, Calm, Obese Cardiovascular: Yes: Regular Rate and Rhythm Respiratory: Yes: Regular, CTA Bilaterally Gastrointestinal: Yes: Normal Bowel Sounds, Soft Musculoskeletal: Yes: WNL Extremities: Yes: WNL Wound/Incision: Yes: Dressing Dry and Intact Neurological: Yes: Alert, Oriented Psychiatric: Yes: Alert, Oriented Labs: CBC, BMP 06/30/17 05:20 06/30/17 05:20 INR, PTT INR 1.50 (0.82-1.09) H 06/30/17 05:20 Fibrinogen 637.0 mg/dL (238-498) H 06/26/17 05:30 - ....Imaging Other: Image Reviewed (myelogram image seen) Assessment/Plan r/o infective process ct disorder cardiac process sepsis autoimmune process r/o osteo abn lft leukocytosis Problem List - Problems (1) Neuropathy Code(s): G62.9 - POLYNEUROPATHY, UNSPECIFIED (2) Elevated creatine kinase Code(s): R74.8 - ABNORMAL LEVELS OF OTHER SERUM ENZYMES (3) Elevated serum creatinine Code(s): R79.89 - OTHER SPECIFIED ABNORMAL FINDINGS OF BLOOD CHEMISTRY (4) Anasarca Code(s): R60.1 - GENERALIZED EDEMA (5) Anemia Code(s): D64.9 - ANEMIA, UNSPECIFIED (6) CKD (chronic kidney disease) Code(s): N18.9 - CHRONIC KIDNEY DISEASE, UNSPECIFIED (7) Fever Code(s): R50.9 - FEVER, UNSPECIFIED (8) Diabetes Code(s): E11.9 - TYPE 2 DIABETES MELLITUS WITHOUT COMPLICATIONS (9) Coagulation defect Code(s): D68.9 - COAGULATION DEFECT, UNSPECIFIED will await for biopsy results continue current mgmt plan continue abx await for myelogram read await for all final cx reports close watch on the patient improving crp repeat continue as per icu/neurology cc time 40 min
--- NOTE | 2017-07-01 16:38 | PN ---
Progress Note (short form) - Note Progress Note: 62 year old male with a significant past medical history of sciatica who presents to the ED with complaints of fever that began 3 weeks ago. As per patient's daughter, patient was taken to urgent care 3 weeks ago for increased fever and body aches and was diagnosed with strep and given penicillin prescription. She reports after finishing prescription over 1 week, patient began to develop rash from the penicillin and began to take benadryl, relieving the rash in 2 days. Patient's daughter reports, patient was then taken to [facility] on June 08 for similar symptoms of increased fever and associated bilateral leg pain and weakness, LE >UE. mild numbness R hand. He reports patient was given X Ray, CT abdomen, flu culture and labs, before being diagnosed with pleuritic chest pain. noted to elevated CPKS, LFTS and elevated total protein, called for eval r/o myopathy. no hx of statin (only new RX was PCN0 , at baseline home walking and drives , now unable to walk. FU : s/p open biopsy bone and CSF cltx sent. CSF proetin 72 EMG: no evidence of myopathy, and no clear evidence of motor neuropathy he remains with paraplegia/areflexia in LEs. Motor strength in UEs-5/5. s/p myelogram today MYELOGRAM : IMPRESSION: Limited examination, as described above due to the patient's body habitus Interval bilateral laminectomy and posterior fusion at T7-T8 level with postop changes, posteriorly a drainage catheter and questionable small superficial left paramedian collection/ serosanguineous collection. There is effacement of the intradural space around the thoracic cord at the site of surgery, mainly posteriorly likely due to postoperative swelling. Otherwise, no extrinsic mass effect or cord compression is identified. No gross disc herniation is identified. The height and alignment of the vertebral bodies appear unremarkable with likely degenerative calcification in L3-L4 intervertebral disc space. - Current Medication List Current Medications: Active Medications Acetaminophen (Tylenol -) 650 mg PO Q6H PRN PRN Reason: FEVER Last Admin: 06/26/17 20:17 Dose: 650 mg Gabapentin (Neurontin -) 100 mg PO TID [facility] Last Admin: 06/27/17 14:22 Dose: Not Given Hydromorphone HCl (Dilaudid Injection -) 0.5 mg IVPUSH [id number] PRN PRN Reason: PAIN-PACU ORDER X 4 DOSES ONLY Ertapenem 1 gm/ Sodium (Chloride) 100 mls @ 100 mls/hr IVPB DAILY [facility] PRN Reason: Protocol Last Admin: 06/27/17 09:25 Dose: 100 mls/hr Vancomycin HCl 1,250 mg/ (Dextrose) 250 mls @ 166.667 mls/hr IVPB DAILY [facility] PRN Reason: Protocol Last Admin: 06/27/17 09:26 Dose: 166.667 mls/hr Dextrose/Sodium Chloride (D5-1/2ns -) 1,000 mls @ 75 mls/hr IV ASDIR AJ Last Admin: 06/27/17 12:47 Dose: 75 mls/hr Propofol (Diprivan -) 1,000,000 mcg in 100 mls @ 30.383 mls/hr IVPB TITR AJ; 30 MCG/KG/MIN PRN Reason: Protocol Last Admin: 06/27/17 17:19 Dose: 30 mcg/kg/min, 30.383 mls/hr Ondansetron HCl (Zofran Injection) 4 mg IVPUSH Q6H PRN PRN Reason: NAUSEA AND/OR VOMITING - Objective Vital Signs: Vital Signs Temperature 99.2 F 07/01/17 16:00 Pulse Rate 96 H 07/01/17 16:00 Respiratory Rate 18 07/01/17 16:00 Blood Pressure 146/82 07/01/17 16:00 O2 Sat by Pulse Oximetry (%) 96 07/01/17 09:00 Labs: CBCD WBC 9.7 K/mm3 (4.0-10.0) 06/30/17 05:20 RBC 3.04 M/mm3 (4.00-5.60) L 06/30/17 05:20 Hgb 8.7 GM/dL (11.7-16.9) L 06/30/17 05:20 Hct 25.0 % (35.4-49) L 06/30/17 05:20 MCV 82.1 fl (80-96) 06/30/17 05:20 MCHC 35.0 g/dl (32.0-35.9) 06/30/17 05:20 RDW 15.5 % (11.9-15.9) 06/30/17 05:20 Plt Count 321 K/MM3 (134-434) 06/30/17 05:20 MPV 8.8 fl (7.5-11.1) 06/30/17 05:20 CMP Sodium 140 mmol/L (136-145) 06/30/17 05:20 Potassium 4.4 mmol/L (3.5-5.1) 06/30/17 05:20 Chloride 100 mmol/L (98-107) 06/30/17 05:20 Carbon Dioxide 29 mmol/L (21-32) 06/30/17 05:20 Anion Gap 11 (8-16) 06/30/17 05:20 BUN 14 mg/dL (7-18) 06/30/17 05:20 Creatinine 0.6 mg/dL (0.7-1.3) L 06/30/17 05:20 Creat Clearance w eGFR > 60 (>60) 06/30/17 05:20 Calcium 9.5 mg/dL (8.5-10.1) 06/30/17 05:20 Total Bilirubin 0.7 mg/dL (0.2-1.0) D 06/30/17 05:20 AST 80 U/L (15-37) H 06/30/17 05:20 ALT 45 U/L (12-78) 06/30/17 05:20 Alkaline Phosphatase 151 U/L (45-117) H 06/30/17 05:20 Total Protein 7.5 g/dl (6.4-8.2) 06/30/17 05:20 Albumin 1.4 g/dl (3.4-5.0) L 06/30/17 05:20 Problem List - Problems (1) Paraparesis of both lower limbs Code(s): G82.20 - PARAPLEGIA, UNSPECIFIED (2) Morbid obesity Code(s): E66.01 - MORBID (SEVERE) OBESITY DUE TO EXCESS CALORIES (3) Neuropathy Code(s): G62.9 - POLYNEUROPATHY, UNSPECIFIED porgresisve paraparesis LE >UE, encephalopathy, + SPEP, intermittent fevers, myalgia myelogram--no clear evidence of spinal cord pathology epidural compression, no clear evidence of myopathy (muscle biopsy psp/cpk nl, and EMG- no myopathy). 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 CSF CLTX (-), though no WBC count send OSMAN (r/o sarcoid) and WESTNILE in serum , IGa level CSF CLTX (-), though no WBC count sent ? --resident to call lab will consider repeat LP /CSF for WBC given persistent neurological dysfunction - will give trial of SOLUMEDROL [id number] x 3 days; then will consider IVIG spoke to icu attending Dr Reid Problem List - Problems (1) Paraparesis of both lower limbs Code(s): G82.20 - PARAPLEGIA, UNSPECIFIED (2) Morbid obesity Code(s): E66.01 - MORBID (SEVERE) OBESITY DUE TO EXCESS CALORIES (3) Neuropathy Code(s): G62.9 - POLYNEUROPATHY, UNSPECIFIED
[2017-07-01] MEDS: methylPREDNISolone NA SUCC 125 MG/2 ML VIAL IVPB SCH ×2 (18:29→23:40)
--- NOTE | 2017-07-01 18:35 | PN ---
Progress Note, Physician History of Present Illness: stable - Current Medication List Current Medications: Active Medications Acetaminophen (Tylenol -) 650 mg PO Q6H PRN PRN Reason: FEVER Last Admin: 06/26/17 20:17 Dose: 650 mg Gabapentin (Neurontin -) 100 mg PO TID [facility] Last Admin: 07/01/17 14:00 Dose: 100 mg Ertapenem 1 gm/ Sodium (Chloride) 100 mls @ 100 mls/hr IVPB DAILY [facility] PRN Reason: Protocol Last Admin: 07/01/17 09:39 Dose: 100 mls/hr Vancomycin HCl 1,250 mg/ (Dextrose) 250 mls @ 166.667 mls/hr IVPB BID [facility] Last Admin: 07/01/17 09:39 Dose: 166.667 mls/hr Methylprednisolone Sodium Succinate (Solu-Medrol -) 250 mg IVPB Q6HPO [facility] Stop: 07/04/17 18:00 Last Admin: 07/01/17 18:29 Dose: 250 mg Morphine Sulfate (Morphine Sulfate) 2 mg IVPUSH Q4H PRN PRN Reason: PAIN LEVEL 6-10 Last Admin: 06/29/17 23:09 Dose: 2 mg Ondansetron HCl (Zofran Injection) 4 mg IVPUSH Q6H PRN PRN Reason: NAUSEA AND/OR VOMITING Polyethylene Glycol (Miralax (For Daily Use) -) 17 gm PO BID [facility] Last Admin: 07/01/17 09:39 Dose: 17 gm - Objective Vital Signs: Vital Signs Temperature 99.2 F 07/01/17 16:00 Pulse Rate 96 H 07/01/17 16:00 Respiratory Rate 18 07/01/17 16:00 Blood Pressure 146/82 07/01/17 16:00 O2 Sat by Pulse Oximetry (%) 96 07/01/17 09:00 Constitutional: Yes: No Distress HENT: Yes: Atraumatic Neck: Yes: Supple Cardiovascular: Yes: Regular Rate and Rhythm Respiratory: Yes: Rhonchi Gastrointestinal: Yes: Normal Bowel Sounds Extremities: Yes: WNL Edema: Yes Edema: LUE: 2+, RUE: 2+, LLE: 4+, RLE: 4+ Peripheral Pulses WNL: Yes Neurological: Yes: Alert, Oriented ...Motor Strength: LLE, RLE (2/5) Labs: CBC, BMP 06/30/17 05:20 06/30/17 05:20 INR, PTT INR 1.50 (0.82-1.09) H 06/30/17 05:20 Fibrinogen 637.0 mg/dL (238-498) H 06/26/17 05:30 Problem List - Problems (1) Neuropathy Assessment/Plan: s/p spinal decompression surgery for ct myelogram done report pending Code(s): G62.9 - POLYNEUROPATHY, UNSPECIFIED (2) Elevated creatine kinase Assessment/Plan: rhabdo iv hydration...wnl now Code(s): R74.8 - ABNORMAL LEVELS OF OTHER SERUM ENZYMES (3) Elevated serum creatinine Assessment/Plan: wnl Code(s): R79.89 - OTHER SPECIFIED ABNORMAL FINDINGS OF BLOOD CHEMISTRY (4) Anasarca Assessment/Plan: same...no change from before Code(s): R60.1 - GENERALIZED EDEMA (5) Anemia Assessment/Plan: h/h stable Code(s): D64.9 - ANEMIA, UNSPECIFIED (6) CKD (chronic kidney disease) Assessment/Plan: renal work up negative cr wnl Code(s): N18.9 - CHRONIC KIDNEY DISEASE, UNSPECIFIED (7) Fever Assessment/Plan: cxs have sent Code(s): R50.9 - FEVER, UNSPECIFIED (8) Diabetes Assessment/Plan: monitor blood sugars poor po intake Code(s): E11.9 - TYPE 2 DIABETES MELLITUS WITHOUT COMPLICATIONS (9) Coagulation defect Assessment/Plan: was given ffp and vit k fu inr Code(s): D68.9 - COAGULATION DEFECT, UNSPECIFIED (10) Morbid obesity Code(s): E66.01 - MORBID (SEVERE) OBESITY DUE TO EXCESS CALORIES (11) Paraparesis of both lower limbs Assessment/Plan: no change in condition Code(s): G82.20 - PARAPLEGIA, UNSPECIFIED
--- NOTE | 2017-07-01 22:01 | PN ---
Progress Note, Physician - Current Medication List Current Medications: Active Medications Acetaminophen (Tylenol -) 650 mg PO Q6H PRN PRN Reason: FEVER Last Admin: 06/26/17 20:17 Dose: 650 mg Gabapentin (Neurontin -) 100 mg PO TID [facility] Last Admin: 07/01/17 21:20 Dose: 100 mg Ertapenem 1 gm/ Sodium (Chloride) 100 mls @ 100 mls/hr IVPB DAILY [facility] PRN Reason: Protocol Last Admin: 07/01/17 09:39 Dose: 100 mls/hr Vancomycin HCl 1,250 mg/ (Dextrose) 250 mls @ 166.667 mls/hr IVPB BID [facility] Last Admin: 07/01/17 21:20 Dose: 166.667 mls/hr Methylprednisolone Sodium Succinate (Solu-Medrol -) 250 mg IVPB Q6HPO [facility] Stop: 07/04/17 18:00 Last Admin: 07/01/17 18:29 Dose: 250 mg Morphine Sulfate (Morphine Sulfate) 2 mg IVPUSH Q4H PRN PRN Reason: PAIN LEVEL 6-10 Last Admin: 06/29/17 23:09 Dose: 2 mg Ondansetron HCl (Zofran Injection) 4 mg IVPUSH Q6H PRN PRN Reason: NAUSEA AND/OR VOMITING Phytonadione (Aqua Mephyton Injection -) 10 mg SQ ONCE ONE Stop: 07/01/17 21:58 Phytonadione (Aqua Mephyton Injection -) 5 mg SQ ONCE ONE Stop: 07/02/17 10:01 Phytonadione (Aqua Mephyton Injection -) 5 mg SQ ONCE ONE Stop: 07/03/17 10:01 Polyethylene Glycol (Miralax (For Daily Use) -) 17 gm PO BID [facility] Last Admin: 07/01/17 21:19 Dose: 17 gm - Objective Vital Signs: Vital Signs Temperature 99.2 F 07/01/17 16:00 Pulse Rate 95 H 07/01/17 20:00 Respiratory Rate 26 H 07/01/17 20:46 Blood Pressure 156/73 07/01/17 20:00 O2 Sat by Pulse Oximetry (%) 96 07/01/17 20:46 Labs: CBC, BMP 06/30/17 05:20 06/30/17 05:20 INR, PTT INR 1.50 (0.82-1.09) H 06/30/17 05:20 Fibrinogen 637.0 mg/dL (238-498) H 06/26/17 05:30 Assessment/Plan Discussed with . Plan: Vitamin K sq 10mg today and Vitamin K 5mg sq for two more days. Recheck PT/INR in AM. Reconsult Dr. Conteh in AM.
[2017-07-01] MEDS ORDERED: PHYTONADIONE 10 MG/1 ML AMP SQ ONE (22:30)
[2017-07-02] MEDS: GABAPENTIN 100 MG CAPSULE (FP) PO SCH ×3 (05:57→21:26)
[2017-07-02 05:58] LABS: BASO % 0.3 % (0-2.0); EOS % 0.1 % (0-4.5); HEMATOCRIT 27.5 % (35.4-49); HEMOGLOBIN 9.4 GM/dL (11.7-16.9); LYMPH % 6.6 % (8-40); MCH 27.9 pg (25.7-33.7); MCHC 34.1 g/dl (32.0-35.9); MEAN PLT VOLUME 8.7 fl (7.5-11.1); MONO % 1.9 % (3.8-10.2); NEUT % 91.1 % (42.8-82.8); PLATELET COUNT 327 K/MM3 (134-434); RBC 3.36 M/mm3 (4.00-5.60); RDW 15.6 % (11.9-15.9); WHITE BLOOD COUNT 7.7 K/mm3 (4.0-10.0)
[2017-07-02] MEDS: methylPREDNISolone NA SUCC 125 MG/2 ML VIAL IVPB SCH ×4 (05:59→23:20)
[2017-07-02 06:18] LABS: INR 1.5 (0.82-1.09); PROTHROMBIN TIME (PATIENT) 16.9 SEC (9.98-11.88)
[2017-07-02 06:19] LABS: ACTIVATED PTT 31.6 SECONDS (26.9-34.4)
--- NOTE | 2017-07-02 06:21 | PN ---
Progress Note (short form) - Note Progress Note: Patient seen and examined 07/01/16 Vitals/labs/meds/chart reviewed 62 y/o with recent streptococal [haryngitis, presenting with progressive lower extremity weakness FUO ? ? 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 post infectious immune sequela Per neuro started on pulse dose steroids will request rheumatology f/u redose vitamin K discussed with house staff
[2017-07-02 06:29] LABS: ALBUMIN 1.5 g/dl (3.4-5.0); ANION GAP 5 (8-16); BLOOD UREA NITROGEN 19 mg/dL (7-18); CALCIUM 8.8 mg/dL (8.5-10.1); CHLORIDE 98 mmol/L (98-107); CO2 30 mmol/L (21-32); CREATININE 0.8 mg/dL (0.7-1.3); GLUCOSE,RANDOM 244 mg/dL (74-106); MAGNESIUM 1.7 mg/dL (1.8-2.4); PHOSPHOROUS 4.2 mg/dL (2.5-4.9); POTASSIUM 4.8 mmol/L (3.5-5.1); SGOT/AST 132 U/L (15-37); SGPT/ALT 71 U/L (12-78); SODIUM 133 mmol/L (136-145)
[2017-07-02 06:31] LABS: ALK PHOS 186 U/L (45-117); BILIRUBIN,TOTAL 0.6 mg/dL (0.2-1.0)
--- NOTE | 2017-07-02 06:32 | PN ---
Progress Note, Physician History of Present Illness: 61 YOM with sciatica, supermorbid obesity, who presented to ED with 3 wks of fever, body aches, leg weakness with inability to walk (ambulatory at baseline) , shakiness, asterixis, and mild encephalopathy, recently dx with Strep throat at and took one wk of PCN as prescribed, then developed a rash relieved by Benadryl. Subsequently had gone to [facility] with BLE>BUE pain and weakness, RUE mild numbness, pleuritic chest pain. Has elevated CPK, elevated total protein, elevated LFTs. CTL spine CT notable for T8-9 epidural abscess, awaiting bone marrow bx results, possibly to OR today or tomorrow awaiting INR < 1.2. 24 HOUR EVENTS T and L spine myelograms taken yesterday not particularly concerning, anatomical noted post-op swelling, possible small fluid collection in left paramedian space, drain in place. Neurosurgery notes patient likely appropriate for xfer to floor today. Neurology concerned for less common infectious process such as WNV encephalitis, recommends SoluMedrol, possibly IVIG, possibly further LP/CSF studies. Heme recommending vitamin K. SUBJECTIVE Patient states feels better, milder back pain now, moving extremities better. 24 HOUR INTAKE & OUTPUT Intake: 1970cc Output: 1540cc Net: 430cc BM: None reported LINES/TUBES/DRAINS CHERRY drain placed 06/27/17 Fitzpatrick placed 06/27/17 PIV - Current Medication List Current Medications: Active Medications Acetaminophen (Tylenol -) 650 mg PO Q6H PRN PRN Reason: FEVER Last Admin: 06/26/17 20:17 Dose: 650 mg Gabapentin (Neurontin -) 100 mg PO TID [facility] Last Admin: 07/02/17 05:57 Dose: 100 mg Ertapenem 1 gm/ Sodium (Chloride) 100 mls @ 100 mls/hr IVPB DAILY [facility] PRN Reason: Protocol Last Admin: 07/01/17 09:39 Dose: 100 mls/hr Vancomycin HCl 1,250 mg/ (Dextrose) 250 mls @ 166.667 mls/hr IVPB BID [facility] Last Admin: 07/01/17 21:20 Dose: 166.667 mls/hr Methylprednisolone Sodium Succinate (Solu-Medrol -) 250 mg IVPB Q6HPO [facility] Stop: 03/08/18 18:00 Last Admin: 07/02/17 05:59 Dose: 250 mg Morphine Sulfate (Morphine Sulfate) 2 mg IVPUSH Q4H PRN PRN Reason: PAIN LEVEL 6-10 Last Admin: 06/29/17 23:09 Dose: 2 mg Ondansetron HCl (Zofran Injection) 4 mg IVPUSH Q6H PRN PRN Reason: NAUSEA AND/OR VOMITING Phytonadione (Aqua Mephyton Injection -) 5 mg SQ ONCE ONE Stop: 07/02/17 10:01 Phytonadione (Aqua Mephyton Injection -) 5 mg SQ ONCE ONE Stop: 07/03/17 10:01 Polyethylene Glycol (Miralax (For Daily Use) -) 17 gm PO BID [facility] Last Admin: 07/01/17 21:19 Dose: 17 gm - Objective Vital Signs: Vital Signs Temperature 98.6 F 07/02/17 02:00 Pulse Rate 75 07/02/17 04:00 Respiratory Rate 19 07/02/17 04:00 Blood Pressure 149/78 07/02/17 04:00 O2 Sat by Pulse Oximetry (%) 94 L 07/01/17 22:00 Constitutional: Yes: Well Nourished, No Distress, Calm, Obese, Other (answering appropriately, pleasant adult male, moving all extremities, strength on abduction BLE has slightly improved but still not elevating legs against gravity ) Eyes: Yes: WNL, Conjunctiva Clear, EOM Intact HENT: Yes: WNL, Atraumatic, Normocephalic Neck: Yes: WNL, Supple, Trachea Midline Cardiovascular: Yes: WNL, Regular Rate and Rhythm Respiratory: Yes: WNL, CTA Bilaterally, On Nasal O2, Tachypnea Gastrointestinal: Yes: WNL, Normal Bowel Sounds, Soft Musculoskeletal: Yes: Back Pain (improved) Extremities: Yes: WNL. No: Calf Tenderness, Cool, Cyanosis, Deformity, Delayed Capillary Refill, Erythema, Pallor Edema: No Peripheral Pulses: Left Doralis Pedis: 2+, Right Dorsalis Pedis: 2+ Integumentary: Yes: WNL. No: Erythema, Jaundice Wound/Incision: Yes: Clean/Dry, Well Approximated, Dressing Dry and Intact Neurological: Yes: Alert, Oriented, Other (strength 4/5 BUE proximally and distally, abducts and adducts BLE but cannot lift against gravity) Labs: INR, PTT INR 1.50 (0.82-1.09) H 06/30/17 05:20 Fibrinogen 637.0 mg/dL (238-498) H 06/26/17 05:30 Assessment/Plan 62 YOM with h/o recent Strep pharyngitis (rx with penicillin and had a rash after completion of abx) presented to the ED with fever, B/L weakness of his LE admitted in the ICU for sepsis (likely secondary to epidural abscess) and airway protection. S/P OR on 06/27/17 awaiting tissue and fluid sample workup. NEURO #Sepsis, likely secondary to epidural abscess, r/o tumor. Presented with B/L weakness of LE, hasn't walked in almost 2 weeks. Had multiple imaging (CT CTL spine CT, Abd/Pelvis CT), showed e/o 0.9 x0.8 lesion between T8-T9. Febrile but improving. Leukocytosis to 13k's but improving now in 10k's. Blood cultures/ Urine cultures negative. CT guided bone biopsy done on 06/26/17- LACI, AFB, Fungal cx pending. Now s/p OR on 06/27/17, samples taken are essentially negative. Neurology concerned for less common infection such as [place] Nile encephalitis. -IV SoluMedrol x3 days -May consider trying IVIG after 3d course pulsed steroids -May consider LP for further CSF studies -IV Tylenol 650mg Q6H -IV Ertapenam -IV Vancomycin HEME #Elevated INR, improved after multiple units FFP and vitamin K. Pt not on any meds causing rise in INR. -Monitor coags #Polyclonal gammopathy -Heme following #Anemia, persistent. Hgb 8.7 this AM and patient has no symptoms. -Trend H/H -Monitor CHERRY drain output, other sources of bleeding -Patient has T&S in system -Transfuse if necessary ID Sepsis likely secondary to epidural abscess, possible septic joint or L4 osteomyelitis. S/P OR on 06/27/17. -ID following -Continue ertapenem, vancomycin -FU biopsy and culture results CV -Echo: normal LV function with mildly dilated LV -IV Lasix 40mg on hold FEN Electrolyes: wnl Sodium controlled, diabetic, soft diet PPX DVT: SCD's GI: Not indicated PT: When able CODE STATUS Full Code DISPO Further ICU care. May soon transfer to .
--- NOTE | 2017-07-02 09:25 | PN ---
Progress Note, Physician Chief Complaint: no complaints TELE: NSR with episodes sinus tach - Current Medication List Current Medications: Active Medications Acetaminophen (Tylenol -) 650 mg PO Q6H PRN PRN Reason: FEVER Last Admin: 06/26/17 20:17 Dose: 650 mg Gabapentin (Neurontin -) 100 mg PO TID [facility] Last Admin: 07/02/17 05:57 Dose: 100 mg Ertapenem 1 gm/ Sodium (Chloride) 100 mls @ 100 mls/hr IVPB DAILY [facility] PRN Reason: Protocol Last Admin: 07/01/17 09:39 Dose: 100 mls/hr Vancomycin HCl 1,250 mg/ (Dextrose) 250 mls @ 166.667 mls/hr IVPB BID [facility] Last Admin: 07/01/17 21:20 Dose: 166.667 mls/hr Methylprednisolone Sodium Succinate (Solu-Medrol -) 250 mg IVPB Q6HPO [facility] Stop: 07/04/17 18:00 Last Admin: 07/02/17 05:59 Dose: 250 mg Morphine Sulfate (Morphine Sulfate) 2 mg IVPUSH Q4H PRN PRN Reason: PAIN LEVEL 6-10 Last Admin: 06/29/17 23:09 Dose: 2 mg Ondansetron HCl (Zofran Injection) 4 mg IVPUSH Q6H PRN PRN Reason: NAUSEA AND/OR VOMITING Phytonadione (Aqua Mephyton Injection -) 5 mg SQ ONCE ONE Stop: 07/02/17 10:01 Phytonadione (Aqua Mephyton Injection -) 5 mg SQ ONCE ONE Stop: 07/03/17 10:01 Polyethylene Glycol (Miralax (For Daily Use) -) 17 gm PO BID [facility] Last Admin: 07/01/17 21:19 Dose: 17 gm - Objective Vital Signs: Vital Signs Temperature 98.2 F 07/02/17 06:00 Pulse Rate 79 07/02/17 06:00 Respiratory Rate 28 H 07/02/17 08:00 Blood Pressure 142/80 07/02/17 08:00 O2 Sat by Pulse Oximetry (%) 94 L 07/02/17 06:55 Constitutional: Yes: No Distress, Calm Cardiovascular: Yes: Regular Rate and Rhythm Respiratory: Yes: Other (clear anteriorly and laterally) Gastrointestinal: Yes: Soft, Abdomen, Obese Edema: Yes Edema: LLE: 1+, RLE: 1+ Neurological: Yes: Alert, Oriented Labs: CBC, BMP 07/02/17 05:11 07/02/17 05:11 INR, PTT INR 1.50 (0.82-1.09) H 07/02/17 05:11 Fibrinogen 637.0 mg/dL (238-498) H 06/26/17 05:30 Laboratory Tests 06/27/17 06/27/17 06/27/17 05:10 05:10 18:00 WBC 10.4 H Hgb 8.7 L Plt Count 335 INR 1.42 H Sodium 137 Potassium 4.2 BUN 20 H Creatinine 0.7 AST ALT 06/28/17 06/28/17 06/28/17 08:10 08:10 08:10 WBC Pending Hgb Pending Plt Count Pending INR Pending Sodium Pending Potassium Pending BUN Pending Creatinine Pending AST Pending ALT Pending 07/02/17 07/02/17 05:11 05:11 WBC 7.7 Hgb 9.4 L Plt Count 327 INR Sodium 133 L Potassium 4.8 BUN 19 H D Creatinine 0.8 D AST ALT - ....Imaging EKG: Image Reviewed Assessment/Plan Assessment/Plan IMP: Fever, sinus tachycardia, tachypnea 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 Edema- -likely component of third spacing due to hypoalbuminemia with intravascular depletion -BUN/creat normalized -Echo showed normal LV function w/ mildly dilated LV 2. Fever: -concern for L4 osteo, s/p open bx/stabilization awaiting full results -cultures no growth so far -infectious disease is following 3. Muscle weaknes/rash -f/up bx results -ID/Rheum/Heme/Neuro following -f/u myelogram 4. Mild sinus tach, tachypnea: -Likely due to deconditioned status, infection, anemia. 5. Respiratory failure: -stable currently
--- NOTE | 2017-07-02 09:31 | PROC ---
Procedure Note Procedure: Patient seen with Dr Mosquera for j/p removal Patient resting comfortably with no complaints. dressing c/d/i with a few small areas of dried blood and no signs of active bleeding or d/c. surrounding tissue intact with no erythema or edema. no evidence of collection or fluctuance. J/P drain removed with tip fully intact and @ 15cc of serosanginous d/c in bulb. pressure dressing was applied the patient tolerated the procedure well and was comfortable upon completion.
[2017-07-02] MEDS: ERTAPENEM SODIUM 1 GM in SODIUM CHLORIDE 100 ML IVPB SCH (09:36)
[2017-07-02] MEDS: VANCOMYCIN 1,250 MG in DEXTROSE 5%-WATER - 250 ML IVPB SCH ×2 (09:37→21:26)
[2017-07-02] MEDS: POLYETHYLENE GLYCOL 3350 119 GM BTL PO SCH ×2 (09:38→21:26)
[2017-07-02] MEDS ORDERED: PHYTONADIONE 10 MG/1 ML AMP SQ ONE (10:00)
--- NOTE | 2017-07-02 12:26 | PN ---
Teaching Attending Note Name of Resident: Katarina Serrano ATTENDING PHYSICIAN STATEMENT I saw and evaluated the patient. I reviewed the resident's note and discussed the case with the resident. I agree with the resident's findings and plan as documented. SUBJECTIVE: Patient seen and examined in the ICU. States back pain is improving. Noted to have better motor strength/function. No fevers or chills. Intake & Output 06/29/17 06/30/17 07/01/17 07/02/17 23:59 23:59 23:59 23:59 Intake Total 1650 1970 2510 60 Output Total 1630 1540 2310 600 Balance 20 430 200 -540 Weight 290 lb 9 oz 291 lb 11.2 oz Last Vital Signs Temp Pulse Resp BP Pulse Ox 97.7 F 81 26 H 142/108 96 07/02/17 10:00 07/02/17 12:00 07/02/17 12:00 07/02/17 12:00 07/02/17 09:00 Active Medications Acetaminophen (Tylenol -) 650 mg PO Q6H PRN PRN Reason: FEVER Last Admin: 06/26/17 20:17 Dose: 650 mg Gabapentin (Neurontin -) 100 mg PO TID [facility] Last Admin: 07/02/17 05:57 Dose: 100 mg Ertapenem 1 gm/ Sodium (Chloride) 100 mls @ 100 mls/hr IVPB DAILY [facility] PRN Reason: Protocol Last Admin: 07/02/17 09:36 Dose: 100 mls/hr Vancomycin HCl 1,250 mg/ (Dextrose) 250 mls @ 166.667 mls/hr IVPB BID [facility] Last Admin: 07/02/17 09:37 Dose: 166.667 mls/hr Methylprednisolone Sodium Succinate (Solu-Medrol -) 250 mg IVPB Q6HPO [facility] Stop: 07/04/17 18:00 Last Admin: 07/02/17 05:59 Dose: 250 mg Morphine Sulfate (Morphine Sulfate) 2 mg IVPUSH Q4H PRN PRN Reason: PAIN LEVEL 6-10 Last Admin: 06/29/17 23:09 Dose: 2 mg Ondansetron HCl (Zofran Injection) 4 mg IVPUSH Q6H PRN PRN Reason: NAUSEA AND/OR VOMITING Phytonadione (Aqua Mephyton Injection -) 5 mg SQ ONCE ONE Stop: 07/03/17 10:01 Polyethylene Glycol (Miralax (For Daily Use) -) 17 gm PO BID [facility] Last Admin: 07/02/17 09:38 Dose: 17 gm Gen: NAD at rest Heart: tachycardic, regular Lung: decreased breath sounds at the bases Abd: soft, nontender Ext: + edema Laboratory Results - last 24 hr 07/02/17 07/02/17 07/02/17 05:11 05:11 05:11 WBC 7.7 RBC 3.36 L Hgb 9.4 L Hct 27.5 L MCV 82.0 MCH 27.9 MCHC 34.1 RDW 15.6 Plt Count 327 MPV 8.7 Neutrophils % 91.1 H D Lymphocytes % 6.6 L D Monocytes % 1.9 L Eosinophils % 0.1 D Basophils % 0.3 PT with INR 16.90 H INR 1.50 H PTT (Actin FS) 31.6 D Sodium 133 L Potassium 4.8 Chloride 98 Carbon Dioxide 30 Anion Gap 5 L BUN 19 H D Creatinine 0.8 D Creat Clearance w eGFR > 60 Random Glucose 244 H D Calcium 8.8 Phosphorus 4.2 Magnesium 1.7 L Total Bilirubin 0.6 AST 132 H D ALT 71 D Alkaline Phosphatase 186 H D Total Protein 8.0 Albumin 1.5 L A/P (?) Inflammatory / Autoimmune process Osteomyelitis ruled out Epidural Abscess vs Mass Altered Mental Status resolved Polyclonal Gammopathy Pulmonary HTN Elevated LFTs Coagulopathy - continue antibiotics per ID - Course of Pulsed Steroids x 3 days - monitor coags - pain control - incentive spirometry - PO as tolerated - outpt PFTs, PSG - mechanical DVT prophylaxis - Neuro unit monitoring Dr Lopez Critical care time spent in reviewing chart, evaluating patient and formulating plan - 36 minutes.
--- NOTE | 2017-07-02 13:45 | PN ---
Progress Note, Physician History of Present Illness: stable - Current Medication List Current Medications: Active Medications Acetaminophen (Tylenol -) 650 mg PO Q6H PRN PRN Reason: FEVER Last Admin: 06/26/17 20:17 Dose: 650 mg Gabapentin (Neurontin -) 100 mg PO TID [facility] Last Admin: 07/02/17 05:57 Dose: 100 mg Ertapenem 1 gm/ Sodium (Chloride) 100 mls @ 100 mls/hr IVPB DAILY [facility] PRN Reason: Protocol Last Admin: 07/02/17 09:36 Dose: 100 mls/hr Vancomycin HCl 1,250 mg/ (Dextrose) 250 mls @ 166.667 mls/hr IVPB BID [facility] Last Admin: 07/02/17 09:37 Dose: 166.667 mls/hr Methylprednisolone Sodium Succinate (Solu-Medrol -) 250 mg IVPB Q6HPO [facility] Stop: 07/04/17 18:00 Last Admin: 07/02/17 12:32 Dose: 250 mg Morphine Sulfate (Morphine Sulfate) 2 mg IVPUSH Q4H PRN PRN Reason: PAIN LEVEL 6-10 Last Admin: 06/29/17 23:09 Dose: 2 mg Ondansetron HCl (Zofran Injection) 4 mg IVPUSH Q6H PRN PRN Reason: NAUSEA AND/OR VOMITING Phytonadione (Aqua Mephyton Injection -) 5 mg SQ ONCE ONE Stop: 07/03/17 10:01 Polyethylene Glycol (Miralax (For Daily Use) -) 17 gm PO BID [facility] Last Admin: 07/02/17 09:38 Dose: 17 gm - Objective Vital Signs: Vital Signs Temperature 98 F 07/02/17 12:00 Pulse Rate 81 07/02/17 12:00 Respiratory Rate 26 H 07/02/17 12:00 Blood Pressure 142/108 07/02/17 12:00 O2 Sat by Pulse Oximetry (%) 96 07/02/17 09:00 Constitutional: Yes: No Distress HENT: Yes: Atraumatic Neck: Yes: Supple Cardiovascular: Yes: Regular Rate and Rhythm Respiratory: Yes: CTA Bilaterally, Rhonchi Gastrointestinal: Yes: Normal Bowel Sounds Extremities: Yes: WNL Edema: Yes Edema: LLE: 4+, RLE: 4+ Peripheral Pulses WNL: Yes Neurological: Yes: Alert, Oriented, Weakness (moving legs not able to lift from bed) ...Motor Strength: LLE, RLE (no change from yesterday) Labs: CBC, BMP 07/02/17 05:11 07/02/17 05:11 INR, PTT INR 1.50 (0.82-1.09) H 07/02/17 05:11 Fibrinogen 637.0 mg/dL (238-498) H 06/26/17 05:30 Problem List - Problems (1) Neuropathy Assessment/Plan: s/p spinal decompression surgery for ct myelogram done pt on iv steroids now Code(s): G62.9 - POLYNEUROPATHY, UNSPECIFIED (2) Elevated creatine kinase Assessment/Plan: rhabdo iv hydration...wnl now Code(s): R74.8 - ABNORMAL LEVELS OF OTHER SERUM ENZYMES (3) Elevated serum creatinine Assessment/Plan: wnl Code(s): R79.89 - OTHER SPECIFIED ABNORMAL FINDINGS OF BLOOD CHEMISTRY (4) Anasarca Assessment/Plan: better Code(s): R60.1 - GENERALIZED EDEMA (5) Anemia Assessment/Plan: h/h stable Code(s): D64.9 - ANEMIA, UNSPECIFIED (6) CKD (chronic kidney disease) Assessment/Plan: renal work up negative cr wnl Code(s): N18.9 - CHRONIC KIDNEY DISEASE, UNSPECIFIED (7) Fever Assessment/Plan: cxs have sent Code(s): R50.9 - FEVER, UNSPECIFIED (8) Diabetes Assessment/Plan: monitor blood sugars poor po intake Code(s): E11.9 - TYPE 2 DIABETES MELLITUS WITHOUT COMPLICATIONS (9) Coagulation defect Assessment/Plan: was given ffp and vit k fu inr Code(s): D68.9 - COAGULATION DEFECT, UNSPECIFIED (10) Morbid obesity Code(s): E66.01 - MORBID (SEVERE) OBESITY DUE TO EXCESS CALORIES (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
[2017-07-02] MEDS ORDERED: PT OWN MED DRAWER 7, Y5N ONE (20:45)
[2017-07-03] MEDS: GABAPENTIN 100 MG CAPSULE (FP) PO SCH ×3 (06:31→21:47)
[2017-07-03] MEDS: methylPREDNISolone NA SUCC 125 MG/2 ML VIAL IVPB SCH ×4 (06:32→23:26)
[2017-07-03 07:08] LABS: BASO % 0.7 % (0-2.0); HEMATOCRIT 27.5 % (35.4-49); HEMOGLOBIN 9.2 GM/dL (11.7-16.9); LYMPH % 4.7 % (8-40); MCH 27.5 pg (25.7-33.7); MCHC 33.6 g/dl (32.0-35.9); MEAN CELL VOLUME 81.9 fl (80-96); MONO % 3.3 % (3.8-10.2); NEUT % 91.3 % (42.8-82.8); PLATELET COUNT 344 K/MM3 (134-434); RBC 3.36 M/mm3 (4.00-5.60); WHITE BLOOD COUNT 12.9 K/mm3 (4.0-10.0)
[2017-07-03 07:14] LABS: ALBUMIN 1.5 g/dl (3.4-5.0); ANION GAP 10 (8-16); BLOOD UREA NITROGEN 34 mg/dL (7-18); CALCIUM 8.6 mg/dL (8.5-10.1); CHLORIDE 97 mmol/L (98-107); CO2 28 mmol/L (21-32); CREATININE 0.9 mg/dL (0.7-1.3); MAGNESIUM 2.1 mg/dL (1.8-2.4); POTASSIUM 4.3 mmol/L (3.5-5.1); SGOT/AST 122 U/L (15-37); SGPT/ALT 82 U/L (12-78); SODIUM 135 mmol/L (136-145)
--- NOTE | 2017-07-03 07:14 | PN ---
Progress Note, Physician History of Present Illness: 61 YOM with sciatica, supermorbid obesity, who presented to ED with 3 wks of fever, body aches, leg weakness with inability to walk (ambulatory at baseline) , shakiness, asterixis, and mild encephalopathy, recently dx with Strep throat at and took one wk of PCN as prescribed, then developed a rash relieved by Benadryl. Subsequently had gone to [facility] with BLE>BUE pain and weakness, RUE mild numbness, pleuritic chest pain. Has elevated CPK, elevated total protein, elevated LFTs. CTL spine CT notable for T8-9 epidural abscess, awaiting bone marrow bx results, possibly to OR today or tomorrow awaiting INR < 1.2. 24 HOUR EVENTS Continues pulse dose steroids (today is day 06/29). Improving neuro exam, particularly strength of extremities. Dr. Gillis requested ESR and CRP sent and these are elevated. Will discuss with Dr. Gillis ordering additional imaging to evaluate for possible thymoma. SUBJECTIVE Patient feels increasingly improved, moving more, gaining strength slowly, no complaints. 24 HOUR INTAKE & OUTPUT Intake: 550cc Output: 2000cc Net: -1450cc BM: Yes LINES/TUBES/DRAINS CHERRY drain placed 06/27/17 Fitzpatrick placed 06/27/17 PIV - Current Medication List Current Medications: Active Medications Acetaminophen (Tylenol -) 650 mg PO Q6H PRN PRN Reason: FEVER Last Admin: 06/26/17 20:17 Dose: 650 mg Gabapentin (Neurontin -) 100 mg PO TID [facility] Last Admin: 07/03/17 06:31 Dose: 100 mg Ertapenem 1 gm/ Sodium (Chloride) 100 mls @ 100 mls/hr IVPB DAILY [facility] PRN Reason: Protocol Last Admin: 07/02/17 09:36 Dose: 100 mls/hr Vancomycin HCl 1,250 mg/ (Dextrose) 250 mls @ 166.667 mls/hr IVPB BID [facility] Last Admin: 07/02/17 21:26 Dose: 166.667 mls/hr Methylprednisolone Sodium Succinate (Solu-Medrol -) 250 mg IVPB Q6HPO [facility] Stop: 07/04/17 18:00 Last Admin: 07/03/17 06:32 Dose: 250 mg Morphine Sulfate (Morphine Sulfate) 2 mg IVPUSH Q4H PRN PRN Reason: PAIN LEVEL 6-10 Last Admin: 06/29/17 23:09 Dose: 2 mg Ondansetron HCl (Zofran Injection) 4 mg IVPUSH Q6H PRN PRN Reason: NAUSEA AND/OR VOMITING Phytonadione (Aqua Mephyton Injection -) 5 mg SQ ONCE ONE Stop: 07/03/17 10:01 Polyethylene Glycol (Miralax (For Daily Use) -) 17 gm PO BID [facility] Last Admin: 07/02/17 21:26 Dose: 17 gm - Objective Vital Signs: Vital Signs Temperature 98.8 F 07/03/17 06:00 Pulse Rate 81 07/03/17 06:00 Respiratory Rate 22 07/03/17 06:00 Blood Pressure 149/83 07/03/17 06:00 O2 Sat by Pulse Oximetry (%) 94 L 07/02/17 21:39 Constitutional: Yes: Well Nourished, No Distress, Calm, Obese, Other (more conversive this morning, appears less tired) Eyes: Yes: WNL, Conjunctiva Clear, EOM Intact HENT: Yes: WNL, Atraumatic, Normocephalic Neck: Yes: WNL, Supple, Trachea Midline Cardiovascular: Yes: WNL, Regular Rate and Rhythm Respiratory: Yes: WNL, Regular, On Nasal O2 Gastrointestinal: Yes: WNL, Normal Bowel Sounds, Soft, Abdomen, Obese Genitourinary: Yes: Fitzpatrick Present Musculoskeletal: Yes: Back Pain Extremities: No: Calf Tenderness, Cold, Cyanosis, Delayed Capillary Refill, Erythema Peripheral Pulses WNL: Yes Peripheral Pulses: Left Doralis Pedis: 2+, Right Dorsalis Pedis: 2+ Integumentary: No: Bruising, Erythema, Jaundice Wound/Incision: Yes: Clean/Dry, Well Approximated Neurological: Yes: Alert, Oriented, Cran Nerves II-XII Intact (grossly), Other ( moving all extremities with greater ease, especially strength in BUE improved, still not able to lift BLE off bed) ...Motor Strength: LUE (5/5), LLE (3/5), RUE (5/5), RLE (3/5) Psychiatric: Yes: WNL, Alert, Oriented Labs: INR, PTT INR 1.50 (0.82-1.09) H 07/02/17 05:11 Fibrinogen 637.0 mg/dL (238-498) H 06/26/17 05:30 Assessment/Plan 62 YOM with h/o recent Strep pharyngitis (rx with penicillin and had a rash after completion of abx) presented to the ED with fever, B/L weakness of his LE admitted in the ICU for sepsis (likely secondary to epidural abscess) and airway protection. S/P OR on 06/27/17 awaiting tissue and fluid sample workup. NEURO #Muscle weakness and neuropathy, slowly improving. Presented with B/L weakness of LE, hasn't walked in almost 2 weeks. Had multiple imaging (CT CTL spine CT, Abd/Pelvis CT), showed e/o 0.9 x0.8 lesion between T8-T9. Febrile but improving. Leukocytosis to 13k's but improving now in 10k's. Blood cultures/ Urine cultures negative. CT guided bone biopsy done on 06/26/17- LACI, AFB, Fungal cx pending. ID concerned for thymoma or other etiology. ESR and CRP elevated 07/02/17. -IV SoluMedrol x3 days (today is day 3) -Unlikely that we will need to try IVIG after 3d course pulsed steroids ( patient is much improved already) -Will need steroid taper after 3 day course - start at 60 mg daily of Prednisone tomorrow -Unlikely will move forward with repeat LP -IV Tylenol 650mg Q6H -Trial Fitzpatrick out today -PT HEME #Elevated INR, improved after multiple units FFP and vitamin K. Pt not on any meds causing rise in INR. -Monitor coags #Polyclonal gammopathy -Heme following #Anemia, persistent. Hgb 8.7 this AM and patient has no symptoms. -Trend H/H -Monitor CHERRY drain output, other sources of bleeding -Patient has T&S in system -Transfuse if necessary ID #Sepsis, improved. Possibly secondary to epidural abscess, possible septic joint or L4 osteomyelitis, r/o tumor. S/P OR on 06/27/17, so far biopsies and cultures negative for infection or malignancy. Now s/p OR on 06/27/17, samples taken are essentially negative. Neurology concerned for less common infection such as West Nile encephalitis. -ID following -Continue ertapenem, vancomycin CV -Echo: normal LV function with mildly dilated LV -IV Lasix 40mg on hold ENDO #Hyperglycemia, new onset. Likely d/t high dose steroids. BG >300 on CMP this morning. Patient does not have prior h/o DM. -SS Insulin AC -BGM FEN Electrolyes: wnl Sodium controlled, diabetic, soft diet PPX DVT: SCD's GI: Not indicated PT: Ordered CODE STATUS Full Code DISPO Appropriate for transfer to .
[2017-07-03 07:17] LABS: ALK PHOS 161 U/L (45-117); BILIRUBIN,TOTAL 0.5 mg/dL (0.2-1.0); TOT PROT 7.9 g/dl (6.4-8.2)
[2017-07-03 07:27] LABS: INR 1.39 (0.82-1.09); PROTHROMBIN TIME (PATIENT) 15.7 SEC (9.98-11.88)
[2017-07-03 07:29] LABS: ACTIVATED PTT 29.6 SECONDS (26.9-34.4)
[2017-07-03 07:33] LABS: GLUCOSE,RANDOM 328 mg/dL (74-106)
--- NOTE | 2017-07-03 09:26 | PN ---
Progress Note, Physician History of Present Illness: feeling better - Current Medication List Current Medications: Active Medications Acetaminophen (Tylenol -) 650 mg PO Q6H PRN PRN Reason: FEVER Last Admin: 06/26/17 20:17 Dose: 650 mg Gabapentin (Neurontin -) 100 mg PO TID [facility] Last Admin: 07/03/17 06:31 Dose: 100 mg Ertapenem 1 gm/ Sodium (Chloride) 100 mls @ 100 mls/hr IVPB DAILY [facility] PRN Reason: Protocol Last Admin: 07/02/17 09:36 Dose: 100 mls/hr Vancomycin HCl 1,250 mg/ (Dextrose) 250 mls @ 166.667 mls/hr IVPB BID [facility] Last Admin: 07/02/17 21:26 Dose: 166.667 mls/hr Methylprednisolone Sodium Succinate (Solu-Medrol -) 250 mg IVPB Q6HPO [facility] Stop: 07/04/17 18:00 Last Admin: 07/03/17 06:32 Dose: 250 mg Morphine Sulfate (Morphine Sulfate) 2 mg IVPUSH Q4H PRN PRN Reason: PAIN LEVEL 6-10 Last Admin: 06/29/17 23:09 Dose: 2 mg Ondansetron HCl (Zofran Injection) 4 mg IVPUSH Q6H PRN PRN Reason: NAUSEA AND/OR VOMITING Phytonadione (Aqua Mephyton Injection -) 5 mg SQ ONCE ONE Stop: 07/03/17 10:01 Polyethylene Glycol (Miralax (For Daily Use) -) 17 gm PO BID [facility] Last Admin: 07/02/17 21:26 Dose: 17 gm - Objective Vital Signs: Vital Signs Temperature 98.8 F 07/03/17 06:00 Pulse Rate 76 07/03/17 08:00 Respiratory Rate 22 07/03/17 08:10 Blood Pressure 160/82 07/03/17 08:00 O2 Sat by Pulse Oximetry (%) 94 L 07/03/17 08:10 Constitutional: Yes: No Distress HENT: Yes: Atraumatic Neck: Yes: Supple Cardiovascular: Yes: Regular Rate and Rhythm Respiratory: Yes: CTA Bilaterally Gastrointestinal: Yes: Normal Bowel Sounds Extremities: Yes: WNL Edema: Yes Edema: LLE: 4+, RLE: 4+ Peripheral Pulses WNL: Yes Neurological: Yes: Alert, Oriented, Other (moving legs not able lift them much) Labs: CBC, BMP 07/03/17 06:30 07/03/17 06:30 INR, PTT INR 1.39 (0.82-1.09) H 07/03/17 06:30 Fibrinogen 637.0 mg/dL (238-498) H 06/26/17 05:30 Problem List - Problems (1) Neuropathy Assessment/Plan: s/p spinal decompression surgery for ct myelogram done pt on iv steroids now...improving Code(s): G62.9 - POLYNEUROPATHY, UNSPECIFIED (2) Elevated creatine kinase Assessment/Plan: rhabdo iv hydration...wnl now Code(s): R74.8 - ABNORMAL LEVELS OF OTHER SERUM ENZYMES (3) Elevated serum creatinine Assessment/Plan: wnl Code(s): R79.89 - OTHER SPECIFIED ABNORMAL FINDINGS OF BLOOD CHEMISTRY (4) Anasarca Assessment/Plan: better Code(s): R60.1 - GENERALIZED EDEMA (5) Anemia Assessment/Plan: h/h stable Code(s): D64.9 - ANEMIA, UNSPECIFIED (6) CKD (chronic kidney disease) Code(s): N18.9 - CHRONIC KIDNEY DISEASE, UNSPECIFIED (7) Fever Assessment/Plan: cxs have sent ...negative afebrile Code(s): R50.9 - FEVER, UNSPECIFIED (8) Diabetes Assessment/Plan: monitor blood sugars poor po intake Code(s): E11.9 - TYPE 2 DIABETES MELLITUS WITHOUT COMPLICATIONS (9) Coagulation defect Assessment/Plan: was given ffp and vit k fu inr Code(s): D68.9 - COAGULATION DEFECT, UNSPECIFIED (10) Morbid obesity Code(s): E66.01 - MORBID (SEVERE) OBESITY DUE TO EXCESS CALORIES (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 Assessment/Plan ALL NOTES REVIEWED CC TIME 35 MIN
[2017-07-03] MEDS ORDERED: PHYTONADIONE 10 MG/1 ML AMP SQ ONE (10:00)
[2017-07-03] MEDS: VANCOMYCIN 1,250 MG in DEXTROSE 5%-WATER - 250 ML IVPB SCH (10:43)
[2017-07-03] MEDS: ERTAPENEM SODIUM 1 GM in SODIUM CHLORIDE 100 ML IVPB SCH (10:43)
[2017-07-03] MEDS: POLYETHYLENE GLYCOL 3350 119 GM BTL PO SCH ×3 (10:44→21:49)
--- NOTE | 2017-07-03 11:31 | PN ---
Teaching Attending Note Name of Resident: Katarina Serrano ATTENDING PHYSICIAN STATEMENT I saw and evaluated the patient. I reviewed the resident's note and discussed the case with the resident. I agree with the resident's findings and plan as documented. SUBJECTIVE: Patient seen and examined in the ICU. Subjective continued improvement in his motor strength/function. No fevers or chills. Denies CP or SOB. Intake & Output 06/30/17 07/01/17 07/02/17 07/03/17 23:59 23:59 23:59 23:59 Intake Total 1970 2510 550 440 Output Total 1540 2310 2000 500 Balance 430 200 -1450 -60 Weight 291 lb 11.2 oz 333 lb 11.2 oz Last Vital Signs Temp Pulse Resp BP Pulse Ox 97.6 F 85 29 H 146/77 94 L 07/03/17 10:00 07/03/17 10:00 07/03/17 10:00 07/03/17 10:00 07/03/17 08:10 Active Medications Acetaminophen (Tylenol -) 650 mg PO Q6H PRN PRN Reason: FEVER Last Admin: 06/26/17 20:17 Dose: 650 mg Gabapentin (Neurontin -) 100 mg PO TID [facility] Last Admin: 07/03/17 06:31 Dose: 100 mg Ertapenem 1 gm/ Sodium (Chloride) 100 mls @ 100 mls/hr IVPB DAILY [facility] PRN Reason: Protocol Last Admin: 07/03/17 10:43 Dose: 100 mls/hr Vancomycin HCl 1,250 mg/ (Dextrose) 250 mls @ 166.667 mls/hr IVPB BID [facility] Last Admin: 07/03/17 10:43 Dose: 166.667 mls/hr Methylprednisolone Sodium Succinate (Solu-Medrol -) 250 mg IVPB Q6HPO [facility] Stop: 07/04/17 18:00 Last Admin: 07/03/17 06:32 Dose: 250 mg Morphine Sulfate (Morphine Sulfate) 2 mg IVPUSH Q4H PRN PRN Reason: PAIN LEVEL 6-10 Last Admin: 06/29/17 23:09 Dose: 2 mg Ondansetron HCl (Zofran Injection) 4 mg IVPUSH Q6H PRN PRN Reason: NAUSEA AND/OR VOMITING Polyethylene Glycol (Miralax (For Daily Use) -) 17 gm PO BID [facility] Last Admin: 07/03/17 10:51 Dose: Not Given Gen: NAD at rest Heart: S1S2, regular Lung: decreased breath sounds at the bases Abd: soft, nontender Ext: + edema Laboratory Results - last 24 hr 07/02/17 07/02/17 07/03/17 14:45 14:45 06:30 WBC 12.9 H D RBC 3.36 L Hgb 9.2 L Hct 27.5 L MCV 81.9 MCH 27.5 MCHC 33.6 RDW 15.0 Plt Count 344 MPV 9.0 Neutrophils % 91.3 H Lymphocytes % 4.7 L D Monocytes % 3.3 L Eosinophils % 0.0 D Basophils % 0.7 ESR 110 H PT with INR INR PTT (Actin FS) Sodium Potassium Chloride Carbon Dioxide Anion Gap BUN Creatinine Creat Clearance w eGFR Random Glucose Calcium Phosphorus Magnesium Total Bilirubin AST ALT Alkaline Phosphatase C-Reactive Protein 12.4 H Total Protein Albumin 07/03/17 07/03/17 06:30 06:30 WBC RBC Hgb Hct MCV MCH MCHC RDW Plt Count MPV Neutrophils % Lymphocytes % Monocytes % Eosinophils % Basophils % ESR PT with INR 15.70 H INR 1.39 H PTT (Actin FS) 29.6 Sodium 135 L Potassium 4.3 Chloride 97 L Carbon Dioxide 28 Anion Gap 10 BUN 34 H D Creatinine 0.9 Creat Clearance w eGFR > 60 Random Glucose 328 H* D Calcium 8.6 Phosphorus 3.0 D Magnesium 2.1 D Total Bilirubin 0.5 AST 122 H ALT 82 H Alkaline Phosphatase 161 H C-Reactive Protein Total Protein 7.9 Albumin 1.5 L A/P (?) Inflammatory / Autoimmune process Osteomyelitis ruled out Epidural Abscess vs Mass Altered Mental Status resolved Polyclonal Gammopathy Pulmonary HTN Elevated LFTs Coagulopathy Likely OSAS - continue antibiotics per ID - Course of Pulsed Steroids x 3 days: Will need to discuss with medical team subsequent steroid regimen - pain control - incentive spirometry - PO as tolerated - outpatient PFTs, PSG - mechanical DVT prophylaxis - Neuro unit monitoring Dr Lopez Critical care time spent in reviewing chart, evaluating patient and formulating plan - 36 minutes.
[2017-07-03] MEDS ORDERED: INSULIN SLIDING SCALE (NOVOLOG) 1 VIAL SQ SCH ×2 (16:30→18:07)
--- NOTE | 2017-07-03 18:23 | PN ---
Progress Note, Physician Chief Complaint: Pt A&Ox3; no chest pain or dyspnea. History of Present Illness: Patient is a 61 year old male with a significant past medical history of sciatica who presents to the ED with complaints of fever that began 3 weeks ago. As per patient's daughter, patient was taken to urgent care 3 weeks ago for increased fever and body aches and was diagnosed with strep and given penicillin prescription. She reports after finishing prescription over 1 week, patient began to develop rash from the penicillin and began to take benadryl, relieving the rash in 2 days. Patient's daughter reports, patient was then taken to [facility] on June 08 for similar symptoms of increased fever and associated bilateral leg pain and weakness. She reports patient was given X Ray, CT abdomen, flu culture and labs, before being diagnosed with pleuritic chest pain. Patient's daughter reports bringing patient into the ED for further evaluation tonight after patient's bilateral leg pain and weakness did not subside causing her to worry. She reports patient has been experiencing decreased appetite for the last few days. - Current Medication List Current Medications: Active Medications Acetaminophen (Tylenol -) 650 mg PO Q6H PRN PRN Reason: FEVER Last Admin: 06/26/17 20:17 Dose: 650 mg Gabapentin (Neurontin -) 100 mg PO TID [facility] BEDS AT [facility] Last Admin: 07/03/17 18:05 Dose: 100 mg Ertapenem 1 gm/ Sodium (Chloride) 100 mls @ 100 mls/hr IVPB DAILY [facility] 234 BEDS AT THE [facility] PRN Reason: Protocol Last Admin: 07/03/17 10:43 Dose: 100 mls/hr Insulin Aspart (Novolog Vial Sliding Scale -) 1 vial SQ TIDAC [facility]S INCLUDE 234 BEDS AT THE [facility] PRN Reason: Protocol Methylprednisolone Sodium Succinate (Solu-Medrol -) 250 mg IVPB Q6HPO [facility]S [facility]CLUDE 234 BEDS AT THE [facility] Stop: 07/04/17 18:00 Last Admin: 07/03/17 18:07 Dose: 250 mg Morphine Sulfate (Morphine Sulfate) 2 mg IVPUSH Q4H PRN PRN Reason: PAIN LEVEL 6-10 Last Admin: 06/29/17 23:09 Dose: 2 mg Ondansetron HCl (Zofran Injection) 4 mg IVPUSH Q6H PRN PRN Reason: NAUSEA AND/OR VOMITING Polyethylene Glycol (Miralax (For Daily Use) -) 17 gm PO BID [facility] 234 BEDS AT [facility] Last Admin: 07/03/17 10:51 Dose: Not Given - Objective Vital Signs: Vital Signs Temperature 98.0 F 07/03/17 14:00 Pulse Rate 79 07/03/17 16:00 Respiratory Rate 24 07/03/17 16:00 Blood Pressure 160/80 07/03/17 16:00 O2 Sat by Pulse Oximetry (%) 94 L 07/03/17 08:10 Constitutional: Yes: Calm, Obese Eyes: Yes: WNL HENT: Yes: WNL Neck: Yes: WNL Cardiovascular: Yes: S1, S2, S4 Respiratory: Yes: Diminished Gastrointestinal: Yes: Soft, Abdomen, Obese ...Rectal Exam: Yes: Deferred Genitourinary: No: Anuria Musculoskeletal: Yes: Joint Stiffness, Muscle Weakness Extremities: Yes: Cool Edema: Yes Edema: LLE: 1+, RLE: 1+ Peripheral Pulses WNL: Yes Integumentary: Yes: Venous Stasis Changes Neurological: Yes: Alert, Oriented, Weakness Psychiatric: Yes: Other Labs: CBC, BMP 07/03/17 06:30 07/03/17 06:30 INR, PTT INR 1.39 (0.82-1.09) H 07/03/17 06:30 Fibrinogen 637.0 mg/dL (238-498) H 06/26/17 05:30 - ....Imaging Chest X-ray: Image Reviewed (no acute infiltrates) EKG: Image Reviewed (sinus tachycardia; LAD; LVH) Problem List - Problems (1) Diabetes Assessment/Plan: elevated glucose and HGBA1c. Strong family hx of diabetes. Morbid obesity; sedentary. Suggest further workup, and dietary consult. (Pt's insight into the relation of obesity with diabetes and other infirmities seems poor). Pt's (speaking to ) says the family has been trying to get him to change habits (diet, alcohol, lack of exercise) for years, but "he has to make up his mind". Code(s): E11.9 - TYPE 2 DIABETES MELLITUS WITHOUT COMPLICATIONS (2) Hyperlipidemia Code(s): E78.5 - HYPERLIPIDEMIA, UNSPECIFIED (3) Morbid obesity Code(s): E66.01 - MORBID (SEVERE) OBESITY DUE TO EXCESS CALORIES (4) Anasarca Code(s): R60.1 - GENERALIZED EDEMA (5) Anemia Code(s): D64.9 - ANEMIA, UNSPECIFIED (6) Fever Assessment/Plan: leukodytosis. On ertapenem. Afebrile presently. R/o osteomyelitis. Biopsy results pending. F/u with ID. Code(s): R50.9 - FEVER, UNSPECIFIED (7) Sepsis Code(s): A41.9 - SEPSIS, UNSPECIFIED ORGANISM (8) Elevated LFTs Assessment/Plan: f/u GI workup; r/o hepatitis, acute rise from sepsis, cardiac congestion, autoimmune process, medications. Code(s): R79.89 - OTHER SPECIFIED ABNORMAL FINDINGS OF BLOOD CHEMISTRY (9) Osteomyelitis Code(s): M86.9 - OSTEOMYELITIS, UNSPECIFIED (10) Lower extremity weakness Assessment/Plan: ongoing neuro workup. Code(s): R29.898 - OT SYMPTOMS AND SIGNS INVOLVING THE MUSCULOSKELETAL SYSTEM (11) Hypoalbuminemia Code(s): E88.09 - OTH DISORDERS OF PLASMA-PROTEIN METABOLISM, NEC
--- NOTE | 2017-07-03 21:14 | PN ---
Progress Note, Physician History of Present Illness: patient stable doing better has been started on steroids strength of the legs and hands better david drainage removed - Current Medication List Current Medications: Active Medications Acetaminophen (Tylenol -) 650 mg PO Q6H PRN PRN Reason: FEVER Last Admin: 06/26/17 20:17 Dose: 650 mg Gabapentin (Neurontin -) 100 mg PO TID [facility] Last Admin: 07/03/17 18:05 Dose: 100 mg Ertapenem 1 gm/ Sodium (Chloride) 100 mls @ 100 mls/hr IVPB DAILY [facility] PRN Reason: Protocol Last Admin: 07/03/17 10:43 Dose: 100 mls/hr Insulin Aspart (Novolog Vial Sliding Scale -) 1 vial SQ TIDAC [facility] PRN Reason: Protocol Methylprednisolone Sodium Succinate (Solu-Medrol -) 250 mg IVPB Q6HPO [facility] Stop: 07/04/17 18:00 Last Admin: 07/03/17 18:07 Dose: 250 mg Morphine Sulfate (Morphine Sulfate) 2 mg IVPUSH Q4H PRN PRN Reason: PAIN LEVEL 6-10 Last Admin: 06/29/17 23:09 Dose: 2 mg Ondansetron HCl (Zofran Injection) 4 mg IVPUSH Q6H PRN PRN Reason: NAUSEA AND/OR VOMITING Polyethylene Glycol (Miralax (For Daily Use) -) 17 gm PO BID [facility] Last Admin: 07/03/17 10:51 Dose: Not Given - Objective Vital Signs: Vital Signs Temperature 98.0 F 07/03/17 14:00 Pulse Rate 89 07/03/17 18:00 Respiratory Rate 24 07/03/17 18:00 Blood Pressure 160/88 07/03/17 18:00 O2 Sat by Pulse Oximetry (%) 94 L 07/03/17 08:10 Constitutional: Yes: No Distress, Calm, Obese Cardiovascular: Yes: Regular Rate and Rhythm Respiratory: Yes: Regular, CTA Bilaterally Gastrointestinal: Yes: Normal Bowel Sounds, Soft Musculoskeletal: Yes: WNL Extremities: Yes: WNL Integumentary: Yes: Other Wound/Incision: Yes: Dressing Dry and Intact Neurological: Yes: Alert, Oriented Psychiatric: Yes: Alert, Oriented Labs: CBC, BMP 07/03/17 06:30 07/03/17 06:30 INR, PTT INR 1.39 (0.82-1.09) H 07/03/17 06:30 Fibrinogen 637.0 mg/dL (238-498) H 06/26/17 05:30 Assessment/Plan r/o infective process ct disorder cardiac process sepsis autoimmune process r/o osteo abn lft leukocytosis Problem List - Problems (1) Neuropathy Code(s): G62.9 - POLYNEUROPATHY, UNSPECIFIED (2) Elevated creatine kinase Code(s): R74.8 - ABNORMAL LEVELS OF OTHER SERUM ENZYMES (3) Elevated serum creatinine Code(s): R79.89 - OTHER SPECIFIED ABNORMAL FINDINGS OF BLOOD CHEMISTRY (4) Anasarca Code(s): R60.1 - GENERALIZED EDEMA (5) Anemia Code(s): D64.9 - ANEMIA, UNSPECIFIED (6) CKD (chronic kidney disease) Code(s): N18.9 - CHRONIC KIDNEY DISEASE, UNSPECIFIED (7) Fever Code(s): R50.9 - FEVER, UNSPECIFIED (8) Diabetes Code(s): E11.9 - TYPE 2 DIABETES MELLITUS WITHOUT COMPLICATIONS (9) Coagulation defect Code(s): D68.9 - COAGULATION DEFECT, UNSPECIFIED will await for biopsy results continue current mgmt plan continue abx close watch on the patient await for all cx reports patient improving will start deescalting abx repeat crp rest as per icu/neurosurgery cc time 40 min
--- NOTE | 2017-07-03 21:18 | PN ---
Progress Note, Physician History of Present Illness: continues to improve all the reports awaited most of the re[ports negative so far myelogram seen and report noted patient on steroids - Current Medication List Current Medications: Active Medications Acetaminophen (Tylenol -) 650 mg PO Q6H PRN PRN Reason: FEVER Last Admin: 06/26/17 20:17 Dose: 650 mg Gabapentin (Neurontin -) 100 mg PO TID [facility] Last Admin: 07/03/17 18:05 Dose: 100 mg Ertapenem 1 gm/ Sodium (Chloride) 100 mls @ 100 mls/hr IVPB DAILY [facility] PRN Reason: Protocol Last Admin: 07/03/17 10:43 Dose: 100 mls/hr Insulin Aspart (Novolog Vial Sliding Scale -) 1 vial SQ TIDAC [facility] PRN Reason: Protocol Methylprednisolone Sodium Succinate (Solu-Medrol -) 250 mg IVPB Q6HPO [facility] Stop: 07/04/17 18:00 Last Admin: 07/03/17 18:07 Dose: 250 mg Morphine Sulfate (Morphine Sulfate) 2 mg IVPUSH Q4H PRN PRN Reason: PAIN LEVEL 6-10 Last Admin: 06/29/17 23:09 Dose: 2 mg Ondansetron HCl (Zofran Injection) 4 mg IVPUSH Q6H PRN PRN Reason: NAUSEA AND/OR VOMITING Polyethylene Glycol (Miralax (For Daily Use) -) 17 gm PO BID [facility] Last Admin: 07/03/17 10:51 Dose: Not Given - Objective Vital Signs: Vital Signs Temperature 98.0 F 07/03/17 14:00 Pulse Rate 89 07/03/17 18:00 Respiratory Rate 24 07/03/17 18:00 Blood Pressure 160/88 07/03/17 18:00 O2 Sat by Pulse Oximetry (%) 94 L 07/03/17 08:10 Constitutional: Yes: No Distress, Calm, Obese Neck: Yes: Supple, Trachea Midline Cardiovascular: Yes: Regular Rate and Rhythm Respiratory: Yes: Regular, CTA Bilaterally, On Nasal O2, Poor Air Entry (bases) Gastrointestinal: Yes: Normal Bowel Sounds, Soft Musculoskeletal: Yes: WNL Extremities: Yes: WNL Wound/Incision: Yes: Clean/Dry Neurological: Yes: Alert, Oriented Psychiatric: Yes: Alert, Oriented Labs: CBC, BMP 07/03/17 06:30 07/03/17 06:30 INR, PTT INR 1.39 (0.82-1.09) H 07/03/17 06:30 Fibrinogen 637.0 mg/dL (238-498) H 06/26/17 05:30 - ....Imaging Cat Scan: Report Reviewed, Image Reviewed Other: Report Reviewed, Image Reviewed (myelogram) Assessment/Plan r/o infective process ct disorder cardiac process sepsis autoimmune process r/o osteo abn lft leukocytosis Problem List - Problems (1) Neuropathy Code(s): G62.9 - POLYNEUROPATHY, UNSPECIFIED (2) Elevated creatine kinase Code(s): R74.8 - ABNORMAL LEVELS OF OTHER SERUM ENZYMES (3) Elevated serum creatinine Code(s): R79.89 - OTHER SPECIFIED ABNORMAL FINDINGS OF BLOOD CHEMISTRY (4) Anasarca Code(s): R60.1 - GENERALIZED EDEMA (5) Anemia Code(s): D64.9 - ANEMIA, UNSPECIFIED (6) CKD (chronic kidney disease) Code(s): N18.9 - CHRONIC KIDNEY DISEASE, UNSPECIFIED (7) Fever Code(s): R50.9 - FEVER, UNSPECIFIED (8) Diabetes Code(s): E11.9 - TYPE 2 DIABETES MELLITUS WITHOUT COMPLICATIONS (9) Coagulation defect Code(s): D68.9 - COAGULATION DEFECT, UNSPECIFIED will await for biopsy results continue current mgmt plan will stop vanco close watch on the patient improving crp trending down all imaging studies looked at continue as per neurology cc time 40 min
[2017-07-03] MEDS: INSULIN SLIDING SCALE (NOVOLOG) 1 VIAL SQ SCH (22:00)
[2017-07-03] MEDS ORDERED: INSULIN (NOVOLOG) ASPART 100 UNITS/ML 10ML VIAL SQ ONE (23:30)
[2017-07-04 06:32] LABS: HEMATOCRIT 28.8 % (35.4-49); HEMOGLOBIN 9.6 GM/dL (11.7-16.9); LYMPH % 4.9 % (8-40); MCH 27.4 pg (25.7-33.7); MCHC 33.4 g/dl (32.0-35.9); MEAN CELL VOLUME 82.2 fl (80-96); MONO % 3.5 % (3.8-10.2); NEUT % 91.6 % (42.8-82.8); PLATELET COUNT 366 K/MM3 (134-434); RDW 15.5 % (11.9-15.9); WHITE BLOOD COUNT 12.8 K/mm3 (4.0-10.0)
[2017-07-04 06:39] LABS: INR 1.37 (0.82-1.09); PROTHROMBIN TIME (PATIENT) 15.5 SEC (9.98-11.88)
[2017-07-04] MEDS: methylPREDNISolone NA SUCC 125 MG/2 ML VIAL IVPB SCH ×4 (06:46→20:45)
[2017-07-04] MEDS: GABAPENTIN 100 MG CAPSULE (FP) PO SCH ×3 (06:46→21:40)
[2017-07-04] MEDS: INSULIN SLIDING SCALE (NOVOLOG) 1 VIAL SQ SCH ×4 (06:47→21:41)
[2017-07-04 06:54] LABS: ALBUMIN 1.6 g/dl (3.4-5.0); CHLORIDE 99 mmol/L (98-107); POTASSIUM 4.2 mmol/L (3.5-5.1); SODIUM 137 mmol/L (136-145)
[2017-07-04 06:59] LABS: ALK PHOS 158 U/L (45-117); ANION GAP 11 (8-16); BILIRUBIN,TOTAL 0.4 mg/dL (0.2-1.0); BLOOD UREA NITROGEN 39 mg/dL (7-18); CALCIUM 8.8 mg/dL (8.5-10.1); CO2 27 mmol/L (21-32); CREATININE 0.8 mg/dL (0.7-1.3); GLUCOSE,RANDOM 247 mg/dL (74-106); MAGNESIUM 2.4 mg/dL (1.8-2.4); PHOSPHOROUS 2.8 mg/dL (2.5-4.9); SGOT/AST 90 U/L (15-37); SGPT/ALT 88 U/L (12-78); TOT PROT 7.8 g/dl (6.4-8.2)
--- NOTE | 2017-07-04 08:39 | PN ---
Progress Note, Physician History of Present Illness: 61 YOM with sciatica, supermorbid obesity, who presented to ED with 3 wks of fever, body aches, leg weakness with inability to walk (ambulatory at baseline) , shakiness, asterixis, and mild encephalopathy, recently dx with Strep throat at and took one wk of PCN as prescribed, then developed a rash relieved by Benadryl. Subsequently had gone to [facility] with BLE>BUE pain and weakness, RUE mild numbness, pleuritic chest pain. Has elevated CPK, elevated total protein, elevated LFTs. CTL spine CT notable for T8-9 epidural abscess, awaiting bone marrow bx results, possibly to OR today or tomorrow awaiting INR < 1.2. 24 HOUR EVENTS Done with pulse dose steroids today at 18:00. Patient wanted to keep Espinal in d/ t his diarrhea yesterday. No significant events. SUBJECTIVE Continues gaining strength slowly, no complaints. 24 HOUR INTAKE & OUTPUT Intake: 840cc Output: 1600cc Net: -860cc BM: Yes LINES/TUBES/DRAINS CHERRY drain placed 06/27/17 Espinal placed 06/27/17 PIV - Current Medication List Current Medications: Active Medications Acetaminophen (Tylenol -) 650 mg PO Q6H PRN PRN Reason: FEVER Last Admin: 06/26/17 20:17 Dose: 650 mg Gabapentin (Neurontin -) 100 mg PO TID [facility] Last Admin: 07/04/17 06:46 Dose: 100 mg Ertapenem 1 gm/ Sodium (Chloride) 100 mls @ 100 mls/hr IVPB DAILY [facility] PRN Reason: Protocol Last Admin: 07/03/17 10:43 Dose: 100 mls/hr Insulin Aspart (Novolog Vial Sliding Scale -) 1 vial SQ ACHS [facility] PRN Reason: Protocol Last Admin: 07/04/17 06:47 Dose: 6 units Methylprednisolone Sodium Succinate (Solu-Medrol -) 250 mg IVPB Q6HPO [facility] Stop: 07/04/17 18:00 Last Admin: 07/04/17 06:46 Dose: 250 mg Morphine Sulfate (Morphine Sulfate) 2 mg IVPUSH Q4H PRN PRN Reason: PAIN LEVEL 6-10 Last Admin: 06/29/17 23:09 Dose: 2 mg Ondansetron HCl (Zofran Injection) 4 mg IVPUSH Q6H PRN PRN Reason: NAUSEA AND/OR VOMITING Polyethylene Glycol (Miralax (For Daily Use) -) 17 gm PO BID [facility] Last Admin: 07/03/17 21:49 Dose: Not Given - Objective Vital Signs: Vital Signs Temperature 98.4 F 07/04/17 06:00 Pulse Rate 75 07/04/17 06:00 Respiratory Rate 22 07/04/17 06:00 Blood Pressure 161/78 07/04/17 06:00 O2 Sat by Pulse Oximetry (%) 94 L 07/04/17 06:00 Constitutional: Yes: Well Nourished, No Distress, Calm, Obese, Other (more alert and conversive than yesterday, feeding self breakfast with slight tremor/ weakness but otherwise good fine motor function, answering questions appropriately, spontaneously moving all extremities) Eyes: Yes: WNL, Conjunctiva Clear, EOM Intact, PERRL HENT: Yes: WNL, Atraumatic, Normocephalic. No: Drooling Neck: Yes: WNL, Supple, Trachea Midline Cardiovascular: Yes: Regular Rate and Rhythm Respiratory: Yes: Regular, CTA Bilaterally, On Nasal O2 Gastrointestinal: Yes: Normal Bowel Sounds, Soft, Abdomen, Obese. No: Tenderness Genitourinary: Yes: Other (espinal has been removed, patient states recently, and has not urinated yet but not much time has passed and he has no abdominal pain or urgency). No: Espinal Present Peripheral Pulses: Left Doralis Pedis: 2+, Right Dorsalis Pedis: 2+ Integumentary: Yes: WNL, Other (dry skin). No: Erythema, Jaundice, Rash Neurological: Yes: Alert, Oriented, Cran Nerves II-XII Intact, Tremors (slight BUE), Weakness (BLE but slowly improving, able to adduct and abduct, internally and externally rotate, but not lifting lower legs off bed). No: Asterixis, Confusion, Dysarthria, Facial Droop, Lethargy Psychiatric: Yes: WNL, Alert, Oriented Labs: CBC, BMP 07/04/17 05:37 07/04/17 05:37 INR, PTT INR 1.37 (0.82-1.09) H 07/04/17 05:37 Fibrinogen 637.0 mg/dL (238-498) H 06/26/17 05:30 Assessment/Plan 62 YOM with h/o recent Strep pharyngitis (rx with penicillin and had a rash after completion of abx) presented to the ED with fever, B/L weakness of his LE admitted in the ICU for sepsis (likely secondary to epidural abscess) and airway protection. S/P OR on 06/27/17 awaiting tissue and fluid sample workup. NEURO #Muscle weakness and neuropathy, slowly improving. Presented with B/L weakness of LE, hasn't walked in almost 2 weeks. Had multiple imaging (CT CTL spine CT, Abd/Pelvis CT), showed e/o 0.9 x0.8 lesion between T8-T9. Febrile but improving. Leukocytosis to 13k's but improving now in 10k's. Blood cultures/ Urine cultures negative. CT guided bone biopsy done on 06/26/17- LACI, AFB, Fungal cx pending. ID concerned for thymoma or other etiology. ESR and CRP elevated 07/02/17. Spoke with Dr. Conteh 07/04/17 who recommended 60 mg prednisone daily starting tomorrow, and he will come to re-assess the patient before making further recommendations. -IV SoluMedrol pulse dose steroid course ends today at 6pm -Will need steroid taper starting at the prednisone 60 mg -Likely will start prednisone at 60 mg tomorrow -Unlikely that we will need to try IVIG after 3d course pulsed steroids ( patient is much improved already) -Unlikely will move forward with repeat LP -IV Tylenol 650mg Q6H -PT HEME #Elevated INR, improved after multiple units FFP and vitamin K. Pt not on any meds causing rise in INR. -Monitor coags #Polyclonal gammopathy -Heme following #Anemia, improved. Patient's Hgb in the 12k's for the past two days. -Trend H/H -Monitor CHERRY drain output, other sources of bleeding -Patient has T&S in system -Transfuse if necessary ID #Sepsis, improved. Possibly secondary to epidural abscess, possible septic joint or L4 osteomyelitis, r/o tumor. S/P OR on 06/27/17, so far biopsies and cultures negative for infection or malignancy. Now s/p OR on 06/27/17, samples taken are essentially negative. Neurology concerned for less common infection such as West Nile encephalitis. -ID following -Continue ertapenem, vancomycin CV -Echo: normal LV function with mildly dilated LV -IV Lasix 40mg on hold ENDO #Hyperglycemia, new onset. Likely d/t high dose steroids. BG >300 on CMP this morning. Patient does not have prior h/o DM. -SS Insulin AC -BGM FEN Electrolyes: wnl Sodium controlled, soft diet PPX DVT: SCD's GI: Not indicated PT: Ordered CODE STATUS Full Code DISPO Appropriate for transfer to , order placed 07/03/17.
[2017-07-04] MEDS ORDERED: PT OWN MED DRAWER 7, Y5N ONE (09:03)
[2017-07-04] MEDS: POLYETHYLENE GLYCOL 3350 119 GM BTL PO SCH ×2 (09:20→21:40)
[2017-07-04] MEDS: ERTAPENEM SODIUM 1 GM in SODIUM CHLORIDE 100 ML IVPB SCH (09:57)
--- NOTE | 2017-07-04 11:09 | PN ---
Progress Note, Physician History of Present Illness: seen and examined today in nad. feeling better. - Current Medication List Current Medications: Active Medications Acetaminophen (Tylenol -) 650 mg PO Q6H PRN PRN Reason: FEVER Last Admin: 06/26/17 20:17 Dose: 650 mg Gabapentin (Neurontin -) 100 mg PO TID [facility] Last Admin: 07/04/17 06:46 Dose: 100 mg Ertapenem 1 gm/ Sodium (Chloride) 100 mls @ 100 mls/hr IVPB DAILY [facility] PRN Reason: Protocol Last Admin: 07/04/17 09:57 Dose: 100 mls/hr Insulin Aspart (Novolog Vial Sliding Scale -) 1 vial SQ ACHS [facility] PRN Reason: Protocol Last Admin: 07/04/17 06:47 Dose: 6 units Methylprednisolone Sodium Succinate (Solu-Medrol -) 250 mg IVPB Q6HPO [facility] Stop: 07/04/17 18:00 Last Admin: 07/04/17 06:46 Dose: 250 mg Morphine Sulfate (Morphine Sulfate) 2 mg IVPUSH Q4H PRN PRN Reason: PAIN LEVEL 6-10 Last Admin: 06/29/17 23:09 Dose: 2 mg Ondansetron HCl (Zofran Injection) 4 mg IVPUSH Q6H PRN PRN Reason: NAUSEA AND/OR VOMITING Polyethylene Glycol (Miralax (For Daily Use) -) 17 gm PO BID [facility] Last Admin: 07/04/17 09:20 Dose: Not Given Prednisone (Deltasone -) 60 mg PO DAILY [facility] - Objective Vital Signs: Vital Signs Temperature 98.5 F 07/04/17 10:00 Pulse Rate 78 07/04/17 10:00 Respiratory Rate 33 H 07/04/17 10:00 Blood Pressure 164/90 07/04/17 10:00 O2 Sat by Pulse Oximetry (%) 94 L 07/04/17 09:00 Constitutional: Yes: No Distress, Calm Eyes: Yes: Conjunctiva Clear, EOM Intact, PERRL HENT: Yes: Atraumatic, Normocephalic Neck: Yes: Supple, Trachea Midline Cardiovascular: Yes: Regular Rate and Rhythm, S1, S2. No: Bradycardia, Tachycardia, Pulse Irregular, Bruit, JVD, Gallop, Murmur, Rub, S3, S4, Varicosities Respiratory: Yes: Regular, Diminished. No: Rales, Rhonchi, Wheezes Gastrointestinal: Yes: Normal Bowel Sounds, Soft. 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 Edema- -component of third spacing due to hypoalbuminemia with intravascular depletion -BUN/creat normalized but BUN trending back up -Echo showed normal LV function w/ mildly dilated LV 2. Fever: -concern for L4 osteo, s/p open bx/stabilization awaiting full results -cultures no growth so far -infectious disease is following 3. Muscle weaknes/rash -f/up bx results -ID/Rheum/Heme/Neuro following -f/u myelogram 4. Mild sinus tach, tachypnea: -Likely due to deconditioned status, infection, anemia. 5. Respiratory failure: -stable currently
--- NOTE | 2017-07-04 12:24 | PN ---
Teaching Attending Note Name of Resident: Katarina Serrano ATTENDING PHYSICIAN STATEMENT I saw and evaluated the patient. I reviewed the resident's note and discussed the case with the resident. I agree with the resident's findings and plan as documented. SUBJECTIVE: Patient seen and examined in the ICU. Subjective continued improvement in his motor strength/function. Was able to feed himself today. No fevers or chills. Denies CP or SOB. Intake & Output 07/01/17 07/02/17 07/03/17 07/04/17 23:59 23:59 23:59 23:59 Intake Total 2510 550 840 440 Output Total 2310 2000 1500 1300 Balance 200 -1450 -660 -860 Weight 291 lb 11.2 oz 333 lb 11.2 oz 304 lb 9.6 oz Last Vital Signs Temp Pulse Resp BP Pulse Ox 98.5 F 78 33 H 164/90 94 L 07/04/17 10:00 07/04/17 10:00 07/04/17 10:00 07/04/17 10:00 07/04/17 09:00 Active Medications Acetaminophen (Tylenol -) 650 mg PO Q6H PRN PRN Reason: FEVER Last Admin: 06/26/17 20:17 Dose: 650 mg Gabapentin (Neurontin -) 100 mg PO TID [facility] Last Admin: 07/04/17 06:46 Dose: 100 mg Ertapenem 1 gm/ Sodium (Chloride) 100 mls @ 100 mls/hr IVPB DAILY [facility] PRN Reason: Protocol Last Admin: 07/04/17 09:57 Dose: 100 mls/hr Insulin Aspart (Novolog Vial Sliding Scale -) 1 vial SQ ACHS [facility] PRN Reason: Protocol Last Admin: 07/04/17 06:47 Dose: 6 units Methylprednisolone Sodium Succinate (Solu-Medrol -) 250 mg IVPB Q6HPO [facility] Stop: 07/04/17 18:00 Last Admin: 07/04/17 06:46 Dose: 250 mg Morphine Sulfate (Morphine Sulfate) 2 mg IVPUSH Q4H PRN PRN Reason: PAIN LEVEL 6-10 Last Admin: 06/29/17 23:09 Dose: 2 mg Ondansetron HCl (Zofran Injection) 4 mg IVPUSH Q6H PRN PRN Reason: NAUSEA AND/OR VOMITING Polyethylene Glycol (Miralax (For Daily Use) -) 17 gm PO BID [facility] Last Admin: 07/04/17 09:20 Dose: Not Given Prednisone (Deltasone -) 60 mg PO DAILY [facility] Gen: NAD at rest Heart: S1S2, regular Lung: decreased breath sounds at the bases Abd: soft, nontender Ext: + edema Laboratory Results - last 24 hr 07/02/17 07/03/17 07/03/17 12:40 13:02 18:04 WBC RBC Hgb Hct MCV MCH MCHC RDW Plt Count MPV Neutrophils % Lymphocytes % Monocytes % Eosinophils % Basophils % PT with INR INR PTT (Actin FS) Sodium Potassium Chloride Carbon Dioxide Anion Gap BUN Creatinine Creat Clearance w eGFR POC Glucometer > 400 > 400 Random Glucose Calcium Phosphorus Magnesium Total Bilirubin AST ALT Alkaline Phosphatase Total Protein Albumin Angiotensin Convert Enz 42 07/03/17 07/03/17 07/04/17 21:54 23:16 02:53 WBC RBC Hgb Hct MCV MCH MCHC RDW Plt Count MPV Neutrophils % Lymphocytes % Monocytes % Eosinophils % Basophils % PT with INR INR PTT (Actin FS) Sodium Potassium Chloride Carbon Dioxide Anion Gap BUN Creatinine Creat Clearance w eGFR POC Glucometer > 400 [phone] Random Glucose Calcium Phosphorus Magnesium Total Bilirubin AST ALT Alkaline Phosphatase Total Protein Albumin Angiotensin Convert Enz 07/04/17 07/04/17 07/04/17 05:37 05:37 05:37 WBC 12.8 H RBC 3.50 L Hgb 9.6 L Hct 28.8 L MCV 82.2 MCH 27.4 MCHC 33.4 RDW 15.5 Plt Count 366 MPV 9.0 Neutrophils % 91.6 H Lymphocytes % 4.9 L Monocytes % 3.5 L Eosinophils % 0.0 Basophils % 0.0 PT with INR 15.50 H INR 1.37 H PTT (Actin FS) 25.0 L Sodium 137 Potassium 4.2 Chloride 99 Carbon Dioxide 27 Anion Gap 11 BUN 39 H Creatinine 0.8 Creat Clearance w eGFR > 60 POC Glucometer Random Glucose 247 H D Calcium 8.8 Phosphorus 2.8 Magnesium 2.4 Total Bilirubin 0.4 AST 90 H D ALT 88 H Alkaline Phosphatase 158 H Total Protein 7.8 Albumin 1.6 L Angiotensin Convert Enz 07/04/17 07/04/17 05:45 11:29 WBC RBC Hgb Hct MCV MCH MCHC RDW Plt Count MPV Neutrophils % Lymphocytes % Monocytes % Eosinophils % Basophils % PT with INR INR PTT (Actin FS) Sodium Potassium Chloride Carbon Dioxide Anion Gap BUN Creatinine Creat Clearance w eGFR POC Glucometer [phone] Random Glucose Calcium Phosphorus Magnesium Total Bilirubin AST ALT Alkaline Phosphatase Total Protein Albumin Angiotensin Convert Enz A/P (?) Inflammatory / Autoimmune process Osteomyelitis ruled out Epidural Abscess vs Mass Altered Mental Status resolved Polyclonal Gammopathy Pulmonary HTN Elevated LFTs Coagulopathy Likely OSAS - D/W ID whether ABX can be discontinued (no + cultures) - Course of Pulsed Steroids ends today: Will need to discuss with medical team subsequent steroid regimen (? Prednisone 60mg OD) - pain control - incentive spirometry - PO as tolerated - outpatient PFTs, PSG - mechanical DVT prophylaxis - Neuro unit monitoring Dr Lopez Critical care time spent in reviewing chart, evaluating patient and formulating plan - 36 minutes.
[2017-07-04 14:13] LABS: WEST NILE VIRUS AB SERUM,IGM Negative (Negative)
[2017-07-04] MEDS ORDERED: morphine SULFATE 4 MG/ML VIAL IVPUSH PRN (15:33)
[2017-07-04] MEDS ORDERED: ONDANSETRON 4 MG/2 ML VIAL IVPUSH PRN (15:33)
[2017-07-04] MEDS ORDERED: ACETAMINOPHEN 325 MG TABLET (FP) PO PRN (15:33)
--- NOTE | 2017-07-04 16:11 | PN ---
Progress Note (short form) - Note Progress Note: 62 year old male with a significant past medical history of sciatica who presents to the ED with complaints of fever that began 3 weeks ago. As per patient's daughter, patient was taken to urgent care 3 weeks ago for increased fever and body aches and was diagnosed with strep and given penicillin prescription. She reports after finishing prescription over 1 week, patient began to develop rash from the penicillin and began to take benadryl, relieving the rash in 2 days. Patient's daughter reports, patient was then taken to [facility] on June 08 for similar symptoms of increased fever and associated bilateral leg pain and weakness, LE >UE. mild numbness R hand. He reports patient was given X Ray, CT abdomen, flu culture and labs, before being diagnosed with pleuritic chest pain. noted to elevated CPKS, LFTS and elevated total protein, called for eval r/o myopathy. no hx of statin (only new RX was PCN0 , at baseline home walking and drives , now unable to walk. FU : more awake, and attempting to move legs on solumedrol day 3 [place] (-) s/p open biopsy bone and CSF cltx sent. CSF proetin 72 EMG: no evidence of myopathy, and no clear evidence of motor neuropathy MYELOGRAM : IMPRESSION: Limited examination, as described above due to the patient's body habitus Interval bilateral laminectomy and posterior fusion at T7-T8 level with postop changes, posteriorly a drainage catheter and questionable small superficial left paramedian collection/ serosanguineous collection. There is effacement of the intradural space around the thoracic cord at the site of surgery, mainly posteriorly likely due to postoperative swelling. Otherwise, no extrinsic mass effect or cord compression is identified. No gross disc herniation is identified. The height and alignment of the vertebral bodies appear unremarkable with likely degenerative calcification in L3-L4 intervertebral disc space. - Current Medication List Current Medications: Active Medications Acetaminophen (Tylenol -) 650 mg PO Q6H PRN PRN Reason: FEVER Last Admin: 06/26/17 20:17 Dose: 650 mg Gabapentin (Neurontin -) 100 mg PO TID AJ Last Admin: 06/27/17 14:22 Dose: Not Given Hydromorphone HCl (Dilaudid Injection -) 0.5 mg IVPUSH [id number] PRN PRN Reason: PAIN-PACU ORDER X 4 DOSES ONLY Ertapenem 1 gm/ Sodium (Chloride) 100 mls @ 100 mls/hr IVPB DAILY AJ PRN Reason: Protocol Last Admin: 06/27/17 09:25 Dose: 100 mls/hr Vancomycin HCl 1,250 mg/ (Dextrose) 250 mls @ 166.667 mls/hr IVPB DAILY AJ PRN Reason: Protocol Last Admin: 06/27/17 09:26 Dose: 166.667 mls/hr Dextrose/Sodium Chloride (D5-1/2ns -) 1,000 mls @ 75 mls/hr IV ASDIR AJ Last Admin: 06/27/17 12:47 Dose: 75 mls/hr Propofol (Diprivan -) 1,000,000 mcg in 100 mls @ 30.383 mls/hr IVPB TITR AJ; 30 MCG/KG/MIN PRN Reason: Protocol Last Admin: 06/27/17 17:19 Dose: 30 mcg/kg/min, 30.383 mls/hr Ondansetron HCl (Zofran Injection) 4 mg IVPUSH Q6H PRN PRN Reason: NAUSEA AND/OR VOMITING - Objective Vital Signs: Vital Signs Temperature 98.6 F 07/04/17 14:00 Pulse Rate 83 07/04/17 14:00 Respiratory Rate 19 07/04/17 14:00 Blood Pressure 139/92 07/04/17 14:00 O2 Sat by Pulse Oximetry (%) 94 L 07/04/17 09:00 Labs: CBCD WBC 12.8 K/mm3 (4.0-10.0) H 07/04/17 05:37 RBC 3.50 M/mm3 (4.00-5.60) L 07/04/17 05:37 Hgb 9.6 GM/dL (11.7-16.9) L 07/04/17 05:37 Hct 28.8 % (35.4-49) L 07/04/17 05:37 MCV 82.2 fl (80-96) 07/04/17 05:37 MCHC 33.4 g/dl (32.0-35.9) 07/04/17 05:37 RDW 15.5 % (11.9-15.9) 07/04/17 05:37 Plt Count 366 K/MM3 (134-434) 07/04/17 05:37 MPV 9.0 fl (7.5-11.1) 07/04/17 05:37 CMP Sodium 137 mmol/L (136-145) 07/04/17 05:37 Potassium 4.2 mmol/L (3.5-5.1) 07/04/17 05:37 Chloride 99 mmol/L (98-107) 07/04/17 05:37 Carbon Dioxide 27 mmol/L (21-32) 07/04/17 05:37 Anion Gap 11 (8-16) 07/04/17 05:37 BUN 39 mg/dL (7-18) H 07/04/17 05:37 Creatinine 0.8 mg/dL (0.7-1.3) 07/04/17 05:37 Creat Clearance w eGFR > 60 (>60) 07/04/17 05:37 Calcium 8.8 mg/dL (8.5-10.1) 07/04/17 05:37 Total Bilirubin 0.4 mg/dL (0.2-1.0) 07/04/17 05:37 AST 90 U/L (15-37) H D 07/04/17 05:37 ALT 88 U/L (12-78) H 07/04/17 05:37 Alkaline Phosphatase 158 U/L (45-117) H 07/04/17 05:37 Total Protein 7.8 g/dl (6.4-8.2) 07/04/17 05:37 Albumin 1.6 g/dl (3.4-5.0) L 07/04/17 05:37 Problem List - Problems (1) Paraparesis of both lower limbs Code(s): G82.20 - PARAPLEGIA, UNSPECIFIED (2) Morbid obesity Code(s): E66.01 - MORBID (SEVERE) OBESITY DUE TO EXCESS CALORIES (3) Neuropathy Code(s): G62.9 - POLYNEUROPATHY, UNSPECIFIED porgresisve paraparesis LE >UE, encephalopathy, + SPEP, intermittent fevers, myalgia myelogram--no clear evidence of spinal cord pathology epidural compression, no clear evidence of myopathy (muscle biopsy psp/cpk nl, and EMG- no myopathy). 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
--- NOTE | 2017-07-04 16:11 | PN ---
Progress Note, Physician History of Present Illness: doing much better tolerating steroids no new issues strength coming back n arms and legs - Current Medication List Current Medications: Active Medications Acetaminophen (Tylenol -) 650 mg PO Q6H PRN PRN Reason: FEVER Gabapentin (Neurontin -) 100 mg PO TID [facility] Ertapenem 1 gm/ Sodium (Chloride) 100 mls @ 100 mls/hr IVPB DAILY AJ PRN Reason: Protocol Insulin Aspart (Novolog Vial Sliding Scale -) 1 vial SQ ACHS AJ PRN Reason: Protocol Last Admin: 07/04/17 12:00 Dose: 6 units Methylprednisolone Sodium Succinate (Solu-Medrol -) 250 mg IVPB Q6HPO AJ Stop: 07/04/17 18:00 Morphine Sulfate (Morphine Sulfate) 2 mg IVPUSH Q4H PRN PRN Reason: PAIN LEVEL 6-10 Ondansetron HCl (Zofran Injection) 4 mg IVPUSH Q6H PRN PRN Reason: NAUSEA AND/OR VOMITING Polyethylene Glycol (Miralax (For Daily Use) -) 17 gm PO BID [facility] Prednisone (Deltasone -) 60 mg PO DAILY [facility] - Objective Vital Signs: Vital Signs Temperature 98.6 F 07/04/17 14:00 Pulse Rate 83 07/04/17 14:00 Respiratory Rate 19 07/04/17 14:00 Blood Pressure 139/92 07/04/17 14:00 O2 Sat by Pulse Oximetry (%) 94 L 07/04/17 09:00 Constitutional: Yes: No Distress, Calm, Obese Cardiovascular: Yes: Regular Rate and Rhythm Respiratory: Yes: Regular Gastrointestinal: Yes: Normal Bowel Sounds, Soft Musculoskeletal: Yes: WNL Extremities: Yes: WNL Wound/Incision: Yes: Dressing Dry and Intact Neurological: Yes: Alert, Oriented Psychiatric: Yes: Alert, Oriented Labs: CBC, BMP 07/04/17 05:37 07/04/17 05:37 INR, PTT INR 1.37 (0.82-1.09) H 07/04/17 05:37 Fibrinogen 637.0 mg/dL (238-498) H 06/26/17 05:30 Assessment/Plan r/o infective process ct disorder cardiac process sepsis autoimmune process r/o osteo abn lft leukocytosis Problem List - Problems (1) Neuropathy Code(s): G62.9 - POLYNEUROPATHY, UNSPECIFIED (2) Elevated creatine kinase Code(s): R74.8 - ABNORMAL LEVELS OF OTHER SERUM ENZYMES (3) Elevated serum creatinine Code(s): R79.89 - OTHER SPECIFIED ABNORMAL FINDINGS OF BLOOD CHEMISTRY (4) Anasarca Code(s): R60.1 - GENERALIZED EDEMA (5) Anemia Code(s): D64.9 - ANEMIA, UNSPECIFIED (6) CKD (chronic kidney disease) Code(s): N18.9 - CHRONIC KIDNEY DISEASE, UNSPECIFIED (7) Fever Code(s): R50.9 - FEVER, UNSPECIFIED (8) Diabetes Code(s): E11.9 - TYPE 2 DIABETES MELLITUS WITHOUT COMPLICATIONS (9) Coagulation defect Code(s): D68.9 - COAGULATION DEFECT, UNSPECIFIED will await for biopsy results continue current mgmt plan continue abx will consider stopping all abx in a day or so await for all final cx reports close watch on the patient improving continue as per icu/neurology cc time 40 min
[2017-07-04] MEDS ORDERED: methylPREDNISolone NA SUCC 125 MG/2 ML VIAL ONE (17:34)
[2017-07-04] MEDS ORDERED: methylPREDNISolone NA SUCC 125 MG/2 ML VIAL IVPB ONE (18:00)
--- NOTE | 2017-07-04 18:45 | PN ---
Progress Note, Physician History of Present Illness: feeling better - Current Medication List Current Medications: Active Medications Acetaminophen (Tylenol -) 650 mg PO Q6H PRN PRN Reason: FEVER Gabapentin (Neurontin -) 100 mg PO TID [facility] Ertapenem 1 gm/ Sodium (Chloride) 100 mls @ 100 mls/hr IVPB DAILY AJ PRN Reason: Protocol Insulin Aspart (Novolog Vial Sliding Scale -) 1 vial SQ ACHS AJ PRN Reason: Protocol Last Admin: 07/04/17 16:43 Dose: 6 units Methylprednisolone Sodium Succinate (Solu-Medrol -) 250 mg IVPB Q6H-IV AJ Last Admin: 07/04/17 17:42 Dose: 250 mg Morphine Sulfate (Morphine Sulfate) 2 mg IVPUSH Q4H PRN PRN Reason: PAIN LEVEL 6-10 Ondansetron HCl (Zofran Injection) 4 mg IVPUSH Q6H PRN PRN Reason: NAUSEA AND/OR VOMITING Polyethylene Glycol (Miralax (For Daily Use) -) 17 gm PO BID [facility] - Objective Vital Signs: Vital Signs Temperature 98.6 F 07/04/17 14:00 Pulse Rate 84 07/04/17 16:00 Respiratory Rate 15 07/04/17 16:00 Blood Pressure 154/90 07/04/17 16:00 O2 Sat by Pulse Oximetry (%) 94 L 07/04/17 09:00 Constitutional: Yes: No Distress HENT: Yes: Atraumatic Neck: Yes: Supple Cardiovascular: Yes: Regular Rate and Rhythm Respiratory: Yes: CTA Bilaterally Gastrointestinal: Yes: Normal Bowel Sounds Extremities: Yes: WNL Edema: Yes Edema: LUE: 2+, RUE: 2+, LLE: 4+, RLE: 4+ Peripheral Pulses WNL: Yes Neurological: Yes: Alert, Oriented, Other (moving lower extremeties) Labs: CBC, BMP 07/04/17 05:37 07/04/17 05:37 INR, PTT INR 1.37 (0.82-1.09) H 07/04/17 05:37 Fibrinogen 637.0 mg/dL (238-498) H 06/26/17 05:30 Problem List - Problems (1) Neuropathy Assessment/Plan: s/p spinal decompression surgery for ct myelogram done pt on iv steroids now...improving Code(s): G62.9 - POLYNEUROPATHY, UNSPECIFIED (2) Elevated creatine kinase Code(s): R74.8 - ABNORMAL LEVELS OF OTHER SERUM ENZYMES (3) Elevated serum creatinine Code(s): R79.89 - OTHER SPECIFIED ABNORMAL FINDINGS OF BLOOD CHEMISTRY (4) Anasarca Code(s): R60.1 - GENERALIZED EDEMA (5) Anemia Assessment/Plan: h/h stable Code(s): D64.9 - ANEMIA, UNSPECIFIED (6) CKD (chronic kidney disease) Assessment/Plan: renal work up negative cr wnl Code(s): N18.9 - CHRONIC KIDNEY DISEASE, UNSPECIFIED (7) Fever Assessment/Plan: cxs have sent ...negative afebrile Code(s): R50.9 - FEVER, UNSPECIFIED (8) Diabetes Code(s): E11.9 - TYPE 2 DIABETES MELLITUS WITHOUT COMPLICATIONS (9) Coagulation defect Code(s): D68.9 - COAGULATION DEFECT, UNSPECIFIED (10) Morbid obesity Code(s): E66.01 - MORBID (SEVERE) OBESITY DUE TO EXCESS CALORIES (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
[2017-07-05] MEDS: methylPREDNISolone NA SUCC 125 MG/2 ML VIAL IVPB SCH ×4 (03:00→21:02)
[2017-07-05] MEDS: GABAPENTIN 100 MG CAPSULE (FP) PO SCH ×3 (05:52→21:02)
[2017-07-05 06:32] LABS: BASO % 0.1 % (0-2.0); HEMATOCRIT 30.3 % (35.4-49); HEMOGLOBIN 10.3 GM/dL (11.7-16.9); LYMPH % 5.1 % (8-40); MCH 27.8 pg (25.7-33.7); MCHC 33.9 g/dl (32.0-35.9); MEAN PLT VOLUME 8.7 fl (7.5-11.1); MONO % 2.7 % (3.8-10.2); NEUT % 92.1 % (42.8-82.8); PLATELET COUNT 347 K/MM3 (134-434); RDW 15.5 % (11.9-15.9); WHITE BLOOD COUNT 11.6 K/mm3 (4.0-10.0)
[2017-07-05 06:45] LABS: INR 1.45 (0.82-1.09); PROTHROMBIN TIME (PATIENT) 16.4 SEC (9.98-11.88)
[2017-07-05 06:48] LABS: ACTIVATED PTT 25.5 SECONDS (26.9-34.4)
[2017-07-05 07:03] LABS: ALBUMIN 1.7 g/dl (3.4-5.0); ANION GAP 9 (8-16); BLOOD UREA NITROGEN 40 mg/dL (7-18); CALCIUM 8.4 mg/dL (8.5-10.1); CHLORIDE 100 mmol/L (98-107); CO2 28 mmol/L (21-32); GLUCOSE,RANDOM 249 mg/dL (74-106); MAGNESIUM 2.5 mg/dL (1.8-2.4); POTASSIUM 4.6 mmol/L (3.5-5.1); SODIUM 137 mmol/L (136-145)
[2017-07-05 07:06] LABS: ALK PHOS 151 U/L (45-117); BILIRUBIN,TOTAL 0.6 mg/dL (0.2-1.0); CREATININE 0.9 mg/dL (0.7-1.3); PHOSPHOROUS 3.3 mg/dL (2.5-4.9); SGOT/AST 56 U/L (15-37); SGPT/ALT 79 U/L (12-78); TOT PROT 7.9 g/dl (6.4-8.2)
[2017-07-05] MEDS: INSULIN SLIDING SCALE (NOVOLOG) 1 VIAL SQ SCH ×4 (07:33→21:03)
[2017-07-05] MEDS ORDERED: PT OWN MED DRAWER 7, Y5N ONE ×3 (08:49→20:09)
[2017-07-05] MEDS: ERTAPENEM SODIUM 1 GM in SODIUM CHLORIDE 100 ML IVPB SCH (09:24)
[2017-07-05] MEDS ORDERED: predniSONE 20 MG TABLET (UD) PO SCH (10:00)
--- NOTE | 2017-07-05 10:37 | PN ---
Progress Note, Physician History of Present Illness: seen and examined in [facility]. no new complaints. - Current Medication List Current Medications: Active Medications Acetaminophen (Tylenol -) 650 mg PO Q6H PRN PRN Reason: FEVER Gabapentin (Neurontin -) 100 mg PO TID [facility] Last Admin: 07/05/17 05:52 Dose: 100 mg Ertapenem 1 gm/ Sodium (Chloride) 100 mls @ 100 mls/hr IVPB DAILY AJ PRN Reason: Protocol Last Admin: 07/05/17 09:24 Dose: 100 mls/hr Insulin Aspart (Novolog Vial Sliding Scale -) 1 vial SQ ACHS AJ PRN Reason: Protocol Last Admin: 07/05/17 07:33 Dose: 4 units Methylprednisolone Sodium Succinate (Solu-Medrol -) 250 mg IVPB Q6H-IV [facility] Last Admin: 07/05/17 08:49 Dose: 250 mg Morphine Sulfate (Morphine Sulfate) 2 mg IVPUSH Q4H PRN PRN Reason: PAIN LEVEL 6-10 Ondansetron HCl (Zofran Injection) 4 mg IVPUSH Q6H PRN PRN Reason: NAUSEA AND/OR VOMITING Polyethylene Glycol (Miralax (For Daily Use) -) 17 gm PO BID [facility] Last Admin: 07/04/17 21:40 Dose: 17 grams - Objective Vital Signs: Vital Signs Temperature 97.6 F 07/05/17 05:37 Pulse Rate 88 07/05/17 08:00 Respiratory Rate 24 07/05/17 08:00 Blood Pressure 145/83 07/05/17 08:00 O2 Sat by Pulse Oximetry (%) 94 L 07/04/17 21:00 Constitutional: Yes: No Distress, Calm, Obese Eyes: Yes: Conjunctiva Clear, EOM Intact HENT: Yes: Atraumatic, Normocephalic Neck: Yes: Supple, Trachea Midline Cardiovascular: Yes: Regular Rate and Rhythm, S1, S2. No: Bradycardia, Tachycardia, Pulse Irregular, Bruit, JVD, Gallop, Murmur, Rub, S3, S4, Varicosities Respiratory: Yes: Regular, Diminished. No: Rales, Rhonchi, Wheezes Gastrointestinal: Yes: Normal Bowel Sounds, Soft. 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 Edema- -component of third spacing due to hypoalbuminemia with intravascular depletion -BUN/creat normalized but BUN trending back up -Echo showed normal LV function w/ mildly dilated LV 2. Fever: -concern for L4 osteo, s/p open bx/stabilization -cultures no growth -infectious disease is following 3. Muscle weaknes/rash -f/up bx results -ID/Rheum/Heme/Neuro following -s/p myelogram 4. Mild sinus tach, tachypnea: improved -Likely due to deconditioned status, infection, anemia. 5. Respiratory failure: -stable currently
[2017-07-05] MEDS: POLYETHYLENE GLYCOL 3350 119 GM BTL PO SCH ×2 (11:00→21:03)
--- NOTE | 2017-07-05 12:35 | PN ---
Progress Note, Physician History of Present Illness: feeling better - Current Medication List Current Medications: Active Medications Acetaminophen (Tylenol -) 650 mg PO Q6H PRN PRN Reason: FEVER Gabapentin (Neurontin -) 100 mg PO TID [facility] Last Admin: 07/05/17 05:52 Dose: 100 mg Ertapenem 1 gm/ Sodium (Chloride) 100 mls @ 100 mls/hr IVPB DAILY [facility] PRN Reason: Protocol Last Admin: 07/05/17 09:24 Dose: 100 mls/hr Insulin Aspart (Novolog Vial Sliding Scale -) 1 vial SQ ACHS [facility] PRN Reason: Protocol Last Admin: 07/05/17 10:58 Dose: 6 units Methylprednisolone Sodium Succinate (Solu-Medrol -) 250 mg IVPB Q6H-IV [facility] Last Admin: 07/05/17 08:49 Dose: 250 mg Morphine Sulfate (Morphine Sulfate) 2 mg IVPUSH Q4H PRN PRN Reason: PAIN LEVEL 6-10 Ondansetron HCl (Zofran Injection) 4 mg IVPUSH Q6H PRN PRN Reason: NAUSEA AND/OR VOMITING Polyethylene Glycol (Miralax (For Daily Use) -) 17 gm PO BID [facility] Last Admin: 07/05/17 11:00 Dose: 17 grams - Objective Vital Signs: Vital Signs Temperature 98.8 F 07/05/17 10:00 Pulse Rate 96 H 07/05/17 10:00 Respiratory Rate 24 07/05/17 10:00 Blood Pressure 137/86 07/05/17 10:00 O2 Sat by Pulse Oximetry (%) 95 07/05/17 10:00 Constitutional: Yes: No Distress HENT: Yes: Atraumatic Neck: Yes: Supple Cardiovascular: Yes: Regular Rate and Rhythm Respiratory: Yes: CTA Bilaterally Gastrointestinal: Yes: Normal Bowel Sounds Extremities: Yes: WNL Edema: Yes Edema: LLE: 4+, RLE: 4+ Neurological: Yes: Alert, Oriented, Other (able to lift legs from bed arms are wnl) Labs: CBC, BMP 07/05/17 05:50 07/05/17 05:50 INR, PTT INR 1.45 (0.82-1.09) H 07/05/17 05:50 Fibrinogen 637.0 mg/dL (238-498) H 06/26/17 05:30 Problem List - Problems (1) Neuropathy Assessment/Plan: s/p spinal decompression surgery for ct myelogram done report seen pt on iv steroids now...improving Code(s): G62.9 - POLYNEUROPATHY, UNSPECIFIED (2) Elevated creatine kinase Assessment/Plan: rhabdo iv hydration...wnl now Code(s): R74.8 - ABNORMAL LEVELS OF OTHER SERUM ENZYMES (3) Elevated serum creatinine Code(s): R79.89 - OTHER SPECIFIED ABNORMAL FINDINGS OF BLOOD CHEMISTRY (4) Anasarca Code(s): R60.1 - GENERALIZED EDEMA (5) Anemia Assessment/Plan: h/h stable Code(s): D64.9 - ANEMIA, UNSPECIFIED (6) CKD (chronic kidney disease) Assessment/Plan: renal work up negative cr wnl Code(s): N18.9 - CHRONIC KIDNEY DISEASE, UNSPECIFIED (7) Fever Assessment/Plan: cxs have sent ...negative afebrile Code(s): R50.9 - FEVER, UNSPECIFIED (8) Diabetes Assessment/Plan: monitor blood sugars poor po intake coverage if needed as pt is on steroids Code(s): E11.9 - TYPE 2 DIABETES MELLITUS WITHOUT COMPLICATIONS (9) Coagulation defect Code(s): D68.9 - COAGULATION DEFECT, UNSPECIFIED (10) Morbid obesity Code(s): E66.01 - MORBID (SEVERE) OBESITY DUE TO EXCESS CALORIES (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
--- NOTE | 2017-07-05 12:44 | PN ---
Progress Note, Physician History of Present Illness: stable no new events still bed bound strength improving - Current Medication List Current Medications: Active Medications Acetaminophen (Tylenol -) 650 mg PO Q6H PRN PRN Reason: FEVER Gabapentin (Neurontin -) 100 mg PO TID [facility] Last Admin: 07/05/17 05:52 Dose: 100 mg Ertapenem 1 gm/ Sodium (Chloride) 100 mls @ 100 mls/hr IVPB DAILY AJ PRN Reason: Protocol Last Admin: 07/05/17 09:24 Dose: 100 mls/hr Insulin Aspart (Novolog Vial Sliding Scale -) 1 vial SQ ACHS AJ PRN Reason: Protocol Last Admin: 07/05/17 10:58 Dose: 6 units Methylprednisolone Sodium Succinate (Solu-Medrol -) 250 mg IVPB Q6H-IV [facility] Last Admin: 07/05/17 08:49 Dose: 250 mg Morphine Sulfate (Morphine Sulfate) 2 mg IVPUSH Q4H PRN PRN Reason: PAIN LEVEL 6-10 Ondansetron HCl (Zofran Injection) 4 mg IVPUSH Q6H PRN PRN Reason: NAUSEA AND/OR VOMITING Polyethylene Glycol (Miralax (For Daily Use) -) 17 gm PO BID [facility] Last Admin: 07/05/17 11:00 Dose: 17 grams - Objective Vital Signs: Vital Signs Temperature 98.8 F 07/05/17 10:00 Pulse Rate 96 H 07/05/17 10:00 Respiratory Rate 24 07/05/17 10:00 Blood Pressure 137/86 07/05/17 10:00 O2 Sat by Pulse Oximetry (%) 95 07/05/17 10:00 Constitutional: Yes: No Distress, Calm, Obese Cardiovascular: Yes: Regular Rate and Rhythm Respiratory: Yes: Regular, Poor Air Entry (bases) Gastrointestinal: Yes: Normal Bowel Sounds, Soft Musculoskeletal: Yes: WNL Extremities: Yes: WNL Wound/Incision: Yes: Clean/Dry Neurological: Yes: Alert, Oriented Psychiatric: Yes: Alert, Oriented Labs: CBC, BMP 07/05/17 05:50 07/05/17 05:50 INR, PTT INR 1.45 (0.82-1.09) H 07/05/17 05:50 Fibrinogen 637.0 mg/dL (238-498) H 06/26/17 05:30 Assessment/Plan - Problems (1) Neuropathy Code(s): G62.9 - POLYNEUROPATHY, UNSPECIFIED (2) Elevated creatine kinase Code(s): R74.8 - ABNORMAL LEVELS OF OTHER SERUM ENZYMES (3) Elevated serum creatinine Code(s): R79.89 - OTHER SPECIFIED ABNORMAL FINDINGS OF BLOOD CHEMISTRY (4) Anasarca Code(s): R60.1 - GENERALIZED EDEMA (5) Anemia Code(s): D64.9 - ANEMIA, UNSPECIFIED (6) CKD (chronic kidney disease) Code(s): N18.9 - CHRONIC KIDNEY DISEASE, UNSPECIFIED (7) Fever Code(s): R50.9 - FEVER, UNSPECIFIED (8) Diabetess Code(s): E11.9 - TYPE 2 DIABETES MELLITUS WITHOUT COMPLICATIONS (9) Coagulation defect Code(s): D68.9 - COAGULATION DEFECT, UNSPECIFIED (10) Morbid obesity Code(s): E66.01 - MORBID (SEVERE) OBESITY DUE TO EXCESS CALORIES (11) Paraparesis of both lower limbs Code(s): G82.20 - PARAPLEGIA, UNSPECIFIED plan continue to monitor continue steroids as per neuro will need physio rest as per the teams
--- NOTE | 2017-07-05 15:01 | PN ---
Progress Note (short form) - Note Progress Note: seen ad examined Sleepy. Chart reviewed in detail Last Vital Signs Temp Pulse Resp BP Pulse Ox 98.8 F 96 H 24 137/86 95 07/05/17 10:00 07/05/17 10:00 07/05/17 10:00 07/05/17 10:00 07/05/17 10:00 CBC, BMP 07/05/17 05:50 07/05/17 05:50 Current Medications Generic Name Dose Route Start Last Admin Trade Name Freq PRN Reason Stop Dose Admin Acetaminophen 650 mg 07/04/17 15:33 Tylenol - PO Q6H PRN FEVER Gabapentin 100 mg 07/04/17 22:00 07/05/17 05:52 Neurontin - PO 100 mg TID AJ Administration Ertapenem 1 gm/ Sodium 100 mls @ 100 mls/hr 07/05/17 10:00 07/05/17 09:24 Chloride IVPB 100 mls/hr DAILY AJ Administration Protocol Insulin Aspart 1 vial 07/03/17 22:00 07/05/17 10:58 Novolog Vial Sliding Scale - SQ 6 units ACHS AJ Administration Protocol Methylprednisolone Sodium Succinate 250 mg 07/04/17 17:00 07/05/17 08:49 Solu-Medrol - IVPB 250 mg Q6H-IV AJ Administration Morphine Sulfate 2 mg 07/04/17 15:33 Morphine Sulfate IVPUSH Q4H PRN PAIN LEVEL 6-10 Ondansetron HCl 4 mg 07/04/17 15:33 Zofran Injection IVPUSH Q6H PRN NAUSEA AND/OR VOMITING Polyethylene Glycol 17 gm 07/04/17 22:00 07/05/17 11:00 Miralax (For Daily Use) - PO 17 grams BID AJ Administration 62 y/o with recent streptococal [haryngitis, presenting with progressive lower extremity weakness FUO s/p spinal decompression /fusion for suspicion of osteo--cultures neg. 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 on prednisone
--- NOTE | 2017-07-05 15:03 | PN ---
Progress Note, Physician History of Present Illness: Pt seen and examined at bedside. He is awake and appears comfortable. He denies shortness of breath. - Current Medication List Current Medications: Active Medications Acetaminophen (Tylenol -) 650 mg PO Q6H PRN PRN Reason: FEVER Gabapentin (Neurontin -) 100 mg PO TID [facility] Last Admin: 07/05/17 05:52 Dose: 100 mg Ertapenem 1 gm/ Sodium (Chloride) 100 mls @ 100 mls/hr IVPB DAILY AJ PRN Reason: Protocol Last Admin: 07/05/17 09:24 Dose: 100 mls/hr Insulin Aspart (Novolog Vial Sliding Scale -) 1 vial SQ ACHS AJ PRN Reason: Protocol Last Admin: 07/05/17 10:58 Dose: 6 units Methylprednisolone Sodium Succinate (Solu-Medrol -) 250 mg IVPB Q6H-IV [facility] Last Admin: 07/05/17 08:49 Dose: 250 mg Morphine Sulfate (Morphine Sulfate) 2 mg IVPUSH Q4H PRN PRN Reason: PAIN LEVEL 6-10 Ondansetron HCl (Zofran Injection) 4 mg IVPUSH Q6H PRN PRN Reason: NAUSEA AND/OR VOMITING Polyethylene Glycol (Miralax (For Daily Use) -) 17 gm PO BID [facility] Last Admin: 07/05/17 11:00 Dose: 17 grams - Objective Vital Signs: Vital Signs Temperature 98.8 F 07/05/17 10:00 Pulse Rate 96 H 07/05/17 10:00 Respiratory Rate 24 07/05/17 10:00 Blood Pressure 137/86 07/05/17 10:00 O2 Sat by Pulse Oximetry (%) 95 07/05/17 10:00 Constitutional: Yes: Calm Eyes: Yes: Conjunctiva Clear HENT: Yes: Atraumatic Cardiovascular: Yes: S1, S2 Respiratory: Yes: On Nasal O2 Gastrointestinal: Yes: Soft, Abdomen, Obese Genitourinary: Yes: Incontinence Musculoskeletal: Yes: Muscle Weakness Edema: Yes Edema: LLE: Trace, RLE: Trace Neurological: Yes: Oriented Psychiatric: Yes: Oriented Labs: CBC, BMP 07/05/17 05:50 07/05/17 05:50 INR, PTT INR 1.45 (0.82-1.09) H 07/05/17 05:50 Fibrinogen 637.0 mg/dL (238-498) H 06/26/17 05:30 Problem List - Problems (1) Anemia Code(s): D64.9 - ANEMIA, UNSPECIFIED (2) CKD (chronic kidney disease) Code(s): N18.9 - CHRONIC KIDNEY DISEASE, UNSPECIFIED (3) Elevated creatine kinase Code(s): R74.8 - ABNORMAL LEVELS OF OTHER SERUM ENZYMES (4) Neuropathy Code(s): G62.9 - POLYNEUROPATHY, UNSPECIFIED Assessment/Plan Current Medications Generic Name Dose Route Start Last Admin Trade Name Freq PRN Reason Stop Dose Admin Acetaminophen 650 mg 07/04/17 15:33 Tylenol - PO Q6H PRN FEVER Gabapentin 100 mg 07/04/17 22:00 07/05/17 05:52 Neurontin - PO 100 mg TID AJ Administration Ertapenem 1 gm/ Sodium 100 mls @ 100 mls/hr 07/05/17 10:00 07/05/17 09:24 Chloride IVPB 100 mls/hr DAILY AJ Administration Protocol Insulin Aspart 1 vial 07/03/17 22:00 07/05/17 10:58 Novolog Vial Sliding Scale - SQ 6 units ACHS AJ Administration Protocol Methylprednisolone Sodium Succinate 250 mg 07/04/17 17:00 07/05/17 08:49 Solu-Medrol - IVPB 250 mg Q6H-IV AJ Administration Morphine Sulfate 2 mg 07/04/17 15:33 Morphine Sulfate IVPUSH Q4H PRN PAIN LEVEL 6-10 Ondansetron HCl 4 mg 07/04/17 15:33 Zofran Injection IVPUSH Q6H PRN NAUSEA AND/OR VOMITING Polyethylene Glycol 17 gm 07/04/17 22:00 07/05/17 11:00 Miralax (For Daily Use) - PO 17 grams BID AJ Administration Impression 1. KADIE 2. anemia 3. fevers 4. rash - which has resolved 5. obesity 6. lower ext pain and weekness 7. elevated total protein 8. transaminitis 9. r/o Osteomyelitis 10. r/o Epidural Abscess vs Mass 11. azotemia Plan - steroids can contribute to elevated BUN - monitor renal function - monitor hg - abx per ID - avoid NSAIDS Dr Ugarte
--- NOTE | 2017-07-05 15:22 | PATH ---
Surgical Pathology Report Patient Name: SERA REESE [facility]. Rec. #: [id number] /Age/Gender: 1955 (Age: 62) / M Account: [id number] Location: [facility] Taken: 07/03/2017 Received: 07/03/2017 Reported: 07/05/2017 Physicians: Tommy Jean M.D. Specimen(s) Received PERIPHERAL BLOOD Clinical History Rule out any plasma cells in peripheral blood Anemia/leukocytosis Final Diagnosis PERIPHERAL BLOOD: FLOW CYTOMETRY performed and interpreted at [facility], [place], [place] ([id number]) shows the following: INTERPRETATION: GRANULOCYTOSIS WITH NO DISCRETE ATYPICAL FLOW CYTOMETRIC FINDINGS SEEN. Phenotype: Granulocytes are increased but show no detectable aberrant marker expression. There is evidence of degeneration. Blasts are not detected. Lymphocytes are proportionally decreased and include rare B cells that appear polyclonal, NK cells and immunophenotypically normal CD4+ and CD8+ T cells in normal proportions. No evidence of a clonal lymphoid expansion. No definitive CD38+ plasma cells are detected. Electronically Signed Jai Cavazos M.D. Gross Description Received are 2 green top tubes of peripheral blood which are sent to [facility]. /07/03/2017 saudi07/03/2017
--- NOTE | 2017-07-05 17:33 | PN ---
Progress Note (short form) - Note Progress Note: 62 year old male with a significant past medical history of sciatica who presents to the ED with complaints of fever that began 3 weeks ago. As per patient's daughter, patient was taken to urgent care 3 weeks ago for increased fever and body aches and was diagnosed with strep and given penicillin prescription. She reports after finishing prescription over 1 week, patient began to develop rash from the penicillin and began to take benadryl, relieving the rash in 2 days. Patient's daughter reports, patient was then taken to [facility] on June 08 for similar symptoms of increased fever and associated bilateral leg pain and weakness, LE >UE. mild numbness R hand. He reports patient was given X Ray, CT abdomen, flu culture and labs, before being diagnosed with pleuritic chest pain. noted to elevated CPKS, LFTS and elevated total protein, called for eval r/o myopathy. no hx of statin (only new RX was PCN0 , at baseline home walking and drives , now unable to walk. FU : more awake, and attempting to move legs and arms, reduced pain on solumedrol day 4 [place] (-) s/p open biopsy bone and CSF cltx sent. CSF proetin 72 EMG: no evidence of myopathy, and no clear evidence of motor neuropathy MYELOGRAM : IMPRESSION: Limited examination, as described above due to the patient's body habitus Interval bilateral laminectomy and posterior fusion at T7-T8 level with postop changes, posteriorly a drainage catheter and questionable small superficial left paramedian collection/ serosanguineous collection. There is effacement of the intradural space around the thoracic cord at the site of surgery, mainly posteriorly likely due to postoperative swelling. Otherwise, no extrinsic mass effect or cord compression is identified. No gross disc herniation is identified. The height and alignment of the vertebral bodies appear unremarkable with likely degenerative calcification in L3-L4 intervertebral disc space. - Current Medication List Current Medications: Active Medications Acetaminophen (Tylenol -) 650 mg PO Q6H PRN PRN Reason: FEVER Last Admin: 06/26/17 20:17 Dose: 650 mg Gabapentin (Neurontin -) 100 mg PO TID AJ Last Admin: 06/27/17 14:22 Dose: Not Given Hydromorphone HCl (Dilaudid Injection -) 0.5 mg IVPUSH [id number] PRN PRN Reason: PAIN-PACU ORDER X 4 DOSES ONLY Ertapenem 1 gm/ Sodium (Chloride) 100 mls @ 100 mls/hr IVPB DAILY AJ PRN Reason: Protocol Last Admin: 06/27/17 09:25 Dose: 100 mls/hr Vancomycin HCl 1,250 mg/ (Dextrose) 250 mls @ 166.667 mls/hr IVPB DAILY AJ PRN Reason: Protocol Last Admin: 06/27/17 09:26 Dose: 166.667 mls/hr Dextrose/Sodium Chloride (D5-1/2ns -) 1,000 mls @ 75 mls/hr IV ASDIR AJ Last Admin: 06/27/17 12:47 Dose: 75 mls/hr Propofol (Diprivan -) 1,000,000 mcg in 100 mls @ 30.383 mls/hr IVPB TITR AJ; 30 MCG/KG/MIN PRN Reason: Protocol Last Admin: 06/27/17 17:19 Dose: 30 mcg/kg/min, 30.383 mls/hr Ondansetron HCl (Zofran Injection) 4 mg IVPUSH Q6H PRN PRN Reason: NAUSEA AND/OR VOMITING - Objective Vital Signs: Vital Signs Temperature 98.8 F 07/05/17 10:00 Pulse Rate 96 H 07/05/17 10:00 Respiratory Rate 24 07/05/17 10:00 Blood Pressure 137/86 07/05/17 10:00 O2 Sat by Pulse Oximetry (%) 95 07/05/17 10:00 Labs: CBCD WBC 11.6 K/mm3 (4.0-10.0) H 07/05/17 05:50 RBC 3.70 M/mm3 (4.00-5.60) L 07/05/17 05:50 Hgb 10.3 GM/dL (11.7-16.9) L 07/05/17 05:50 Hct 30.3 % (35.4-49) L 07/05/17 05:50 MCV 82.0 fl (80-96) 07/05/17 05:50 MCHC 33.9 g/dl (32.0-35.9) 07/05/17 05:50 RDW 15.5 % (11.9-15.9) 07/05/17 05:50 Plt Count 347 K/MM3 (134-434) 07/05/17 05:50 MPV 8.7 fl (7.5-11.1) 07/05/17 05:50 CMP Sodium 137 mmol/L (136-145) 07/05/17 05:50 Potassium 4.6 mmol/L (3.5-5.1) 07/05/17 05:50 Chloride 100 mmol/L (98-107) 07/05/17 05:50 Carbon Dioxide 28 mmol/L (21-32) 07/05/17 05:50 Anion Gap 9 (8-16) 07/05/17 05:50 BUN 40 mg/dL (7-18) H 07/05/17 05:50 Creatinine 0.9 mg/dL (0.7-1.3) 07/05/17 05:50 Creat Clearance w eGFR > 60 (>60) 07/05/17 05:50 Calcium 8.4 mg/dL (8.5-10.1) L 07/05/17 05:50 Total Bilirubin 0.6 mg/dL (0.2-1.0) D 07/05/17 05:50 AST 56 U/L (15-37) H D 07/05/17 05:50 ALT 79 U/L (12-78) H 07/05/17 05:50 Alkaline Phosphatase 151 U/L (45-117) H 07/05/17 05:50 Total Protein 7.9 g/dl (6.4-8.2) 07/05/17 05:50 Albumin 1.7 g/dl (3.4-5.0) L 07/05/17 05:50 Problem List - Problems (1) Paraparesis of both lower limbs Code(s): G82.20 - PARAPLEGIA, UNSPECIFIED (2) Morbid obesity Code(s): E66.01 - MORBID (SEVERE) OBESITY DUE TO EXCESS CALORIES (3) Neuropathy Code(s): G62.9 - POLYNEUROPATHY, UNSPECIFIED (4) POLYMYLAGIA RHEUMATICA porgresisve paraparesis LE >UE, encephalopathy, + SPEP, intermittent fevers, myalgia myelogram--no clear evidence of spinal cord pathology epidural compression, no clear evidence of myopathy (muscle biopsy psp/cpk nl, and EMG- no myopathy). no clear evidence osteomyelitis/epidural abcess as per myelogram or biopsy and bld cltx(-) SPEP +, though no obvious occult hem process [place] (-), --CSF protein 62, I suspect this is POLYMYALGIA RHEUMATICA vs less likely parainfectious/ inflammatory neuropathy intermittent fevers,anemia and stiffness and pain limitations could be explained by PMR , + response to steroids would DC steroids would convert SOLUMEDROL to prednisone 60 mg --though may have to consider other fdc options given his DM , can speak to RHEUM can FU ESR/CRP over time DC espinal if possible, OOB to chair and REHAB expresses interest in gastric bypass surgery when stable /recovered DR Reid Problem List - Problems (1) Paraparesis of both lower limbs Code(s): G82.20 - PARAPLEGIA, UNSPECIFIED (2) Morbid obesity Code(s): E66.01 - MORBID (SEVERE) OBESITY DUE TO EXCESS CALORIES (3) Neuropathy Code(s): G62.9 - POLYNEUROPATHY, UNSPECIFIED
[2017-07-06] MEDS: methylPREDNISolone NA SUCC 125 MG/2 ML VIAL IVPB SCH ×2 (03:18→09:13)
[2017-07-06] MEDS: INSULIN SLIDING SCALE (NOVOLOG) 1 VIAL SQ SCH ×4 (06:04→21:14)
[2017-07-06] MEDS: GABAPENTIN 100 MG CAPSULE (FP) PO SCH ×3 (06:04→21:14)
[2017-07-06] MEDS ORDERED: PT OWN MED DRAWER 7, Y5N ONE (07:38)
[2017-07-06] MEDS: ERTAPENEM SODIUM 1 GM in SODIUM CHLORIDE 100 ML IVPB SCH (09:14)
[2017-07-06] MEDS: POLYETHYLENE GLYCOL 3350 119 GM BTL PO SCH ×2 (09:15→21:12)
--- NOTE | 2017-07-06 09:40 | PN ---
Progress Note, Physician - Current Medication List Current Medications: Active Medications Acetaminophen (Tylenol -) 650 mg PO Q6H PRN PRN Reason: FEVER Gabapentin (Neurontin -) 100 mg PO TID [facility] Last Admin: 07/06/17 06:04 Dose: 100 mg Ertapenem 1 gm/ Sodium (Chloride) 100 mls @ 100 mls/hr IVPB DAILY AJ PRN Reason: Protocol Last Admin: 07/06/17 09:14 Dose: 100 mls/hr Insulin Aspart (Novolog Vial Sliding Scale -) 1 vial SQ ACHS AJ PRN Reason: Protocol Last Admin: 07/06/17 06:04 Dose: 8 units Methylprednisolone Sodium Succinate (Solu-Medrol -) 250 mg IVPB Q6H-IV [facility] Last Admin: 07/06/17 09:13 Dose: 250 mg Morphine Sulfate (Morphine Sulfate) 2 mg IVPUSH Q4H PRN PRN Reason: PAIN LEVEL 6-10 Ondansetron HCl (Zofran Injection) 4 mg IVPUSH Q6H PRN PRN Reason: NAUSEA AND/OR VOMITING Polyethylene Glycol (Miralax (For Daily Use) -) 17 gm PO BID [facility] Last Admin: 07/06/17 09:15 Dose: Not Given - Objective Vital Signs: Vital Signs Temperature 98.7 F 07/06/17 05:55 Pulse Rate 79 07/06/17 05:55 Respiratory Rate 20 07/06/17 05:55 Blood Pressure 140/89 07/06/17 05:55 O2 Sat by Pulse Oximetry (%) 95 07/05/17 19:05 Eyes: Yes: WNL, Conjunctiva Clear, EOM Intact HENT: Yes: WNL, Atraumatic, Normocephalic Neck: Yes: WNL, Supple, Trachea Midline Cardiovascular: Yes: WNL, Regular Rate and Rhythm Respiratory: Yes: WNL, Regular, CTA Bilaterally Gastrointestinal: Yes: WNL, Normal Bowel Sounds Genitourinary: Yes: WNL Musculoskeletal: Yes: WNL Extremities: Yes: WNL Edema: No Integumentary: Yes: WNL Neurological: Yes: WNL, Alert, Oriented ...Motor Strength: WNL Psychiatric: Yes: WNL Labs: CBC, BMP 07/05/17 05:50 07/05/17 05:50 INR, PTT INR 1.45 (0.82-1.09) H 07/05/17 05:50 Fibrinogen 637.0 mg/dL (238-498) H 06/26/17 05:30 Assessment/Plan IMP: Fever, sinus tachycardia, tachypnea 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 Edema- -component of third spacing due to hypoalbuminemia with intravascular depletion -BUN/creat normalized but BUN trending back up -Echo showed normal LV function w/ mildly dilated LV 2. Fever: -concern for L4 osteo, s/p open bx/stabilization -cultures no growth -infectious disease is following 3. Muscle weaknes/rash -f/up bx results -ID/Rheum/Heme/Neuro following -s/p myelogram 4. Mild sinus tach, tachypnea: improved -Likely due to deconditioned status, infection, anemia. 5. Respiratory failure: -stable currently
--- NOTE | 2017-07-06 11:23 | PN ---
Progress Note (short form) - Note Progress Note: 62 year old male with a significant past medical history of sciatica who presents to the ED with complaints of fever that began 3 weeks ago. As per patient's daughter, patient was taken to urgent care 3 weeks ago for increased fever and body aches and was diagnosed with strep and given penicillin prescription. She reports after finishing prescription over 1 week, patient began to develop rash from the penicillin and began to take benadryl, relieving the rash in 2 days. Patient's daughter reports, patient was then taken to [facility] on June 08 for similar symptoms of increased fever and associated bilateral leg pain and weakness, LE >UE. mild numbness R hand. He reports patient was given X Ray, CT abdomen, flu culture and labs, before being diagnosed with pleuritic chest pain. noted to elevated CPKS, LFTS and elevated total protein, called for eval r/o myopathy. no hx of statin (only new RX was PCN0 , at baseline home walking and drives , now unable to walk. FU : more awake, and attempting to move legs and arms, reduced pain [place] (-) s/p open biopsy bone and CSF cltx sent.(- for infection) CSF proetin 72 EMG: no evidence of myopathy, and no clear evidence of motor neuropathy MYELOGRAM : IMPRESSION: Limited examination, as described above due to the patient's body habitus Interval bilateral laminectomy and posterior fusion at T7-T8 level with postop changes, posteriorly a drainage catheter and questionable small superficial left paramedian collection/ serosanguineous collection. There is effacement of the intradural space around the thoracic cord at the site of surgery, mainly posteriorly likely due to postoperative swelling. Otherwise, no extrinsic mass effect or cord compression is identified. No gross disc herniation is identified. The height and alignment of the vertebral bodies appear unremarkable with likely degenerative calcification in L3-L4 intervertebral disc space. - Current Medication List Current Medications: Active Medications Acetaminophen (Tylenol -) 650 mg PO Q6H PRN PRN Reason: FEVER Last Admin: 06/26/17 20:17 Dose: 650 mg Gabapentin (Neurontin -) 100 mg PO TID AJ Last Admin: 06/27/17 14:22 Dose: Not Given Hydromorphone HCl (Dilaudid Injection -) 0.5 mg IVPUSH [id number] PRN PRN Reason: PAIN-PACU ORDER X 4 DOSES ONLY Ertapenem 1 gm/ Sodium (Chloride) 100 mls @ 100 mls/hr IVPB DAILY AJ PRN Reason: Protocol Last Admin: 06/27/17 09:25 Dose: 100 mls/hr Vancomycin HCl 1,250 mg/ (Dextrose) 250 mls @ 166.667 mls/hr IVPB DAILY AJ PRN Reason: Protocol Last Admin: 06/27/17 09:26 Dose: 166.667 mls/hr Dextrose/Sodium Chloride (D5-1/2ns -) 1,000 mls @ 75 mls/hr IV ASDIR AJ Last Admin: 06/27/17 12:47 Dose: 75 mls/hr Propofol (Diprivan -) 1,000,000 mcg in 100 mls @ 30.383 mls/hr IVPB TITR AJ; 30 MCG/KG/MIN PRN Reason: Protocol Last Admin: 06/27/17 17:19 Dose: 30 mcg/kg/min, 30.383 mls/hr Ondansetron HCl (Zofran Injection) 4 mg IVPUSH Q6H PRN PRN Reason: NAUSEA AND/OR VOMITING - Objective Vital Signs: CBCD WBC 11.6 K/mm3 (4.0-10.0) H 07/05/17 05:50 RBC 3.70 M/mm3 (4.00-5.60) L 07/05/17 05:50 Hgb 10.3 GM/dL (11.7-16.9) L 07/05/17 05:50 Hct 30.3 % (35.4-49) L 07/05/17 05:50 MCV 82.0 fl (80-96) 07/05/17 05:50 MCHC 33.9 g/dl (32.0-35.9) 07/05/17 05:50 RDW 15.5 % (11.9-15.9) 07/05/17 05:50 Plt Count 347 K/MM3 (134-434) 07/05/17 05:50 MPV 8.7 fl (7.5-11.1) 07/05/17 05:50 CMP Sodium 137 mmol/L (136-145) 07/05/17 05:50 Potassium 4.6 mmol/L (3.5-5.1) 07/05/17 05:50 Chloride 100 mmol/L (98-107) 07/05/17 05:50 Carbon Dioxide 28 mmol/L (21-32) 07/05/17 05:50 Anion Gap 9 (8-16) 07/05/17 05:50 BUN 40 mg/dL (7-18) H 07/05/17 05:50 Creatinine 0.9 mg/dL (0.7-1.3) 07/05/17 05:50 Creat Clearance w eGFR > 60 (>60) 07/05/17 05:50 Calcium 8.4 mg/dL (8.5-10.1) L 07/05/17 05:50 Total Bilirubin 0.6 mg/dL (0.2-1.0) D 07/05/17 05:50 AST 56 U/L (15-37) H D 07/05/17 05:50 ALT 79 U/L (12-78) H 07/05/17 05:50 Alkaline Phosphatase 151 U/L (45-117) H 07/05/17 05:50 Total Protein 7.9 g/dl (6.4-8.2) 07/05/17 05:50 Albumin 1.7 g/dl (3.4-5.0) L 07/05/17 05:50 Labs: CBCD WBC 11.6 K/mm3 (4.0-10.0) H 07/05/17 05:50 RBC 3.70 M/mm3 (4.00-5.60) L 07/05/17 05:50 Hgb 10.3 GM/dL (11.7-16.9) L 07/05/17 05:50 Hct 30.3 % (35.4-49) L 07/05/17 05:50 MCV 82.0 fl (80-96) 07/05/17 05:50 MCHC 33.9 g/dl (32.0-35.9) 07/05/17 05:50 RDW 15.5 % (11.9-15.9) 07/05/17 05:50 Plt Count 347 K/MM3 (134-434) 07/05/17 05:50 MPV 8.7 fl (7.5-11.1) 07/05/17 05:50 CMP Sodium 137 mmol/L (136-145) 07/05/17 05:50 Potassium 4.6 mmol/L (3.5-5.1) 07/05/17 05:50 Chloride 100 mmol/L (98-107) 07/05/17 05:50 Carbon Dioxide 28 mmol/L (21-32) 07/05/17 05:50 Anion Gap 9 (8-16) 07/05/17 05:50 BUN 40 mg/dL (7-18) H 07/05/17 05:50 Creatinine 0.9 mg/dL (0.7-1.3) 07/05/17 05:50 Creat Clearance w eGFR > 60 (>60) 07/05/17 05:50 Calcium 8.4 mg/dL (8.5-10.1) L 07/05/17 05:50 Total Bilirubin 0.6 mg/dL (0.2-1.0) D 07/05/17 05:50 AST 56 U/L (15-37) H D 07/05/17 05:50 ALT 79 U/L (12-78) H 07/05/17 05:50 Alkaline Phosphatase 151 U/L (45-117) H 07/05/17 05:50 Total Protein 7.9 g/dl (6.4-8.2) 07/05/17 05:50 Albumin 1.7 g/dl (3.4-5.0) L 07/05/17 05:50 Problem List - Problems (1) Paraparesis of both lower limbs Code(s): G82.20 - PARAPLEGIA, UNSPECIFIED (2) Morbid obesity Code(s): E66.01 - MORBID (SEVERE) OBESITY DUE TO EXCESS CALORIES (3) Neuropathy Code(s): G62.9 - POLYNEUROPATHY, UNSPECIFIED (4) POLYMYLAGIA RHEUMATICA porgresisve paraparesis LE >UE, encephalopathy, + SPEP, intermittent fevers, myalgia myelogram--no clear evidence of spinal cord pathology epidural compression, no clear evidence of myopathy (muscle biopsy psp/cpk nl, and EMG- no myopathy). no clear evidence osteomyelitis/epidural abcess as per myelogram or biopsy and bld cltx(-) SPEP +, though no obvious occult hem process [place] (-), --CSF protein 62, I suspect this is POLYMYALGIA RHEUMATICA vs less likely parainfectious/ inflammatory neuropathy intermittent fevers,anemia and stiffness and pain limitations could be explained by PMR , + response to steroids would DC ABX will convert SOLUMEDROL to prednisone 60 mg --though may have to consider other senior living options given his DM , can speak to RHEUM tight sugar control can FU ESR/CRP over time JINA espinal if possible, OOB to chair and REHAB expresses interest in gastric bypass surgery when stable /recovered DR Reid Problem List - Problems (1) Paraparesis of both lower limbs Code(s): G82.20 - PARAPLEGIA, UNSPECIFIED (2) Morbid obesity Code(s): E66.01 - MORBID (SEVERE) OBESITY DUE TO EXCESS CALORIES (3) Neuropathy Code(s): G62.9 - POLYNEUROPATHY, UNSPECIFIED
--- NOTE | 2017-07-06 12:19 | PN ---
Progress Note, Physician History of Present Illness: stable no new events patient continues to improve - Current Medication List Current Medications: Active Medications Acetaminophen (Tylenol -) 650 mg PO Q6H PRN PRN Reason: FEVER Gabapentin (Neurontin -) 100 mg PO TID [facility] Last Admin: 07/06/17 06:04 Dose: 100 mg Insulin Aspart (Novolog Vial Sliding Scale -) 1 vial SQ ACHS [facility] PRN Reason: Protocol Last Admin: 07/06/17 11:52 Dose: 8 units Morphine Sulfate (Morphine Sulfate) 2 mg IVPUSH Q4H PRN PRN Reason: PAIN LEVEL 6-10 Ondansetron HCl (Zofran Injection) 4 mg IVPUSH Q6H PRN PRN Reason: NAUSEA AND/OR VOMITING Polyethylene Glycol (Miralax (For Daily Use) -) 17 gm PO BID [facility] Last Admin: 07/06/17 09:15 Dose: Not Given Prednisone (Deltasone -) 60 mg PO DAILY [facility] - Objective Vital Signs: Vital Signs Temperature 98.0 F 07/06/17 10:00 Pulse Rate 92 H 07/06/17 10:00 Respiratory Rate 20 07/06/17 10:00 Blood Pressure 152/78 07/06/17 10:00 O2 Sat by Pulse Oximetry (%) 97 07/06/17 10:00 Constitutional: Yes: No Distress, Calm, Obese Eyes: Yes: Conjunctiva Clear Cardiovascular: Yes: Regular Rate and Rhythm Respiratory: Yes: Regular, On Nasal O2, Poor Air Entry Gastrointestinal: Yes: Normal Bowel Sounds, Soft Musculoskeletal: Yes: WNL Extremities: Yes: WNL Wound/Incision: Yes: Clean/Dry Neurological: Yes: Alert, Oriented Psychiatric: Yes: Alert, Oriented Labs: CBC, BMP 07/05/17 05:50 07/05/17 05:50 INR, PTT INR 1.45 (0.82-1.09) H 07/05/17 05:50 Fibrinogen 637.0 mg/dL (238-498) H 06/26/17 05:30 Assessment/Plan r/o infective process ct disorder cardiac process sepsis autoimmune process r/o osteo abn lft leukocytosis Problem List - Problems (1) Neuropathy Code(s): G62.9 - POLYNEUROPATHY, UNSPECIFIED (2) Elevated creatine kinase Code(s): R74.8 - ABNORMAL LEVELS OF OTHER SERUM ENZYMES (3) Elevated serum creatinine Code(s): R79.89 - OTHER SPECIFIED ABNORMAL FINDINGS OF BLOOD CHEMISTRY (4) Anasarca Code(s): R60.1 - GENERALIZED EDEMA (5) Anemia Code(s): D64.9 - ANEMIA, UNSPECIFIED (6) CKD (chronic kidney disease) Code(s): N18.9 - CHRONIC KIDNEY DISEASE, UNSPECIFIED (7) Fever Code(s): R50.9 - FEVER, UNSPECIFIED (8) Diabetes Code(s): E11.9 - TYPE 2 DIABETES MELLITUS WITHOUT COMPLICATIONS (9) Coagulation defect Code(s): D68.9 - COAGULATION DEFECT, UNSPECIFIED plan stopped all abx continue steroids as per neurology rest continue current mgmt patient continues to improve physio final plan for his further mgmt
[2017-07-06] MEDS: predniSONE 20 MG TABLET (UD) PO SCH (14:15)
--- NOTE | 2017-07-06 15:38 | PN ---
Progress Note, Physician History of Present Illness: Pt seen and examined at bedside. He is awake and alert. He denies shortness of breath. - Current Medication List Current Medications: Active Medications Acetaminophen (Tylenol -) 650 mg PO Q6H PRN PRN Reason: FEVER Gabapentin (Neurontin -) 100 mg PO TID [facility] Last Admin: 07/06/17 14:15 Dose: 100 mg Insulin Aspart (Novolog Vial Sliding Scale -) 1 vial SQ ACHS [facility] PRN Reason: Protocol Last Admin: 07/06/17 11:52 Dose: 8 units Morphine Sulfate (Morphine Sulfate) 2 mg IVPUSH Q4H PRN PRN Reason: PAIN LEVEL 6-10 Ondansetron HCl (Zofran Injection) 4 mg IVPUSH Q6H PRN PRN Reason: NAUSEA AND/OR VOMITING Polyethylene Glycol (Miralax (For Daily Use) -) 17 gm PO BID [facility] Last Admin: 07/06/17 09:15 Dose: Not Given Prednisone (Deltasone -) 60 mg PO DAILY [facility] Last Admin: 07/06/17 14:15 Dose: 60 mg - Objective Vital Signs: Vital Signs Temperature 98.3 F 07/06/17 14:00 Pulse Rate 81 07/06/17 14:00 Respiratory Rate 20 07/06/17 14:00 Blood Pressure 145/74 07/06/17 14:00 O2 Sat by Pulse Oximetry (%) 97 07/06/17 10:00 Constitutional: Yes: Calm Eyes: Yes: Conjunctiva Clear Cardiovascular: Yes: S1, S2 Respiratory: Yes: On Nasal O2 Gastrointestinal: Yes: Soft, Abdomen, Obese Genitourinary: Yes: WNL Musculoskeletal: Yes: Muscle Weakness Edema: Yes Edema: LLE: 1+, RLE: 1+ Neurological: Yes: Oriented Psychiatric: Yes: Oriented Labs: CBC, BMP 07/05/17 05:50 07/05/17 05:50 INR, PTT INR 1.45 (0.82-1.09) H 07/05/17 05:50 Fibrinogen 637.0 mg/dL (238-498) H 06/26/17 05:30 Problem List - Problems (1) Anemia Code(s): D64.9 - ANEMIA, UNSPECIFIED (2) CKD (chronic kidney disease) Code(s): N18.9 - CHRONIC KIDNEY DISEASE, UNSPECIFIED (3) Elevated creatine kinase Code(s): R74.8 - ABNORMAL LEVELS OF OTHER SERUM ENZYMES (4) Neuropathy Code(s): G62.9 - POLYNEUROPATHY, UNSPECIFIED Assessment/Plan Current Medications Generic Name Dose Route Start Last Admin Trade Name Freq PRN Reason Stop Dose Admin Acetaminophen 650 mg 07/04/17 15:33 Tylenol - PO Q6H PRN FEVER Gabapentin 100 mg 07/04/17 22:00 07/06/17 14:15 Neurontin - PO 100 mg TID AJ Administration Insulin Aspart 1 vial 07/03/17 22:00 07/06/17 11:52 Novolog Vial Sliding Scale - SQ 8 units ACHS AJ Administration Protocol Morphine Sulfate 2 mg 07/04/17 15:33 Morphine Sulfate IVPUSH Q4H PRN PAIN LEVEL 6-10 Ondansetron HCl 4 mg 07/04/17 15:33 Zofran Injection IVPUSH Q6H PRN NAUSEA AND/OR VOMITING Polyethylene Glycol 17 gm 07/04/17 22:00 07/06/17 09:15 Miralax (For Daily Use) - PO Not Given BID [facility] Prednisone 60 mg 07/06/17 12:30 07/06/17 14:15 Deltasone - PO 60 mg DAILY AJ Administration Impression 1. KADIE 2. anemia 3. fevers 4. rash - which has resolved 5. obesity 6. lower ext pain and weekness 7. elevated total protein 8. transaminitis 9. r/o Osteomyelitis 10. r/o Epidural Abscess vs Mass 11. azotemia Plan - check bmp to evaluate BUN - steroids with taper as tolerated - will see again tomorrow - abx per ID - avoid NSAIDS Dr Ugarte
--- NOTE | 2017-07-06 20:18 | PN ---
Progress Note, Physician History of Present Illness: No new complaints - Current Medication List Current Medications: Active Medications Acetaminophen (Tylenol -) 650 mg PO Q6H PRN PRN Reason: FEVER Gabapentin (Neurontin -) 100 mg PO TID [facility] Last Admin: 07/06/17 14:15 Dose: 100 mg Insulin Aspart (Novolog Vial Sliding Scale -) 1 vial SQ ACHS [facility] PRN Reason: Protocol Last Admin: 07/06/17 17:17 Dose: 8 units Morphine Sulfate (Morphine Sulfate) 2 mg IVPUSH Q4H PRN PRN Reason: PAIN LEVEL 6-10 Ondansetron HCl (Zofran Injection) 4 mg IVPUSH Q6H PRN PRN Reason: NAUSEA AND/OR VOMITING Polyethylene Glycol (Miralax (For Daily Use) -) 17 gm PO BID [facility] Last Admin: 07/06/17 09:15 Dose: Not Given Prednisone (Deltasone -) 60 mg PO DAILY [facility] Last Admin: 07/06/17 14:15 Dose: 60 mg - Objective Vital Signs: Vital Signs Temperature 98.3 F 07/06/17 14:00 Pulse Rate 81 07/06/17 14:00 Respiratory Rate 20 07/06/17 14:00 Blood Pressure 145/74 07/06/17 14:00 O2 Sat by Pulse Oximetry (%) 97 07/06/17 10:00 HENT: Yes: WNL Neck: Yes: WNL, Supple Cardiovascular: Yes: WNL, Regular Rate and Rhythm Respiratory: Yes: WNL, Regular, CTA Bilaterally Gastrointestinal: Yes: WNL, Normal Bowel Sounds, Soft, Abdomen, Obese Edema: LLE: 1+, RLE: 1+ Labs: CBC, BMP 07/05/17 05:50 07/05/17 05:50 INR, PTT INR 1.45 (0.82-1.09) H 07/05/17 05:50 Fibrinogen 637.0 mg/dL (238-498) H 06/26/17 05:30 Problem List - Problems (1) Anemia Code(s): D64.9 - ANEMIA, UNSPECIFIED (2) CKD (chronic kidney disease) Code(s): N18.9 - CHRONIC KIDNEY DISEASE, UNSPECIFIED (3) Diabetes Code(s): E11.9 - TYPE 2 DIABETES MELLITUS WITHOUT COMPLICATIONS (4) Lower extremity weakness Code(s): R29.898 - OTH SYMPTOMS AND SIGNS INVOLVING THE MUSCULOSKELETAL SYSTEM
[2017-07-07] MEDS: GABAPENTIN 100 MG CAPSULE (FP) PO SCH ×3 (06:30→21:28)
[2017-07-07] MEDS: INSULIN SLIDING SCALE (NOVOLOG) 1 VIAL SQ SCH ×4 (06:30→21:30)
[2017-07-07 08:02] LABS: ANION GAP 8 (8-16); BLOOD UREA NITROGEN 39 mg/dL (7-18); CALCIUM 7.5 mg/dL (8.5-10.1); CHLORIDE 100 mmol/L (98-107); CO2 25 mmol/L (21-32); CREATININE 0.8 mg/dL (0.7-1.3); GLUCOSE,RANDOM 263 mg/dL (74-106); POTASSIUM 4.6 mmol/L (3.5-5.1); SODIUM 133 mmol/L (136-145)
--- NOTE | 2017-07-07 09:09 | PN ---
Progress Note, Physician - Current Medication List Current Medications: Active Medications Acetaminophen (Tylenol -) 650 mg PO Q6H PRN PRN Reason: FEVER Gabapentin (Neurontin -) 100 mg PO TID [facility] Last Admin: 07/07/17 06:30 Dose: 100 mg Insulin Aspart (Novolog Vial Sliding Scale -) 1 vial SQ ACHS [facility] PRN Reason: Protocol Last Admin: 07/07/17 06:30 Dose: 6 units Morphine Sulfate (Morphine Sulfate) 2 mg IVPUSH Q4H PRN PRN Reason: PAIN LEVEL 6-10 Ondansetron HCl (Zofran Injection) 4 mg IVPUSH Q6H PRN PRN Reason: NAUSEA AND/OR VOMITING Polyethylene Glycol (Miralax (For Daily Use) -) 17 gm PO BID [facility] Last Admin: 07/06/17 21:12 Dose: Not Given Prednisone (Deltasone -) 60 mg PO DAILY [facility] Last Admin: 07/06/17 14:15 Dose: 60 mg - Objective Vital Signs: Vital Signs Temperature 98.1 F 07/07/17 07:00 Pulse Rate 82 07/07/17 07:00 Respiratory Rate 20 07/07/17 07:00 Blood Pressure 142/84 07/07/17 07:00 O2 Sat by Pulse Oximetry (%) 95 07/06/17 20:41 Eyes: Yes: WNL, Conjunctiva Clear, EOM Intact HENT: Yes: WNL, Atraumatic, Normocephalic Neck: Yes: WNL, Supple, Trachea Midline Cardiovascular: Yes: WNL, Regular Rate and Rhythm Respiratory: Yes: WNL, Regular, CTA Bilaterally Gastrointestinal: Yes: WNL, Normal Bowel Sounds Genitourinary: Yes: WNL Musculoskeletal: Yes: WNL Extremities: Yes: WNL Edema: No Integumentary: Yes: WNL Neurological: Yes: WNL, Alert, Oriented ...Motor Strength: WNL Psychiatric: Yes: WNL Labs: CBC, BMP 07/05/17 05:50 07/07/17 06:30 INR, PTT INR 1.45 (0.82-1.09) H 07/05/17 05:50 Fibrinogen 637.0 mg/dL (238-498) H 06/26/17 05:30 Assessment/Plan IMP: Fever, sinus tachycardia, tachypnea 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 Edema- -component of third spacing due to hypoalbuminemia with intravascular depletion -BUN/creat normalized but BUN trending back up -Echo showed normal LV function w/ mildly dilated LV 2. Fever: -concern for L4 osteo, s/p open bx/stabilization -cultures no growth -infectious disease is following 3. Muscle weaknes/rash -f/up bx results -ID/Rheum/Heme/Neuro following -s/p myelogram 4. Mild sinus tach, tachypnea: improved -Likely due to deconditioned status, infection, anemia. 5. Respiratory failure: -stable currently
[2017-07-07] MEDS: predniSONE 20 MG TABLET (UD) PO SCH (10:27)
[2017-07-07] MEDS: POLYETHYLENE GLYCOL 3350 119 GM BTL PO SCH ×2 (11:23→21:26)
--- NOTE | 2017-07-07 15:29 | PN ---
Progress Note, Physician History of Present Illness: stable no new issues improving - Current Medication List Current Medications: Active Medications Acetaminophen (Tylenol -) 650 mg PO Q6H PRN PRN Reason: FEVER Gabapentin (Neurontin -) 100 mg PO TID [facility] Last Admin: 07/07/17 13:38 Dose: 100 mg Insulin Aspart (Novolog Vial Sliding Scale -) 1 vial SQ ACHS [facility] PRN Reason: Protocol Last Admin: 07/07/17 11:48 Dose: 4 units Morphine Sulfate (Morphine Sulfate) 2 mg IVPUSH Q4H PRN PRN Reason: PAIN LEVEL 6-10 Ondansetron HCl (Zofran Injection) 4 mg IVPUSH Q6H PRN PRN Reason: NAUSEA AND/OR VOMITING Polyethylene Glycol (Miralax (For Daily Use) -) 17 gm PO BID [facility] Last Admin: 07/07/17 11:23 Dose: Not Given Prednisone (Deltasone -) 60 mg PO DAILY [facility] Last Admin: 07/07/17 10:27 Dose: 60 mg - Objective Vital Signs: Vital Signs Temperature 97.8 F 07/07/17 13:26 Pulse Rate 87 07/07/17 13:26 Respiratory Rate 22 07/07/17 13:26 Blood Pressure 162/90 07/07/17 13:26 O2 Sat by Pulse Oximetry (%) 95 07/07/17 09:00 Constitutional: Yes: No Distress, Calm, Obese Cardiovascular: Yes: Regular Rate and Rhythm Respiratory: Yes: Regular, CTA Bilaterally Gastrointestinal: Yes: Normal Bowel Sounds, Soft Musculoskeletal: Yes: WNL Extremities: Yes: WNL Wound/Incision: Yes: Clean/Dry Neurological: Yes: Alert, Oriented Psychiatric: Yes: Alert, Oriented Labs: CBC, BMP 07/05/17 05:50 07/07/17 06:30 INR, PTT INR 1.45 (0.82-1.09) H 07/05/17 05:50 Fibrinogen 637.0 mg/dL (238-498) H 06/26/17 05:30 Assessment/Plan r/o infective process ct disorder cardiac process sepsis autoimmune process r/o osteo abn lft leukocytosis Problem List - Problems (1) Neuropathy Code(s): G62.9 - POLYNEUROPATHY, UNSPECIFIED (2) Elevated creatine kinase Code(s): R74.8 - ABNORMAL LEVELS OF OTHER SERUM ENZYMES (3) Elevated serum creatinine Code(s): R79.89 - OTHER SPECIFIED ABNORMAL FINDINGS OF BLOOD CHEMISTRY (4) Anasarca Code(s): R60.1 - GENERALIZED EDEMA (5) Anemia Code(s): D64.9 - ANEMIA, UNSPECIFIED (6) CKD (chronic kidney disease) Code(s): N18.9 - CHRONIC KIDNEY DISEASE, UNSPECIFIED (7) Fever Code(s): R50.9 - FEVER, UNSPECIFIED (8) Diabetes Code(s): E11.9 - TYPE 2 DIABETES MELLITUS WITHOUT COMPLICATIONS (9) Coagulation defect Code(s): D68.9 - COAGULATION DEFECT, UNSPECIFIED plan stable off of abx continue as per neurology all cx are negative so far physio rest as per primary team
--- NOTE | 2017-07-07 17:23 | PN ---
Progress Note (short form) - Note Progress Note: 62 year old male with a significant past medical history of sciatica who presents to the ED with complaints of fever that began 3 weeks ago. As per patient's daughter, patient was taken to urgent care 3 weeks ago for increased fever and body aches and was diagnosed with strep and given penicillin prescription. She reports after finishing prescription over 1 week, patient began to develop rash from the penicillin and began to take benadryl, relieving the rash in 2 days. Patient's daughter reports, patient was then taken to [facility] on June 08 for similar symptoms of increased fever and associated bilateral leg pain and weakness, LE >UE. mild numbness R hand. He reports patient was given X Ray, CT abdomen, flu culture and labs, before being diagnosed with pleuritic chest pain. noted to elevated CPKS, LFTS and elevated total protein, called for eval r/o myopathy. no hx of statin (only new RX was PCN0 , at baseline home walking and drives , now unable to walk. FU : more awake, and attempting to move legs and arms, reduced pain [place] (-) s/p open biopsy bone and CSF cltx sent.(- for infection) CSF proetin 72 EMG: no evidence of myopathy, and no clear evidence of motor neuropathy MYELOGRAM : IMPRESSION: Limited examination, as described above due to the patient's body habitus Interval bilateral laminectomy and posterior fusion at T7-T8 level with postop changes, posteriorly a drainage catheter and questionable small superficial left paramedian collection/ serosanguineous collection. There is effacement of the intradural space around the thoracic cord at the site of surgery, mainly posteriorly likely due to postoperative swelling. Otherwise, no extrinsic mass effect or cord compression is identified. No gross disc herniation is identified. The height and alignment of the vertebral bodies appear unremarkable with likely degenerative calcification in L3-L4 intervertebral disc space. - Current Medication List Current Medications: Active Medications Acetaminophen (Tylenol -) 650 mg PO Q6H PRN PRN Reason: FEVER Last Admin: 06/26/17 20:17 Dose: 650 mg Gabapentin (Neurontin -) 100 mg PO TID [facility] Last Admin: 06/27/17 14:22 Dose: Not Given Hydromorphone HCl (Dilaudid Injection -) 0.5 mg IVPUSH [id number] PRN PRN Reason: PAIN-PACU ORDER X 4 DOSES ONLY Ertapenem 1 gm/ Sodium (Chloride) 100 mls @ 100 mls/hr IVPB DAILY AJ PRN Reason: Protocol Last Admin: 06/27/17 09:25 Dose: 100 mls/hr Vancomycin HCl 1,250 mg/ (Dextrose) 250 mls @ 166.667 mls/hr IVPB DAILY AJ PRN Reason: Protocol Last Admin: 06/27/17 09:26 Dose: 166.667 mls/hr Dextrose/Sodium Chloride (D5-1/2ns -) 1,000 mls @ 75 mls/hr IV ASDIR AJ Last Admin: 06/27/17 12:47 Dose: 75 mls/hr Propofol (Diprivan -) 1,000,000 mcg in 100 mls @ 30.383 mls/hr IVPB TITR AJ; 30 MCG/KG/MIN PRN Reason: Protocol Last Admin: 06/27/17 17:19 Dose: 30 mcg/kg/min, 30.383 mls/hr Ondansetron HCl (Zofran Injection) 4 mg IVPUSH Q6H PRN PRN Reason: NAUSEA AND/OR VOMITING - Objective Vital Signs: Vital Signs Temperature 97.8 F 07/07/17 13:26 Pulse Rate 87 07/07/17 13:26 Respiratory Rate 22 07/07/17 13:26 Blood Pressure 162/90 07/07/17 13:26 O2 Sat by Pulse Oximetry (%) 95 07/07/17 09:00 Labs: CBCD WBC 11.6 K/mm3 (4.0-10.0) H 07/05/17 05:50 RBC 3.70 M/mm3 (4.00-5.60) L 07/05/17 05:50 Hgb 10.3 GM/dL (11.7-16.9) L 07/05/17 05:50 Hct 30.3 % (35.4-49) L 07/05/17 05:50 MCV 82.0 fl (80-96) 07/05/17 05:50 MCHC 33.9 g/dl (32.0-35.9) 07/05/17 05:50 RDW 15.5 % (11.9-15.9) 07/05/17 05:50 Plt Count 347 K/MM3 (134-434) 07/05/17 05:50 MPV 8.7 fl (7.5-11.1) 07/05/17 05:50 CMP Sodium 137 mmol/L (136-145) 07/05/17 05:50 Potassium 4.6 mmol/L (3.5-5.1) 07/05/17 05:50 Chloride 100 mmol/L (98-107) 07/05/17 05:50 Carbon Dioxide 28 mmol/L (21-32) 07/05/17 05:50 Anion Gap 9 (8-16) 07/05/17 05:50 BUN 40 mg/dL (7-18) H 07/05/17 05:50 Creatinine 0.9 mg/dL (0.7-1.3) 07/05/17 05:50 Creat Clearance w eGFR > 60 (>60) 07/05/17 05:50 Calcium 8.4 mg/dL (8.5-10.1) L 07/05/17 05:50 Total Bilirubin 0.6 mg/dL (0.2-1.0) D 07/05/17 05:50 AST 56 U/L (15-37) H D 07/05/17 05:50 ALT 79 U/L (12-78) H 07/05/17 05:50 Alkaline Phosphatase 151 U/L (45-117) H 07/05/17 05:50 Total Protein 7.9 g/dl (6.4-8.2) 07/05/17 05:50 Albumin 1.7 g/dl (3.4-5.0) L 07/05/17 05:50 Problem List - Problems (1) Paraparesis of both lower limbs Code(s): G82.20 - PARAPLEGIA, UNSPECIFIED (2) Morbid obesity Code(s): E66.01 - MORBID (SEVERE) OBESITY DUE TO EXCESS CALORIES (3) Neuropathy Code(s): G62.9 - POLYNEUROPATHY, UNSPECIFIED (4) POLYMYLAGIA RHEUMATICA porgresisve paraparesis LE >UE, encephalopathy, + SPEP, intermittent fevers, myalgia myelogram--no clear evidence of spinal cord pathology epidural compression, no clear evidence of myopathy (muscle biopsy psp/cpk nl, and EMG- no myopathy). no clear evidence osteomyelitis/epidural abcess as per myelogram or biopsy and bld cltx(-) SPEP +, though no obvious occult hem process zunilda (-), --CSF protein 62, POLYMYALGIA RHEUMATICA vs less likely parainfectious/inflammatory neuropathy intermittent fevers,anemia and stiffness and pain limitations could be explained by PMR , + response to steroids off ABX on prednisone 60 mg --though may have to consider other intermediate frame tender options given his DM , can speak to RHEUM tight sugar control can FU ESR/CRP over time JINA espinal if possible, OOB to chair and REHAB expresses interest in gastric bypass surgery when stable /recovered DR Reid Problem List - Problems (1) Paraparesis of both lower limbs Code(s): G82.20 - PARAPLEGIA, UNSPECIFIED (2) Morbid obesity Code(s): E66.01 - MORBID (SEVERE) OBESITY DUE TO EXCESS CALORIES (3) Neuropathy Code(s): G62.9 - POLYNEUROPATHY, UNSPECIFIED
--- NOTE | 2017-07-07 18:31 | PN ---
Progress Note, Physician History of Present Illness: Pt seen and examined at bedside. He is awake and alert. He denies shortness of breath. - Current Medication List Current Medications: Active Medications Acetaminophen (Tylenol -) 650 mg PO Q6H PRN PRN Reason: FEVER Gabapentin (Neurontin -) 100 mg PO TID [facility] Last Admin: 07/07/17 13:38 Dose: 100 mg Insulin Aspart (Novolog Vial Sliding Scale -) 1 vial SQ ACHS [facility] PRN Reason: Protocol Last Admin: 07/07/17 16:21 Dose: 6 units Ondansetron HCl (Zofran Injection) 4 mg IVPUSH Q6H PRN PRN Reason: NAUSEA AND/OR VOMITING Polyethylene Glycol (Miralax (For Daily Use) -) 17 gm PO BID [facility] Last Admin: 07/07/17 11:23 Dose: Not Given Prednisone (Deltasone -) 60 mg PO DAILY [facility] Last Admin: 07/07/17 10:27 Dose: 60 mg - Objective Vital Signs: Vital Signs Temperature 97.8 F 07/07/17 13:26 Pulse Rate 87 07/07/17 13:26 Respiratory Rate 22 07/07/17 13:26 Blood Pressure 162/90 07/07/17 13:26 O2 Sat by Pulse Oximetry (%) 95 07/07/17 09:00 Constitutional: Yes: Calm Eyes: Yes: Conjunctiva Clear HENT: Yes: Atraumatic Neck: Yes: Supple Cardiovascular: Yes: S1, S2 Respiratory: Yes: CTA Bilaterally Gastrointestinal: Yes: Soft, Abdomen, Obese Genitourinary: Yes: Other (external cath) Edema: Yes Edema: LLE: 1+, RLE: 1+ Neurological: Yes: Oriented Psychiatric: Yes: Oriented Labs: CBC, BMP 07/05/17 05:50 07/07/17 06:30 INR, PTT INR 1.45 (0.82-1.09) H 07/05/17 05:50 Fibrinogen 637.0 mg/dL (238-498) H 06/26/17 05:30 Problem List - Problems (1) Anemia Code(s): D64.9 - ANEMIA, UNSPECIFIED (2) CKD (chronic kidney disease) Code(s): N18.9 - CHRONIC KIDNEY DISEASE, UNSPECIFIED (3) Elevated creatine kinase Code(s): R74.8 - ABNORMAL LEVELS OF OTHER SERUM ENZYMES (4) Neuropathy Code(s): G62.9 - POLYNEUROPATHY, UNSPECIFIED Assessment/Plan Current Medications Generic Name Dose Route Start Last Admin Trade Name Dona PRN Reason Stop Dose Admin Acetaminophen 650 mg 07/04/17 15:33 Tylenol - PO Q6H PRN FEVER Gabapentin 100 mg 07/04/17 22:00 07/07/17 13:38 Neurontin - PO 100 mg TID AJ Administration Insulin Aspart 1 vial 07/03/17 22:00 07/07/17 16:21 Novolog Vial Sliding Scale - SQ 6 units ACHS AJ Administration Protocol Ondansetron HCl 4 mg 07/04/17 15:33 Zofran Injection IVPUSH Q6H PRN NAUSEA AND/OR VOMITING Polyethylene Glycol 17 gm 07/04/17 22:00 07/07/17 11:23 Miralax (For Daily Use) - PO Not Given BID AJ Prednisone 60 mg 07/06/17 12:30 07/07/17 10:27 Deltasone - PO 60 mg DAILY AJ Administration Impression 1. KADIE 2. anemia 3. fevers 4. rash - which has resolved 5. obesity 6. lower ext pain and weekness 7. elevated total protein 8. transaminitis 9. r/o Osteomyelitis 10. r/o Epidural Abscess vs Mass 11. azotemia Plan - bun is a little better, likely elevated from steroids - check stool for occult blood as he has elevated bun and low hg - renal function is stable - abx per ID - avoid NSAIDS Dr Ugarte
--- NOTE | 2017-07-07 23:05 | PN ---
Progress Note, Physician History of Present Illness: No new changes - Current Medication List Current Medications: Active Medications Acetaminophen (Tylenol -) 650 mg PO Q6H PRN PRN Reason: FEVER Gabapentin (Neurontin -) 100 mg PO TID [facility] Last Admin: 07/07/17 21:28 Dose: 100 mg Insulin Aspart (Novolog Vial Sliding Scale -) 1 vial SQ ACHS [facility] PRN Reason: Protocol Last Admin: 07/07/17 21:30 Dose: 6 units Ondansetron HCl (Zofran Injection) 4 mg IVPUSH Q6H PRN PRN Reason: NAUSEA AND/OR VOMITING Polyethylene Glycol (Miralax (For Daily Use) -) 17 gm PO BID [facility] Last Admin: 07/07/17 21:26 Dose: Not Given Prednisone (Deltasone -) 60 mg PO DAILY [facility] Last Admin: 07/07/17 10:27 Dose: 60 mg - Objective Vital Signs: Vital Signs Temperature 98.8 F 07/07/17 22:00 Pulse Rate 88 07/07/17 22:00 Respiratory Rate 22 07/07/17 22:00 Blood Pressure 142/77 07/07/17 22:00 O2 Sat by Pulse Oximetry (%) 95 07/07/17 21:00 Constitutional: Yes: Well Nourished HENT: Yes: WNL Neck: Yes: WNL, Supple Cardiovascular: Yes: WNL, Regular Rate and Rhythm Respiratory: Yes: Diminished Gastrointestinal: Yes: WNL, Normal Bowel Sounds, Soft, Abdomen, Obese Labs: CBC, BMP 07/05/17 05:50 07/07/17 06:30 INR, PTT INR 1.45 (0.82-1.09) H 07/05/17 05:50 Fibrinogen 637.0 mg/dL (238-498) H 06/26/17 05:30 Problem List - Problems (1) Neuropathy Assessment/Plan: ?Polymyalgia rheumatice Cont prednisone Code(s): G62.9 - POLYNEUROPATHY, UNSPECIFIED (2) Anemia Assessment/Plan: Due to chronic dz Code(s): D64.9 - ANEMIA, UNSPECIFIED (3) CKD (chronic kidney disease) Assessment/Plan: As per renal Code(s): N18.9 - CHRONIC KIDNEY DISEASE, UNSPECIFIED (4) Diabetes Code(s): E11.9 - TYPE 2 DIABETES MELLITUS WITHOUT COMPLICATIONS
[2017-07-08] MEDS: GABAPENTIN 100 MG CAPSULE (FP) PO SCH ×3 (06:14→21:18)
[2017-07-08] MEDS: INSULIN SLIDING SCALE (NOVOLOG) 1 VIAL SQ SCH ×4 (06:17→21:19)
[2017-07-08] MEDS ORDERED: PT OWN MED DRAWER 7, Y5N ONE (09:38)
[2017-07-08] MEDS: POLYETHYLENE GLYCOL 3350 119 GM BTL PO SCH ×2 (09:45→21:18)
[2017-07-08] MEDS: predniSONE 20 MG TABLET (UD) PO SCH (09:45)
--- NOTE | 2017-07-08 13:14 | PN ---
Progress Note, Physician History of Present Illness: seen and examined today in [facility]. no overnight events. no new complaints. - Current Medication List Current Medications: Active Medications Acetaminophen (Tylenol -) 650 mg PO Q6H PRN PRN Reason: FEVER Gabapentin (Neurontin -) 100 mg PO TID [facility] Last Admin: 07/08/17 06:14 Dose: 100 mg Insulin Aspart (Novolog Vial Sliding Scale -) 1 vial SQ ACHS [facility] PRN Reason: Protocol Last Admin: 07/08/17 12:15 Dose: 4 units Ondansetron HCl (Zofran Injection) 4 mg IVPUSH Q6H PRN PRN Reason: NAUSEA AND/OR VOMITING Polyethylene Glycol (Miralax (For Daily Use) -) 17 gm PO BID [facility] Last Admin: 07/08/17 09:45 Dose: 17 grams Prednisone (Deltasone -) 60 mg PO DAILY [facility] Last Admin: 07/08/17 09:45 Dose: 60 mg - Objective Vital Signs: Vital Signs Temperature 98 F 07/08/17 10:00 Pulse Rate 97 H 07/08/17 10:00 Respiratory Rate 20 07/08/17 10:00 Blood Pressure 129/54 07/08/17 10:00 O2 Sat by Pulse Oximetry (%) 94 L 07/08/17 09:00 Constitutional: Yes: No Distress, Calm, Obese Eyes: Yes: Conjunctiva Clear, EOM Intact HENT: Yes: Atraumatic, Normocephalic Neck: Yes: Supple, Trachea Midline Cardiovascular: Yes: Regular Rate and Rhythm, S1, S2. No: Bradycardia, Tachycardia, Pulse Irregular, Bruit, JVD, Gallop, Murmur, Rub, S3, S4, Varicosities Respiratory: Yes: Regular, Diminished. No: Rales, Rhonchi, Wheezes Gastrointestinal: Yes: Normal Bowel Sounds, Soft. 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 Edema- -component of third spacing due to hypoalbuminemia with intravascular depletion -BUN/creat ratio normalized but BUN trended back up, no labs back today, ensure adequate hydration -Echo showed normal LV function w/ mildly dilated LV 2. Fever: -concern for L4 osteo, s/p open bx/stabilization -cultures no growth -infectious disease is following 3. Muscle weaknes/rash -ID/Rheum/Heme/Neuro following -s/p myelogram 4. Mild sinus tach, tachypnea: improved -Likely due to deconditioned status, infection, anemia. -ok to dc tele 5. Respiratory failure: -stable currently -ok to dc tele
--- NOTE | 2017-07-08 14:24 | PN ---
Progress Note, Physician History of Present Illness: patient doing well no complaints off of abx stable starting to do physio weakness improving - Current Medication List Current Medications: Active Medications Acetaminophen (Tylenol -) 650 mg PO Q6H PRN PRN Reason: FEVER Last Admin: 07/08/17 13:47 Dose: 650 mg Gabapentin (Neurontin -) 100 mg PO TID [facility] Last Admin: 07/08/17 13:47 Dose: 100 mg Insulin Aspart (Novolog Vial Sliding Scale -) 1 vial SQ ACHS [facility] PRN Reason: Protocol Last Admin: 07/08/17 12:15 Dose: 4 units Ondansetron HCl (Zofran Injection) 4 mg IVPUSH Q6H PRN PRN Reason: NAUSEA AND/OR VOMITING Polyethylene Glycol (Miralax (For Daily Use) -) 17 gm PO BID [facility] Last Admin: 07/08/17 09:45 Dose: 17 grams Prednisone (Deltasone -) 60 mg PO DAILY [facility] Last Admin: 07/08/17 09:45 Dose: 60 mg - Objective Vital Signs: Vital Signs Temperature 100.8 F H 07/08/17 13:49 Pulse Rate 95 H 07/08/17 13:49 Respiratory Rate 22 07/08/17 13:49 Blood Pressure 141/88 07/08/17 13:49 O2 Sat by Pulse Oximetry (%) 94 L 07/08/17 09:00 Constitutional: Yes: No Distress, Calm, Obese Cardiovascular: Yes: Regular Rate and Rhythm Respiratory: Yes: Regular, CTA Bilaterally Gastrointestinal: Yes: Normal Bowel Sounds, Soft Musculoskeletal: Yes: WNL Extremities: Yes: WNL Neurological: Yes: Alert, Oriented Psychiatric: Yes: Alert, Oriented Labs: CBC, BMP 07/05/17 05:50 07/07/17 06:30 INR, PTT INR 1.45 (0.82-1.09) H 07/05/17 05:50 Fibrinogen 637.0 mg/dL (238-498) H 06/26/17 05:30 Assessment/Plan r/o infective process ct disorder cardiac process sepsis autoimmune process r/o osteo abn lft leukocytosis Problem List - Problems (1) Neuropathy Code(s): G62.9 - POLYNEUROPATHY, UNSPECIFIED (2) Elevated creatine kinase Code(s): R74.8 - ABNORMAL LEVELS OF OTHER SERUM ENZYMES (3) Elevated serum creatinine Code(s): R79.89 - OTHER SPECIFIED ABNORMAL FINDINGS OF BLOOD CHEMISTRY (4) Anasarca Code(s): R60.1 - GENERALIZED EDEMA (5) Anemia Code(s): D64.9 - ANEMIA, UNSPECIFIED (6) CKD (chronic kidney disease) Code(s): N18.9 - CHRONIC KIDNEY DISEASE, UNSPECIFIED (7) Fever Code(s): R50.9 - FEVER, UNSPECIFIED (8) Diabetes Code(s): E11.9 - TYPE 2 DIABETES MELLITUS WITHOUT COMPLICATIONS (9) Coagulation defect Code(s): D68.9 - COAGULATION DEFECT, UNSPECIFIED plan stable off of abx continue as per neurology all cx are negative so far physio rest as per primary team out of bed
--- NOTE | 2017-07-08 17:44 | PN ---
Progress Note, Physician History of Present Illness: comfortable - Current Medication List Current Medications: Active Medications Acetaminophen (Tylenol -) 650 mg PO Q6H PRN PRN Reason: FEVER Last Admin: 07/08/17 13:47 Dose: 650 mg Gabapentin (Neurontin -) 100 mg PO TID [facility] Last Admin: 07/08/17 13:47 Dose: 100 mg Heparin Sodium (Porcine) (Heparin -) 5,000 unit SQ BID [facility] Insulin Aspart (Novolog Vial Sliding Scale -) 1 vial SQ ACHS AJ PRN Reason: Protocol Last Admin: 07/08/17 17:23 Dose: 6 units Ondansetron HCl (Zofran Injection) 4 mg IVPUSH Q6H PRN PRN Reason: NAUSEA AND/OR VOMITING Polyethylene Glycol (Miralax (For Daily Use) -) 17 gm PO BID [facility] Last Admin: 07/08/17 09:45 Dose: 17 grams Prednisone (Deltasone -) 60 mg PO DAILY [facility] Last Admin: 07/08/17 09:45 Dose: 60 mg - Objective Vital Signs: Vital Signs Temperature 100.8 F H 07/08/17 13:49 Pulse Rate 95 H 07/08/17 13:49 Respiratory Rate 22 07/08/17 13:49 Blood Pressure 141/88 07/08/17 13:49 O2 Sat by Pulse Oximetry (%) 94 L 07/08/17 09:00 Constitutional: Yes: Calm HENT: Yes: Atraumatic Neck: Yes: Supple Cardiovascular: Yes: Regular Rate and Rhythm Respiratory: Yes: CTA Bilaterally Gastrointestinal: Yes: Normal Bowel Sounds Extremities: Yes: WNL Edema: Yes Edema: LLE: 4+, RLE: 4+ Peripheral Pulses WNL: Yes Neurological: Yes: Weakness (no change in lower extre. exam) Labs: CBC, BMP 07/05/17 05:50 07/07/17 06:30 INR, PTT INR 1.45 (0.82-1.09) H 07/05/17 05:50 Fibrinogen 637.0 mg/dL (238-498) H 06/26/17 05:30 Problem List - Problems (1) Neuropathy Assessment/Plan: s/p spinal decompression surgery for ct myelogram done report seen pt on iv steroids now...improving Code(s): G62.9 - POLYNEUROPATHY, UNSPECIFIED (2) Elevated creatine kinase Assessment/Plan: wnl now Code(s): R74.8 - ABNORMAL LEVELS OF OTHER SERUM ENZYMES (3) Elevated serum creatinine Code(s): R79.89 - OTHER SPECIFIED ABNORMAL FINDINGS OF BLOOD CHEMISTRY (4) Anasarca Assessment/Plan: better Code(s): R60.1 - GENERALIZED EDEMA (5) Anemia Assessment/Plan: h/h stable Code(s): D64.9 - ANEMIA, UNSPECIFIED (6) CKD (chronic kidney disease) Assessment/Plan: renal work up negative cr wnl Code(s): N18.9 - CHRONIC KIDNEY DISEASE, UNSPECIFIED (7) Fever Assessment/Plan: cxs have sent ...negative afebrile Code(s): R50.9 - FEVER, UNSPECIFIED (8) Diabetes Assessment/Plan: monitor blood sugars poor po intake coverage if needed as pt is on steroids Code(s): E11.9 - TYPE 2 DIABETES MELLITUS WITHOUT COMPLICATIONS (9) Coagulation defect Assessment/Plan: fu inr Code(s): D68.9 - COAGULATION DEFECT, UNSPECIFIED (10) Morbid obesity Code(s): E66.01 - MORBID (SEVERE) OBESITY DUE TO EXCESS CALORIES (11) Paraparesis of both lower limbs Assessment/Plan: moving legs, on steroids physical therapy Code(s): G82.20 - PARAPLEGIA, UNSPECIFIED Assessment/Plan need rheum follow up
[2017-07-08] MEDS: HEPARIN NA (PORCINE) 5,000 UNITS/ML 1ML VIAL SQ SCH (21:18)
--- NOTE | 2017-07-08 22:56 | PN ---
Progress Note (short form) - Note Progress Note: Patient seen and examined no complaints wiggling toes moving knees side to side Last Vital Signs Temp Pulse Resp BP Pulse Ox 99.0 F 82 20 138/57 97 07/08/17 22:00 07/08/17 22:00 07/08/17 22:00 07/08/17 22:00 07/08/17 20:05 Cor: RSR, No murmurs, No gallops Lungs: Clear to P&A Abd: Soft, Normal bowel sounds, No organomegaly Ext:No significant edema Abnormal Lab Results 07/08/17 07/08/17 11:17 11:17 ESR 99 H C-Reactive Protein 2.1 H Active Medications Generic Name Dose Route Start Last Admin Trade Name Freq PRN Reason Stop Dose Admin Acetaminophen 650 mg 07/04/17 15:33 07/08/17 13:47 Tylenol - PO 650 mg Q6H PRN Administration FEVER Gabapentin 100 mg 07/04/17 22:00 07/08/17 21:18 Neurontin - PO 100 mg TID AJ Administration Heparin Sodium (Porcine) 5,000 unit 07/08/17 22:00 07/08/17 21:18 Heparin - SQ 5,000 unit BID AJ Administration Insulin Aspart 1 vial 07/03/17 22:00 07/08/17 21:19 Novolog Vial Sliding Scale - SQ 4 units ACHS AJ Administration Protocol Ondansetron HCl 4 mg 07/04/17 15:33 Zofran Injection IVPUSH Q6H PRN NAUSEA AND/OR VOMITING Polyethylene Glycol 17 gm 07/04/17 22:00 07/08/17 21:18 Miralax (For Daily Use) - PO Not Given BID AJ Prednisone 60 mg 07/06/17 12:30 07/08/17 09:45 Deltasone - PO 60 mg DAILY AJ Administration a/p 62 y/o with recent streptococal [haryngitis, presenting with progressive lower extremity weakness FUO s/p spinal decompression /fusion for suspicion of osteo--cultures neg. fatty liver/mildly elevated INR 1.4 Polyclonal gammopathy with nl SFLCA ratio ? polymyalgia rheumatica ? post infectious immune sequela Per neuro s/p pulse dose steroids. on prednisone
[2017-07-09] MEDS: GABAPENTIN 100 MG CAPSULE (FP) PO SCH ×4 (05:52→23:02)
[2017-07-09] MEDS: INSULIN SLIDING SCALE (NOVOLOG) 1 VIAL SQ SCH ×4 (06:12→23:30)
[2017-07-09 06:59] LABS: ANION GAP 10 (8-16); BLOOD UREA NITROGEN 26 mg/dL (7-18); CALCIUM 7.5 mg/dL (8.5-10.1); CHLORIDE 101 mmol/L (98-107); CO2 27 mmol/L (21-32); CREATININE 0.7 mg/dL (0.7-1.3); GLUCOSE,RANDOM 164 mg/dL (74-106); POTASSIUM 4.4 mmol/L (3.5-5.1); SODIUM 138 mmol/L (136-145)
--- NOTE | 2017-07-09 08:56 | PN ---
Progress Note, Physician Chief Complaint: Comfortably sleeping TELE: NSR, rare VPCs - Current Medication List Current Medications: Active Medications Acetaminophen (Tylenol -) 650 mg PO Q6H PRN PRN Reason: FEVER Last Admin: 07/08/17 13:47 Dose: 650 mg Gabapentin (Neurontin -) 100 mg PO TID [facility] Last Admin: 07/09/17 05:52 Dose: 100 mg Heparin Sodium (Porcine) (Heparin -) 5,000 unit SQ BID [facility] Last Admin: 07/08/17 21:18 Dose: 5,000 unit Insulin Aspart (Novolog Vial Sliding Scale -) 1 vial SQ ACHS [facility] PRN Reason: Protocol Last Admin: 07/09/17 06:12 Dose: 2 units Ondansetron HCl (Zofran Injection) 4 mg IVPUSH Q6H PRN PRN Reason: NAUSEA AND/OR VOMITING Polyethylene Glycol (Miralax (For Daily Use) -) 17 gm PO BID [facility] Last Admin: 07/08/17 21:18 Dose: Not Given Prednisone (Deltasone -) 60 mg PO DAILY [facility] Last Admin: 07/08/17 09:45 Dose: 60 mg - Objective Vital Signs: Vital Signs Temperature 98.3 F 07/09/17 06:00 Pulse Rate 87 07/09/17 06:00 Respiratory Rate 20 07/09/17 06:00 Blood Pressure 120/74 07/09/17 06:00 O2 Sat by Pulse Oximetry (%) 97 07/08/17 20:05 Constitutional: Yes: No Distress Eyes: Yes: Conjunctiva Clear Cardiovascular: Yes: Regular Rate and Rhythm Respiratory: Yes: CTA Bilaterally Gastrointestinal: Yes: Soft, Abdomen, Obese Edema: Yes Edema: LLE: 1+, RLE: 1+ Neurological: Yes: Alert, Oriented ...Motor Strength: WNL Labs: CBC, BMP 07/05/17 05:50 07/09/17 05:30 INR, PTT INR 1.45 (0.82-1.09) H 07/05/17 05:50 Fibrinogen 637.0 mg/dL (238-498) H 06/26/17 05:30 Laboratory Tests 07/09/17 05:30 Potassium 4.4 - ....Imaging EKG: Image Reviewed Assessment/Plan Fever, sinus tachycardia, tachypnea 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 Edema- -component of third spacing due to hypoalbuminemia with intravascular depletion -Echo showed normal LV function w/ mildly dilated LV 2. Fever: -concern for L4 osteo, s/p open bx/stabilization -cultures no growth -infectious disease is following 3. Muscle weaknes/rash -ID/Rheum/Heme/Neuro following -s/p myelogram: ?inflammatory neuropathy 4. Mild sinus tach, tachypnea: improved -Likely due to deconditioned status, infection, anemia. 5. Respiratory failure: -stable currently
[2017-07-09] MEDS ORDERED: PT OWN MED DRAWER 7, Y5N ONE ×3 (10:33→23:49)
[2017-07-09] MEDS: HEPARIN NA (PORCINE) 5,000 UNITS/ML 1ML VIAL SQ SCH (10:37)
[2017-07-09] MEDS: predniSONE 20 MG TABLET (UD) PO SCH (10:37)
[2017-07-09] MEDS: POLYETHYLENE GLYCOL 3350 119 GM BTL PO SCH ×2 (10:37→21:39)
--- NOTE | 2017-07-09 12:06 | PROC ---
Intubation - Intubation Reason for Intubation: Other (Cardiac Arrest) Time of Intubation: 11:45 Intubation Method: orotracheal Blade used: Mac Tube Size (cm): 7.0 Tube position @ lip (cm): 21 Tube position confirmed by: Direct visualization, CO2 detector, Breath sounds Breath Sounds after Intubation: equal
--- NOTE | 2017-07-09 12:11 | PROC ---
Central Line Insertion - Procedure Note Cardiac Arrest with CPR in progress. Central Line: Triple Lumen Catheter Position: Supine Area prepped with Chlorhexidine solution then draped using sterile barrier protection. Technique used: Seldinger Ultrasound Guided Assistance: No Site: Right Femoral After gaining femoral access, removed barrel from needle and had resident resume CPR to see if he could create pulseatile flow from hub of needle. None noted. Guide wire inserted without resistance. Catheter over guidewire. Guidewire removed intact. Each port aspirated then flushed with sterile normal saline and capped. Line secured to skin with nylon suture. Sterile occlusive dressing applied.
--- NOTE | 2017-07-09 12:34 | RAPID ---
Physical Examination Vital Signs: Vital Signs Temperature 98.2 F 07/09/17 10:28 Pulse Rate 86 07/09/17 10:28 Respiratory Rate 20 07/09/17 10:28 Blood Pressure 143/71 07/09/17 10:28 O2 Sat by Pulse Oximetry (%) 97 07/08/17 20:05 Constitutional: Yes: Severe Distress, Obese Eyes: Yes: Other (pinpoint, poorly reactive) HENT: Yes: Atraumatic Neck: Yes: Supple, Trachea Midline Cardiovascular: Yes: Other (see code sheet) Respiratory: Yes: CTA Bilaterally Gastrointestinal: Yes: Soft, Abdomen, Obese Edema: No Neurological: Yes: Unresponsive Labs: CBC, BMP 07/05/17 05:50 07/09/17 05:30 Rapid Response - Rapid Response Assessment: Rapid Response then Code 99 was called. Patient was found to be laying in bed and unresponsive with no pulse. Chest compressions and ACLS protocol was initiated. Peripheral and central femoral vein access was obtained and IVFs started. Bag ventilation was initiated. ROSC was achieved. Refer to Code Sheet. Stat labs (ABG, CBC, CMP, Troponins, LA), EKG, and CXR were ordered. Dr. Mendoza, primary care physician was notified. Unable to reach family members , voice messages were left for daughter and . Patient was transferred to ICU, and care transferred to Critical care team.
--- NOTE | 2017-07-09 12:40 | CONSULT ---
Consultation: REQUESTING PROVIDER: CONSULT REQUEST: We have been asked to medically evaluate this patient after patient fell backwards in bed on medical floor. Patient was found to be pulseless and code was called. Refer to code sheet for more information. Received patient, awaiting chest xray at this time. HISTORY OF PRESENT ILLNESS: REVIEW OF SYSTEMS: CONSTITUTIONAL: Absent: fever, chills, diaphoresis, generalized weakness, malaise, loss of appetite, weight change HEENT: Absent: rhinorrhea, nasal congestion, throat pain, throat swelling, difficulty swallowing, mouth swelling, ear pain, eye pain, visual changes CARDIOVASCULAR: Absent: chest pain, syncope, palpitations, irregular heart rate, lightheadedness , peripheral edema RESPIRATORY: Absent: cough, shortness of breath, dyspnea with exertion, orthopnea, wheezing, stridor, hemoptysis GASTROINTESTINAL: Absent: abdominal pain, abdominal distension, nausea, vomiting, diarrhea, constipation, melena, hematochezia GENITOURINARY: Absent: dysuria, frequency, urgency, hesitancy, hematuria, flank pain, genital pain MUSCULOSKELETAL: Absent: myalgia, arthralgia, joint swelling, back pain, neck pain SKIN: Absent: rash, itching, pallor HEMATOLOGIC/IMMUNOLOGIC: Absent: easy bleeding, easy bruising, lymphadenopathy, frequent infections ENDOCRINE: Absent: unexplained weight gain, unexplained weight loss, heat intolerance, cold intolerance NEUROLOGIC: Absent: headache, focal weakness or paresthesias, dizziness, unsteady gait, seizure, mental status changes, bladder or bowel incontinence PSYCHIATRIC: Absent: anxiety, depression, suicidal or homicidal ideation, hallucinations. PHYSICAL EXAMINATION Vital Signs - 24 hr 07/08/17 07/08/17 07/08/17 13:49 17:00 19:59 Temperature 100.8 F H 97.5 F L Pulse Rate 95 H 77 Respiratory 22 18 18 Rate Blood Pressure 141/88 126/74 O2 Sat by Pulse 97 Oximetry (%) 07/08/17 07/08/17 07/09/17 20:05 22:00 06:00 Temperature 99.0 F 98.3 F Pulse Rate 82 87 Respiratory 20 20 Rate Blood Pressure 138/57 120/74 O2 Sat by Pulse 97 Oximetry (%) 07/09/17 10:28 Temperature 98.2 F Pulse Rate 86 Respiratory 20 Rate Blood Pressure 143/71 O2 Sat by Pulse Oximetry (%) GENERAL: Awake, alert, and fully oriented, in no acute distress. HEAD: Normal with no signs of trauma. EYES: Pupils equal, round and reactive to light, extraocular movements intact, sclera anicteric, conjunctiva clear. No lid lag. EARS, NOSE, THROAT: Ears normal, nares patent, oropharynx clear without exudates. Moist mucous membranes. NECK: Normal range of motion, supple without lymphadenopathy, JVD, or masses. LUNGS: Breath sounds equal, clear to auscultation bilaterally. No wheezes, and no crackles. No accessory muscle use. HEART: Regular rate and rhythm, normal S1 and S2 without murmur, rub or gallop. ABDOMEN: Soft, nontender, not distended, normoactive bowel sounds, no guarding, no rebound, no masses. No hepatomegaly or splenomegaly. MUSCULOSKELETAL: Normal range of motion at all joints. No bony deformities or tenderness. No CVA tenderness. UPPER EXTREMITIES: 2+ pulses, warm, well-perfused. No cyanosis. No clubbing. Cap refill <2 seconds. No peripheral edema. LOWER EXTREMITIES: 2+ pulses, warm, well-perfused. No calf tenderness. No peripheral edema. NEUROLOGICAL: Cranial nerves II-XII intact. Normal speech. Normal gait. PSYCHIATRIC: Cooperative. Good eye contact. Appropriate mood and affect. SKIN: Warm, dry, normal turgor, no rashes or lesions noted. Laboratory Results - last 24 hr 07/08/17 07/08/17 07/08/17 11:17 16:49 20:38 ESR 99 H Sodium Potassium Chloride Carbon Dioxide Anion Gap BUN Creatinine POC Glucometer 277 247 Random Glucose Calcium 07/09/17 07/09/17 07/09/17 05:30 05:51 12:04 ESR Sodium 138 Potassium 4.4 Chloride 101 Carbon Dioxide 27 Anion Gap 10 BUN 26 H D Creatinine 0.7 POC Glucometer 163 193 Random Glucose 164 H D Calcium 7.5 L Active Medications Generic Name Dose Route Start Last Admin Trade Name Freq PRN Reason Stop Dose Admin Acetaminophen 650 mg 07/04/17 15:33 07/08/17 13:47 Tylenol - PO 650 mg Q6H PRN Administration FEVER Gabapentin 100 mg 07/04/17 22:00 07/09/17 05:52 Neurontin - PO 100 mg TID AJ Administration Heparin Sodium (Porcine) 5,000 unit 07/08/17 22:00 07/09/17 10:37 Heparin - SQ 5,000 unit BID AJ Administration Insulin Aspart 1 vial 07/03/17 22:00 07/09/17 06:12 Novolog Vial Sliding Scale - SQ 2 units ACHS AJ Administration Protocol Ondansetron HCl 4 mg 07/04/17 15:33 Zofran Injection IVPUSH Q6H PRN NAUSEA AND/OR VOMITING Polyethylene Glycol 17 gm 07/04/17 22:00 07/09/17 10:37 Miralax (For Daily Use) - PO 17 grams BID AJ Administration Prednisone 60 mg 07/06/17 12:30 07/09/17 10:37 Deltasone - PO 60 mg DAILY AJ Administration ASSESSMENT/PLAN: Dispo: We will continue to follow the patient. Thank you for this consultative opportunity.
[2017-07-09] MEDS ORDERED: MIDAZOLAM HCL 5 MG/1 ML Single Dose Vial IVPUSH ONE (12:46)
[2017-07-09] MEDS ORDERED: MIDAZOLAM HCL 2 MG/2 ML SINGLE DOSE VIAL ONE (12:47)
[2017-07-09 12:51] LABS: HEMATOCRIT 31.5 % (35.4-49); HEMOGLOBIN 9.9 GM/dL (11.7-16.9); MCH 27.2 pg (25.7-33.7); MCHC 31.3 g/dl (32.0-35.9); MEAN PLT VOLUME 8.5 fl (7.5-11.1); PLATELET COUNT 182 K/MM3 (134-434); RBC 3.62 M/mm3 (4.00-5.60); RDW 17.2 % (11.9-15.9); WHITE BLOOD COUNT 23.6 K/mm3 (4.0-10.0)
--- NOTE | 2017-07-09 12:51 | PN ---
Progress Note (short form) - Note Progress Note: Received from floors. Patient s/p code on floors. See code sheet for more detailed information. Currently awaiting CXR, dopplers, EKG, echo. Mr. Diaz is a 62 yo male with supermorbid obesity and sciatica who originally presented to ED with complaints of 3 weeks of fever, body aches, leg weakness interfering with ambulation, asterixis, and mild encephalopathy found to have epidural abscess, now status post spinal decompression/fusion after suspicion of osteo (cultures negative). Patient currently suspect polymyalgia rheumatica w / post infectious immune sequela, s/p pulse steroids on prednisone per neuro. Patient had been improving clinically when he was found laying in bed today unresponsive w/ no pulse. ROSC achieved under ACLS protocol as detained in code sheet. Patient transferred to ICU for further care. Patient currently awaiting CBC/CMP/UA/Urine Cx/Blood Cx/ABG/lactate. Family contacted. Primary care contacted. Neuro and Neurosurgery contacted as well. PE GENERAL: +Patient pilar morbidly obese. Currently intubated on ventilator with versed/fentanyl drip for sedation. HEAD: No signs of trauma, normocephalic, atraumatic EYES: +Pupils constricted 2mm. Sclera anicteric, conjunctiva clear ENT: Auricles normal inspection, nares patent, oropharynx clear without exudates. Moist mucosa NECK: Supple, no lymphadenopathy, JVD, or masses LUNGS: +Clear to auscultation bilaterally HEART: Regular rate and rhythm, normal S1 and S2, no murmurs, rubs or gallops, peripheral pulses normal and equal bilaterally. ABDOMEN: Soft, nontender, normoactive bowel sounds. No guarding, no rebound. No masses EXTREMITIES: Normal inspection, Normal range of motion, no edema. No clubbing or cyanosis. NEUROLOGICAL: Unable to assess SKIN: Warm, Dry, normal turgor, no rashes or lesions noted. Vent Settings: Rate 14 Tidal Volume 550 O2 60 PEEP 5 Patient intubated before arrival in ICU. Fentanyl / versed drip started as patient was fighting ventilator. Bolus fluid given. Vasopressin started for Blood pressure in 80's systolic. Differential Diagnosis at this time includes PE vs. CVA vs. sepsis vs. cardiac event. CTA ordered to evaluate for PE, Head CT ordered to confirm no acute bleed, Echo to evaluate cardiac function, DVT studies, blood and urine cultures taken as well.
[2017-07-09 13:01] LABS: ARTERIAL BLD GAS O2 SATURATION 97.3 % (90-98.9); ARTERIAL BLOOD GAS BASE EXCESS -17.7 meq/l (-2-2); ARTERIAL BLOOD GAS PCO2 48.9 mmHg (35-45)
[2017-07-09 13:03] LABS: ALLENS TEST POSITIVE
[2017-07-09] MEDS ORDERED: SODIUM CHLORIDE 1,000 ML IV STA ×2 (13:05→14:24)
[2017-07-09 13:06] LABS: ARTERIAL BLOOD GAS pH 7.04 (7.35-7.45)
[2017-07-09] MEDS ORDERED: VASOPRESSIN 20 UNITS/ML VIAL IV ONE ×2 (13:08→21:07)
[2017-07-09] MEDS ORDERED: MIDAZOLAM 100 MG in SODIUM CHLORIDE 100 ML IVPB SCH (13:15)
[2017-07-09] MEDS ORDERED: VASOPRESSIN 50 UNITS in SODIUM CHLORIDE 97.5 ML IVPB SCH (13:15)
[2017-07-09] MEDS ORDERED: FENTANYL INJECTION 500 MCG in DEXTROSE 5%-WATER - 90 ML IVPB SCH (13:15)
[2017-07-09 13:16] LABS: ANION GAP 19 (8-16); BLOOD UREA NITROGEN 25 mg/dL (7-18); CALCIUM 7.9 mg/dL (8.5-10.1); CHLORIDE 100 mmol/L (98-107); CO2 18 mmol/L (21-32); CREATININE 1.2 mg/dL (0.7-1.3); GLUCOSE,RANDOM 297 mg/dL (74-106); POTASSIUM 4.8 mmol/L (3.5-5.1); SODIUM 137 mmol/L (136-145)
[2017-07-09] MEDS ORDERED: SODIUM BICARBONATE 8.4% 50 MEQ/50 ML VIAL IV ONE (13:19)
[2017-07-09] MEDS ORDERED: SODIUM BICARBONATE 8.4% - 50 ML ONE (13:20)
[2017-07-09] MEDS ORDERED: SODIUM BICARBONATE 8.4% 50 MEQ/50 ML VIAL ONE (13:22)
[2017-07-09] MEDS ORDERED: SODIUM BICARBONATE 8.4% - 150 MEQ in DEXTROSE 5%-WATER - 1,000 ML IV SCH (13:30)
--- NOTE | 2017-07-09 13:37 | PN ---
Teaching Attending Note Name of Resident: Gumaro Asencio ATTENDING PHYSICIAN STATEMENT I saw and evaluated the patient. I reviewed the resident's note and discussed the case with the resident. I agree with the resident's findings and plan as documented. SUBJECTIVE: Pt seen and examined in the ICU. s/p code 99 PEA cardiac arrest while being worked with physical therapy, initial rhythm sinus given epinephrine with episodes of wide complex tachycardia, SVT and episode of asystole. ROSC after 38 minutes. Currently in the ICU intubated, unresponsive with abdominal breathing. Started on pressors for hypotension, ABG showing severe metabolic acidosis now on bicarb gtt. Bedside echocardiogram and LE dopplers pending. OBJECTIVE: Last Vital Signs Temp Pulse Resp BP Pulse Ox 98.2 F 115 H 20 80/41 97 07/09/17 10:28 07/09/17 13:33 07/09/17 12:46 07/09/17 13:33 07/09/17 09:25 Intake & Output 07/06/17 07/07/17 07/08/17 07/09/17 22:59 23:59 23:59 23:59 Intake Total 390 0 Output Total 3100 900 Balance -2710 -900 Weight Gen: intubated, unresponsive, tachypneic Heart: tachycardic, regular Lung: decreased breath sounds at the bases Abd: soft, nontender Ext: + edema CBC, BMP 07/09/17 12:35 07/09/17 12:35 Active Medications Acetaminophen (Tylenol -) 650 mg PO Q6H PRN PRN Reason: FEVER Last Admin: 07/08/17 13:47 Dose: 650 mg Gabapentin (Neurontin -) 100 mg PO TID AJ Last Admin: 07/09/17 05:52 Dose: 100 mg Heparin Sodium (Porcine) (Heparin -) 5,000 unit SQ BID AJ Last Admin: 07/09/17 10:37 Dose: 5,000 unit Fentanyl 500 mcg/ Dextrose 100 mls @ 5 mls/hr IVPB TITR AJ PRN Reason: 25 MCG/HR Midazolam HCl 100 mg/ Sodium (Chloride) 100 mls @ 4 mls/hr IVPB TITR AJ; 4 MG/ HR PRN Reason: Protocol Sodium Chloride (Normal Saline -) 1,000 mls @ 1,000 mls/hr IV ASDIR STA Stop: 07/09/17 14:04 Last Admin: 07/09/17 12:55 Dose: 1,000 mls/hr Vasopressin 50 units/ Sodium (Chloride) 100 mls @ 4 mls/hr IVPB ASDIR AJ; 2 UNITS/HR PRN Reason: Protocol Last Titration: 07/09/17 13:33 Dose: 6 units/hr, 12 mls/hr Sodium Bicarbonate 150 meq/ (Dextrose) 1,150 mls @ 50 mls/hr IV Q23H [facility] Last Admin: 07/09/17 13:33 Dose: 50 mls/hr Insulin Aspart (Novolog Vial Sliding Scale -) 1 vial SQ ACHS AJ PRN Reason: Protocol Last Admin: 07/09/17 06:12 Dose: 2 units Ondansetron HCl (Zofran Injection) 4 mg IVPUSH Q6H PRN PRN Reason: NAUSEA AND/OR VOMITING Polyethylene Glycol (Miralax (For Daily Use) -) 17 gm PO BID [facility] Last Admin: 07/09/17 10:37 Dose: 17 grams Prednisone (Deltasone -) 60 mg PO DAILY [facility] Last Admin: 07/09/17 10:37 Dose: 60 mg ASSESSMENT AND PLAN: s/p Cardiopulmonary Arrest Severe Metabolic Acidosis r/o Sepsis r/o PE/DVT r/o NSTEMI Polyclonal Gammopathy Polymyalgia Rheumatica Possible Osteomyelitis Pulmonary HTN Epidural Mass - panculture, C diff - start empiric antibiotics - CT chest noncontrast - CTA chest - LE dopplers - echocardiogram - trend cardiac enzymes - trend lactate - bicarb gtt - monitor ABG - pressor support to maintain MAP >65 - monitor urine output, creatinine - continue prednisone - sedate for vent synchrony - vent on volume assist control - titrate FiO2, PEEP to keep SpO2 >90% - DVT/GI prophylaxis - ICU monitoring - prognosis guarded critical care time spent in reviewing chart, evaluating patient and formulating plan 75 min
[2017-07-09] MEDS ORDERED: fentaNYL CITRATE 250 MCG/5 ML VIAL ONE (13:38)
[2017-07-09] MEDS ORDERED: NOREPINEPHRINE BITARTRATE 4 MG/4 ML ML IV ONE (14:28)
[2017-07-09] MEDS ORDERED: NOREPINEPHRINE BITARTRATE 4,000 MCG in DEXTROSE 5%-WATER - 496 ML IV SCH (14:30)
[2017-07-09] MEDS ORDERED: NOREPINEPHRINE BITARTRATE 8,000 MCG in DEXTROSE 5%-WATER - 492 ML IV SCH (14:48)
--- NOTE | 2017-07-09 14:49 | PN ---
Progress Note, Physician History of Present Illness: events noted patient went into resp distress intubated in icu hypotensive now on vaso levo being added intubated sedated og tube - Current Medication List Current Medications: Active Medications Acetaminophen (Tylenol -) 650 mg PO Q6H PRN PRN Reason: FEVER Last Admin: 07/08/17 13:47 Dose: 650 mg Gabapentin (Neurontin -) 100 mg PO TID AJ Last Admin: 07/09/17 05:52 Dose: 100 mg Heparin Sodium (Porcine) (Heparin -) 5,000 unit SQ BID AJ Last Admin: 07/09/17 10:37 Dose: 5,000 unit Fentanyl 500 mcg/ Dextrose 100 mls @ 5 mls/hr IVPB TITR AJ PRN Reason: 25 MCG/HR Midazolam HCl 100 mg/ Sodium (Chloride) 100 mls @ 4 mls/hr IVPB TITR AJ; 4 MG/ HR PRN Reason: Protocol Vasopressin 50 units/ Sodium (Chloride) 100 mls @ 4 mls/hr IVPB ASDIR AJ; 2 UNITS/HR PRN Reason: Protocol Last Titration: 07/09/17 13:33 Dose: 6 units/hr, 12 mls/hr Sodium Bicarbonate 150 meq/ (Dextrose) 1,150 mls @ 50 mls/hr IV Q23H AJ Last Admin: 07/09/17 13:33 Dose: 50 mls/hr Vancomycin HCl 2,000 mg/ (Dextrose) 500 mls @ 250 mls/hr IVPB ONCE ONE PRN Reason: Protocol Stop: 07/09/17 17:29 Piperacillin Sod/Tazobactam (Sod 4.5 gm/ Dextrose) 100 mls @ 200 mls/hr IVPB Q6H-IV AJ Sodium Chloride (Normal Saline -) 1,000 mls @ 1,000 mls/hr IV ASDIR STA Stop: 07/09/17 15:23 Norepinephrine Bitartrate 8, (000 mcg/ Dextrose) 500 mls @ 18.75 mls/hr IV TITR AJ; 5 MCG/MIN PRN Reason: Protocol Insulin Aspart (Novolog Vial Sliding Scale -) 1 vial SQ ACHS AJ PRN Reason: Protocol Last Admin: 07/09/17 06:12 Dose: 2 units Ondansetron HCl (Zofran Injection) 4 mg IVPUSH Q6H PRN PRN Reason: NAUSEA AND/OR VOMITING Polyethylene Glycol (Miralax (For Daily Use) -) 17 gm PO BID [facility] Last Admin: 07/09/17 10:37 Dose: 17 grams Prednisone (Deltasone -) 60 mg PO DAILY [facility] Last Admin: 07/09/17 10:37 Dose: 60 mg - Objective Vital Signs: Vital Signs Temperature 98.2 F 07/09/17 10:28 Pulse Rate 115 H 07/09/17 13:33 Respiratory Rate 20 07/09/17 12:46 Blood Pressure 80/41 07/09/17 13:33 O2 Sat by Pulse Oximetry (%) 97 07/09/17 09:25 Constitutional: Yes: Other Cardiovascular: Yes: Regular Rate and Rhythm, Tachycardia Respiratory: Yes: Intubated, Mechanically Ventilated, Poor Air Entry Gastrointestinal: Yes: Soft, Hypoactive Bowel Sounds, Other (og tube in place) Musculoskeletal: Yes: WNL Extremities: Yes: WNL Neurological: Yes: Other Labs: CBC, BMP 07/09/17 12:35 07/09/17 12:35 INR, PTT INR 1.45 (0.82-1.09) H 07/05/17 05:50 Fibrinogen 637.0 mg/dL (238-498) H 06/26/17 05:30 - ....Imaging Chest X-ray: Report Reviewed, Image Reviewed X-ray: Report Reviewed, Image Reviewed Cat Scan: Report Reviewed, Image Reviewed Assessment/Plan r/o infective process ct disorder cardiac process sepsis autoimmune process r/o osteo abn lft leukocytosis Problem List - Problems (1) Neuropathy Code(s): G62.9 - POLYNEUROPATHY, UNSPECIFIED (2) Elevated creatine kinase Code(s): R74.8 - ABNORMAL LEVELS OF OTHER SERUM ENZYMES (3) Elevated serum creatinine Code(s): R79.89 - OTHER SPECIFIED ABNORMAL FINDINGS OF BLOOD CHEMISTRY (4) Anasarca Code(s): R60.1 - GENERALIZED EDEMA (5) Anemia Code(s): D64.9 - ANEMIA, UNSPECIFIED (6) CKD (chronic kidney disease) Code(s): N18.9 - CHRONIC KIDNEY DISEASE, UNSPECIFIED (7) Fever Code(s): R50.9 - FEVER, UNSPECIFIED (8) Diabetes Code(s): E11.9 - TYPE 2 DIABETES MELLITUS WITHOUT COMPLICATIONS (9) Coagulation defect Code(s): D68.9 - COAGULATION DEFECT, UNSPECIFIED (10) Cardiac arrest Code(s): I46.9 - CARDIAC ARREST, CAUSE UNSPECIFIED 11 acute pe 12 left leg femoral dvt patient intubated ct scan result noted,patient with acute PE rest of the abd scan seen suspicion of acute colitis also with dvt in the leg which is probably the cause patient on abx started on vanco and zosyn plan continue current mgmt contnue abx resp support management of pe pressors rest as per icu/neuro cc time 55 min
--- NOTE | 2017-07-09 14:52 | PN ---
Progress Note, Physician History of Present Illness: Pt seen and examined at bedside. He is now in the ICU. Pt went into cardiopulmonary arrest today. He is now in the ICU and is intubated. - Current Medication List Current Medications: Active Medications Acetaminophen (Tylenol -) 650 mg PO Q6H PRN PRN Reason: FEVER Last Admin: 07/08/17 13:47 Dose: 650 mg Gabapentin (Neurontin -) 100 mg PO TID AJ Last Admin: 07/09/17 05:52 Dose: 100 mg Heparin Sodium (Porcine) (Heparin -) 5,000 unit SQ BID AJ Last Admin: 07/09/17 10:37 Dose: 5,000 unit Fentanyl 500 mcg/ Dextrose 100 mls @ 5 mls/hr IVPB TITR AJ PRN Reason: 25 MCG/HR Midazolam HCl 100 mg/ Sodium (Chloride) 100 mls @ 4 mls/hr IVPB TITR AJ; 4 MG/ HR PRN Reason: Protocol Vasopressin 50 units/ Sodium (Chloride) 100 mls @ 4 mls/hr IVPB ASDIR AJ; 2 UNITS/HR PRN Reason: Protocol Last Titration: 07/09/17 13:33 Dose: 6 units/hr, 12 mls/hr Sodium Bicarbonate 150 meq/ (Dextrose) 1,150 mls @ 50 mls/hr IV Q23H AJ Last Admin: 07/09/17 13:33 Dose: 50 mls/hr Vancomycin HCl 2,000 mg/ (Dextrose) 500 mls @ 250 mls/hr IVPB ONCE ONE PRN Reason: Protocol Stop: 07/09/17 17:29 Piperacillin Sod/Tazobactam (Sod 4.5 gm/ Dextrose) 100 mls @ 200 mls/hr IVPB Q6H-IV AJ Sodium Chloride (Normal Saline -) 1,000 mls @ 1,000 mls/hr IV ASDIR STA Stop: 07/09/17 15:23 Norepinephrine Bitartrate 4, (000 mcg/ Dextrose) 500 mls @ 37.5 mls/hr IV TITR AJ; 5 MCG/MIN PRN Reason: Protocol Insulin Aspart (Novolog Vial Sliding Scale -) 1 vial SQ ACHS AJ PRN Reason: Protocol Last Admin: 07/09/17 06:12 Dose: 2 units Ondansetron HCl (Zofran Injection) 4 mg IVPUSH Q6H PRN PRN Reason: NAUSEA AND/OR VOMITING Polyethylene Glycol (Miralax (For Daily Use) -) 17 gm PO BID [facility] Last Admin: 07/09/17 10:37 Dose: 17 grams Prednisone (Deltasone -) 60 mg PO DAILY [facility] Last Admin: 07/09/17 10:37 Dose: 60 mg - Objective Vital Signs: Vital Signs Temperature 98.2 F 07/09/17 10:28 Pulse Rate 115 H 07/09/17 13:33 Respiratory Rate 20 07/09/17 12:46 Blood Pressure 80/41 07/09/17 13:33 O2 Sat by Pulse Oximetry (%) 97 07/09/17 09:25 Constitutional: Yes: Calm HENT: Yes: Atraumatic Cardiovascular: Yes: S1, S2 Respiratory: Yes: Mechanically Ventilated Gastrointestinal: Yes: Abdomen, Obese Genitourinary: Yes: Espinal Present Musculoskeletal: Yes: Muscle Weakness Edema: Yes Integumentary: Yes: Venous Stasis Changes Neurological: Yes: Lethargy Labs: CBC, BMP 07/09/17 12:35 07/09/17 12:35 INR, PTT INR 1.45 (0.82-1.09) H 07/05/17 05:50 Fibrinogen 637.0 mg/dL (238-498) H 06/26/17 05:30 - ....Imaging Chest X-ray: Report Reviewed Problem List - Problems (1) Anemia Code(s): D64.9 - ANEMIA, UNSPECIFIED (2) CKD (chronic kidney disease) Code(s): N18.9 - CHRONIC KIDNEY DISEASE, UNSPECIFIED (3) Elevated creatine kinase Code(s): R74.8 - ABNORMAL LEVELS OF OTHER SERUM ENZYMES (4) Neuropathy Code(s): G62.9 - POLYNEUROPATHY, UNSPECIFIED Assessment/Plan Current Medications Generic Name Dose Route Start Last Admin Trade Name Freq PRN Reason Stop Dose Admin Acetaminophen 650 mg 07/04/17 15:33 07/08/17 13:47 Tylenol - PO 650 mg Q6H PRN Administration FEVER Gabapentin 100 mg 07/04/17 22:00 07/09/17 05:52 Neurontin - PO 100 mg TID AJ Administration Heparin Sodium (Porcine) 5,000 unit 07/08/17 22:00 07/09/17 10:37 Heparin - SQ 5,000 unit BID AJ Administration Fentanyl 500 mcg/ Dextrose 100 mls @ 5 mls/hr 07/09/17 13:15 IVPB TITR AJ 25 MCG/HR Midazolam HCl 100 mg/ Sodium 100 mls @ 4 mls/hr 07/09/17 13:15 Chloride IVPB TITR AJ Protocol 4 MG/HR Vasopressin 50 units/ Sodium 100 mls @ 4 mls/hr 07/09/17 13:15 07/09/17 13:33 Chloride IVPB 6 units/hr ASDIR AJ 12 mls/hr Protocol Titration 2 UNITS/HR Sodium Bicarbonate 150 meq/ 1,150 mls @ 50 mls/hr 07/09/17 13:30 07/09/17 13: 33 Dextrose IV 50 mls/hr Q23H AJ Administration Vancomycin HCl 2,000 mg/ 500 mls @ 250 mls/hr 07/09/17 15:30 Dextrose IVPB 07/09/17 17:29 ONCE ONE Protocol Piperacillin Sod/Tazobactam 100 mls @ 200 mls/hr 07/09/17 15:00 Sod 4.5 gm/ Dextrose IVPB Q6H-IV AJ Sodium Chloride 1,000 mls @ 1,000 mls/hr 07/09/17 14:24 Normal Saline - IV 07/09/17 15:23 ASDIR STA Norepinephrine Bitartrate 8, 500 mls @ 18.75 mls/hr 07/09/17 14:48 000 mcg/ Dextrose IV TITR AJ Protocol 5 MCG/MIN Insulin Aspart 1 vial 07/03/17 22:00 07/09/17 06:12 Novolog Vial Sliding Scale - SQ 2 units ACHS AJ Administration Protocol Ondansetron HCl 4 mg 07/04/17 15:33 Zofran Injection IVPUSH Q6H PRN NAUSEA AND/OR VOMITING Polyethylene Glycol 17 gm 07/04/17 22:00 07/09/17 10:37 Miralax (For Daily Use) - PO 17 grams BID AJ Administration Prednisone 60 mg 07/06/17 12:30 07/09/17 10:37 Deltasone - PO 60 mg DAILY AJ Administration Impression 1. KADIE 2. anemia 3. fevers 4. rash - which has resolved 5. obesity 6. lower ext pain and weekness 7. elevated total protein 8. transaminitis 9. r/o Osteomyelitis 10. Epidural Abscess 11. azotemia 12. s/p cardiopulmonary arrest 13. polymyalgia rheumatica 14. lactic acidosis 15. metabolic acidosis Plan - vent support - repeat abg and repeat lactic acid - monitor urine output from espinal - monitor for signs of atn as he is s/p cardiac arrest - monitor bp - cardio follow up - neuro follow up - monitor in ICU - creatinine is higher, will monitor - discussed with ICU team - avoid NSAIDS Dr Ugarte
[2017-07-09] MEDS ORDERED: PIPERACILLIN/TAZOB 4.5 GM/100 ML PREMIX BAG IVPB SCH (15:00)
[2017-07-09 15:16] LABS: ARTERIAL BLOOD GAS PCO2 37.6 mmHg (35-45); ARTERIAL BLOOD GAS pH 7.32 (7.35-7.45)
[2017-07-09 15:22] LABS: ALLENS TEST POSITIVE
[2017-07-09] MEDS ORDERED: VANCOMYCIN 2,000 MG in DEXTROSE 5%-WATER - 500 ML IVPB ONE (15:30)
--- NOTE | 2017-07-09 16:31 | EKG ---
Test Reason : Blood Pressure : / mmHG Vent. Rate : 082 BPM Atrial Rate : 174 BPM P-R Int : 000 ms QRS Dur : 100 ms QT Int : 348 ms P-R-T Axes : 000 -50 044 degrees QTc Int : 406 ms UNDETERMINED RHYTHM Possible accelerated junctional rhythm with AV dissociation. LEFT AXIS DEVIATION ABNORMAL ECG WHEN COMPARED WITH ECG OF 17-JUN-2017 05:36, Changed rhythm noted. ST NOW DEPRESSED IN ANTEROLATERAL LEADS NONSPECIFIC T WAVE ABNORMALITY NO LONGER EVIDENT IN INFERIOR LEADS Confirmed by MD KAMALJIT, AJAY ([id number]) on 07/09/2017 4:30:33 PM Referred By: Confirmed By:AJAY MARI MD
[2017-07-09 17:29] LABS: URINE APPEARANCE SLCLOUDY; URINE BILIRUBIN NEGATIVE (NEGATIVE); URINE BLOOD 3+ (NEGATIVE); URINE COLOR LTYELLOW; URINE GLUCOSE (UA) NEGATIVE (NEGATIVE); URINE KETONE NEGATIVE (NEGATIVE); URINE LEUK ESTERASE NEGATIVE (NEGATIVE); URINE NITRITE NEGATIVE (NEGATIVE); URINE PROTEIN NEGATIVE (NEGATIVE); URINE UROBILINOGEN NEGATIVE mg/dL (0.2-1.0)
--- NOTE | 2017-07-09 17:30 | PN ---
Progress Note, Physician History of Present Illness: events noted spoke to code team pt intubated and on iv pressors - Current Medication List Current Medications: Active Medications Acetaminophen (Tylenol -) 650 mg PO Q6H PRN PRN Reason: FEVER Last Admin: 07/08/17 13:47 Dose: 650 mg Diphenhydramine HCl (Benadryl Injection -) 50 mg IVPUSH ONCE ONE Stop: 07/09/17 18:23 Gabapentin (Neurontin -) 100 mg PO TID AJ Last Admin: 07/09/17 16:02 Dose: Not Given Heparin Sodium (Porcine) (Heparin -) 5,000 unit SQ BID AJ Last Admin: 07/09/17 10:37 Dose: 5,000 unit Fentanyl 500 mcg/ Dextrose 100 mls @ 5 mls/hr IVPB TITR AJ PRN Reason: 25 MCG/HR Last Admin: 07/09/17 14:30 Dose: 5 mls/hr Midazolam HCl 100 mg/ Sodium (Chloride) 100 mls @ 4 mls/hr IVPB TITR AJ; 4 MG/ HR PRN Reason: Protocol Last Titration: 07/09/17 14:45 Dose: 2 mg/hr, 2 mls/hr Vasopressin 50 units/ Sodium (Chloride) 100 mls @ 4 mls/hr IVPB ASDIR AJ; 2 UNITS/HR PRN Reason: Protocol Last Titration: 07/09/17 13:33 Dose: 6 units/hr, 12 mls/hr Sodium Bicarbonate 150 meq/ (Dextrose) 1,150 mls @ 50 mls/hr IV Q23H AJ Last Admin: 07/09/17 13:33 Dose: 50 mls/hr Vancomycin HCl 2,000 mg/ (Dextrose) 500 mls @ 250 mls/hr IVPB ONCE ONE PRN Reason: Protocol Stop: 07/09/17 17:29 Last Admin: 07/09/17 16:51 Dose: 250 mls/hr Piperacillin Sod/Tazobactam (Sod 4.5 gm/ Dextrose) 100 mls @ 200 mls/hr IVPB Q6H-IV AJ Norepinephrine Bitartrate 8, (000 mcg/ Dextrose) 500 mls @ 18.75 mls/hr IV TITR AJ; 5 MCG/MIN PRN Reason: Protocol Last Titration: 07/09/17 14:25 Dose: 8 mcg/min, 30 mls/hr Insulin Aspart (Novolog Vial Sliding Scale -) 1 vial SQ ACHS [facility] PRN Reason: Protocol Last Admin: 07/09/17 06:12 Dose: 2 units Ondansetron HCl (Zofran Injection) 4 mg IVPUSH Q6H PRN PRN Reason: NAUSEA AND/OR VOMITING Polyethylene Glycol (Miralax (For Daily Use) -) 17 gm PO BID [facility] Last Admin: 07/09/17 10:37 Dose: 17 grams Prednisone (Deltasone -) 60 mg PO DAILY [facility] Last Admin: 07/09/17 10:37 Dose: 60 mg - Objective Vital Signs: Vital Signs Temperature 99.0 F 07/09/17 12:21 Pulse Rate 93 H 07/09/17 14:52 Respiratory Rate 21 07/09/17 15:49 Blood Pressure 94/44 07/09/17 14:52 O2 Sat by Pulse Oximetry (%) 97 07/09/17 09:25 Constitutional: Yes: Calm HENT: Yes: Atraumatic Neck: Yes: Supple Cardiovascular: Yes: Regular Rate and Rhythm Respiratory: Yes: CTA Bilaterally Gastrointestinal: Yes: Normal Bowel Sounds Extremities: Yes: WNL Edema: Yes Neurological: Yes: Other (intubated and sedated) Labs: CBC, BMP 07/09/17 12:35 07/09/17 12:35 INR, PTT INR 1.45 (0.82-1.09) H 07/05/17 05:50 Fibrinogen 637.0 mg/dL (238-498) H 06/26/17 05:30 Problem List - Problems (1) Neuropathy Code(s): G62.9 - POLYNEUROPATHY, UNSPECIFIED (2) Elevated creatine kinase Code(s): R74.8 - ABNORMAL LEVELS OF OTHER SERUM ENZYMES (3) Elevated serum creatinine Code(s): R79.89 - OTHER SPECIFIED ABNORMAL FINDINGS OF BLOOD CHEMISTRY (4) Anasarca Code(s): R60.1 - GENERALIZED EDEMA (5) Anemia Code(s): D64.9 - ANEMIA, UNSPECIFIED (6) CKD (chronic kidney disease) Code(s): N18.9 - CHRONIC KIDNEY DISEASE, UNSPECIFIED (7) Fever Code(s): R50.9 - FEVER, UNSPECIFIED (8) Diabetes Code(s): E11.9 - TYPE 2 DIABETES MELLITUS WITHOUT COMPLICATIONS (9) Coagulation defect Code(s): D68.9 - COAGULATION DEFECT, UNSPECIFIED (10) Morbid obesity Code(s): E66.01 - MORBID (SEVERE) OBESITY DUE TO EXCESS CALORIES (11) Paraparesis of both lower limbs Assessment/Plan: moving legs, on steroids physical therapy Code(s): G82.20 - PARAPLEGIA, UNSPECIFIED Assessment/Plan left femoral dvt will start weight based lovenox or heparin [address] head [address] to r/o any bleed awaiting chest ct to r/o pe cc time 45 min
[2017-07-09 17:33] LABS: EPI CELLS RARE /HPF (FEW); URINE BACTERIA RARE /hpf (NONE SEEN); YEAST RARE
--- NOTE | 2017-07-09 17:50 | PN ---
Progress Note (short form) - Note Progress Note: Pt was seen and examined this afternoon. Discussed with pts and 2 daughters at bedside. Events of the code were noted. As per report pt was in NSR with PEA initially at the time of the code then developed wide complex tachycardia and possible SVT after epinephrine was given. CPR was performed, ROSC was obtained without need for cardioversion. Echo reviewed showed normal LV systolic function, the RV was not well visualized. Doppler US showed a LLE DVT in the deep femoral vein. Pt going for CT head to rule out hemorrhage prior to starting full dose heparin, CTA chest to evaluate for PE. -does not appear to be a primary cardiac event ie TX or arrhythmia induced as initial rhythm was NSR with PEA, LV function is normal on echo, troponin is slightly elevated but CK wnl, ekg does not show evidence of acute injury or infarct -monitor serial ekgs and serial cardiac enzymes -f/up CTA chest results and if PE tx as per ICU/pulmonary reccs -monitor electrolytes and replete as needed
--- NOTE | 2017-07-09 17:50 | PN ---
Progress Note (short form) - Note Progress Note: Spoke with Dr. Mosquera regarding pt's condition, suspected PE, and possibility for TPA/thrombectomy. Conveyed above information to Dr. Iraheta. Sending pt down to CT now (s/p Benadryl to pre-mediate for potential contrast allergy). Consent obtained from family. Will call Dr. Rocha who is on-call ([phone]), if needed.
[2017-07-09] MEDS ORDERED: CALCIUM GLUCONATE 10% - 1,000 MG/10 ML VIAL ONE (17:55)
--- NOTE | 2017-07-09 20:11 | PN ---
Progress Note, Physician History of Present Illness: events today noted, + CAC intubated on sedation, pressors suspected PE spoke to family - Current Medication List Current Medications: Active Medications Acetaminophen (Tylenol -) 650 mg PO Q6H PRN PRN Reason: FEVER Last Admin: 07/08/17 13:47 Dose: 650 mg Gabapentin (Neurontin -) 100 mg PO TID AJ Last Admin: 07/09/17 16:02 Dose: Not Given Fentanyl 500 mcg/ Dextrose 100 mls @ 5 mls/hr IVPB TITR AJ PRN Reason: 25 MCG/HR Last Admin: 07/09/17 14:30 Dose: 5 mls/hr Midazolam HCl 100 mg/ Sodium (Chloride) 100 mls @ 4 mls/hr IVPB TITR AJ; 4 MG/ HR PRN Reason: Protocol Last Titration: 07/09/17 14:45 Dose: 2 mg/hr, 2 mls/hr Vasopressin 50 units/ Sodium (Chloride) 100 mls @ 4 mls/hr IVPB ASDIR AJ; 2 UNITS/HR PRN Reason: Protocol Last Titration: 07/09/17 13:33 Dose: 6 units/hr, 12 mls/hr Sodium Bicarbonate 150 meq/ (Dextrose) 1,150 mls @ 50 mls/hr IV Q23H AJ Last Admin: 07/09/17 13:33 Dose: 50 mls/hr Piperacillin Sod/Tazobactam (Sod 4.5 gm/ Dextrose) 100 mls @ 200 mls/hr IVPB Q6H-IV AJ Norepinephrine Bitartrate 8, (000 mcg/ Dextrose) 500 mls @ 18.75 mls/hr IV TITR AJ; 5 MCG/MIN PRN Reason: Protocol Last Titration: 07/09/17 14:25 Dose: 8 mcg/min, 30 mls/hr Insulin Aspart (Novolog Vial Sliding Scale -) 1 vial SQ ACHS AJ PRN Reason: Protocol Last Admin: 07/09/17 18:14 Dose: Not Given Ondansetron HCl (Zofran Injection) 4 mg IVPUSH Q6H PRN PRN Reason: NAUSEA AND/OR VOMITING Polyethylene Glycol (Miralax (For Daily Use) -) 17 gm PO BID [facility] Last Admin: 07/09/17 10:37 Dose: 17 grams Prednisone (Deltasone -) 60 mg PO DAILY AJ Last Admin: 07/09/17 10:37 Dose: 60 mg - Objective Vital Signs: Vital Signs Temperature 98.7 F 07/09/17 17:30 Pulse Rate 88 07/09/17 18:00 Respiratory Rate 22 07/09/17 19:35 Blood Pressure 132/84 07/09/17 18:00 O2 Sat by Pulse Oximetry (%) 97 07/09/17 09:25 Neurological: Yes: Other (on sedation , eyes closed, ocular bobbing, +corneals, pupils 3mm -symmetric, limited DOlls, masticating movements, ? posturing events with decerebate--though only noted once , plantars down) Labs: CBC, BMP 07/09/17 12:35 07/09/17 12:35 INR, PTT INR 1.45 (0.82-1.09) H 07/05/17 05:50 Fibrinogen 637.0 mg/dL (238-498) H 06/26/17 05:30 - ....Imaging Cat Scan: Report Reviewed, Image Reviewed Problem List - Problems (1) Paraparesis of both lower limbs Code(s): G82.20 - PARAPLEGIA, UNSPECIFIED (2) Morbid obesity Code(s): E66.01 - MORBID (SEVERE) OBESITY DUE TO EXCESS CALORIES (3) Neuropathy Code(s): G62.9 - POLYNEUROPATHY, UNSPECIFIED (4) Respiratory failure Code(s): J96.90 - RESPIRATORY FAILURE, UNSP, UNSP W HYPOXIA OR HYPERCAPNIA (5) Encephalopathy Code(s): G93.40 - ENCEPHALOPATHY, UNSPECIFIED (6) Cardiac arrest Code(s): I46.9 - CARDIAC ARREST, CAUSE UNSPECIFIED Assessment/Plan being treated for polymyalgia rheumatica , s/p acute CAC, respiratory failure- developed acute PE intubated and sedated, no contraindication for AC interventional to make decision re throbectomy encephalopathy on sedation , difficult to ascertain prognosis CT HD : no clear demarcation of ramirez white junction, maybe anoxic component but no clear evidence of stroke check HD CT in 12 hours start Keppra 750 BID empirically for possible seizures spoke to family, critical status Dr Reid
[2017-07-09] MEDS ORDERED: HEPARIN NA (PORCINE) 5,000 UNITS/ML 1ML VIAL IVPUSH PRN ×2 (20:18)
[2017-07-09] MEDS ORDERED: HEPARIN - 25,000 UNIT in SODIUM CHLORIDE 495 ML IV SCH (20:30)
[2017-07-09] MEDS ORDERED: HEPARIN NA (PORCINE) 5,000 UNITS/ML 1ML VIAL IVPUSH ONE (20:32)
[2017-07-09] MEDS: PIPERACILLIN/TAZOB 4.5 GM 4.5 GM in DEXTROSE 5%-WATER - 100 ML IVPB SCH ×2 (21:15→22:13)
[2017-07-09 22:00] LABS: ANION GAP 13 (8-16); BLOOD UREA NITROGEN 37 mg/dL (7-18); CHLORIDE 99 mmol/L (98-107); CO2 23 mmol/L (21-32); CREATININE 1.6 mg/dL (0.7-1.3); MAGNESIUM 2.2 mg/dL (1.8-2.4); PHOSPHOROUS 5.9 mg/dL (2.5-4.9); SODIUM 135 mmol/L (136-145)
[2017-07-09] MEDS ORDERED: ENOXAPARIN NA (PORCINE) 120 MG/0.8 ML DISP.SYRIN SQ SCH (22:00)
[2017-07-09] MEDS ORDERED: ENOXAPARIN 120 MG, ENOXAPARIN 30 MG SQ SCH (22:00)
[2017-07-09] MEDS ORDERED: levETIRAcetam 500 MG/5 ML ORAL SOLUTION (UNIT-DOSE CUPS) PO SCH (22:00)
[2017-07-09] MEDS ORDERED: EPINEPHrine 1:1,000 - 30,000 MCG in DEXTROSE 5%-WATER - 220 ML IVPB SCH (22:00)
[2017-07-09] MEDS ORDERED: ENOXAPARIN NA (PORCINE) 30 MG/0.3 ML DISP.SYRIN SQ SCH (22:00)
[2017-07-09 22:05] LABS: CALCIUM 6.8 mg/dL (8.5-10.1); GLUCOSE,RANDOM 331 mg/dL (74-106)
[2017-07-09] MEDS ORDERED: EPINEPHrine/PF 1 MG/1 ML (1:1,000) AMPULE ONE ×2 (22:10→22:19)
--- NOTE | 2017-07-09 22:13 | PN ---
Progress Note (short form) - Note Progress Note: Patient cleared to start anticoagulant therapy from neurosurgery view point. Medical care and management by ICU team/attending.
--- NOTE | 2017-07-09 22:24 | PN ---
Progress Note (short form) - Note Progress Note: events reviewed. No restriction on anticoagulation from neurosurgery standpoint. This was communicated to Dr. Reid, by SMS and to ICU team through my office and over the phone all immediately upon my learning of his deterioration.
--- NOTE | 2017-07-09 22:41 | PN ---
Progress Note (short form) - Note Progress Note: clarification of my previous note. Patient can receive any form of thrombolysis including streptokinase to treat his pulmonary embolus. The risk benefit analysis strongly favors treatment of his pulmonary embolus over any remote risk of wound problem. He is unlikely to develop a new neurologic deficit of significance from thrombolysis but needs to have his cardiovascular system supported as a first priority. This is been communicated by message to Dr. Hernandez and by telephone to Dr. Reid and ICU resident. Please contact me with any concerns, however there is no Neurosurgical contraindication to thrombolysis including streptokinase for this patient.
--- NOTE | 2017-07-09 22:43 | PN ---
Progress Note (short form) - Note Progress Note: case discussed with [facility] ( [facility] transfer center at 9:26pm ) [phone] Valentin Ballard surgeon; Patient accepted for transfer, advised to start on epinephrine at 6 and taper norepi and vasopressin. Also advised to taper sedation. waiting for a call back from [facility], they will call us once bed is available. discussed with daughter and of patient at 10:13 pm.. both agreed for transfer. Face sheet was faxed on [phone]
--- NOTE | 2017-07-09 23:18 | PN ---
Progress Note (short form) - Note Progress Note: spoke with and daughter in detailed. plan is to transfer pt to [facility] for clot removal by cardio thoracic surgeon...dr erwin is accepting doctor all risk and benefits were discussed with Noa and daughter Opal by myself and dr palomino ..resident consent to transfer was obtained meanwhile dr pena has given clearence for iv heparin /streptokinase/TPA resident spoke to IR, who does not believe he need TPA/streptokinase, he only believes pt need heparin. meanwhile pt will be started on heparin, dr pena is made aware Problem List - Problems (1) Neuropathy Code(s): G62.9 - POLYNEUROPATHY, UNSPECIFIED (2) Elevated creatine kinase Code(s): R74.8 - ABNORMAL LEVELS OF OTHER SERUM ENZYMES (3) Elevated serum creatinine Code(s): R79.89 - OTHER SPECIFIED ABNORMAL FINDINGS OF BLOOD CHEMISTRY (4) Anasarca Code(s): R60.1 - GENERALIZED EDEMA (5) Anemia Code(s): D64.9 - ANEMIA, UNSPECIFIED (6) CKD (chronic kidney disease) Code(s): N18.9 - CHRONIC KIDNEY DISEASE, UNSPECIFIED (7) Fever Code(s): R50.9 - FEVER, UNSPECIFIED (8) Diabetes Code(s): E11.9 - TYPE 2 DIABETES MELLITUS WITHOUT COMPLICATIONS (9) Coagulation defect Code(s): D68.9 - COAGULATION DEFECT, UNSPECIFIED (10) Morbid obesity Code(s): E66.01 - MORBID (SEVERE) OBESITY DUE TO EXCESS CALORIES (11) Paraparesis of both lower limbs Code(s): G82.20 - PARAPLEGIA, UNSPECIFIED
--- NOTE | 2017-07-09 23:22 | HOSP ---
Physical Examination Vital Signs: Vital Signs Temperature 98.7 F 07/09/17 17:30 Pulse Rate 92 H 07/09/17 21:43 Respiratory Rate 14 07/09/17 21:32 Blood Pressure 157/102 07/09/17 21:11 O2 Sat by Pulse Oximetry (%) 100 07/09/17 21:43 Labs: CBC, BMP 07/09/17 12:35 07/09/17 20:30 Hospitalist Encounter Assessment: Code 99 called. Initially pt tapered from norepinephine and vasopressin on request of Cardiothoracic Surgeon to epinephrine. Pt developed vtach on epinephrine, so epinephrine was stopped. On exam, pulse palpable. HR 100. BP decreased to 69/37. Pt remains intubated/sedated. Chest CTAB. Vtach broke spontaneously. Plan: Stop epinephrine. Increase norephinephrine and vasopressin. Monitor VS. Pacer pads placed. Defibrillator bedside. Monitor I&O's. Labs reviewed. Visit type - Emergency Visit Emergency Visit: Yes ED Registration Date: 06/17/17 Care time: The patient presented to the Emergency Department on the above date and was hospitalized for further evaluation of their emergent condition. - New Patient This patient is new to me today: No - Critical Care Critical Care patient: Yes Total Critical Care Time (in minutes): 40 Critical Care Statement: The care of this patient involved high complexity decision making to prevent further life threatening deterioration of the patient 's condition and/or to evaluate & treat vital organ system(s) failure or risk of failure.
[2017-07-09] MEDS ORDERED: SODIUM CHLORIDE 500 ML IV STA (23:28)
[2017-07-09] MEDS: CALCIUM GLUCONATE 10% - 1,000 MG/10 ML VIAL IVPB ONE ×2 (23:31→23:40)
[2017-07-10] MEDS ORDERED: NOREPINEPHRINE BITARTRATE 4 MG/4 ML ML IV ONE (02:18)
[2017-07-10 03:09] VITALS: BP 119/82; PULSE 89; TEMP 98.2
--- NOTE | 2017-07-10 16:33 | DS ---
Physical Examination Vital Signs: Vital Signs Temperature 98.2 F 07/10/17 02:00 Pulse Rate 89 07/10/17 02:00 Respiratory Rate 15 07/10/17 03:00 Blood Pressure 119/82 07/10/17 02:00 O2 Sat by Pulse Oximetry (%) 100 07/10/17 01:02 Labs: CBC, BMP 07/09/17 12:35 07/09/17 20:30 Discharge Summary Reason For Visit: FEVER OF UNKNOWN ORIGIN Condition: Poor - Instructions Disposition: TRANSFER ACUTE CARE/OTHER HOSP - Home Medications Comprehensive Discharge Medication List: Ambulatory Orders Ibuprofen [Motrin -] 800 mg PO TID PRN #21 tablet 11/04/13 Gabapentin [Neurontin -] 100 mg PO Q8H 06/16/17 was transfered to tertiary care for further management
== END 2017-07-10 04:00 | disposition short-term general hospital (02) | DRG 853 ==
LOC: JER 23:08 → JERBED 06-17 05:33 → J6S 06-17 20:10 → JICU 06-25 22:04 → J2W 07-04 18:43 → J4S 07-05 09:44 → JICU 07-09 12:16
PROVIDERS: ADMIT Internal Medicine; ATTEND Internal Medicine
PROC: 0QB03ZX Excision of Lumbar Vertebra, Percutaneous Approach, Diagnostic (ICD-10-PCS; principal; 2017-06-25)
PROC: 30233L1 Transfusion of Nonautologous Fresh Plasma into Peripheral Vein, Percutaneous Approach (ICD-10-PCS; 2017-06-26)
PROC: 30233K1 Transfusion of Nonautologous Frozen Plasma into Peripheral Vein, Percutaneous Approach (ICD-10-PCS; 2017-06-26)
PROC: 00UT07Z Supplement Spinal Meninges with Autologous Tissue Substitute, Open Approach (ICD-10-PCS; 2017-06-27)
PROC: 00BY0ZZ Excision of Lumbar Spinal Cord, Open Approach (ICD-10-PCS; 2017-06-27)
PROC: 0RH604Z Insertion of Internal Fixation Device into Thoracic Vertebral Joint, Open Approach (ICD-10-PCS; 2017-06-27)
PROC: 30233H1 Transfusion of Nonautologous Whole Blood into Peripheral Vein, Percutaneous Approach (ICD-10-PCS; 2017-06-27)
PROC: 009U3ZX Drainage of Spinal Canal, Percutaneous Approach, Diagnostic (ICD-10-PCS; 2017-07-01)
PROC: B01BZZZ Fluoroscopy of Spinal Cord (ICD-10-PCS; 2017-07-01)
PROC: 009U3ZZ Drainage of Spinal Canal, Percutaneous Approach (ICD-10-PCS; 2017-07-01)
PROC: B01BZZZ Fluoroscopy of Spinal Cord (ICD-10-PCS; 2017-07-01)
PROC: 0CHY7BZ Insertion of Airway into Mouth and Throat, Via Natural or Artificial Opening (ICD-10-PCS; 2017-07-09)
PROC: 5A1945Z Respiratory Ventilation, 24-96 Consecutive Hours (ICD-10-PCS; 2017-07-09)
PROC: 06HM33Z Insertion of Infusion Device into Right Femoral Vein, Percutaneous Approach (ICD-10-PCS; 2017-07-09)
PROC: B51BZZA Fluoroscopy of Right Lower Extremity Veins, Guidance (ICD-10-PCS; 2017-07-09)
PROC: 5A12012 Performance of Cardiac Output, Single, Manual (ICD-10-PCS; 2017-07-09)
PROC: 5A12012 Performance of Cardiac Output, Single, Manual (ICD-10-PCS; 2017-07-09)
DX: A41.9 Sepsis, unspecified organism (principal); I46.9 Cardiac arrest, cause unspecified; G06.2 Extradural and subdural abscess, unspecified; J96.90 Respiratory failure, unspecified, unspecified whether with hypoxia or hypercapnia; I26.99 Other pulmonary embolism without acute cor pulmonale; Z68.41 Body mass index [BMI] 40.0-44.9, adult; N17.9 Acute kidney failure, unspecified; D68.8 Other specified coagulation defects; E87.2 Acidosis; I82.412 Acute embolism and thrombosis of left femoral vein; G95.29 Other cord compression; D89.0 Polyclonal hypergammaglobulinemia; E66.01 Morbid (severe) obesity due to excess calories; N18.9 Chronic kidney disease, unspecified; I27.20 Pulmonary hypertension, unspecified; M54.30 Sciatica, unspecified side; G62.9 Polyneuropathy, unspecified; R21 Rash and other nonspecific skin eruption; R74.0 Nonspecific elevation of levels of transaminase and lactic acid dehydrogenase [LDH]; R53.1 Weakness; D63.8 Anemia in other chronic diseases classified elsewhere; G47.33 Obstructive sleep apnea (adult) (pediatric); R00.0 Tachycardia, unspecified; K76.0 Fatty (change of) liver, not elsewhere classified; M35.3 Polymyalgia rheumatica
CPT/HCPCS: 20225; 31500; 36415; 36430; 36600; 70450-TC; 71045-TC-FY; 71250-TC; 71275-TC; 72125-TC; 72128-TC; 72131-TC; 72255-TC-FY; 72265-TC-FY; 74176-TC; 74177-TC; 76000-TC-FY; 76098-TC-FY; 76705-TC; 76775-TC; 76856-TC; 77012-TC; 80048; 80053; 80061; 81003; 81015; 82164; 82550; 82553; 82728; 82784; 82803; 82945; 82962; 83036; 83520; 83540; 83550; 83605; 83615; 83721; 83735; 83880; 83883; 84100; 84153; 84155; 84156; 84157; 84165; 84443; 84484; 85025; 85027; 85044; 85384; 85610; 85651; 85730; 86038; 86140; 86235; 86256; 86334; 86431; 86480; 86788; 86789; 86850; 86900; 86901; 86922; 87040; 87070; 87075; 87086; 87102; 87116; 87205; 87206; 87210; 87324; 87389; 87430; 87449; 87899; 88300-TC; 88305-TC; 88307-TC; 88311-TC; 93005; 93010; 93306-TC; 93970-TC; 94002; 95860-TC; 97162-GP; 99284-25; G0480; J0131; J1644; J7030; P9017; P9038; P9058

== ENCOUNTER 2017-12-28 01:32 | Emergency (ER) | payer BC ==
--- NOTE | 2017-12-28 02:04 | PDOC ---
Attending Attestation - Resident Resident Name: Franci Sanchez - ED Attending Attestation I have performed the following: I have examined & evaluated the patient, The case was reviewed & discussed with the resident, I agree w/resident's findings & plan - HPI HPI: 12/28/17 02:03 Pt pulled out trach collar - Physicial Exam PE: 12/28/17 02:03 Agree with resident exam - Medical Decision Making 12/28/17 02:04 6/0 uncuffed Trach collar replaced in the ER; stable to go back to the CT. 12/28/17 02:20
[2017-12-28 02:12] VITALS: BP 104/72; TEMP 98.4; BMI 54.9
--- NOTE | 2017-12-28 02:16 | PDOC ---
History of Present Illness <Kailey Rajan - Last Filed: 12/28/17 02:16> - General History Source: Patient Exam Limitations: Clinical Condition - History of Present Illness Initial Comments: 12/28/17 02:15 Pt is a 62yo m with pmh of afib, PE, DM, HTN [facility] tube. Tube was placed 3 months ago. Pt was seen a couple days ago for similar problem. Has size 6 tube. Unsure as to whether tube was cuffed or uncuffed. Unable to obtain further history from patient. PMH: see hpi PSH: tracheostomy Meds: see med rec Allergies: see allergy list <Franci Sanchez - Last Filed: 12/28/17 02:29> - General Chief Complaint: Trach Tube Replacement Stated Complaint: TRACH PROBLEM Time Seen by Provider: 12/28/17 01:34 Past History <Kailey Rajan - Last Filed: 12/28/17 02:16> - Past Medical History Cardiac Disorders: Yes (afib, PE) COPD: No Diabetes: Yes Dialysis: (REFLUX) HTN: Yes Psychiatric Problems: Yes (ANXIETY) - Immunization History Immunization Up to Date: No - Suicide/Smoking/Psychosocial Hx Smoking History: Never smoked Have you smoked in the past 12 months: No Hx Alcohol Use: No Drug/Substance Use Hx: No Substance Use Type: Alcohol <Franci Sanchez - Last Filed: 12/28/17 02:29> - Past Medical History Allergies/Adverse Reactions: Allergies Allergy/AdvReac Type Severity Reaction Status Date / Time cyclobenzaprine Allergy Intermediate Rash Verified 12/28/17 02:12 aloe vera [From Flexall] Allergy Verified 12/28/17 02:12 iodine Allergy Verified 12/28/17 02:12 menthol [From Flexall] Allergy Verified 12/28/17 02:12 shellfish derived Allergy Verified 12/28/17 02:12 vitamin E (d-alpha Allergy Verified 12/28/17 02:12 tocopherol) [From Flexall] Home Medications: Ambulatory Orders Ibuprofen [Motrin -] 800 mg PO TID PRN #21 tablet 11/04/13 Gabapentin [Neurontin -] 100 mg PO Q8H 06/16/17 Review of Systems - Review of Systems Able to Perform ROS?: No <Franci Sanchez - Last Filed: 12/28/17 02:29> *Physical Exam - Vital Signs Last Vital Signs Temp Pulse Resp BP Pulse Ox 98.4 F 57 L 18 104/72 100 12/28/17 01:33 12/28/17 01:33 12/28/17 01:33 12/28/17 01:33 12/28/17 01:33 <Kailey Rajan - Last Filed: 12/28/17 02:16> - Physical Exam General Appearance: Yes: Obese. No: Apparent Distress HEENT: positive: EOMI, ROOPA, Pharynx Normal, Other (tracheostomy present. No active bleeding. ) Neck: positive: Trachea midline, Supple. negative: Lymphadenopathy (R), Lymphadenopathy (L) Respiratory/Chest: positive: Lungs Clear, Normal Breath Sounds. negative: Crackles, Rales, Rhonchi, Stridor Cardiovascular: positive: Regular Rhythm, S1, S2, Bradycardia. negative: Edema , JVD Vascular Pulses: Carotid (R): 2+, Carotid (L): 2+, Dorsalis-Pedis (R): 2+, Doralis-Pedis (L): 2+ Gastrointestinal/Abdominal: positive: Normal Bowel Sounds, Soft. negative: Distended, Guarding, Rebound, Tenderness Male Genitalia: positive: other (espinal catheter in place) Musculoskeletal: negative: CVA Tenderness Extremity: positive: Normal Capillary Refill Integumentary: positive: Normal Color, Dry, Warm Neurologic: positive: social worker assistant II-XII NML intact, Alert. negative: Fully Oriented ( oriented to self. Knows he is in hospital.) <Franci Sanchez - Last Filed: 12/28/17 02:29> Medical Decision Making - Medical Decision Making 12/28/17 02:26 Pt is a 62yo m with pmh of afib, PE, DM, HTN [facility] tube. Pt saturating at 100% with 4L nc. Placed size 6 tube back, uncuffed bc that was the only one available. Took pt off nc. pt started to saturate low-mid 90s. placed pt on 2L nc. saturating 95-97%. <Franci Sanchez - Last Filed: 12/28/17 02:29> *DC/Admit/Observation/Transfer <Kailey Rajan - Last Filed: 12/28/17 02:16> - Discharge Dispostion Decision to Admit order: No <Franci Sanchez - Last Filed: 12/28/17 02:29> Diagnosis at time of Disposition: Attention to tracheostomy tube - Discharge Dispostion Disposition: CARE HOME FACILITY Condition at time of disposition: Fair - Patient Instructions Printed Discharge Instructions: How to Take Care of a Tracheostomy Additional Instructions: You were seen here today because you took out your tracheostomy tube. We put it back in place. Please come back to the ED if: the tube comes out, you are unable to breath through the tube, if it is clogged, or if any new concerning symptom develops. Thank you
[2017-12-28 03:37] VITALS: PULSE 64
== END 2017-12-28 02:45 ==
LOC: JER 01:32
PROC: 0B21XFZ Change Tracheostomy Device in Trachea, External Approach (ICD-10-PCS; principal; 2017-12-28)
DX: J95.09 Other tracheostomy complication (principal); I10 Essential (primary) hypertension; E11.9 Type 2 diabetes mellitus without complications; I48.91 Unspecified atrial fibrillation; Z86.711 Personal history of pulmonary embolism
CPT/HCPCS: 82962; 99282-25

== ENCOUNTER 2017-12-29 08:36 | Inpatient (IN) | payer BC ==
[2017-12-29] MEDS ORDERED: DOPAMINE 400 MG/D5W - 400,000 MCG/250 ML INFUS.BAG IVPB ONE ×3 (08:54→11:05)
[2017-12-29 08:58] VITALS: BMI 50.2
[2017-12-29] MEDS ORDERED: NOREPINEPHRINE BITARTRATE 4 MG/4 ML ML IV ONE (09:11)
[2017-12-29] MEDS ORDERED: SODIUM BICARBONATE 8.4% - 100 ML ONE (09:13)
[2017-12-29 09:18] LABS: BASO % 0.2 % (0-2.0); EOS % 0.4 % (0-4.5); HEMATOCRIT 31.3 % (35.4-49); LYMPH % 15.9 % (8-40); MCH 26.3 pg (25.7-33.7); MCHC 31.9 g/dl (32.0-35.9); MEAN CELL VOLUME 82.3 fl (80-96); MEAN PLT VOLUME 8.6 fl (7.5-11.1); MONO % 0.8 % (3.8-10.2); NEUT % 82.7 % (42.8-82.8); PLATELET COUNT 349 K/MM3 (134-434); RDW 19.1 % (11.9-15.9); WHITE BLOOD COUNT 6.6 K/mm3 (4.0-10.0)
[2017-12-29] MEDS ORDERED: VANCOMYCIN 1 GRAM (PRE-DOCKED) 1,000 MG/250 ML BAG IVPB ONE (09:30)
[2017-12-29] MEDS ORDERED: PIPERACILLIN/TAZOB 3.375 GM 3.375 GM/50 ML BAG IVPB ONE (09:30)
[2017-12-29 09:37] LABS: INR 1.81 (0.83-1.09); PROTHROMBIN TIME (PATIENT) 20.4 SEC (9.7-13.0)
[2017-12-29 09:39] LABS: ACTIVATED PTT 31.1 SECONDS (25.2-36.5)
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
[2017-12-29] MEDS ORDERED: ATROPINE SULFATE 1 MG/10 ML DISP.SYRIN IVPUSH ONE (09:58)
[2017-12-29] MEDS ORDERED: SODIUM BICARBONATE 8.4% 50 MEQ/50 ML DISP.SYRIN IVPUSH ONE ×4 (09:58→10:05)
[2017-12-29] MEDS ORDERED: PIPERACILLIN/TAZOB 3.375 GM 3.375 GM in DEXTROSE 5%-WATER - 50 ML IVPB ONE (09:58)
[2017-12-29] MEDS ORDERED: VANCOMYCIN 1,000 MG in DEXTROSE 5%-WATER - 250 ML IVPB ONE (09:58)
[2017-12-29] MEDS ORDERED: MAGNESIUM SULF 50% (8.12 MEQ/2 ML-1 GM VIAL) IVPB ONE (09:58)
[2017-12-29] MEDS ORDERED: EPINEPHrine 1:10,000 (P-F SYR) 1 MG/10 ML DISP.SYRIN IVPUSH ONE ×2 (09:58→10:04)
[2017-12-29] MEDS ORDERED: CALCIUM CHLORIDE 10% 1 GM/10 ML *VIAL IVPUSH ONE (09:58)
[2017-12-29] MEDS ORDERED: NOREPINEPHRINE BITARTRATE 8,000 MCG in DEXTROSE 5%-WATER - 492 ML IV SCH (10:00)
[2017-12-29] MEDS ORDERED: DOPAMINE 400 MG/D5W - 400,000 MCG/250 ML INFUS.BAG IVPB SCH (10:00)
[2017-12-29] MEDS ORDERED: SODIUM CHLORIDE 0.9% 500 ML INFUS.BAG IV ONE (10:41)
--- NOTE | 2017-12-29 10:41 | PDOC ---
Attending Attestation - Resident Resident Name: Juan Ramos - HPI HPI: 12/29/17 10:30 Pt presents to the ED after found in respiratory distress in the [facility]. EMS found the patient to be hypotensive and difficult to bag, even after multiple attempts at suction. Patient was also hypotensive for EMS with SBP in the 50s. On arrival to the ED, patient was hypotensive into the 50s and hypoxic. Trach was completely pulled out. I was unable to pass a trach tube but was able to pass a 6.0 ETT, with improvement in his oxygenation and ventilation. Patient remained hypotensive on arrival to the ED. Started on dopamine through peripheral line, but then patient went into cardiac arrest. Given epinephrine and bicarb with ROSC. started on dopamine. Despite dopamine, patient became hypotensive again and went into cardiac arrest again. Had ROSC after calcium, bicarb and more epinephrine. Patient remained hypotensive after cardiac arrest despite maximal doses of dopamine. Started on levophed, which has been gradually titrated to maximal doses. SBP remains in the 50s-60's. 12/29/17 10:41 12/29/17 11:17 - Physicial Exam PE: 12/29/17 11:19 Agree with resident exam. Patient is unresponsive. Breath sounds are clear bilaterally. abdomen is non tender and non distended. Patient remains hypotensive with SBP in the 50's. - Critical Care Time Total Critical Care Time: 120 Critical Care Statement: The care of this patient involved high complexity decision making to prevent further life threatening deterioration of the patient 's condition and/or to evaluate & treat vital organ system(s) failure or risk of failure. - Medical Decision Making 12/29/17 11:20 Pt presents to the ED with profound respiratory distress and hypotension. Remains hypotensive despite maximal resuscitation in the ED. Continue on max dose levaphed and dopamine. Given broad spectrum antibiotics, and 3 L normal saline Iv. Case discussed with Dr. Knox, who asked to start the patient on vasopressin and wait for labs to be back before the patient left for the unit. Labs are redrawn. Case discussed at length with the patient's family. The patient's and daughters understand that the patient is dying. They are sure that he would not wish to live on [facility] life support. They wish him to be DNR, and to not be resuscitated if he goes into cardiac arrest again. They do wish him to be continued on the pressors until remaining family members can come in to say goodbye. The family has signed a DNR, and their wishes have been communicated to Dr. Knox and the ICU resident. 12/29/17 11:30 12/29/17 11:43 12/29/17 11:49
[2017-12-29] MEDS ORDERED: VASOPRESSIN 20 UNITS/ML VIAL IV ONE (11:23)
[2017-12-29 11:35] LABS: URINE APPEARANCE TURBID; URINE BILIRUBIN NEGATIVE (<2.0 mg/dL); URINE COLOR RED; URINE GLUCOSE (UA) 1+ (NEGATIVE); URINE KETONE NEGATIVE (NEGATIVE); URINE LEUK ESTERASE NEGATIVE (NEGATIVE); URINE NITRITE NEGATIVE (NEGATIVE); URINE UROBILINOGEN NEGATIVE mg/dL (0.2-1.0)
[2017-12-29 11:36] LABS: CHLORIDE 109 mmol/L (98-107); POTASSIUM 3.5 mmol/L (3.5-5.1); SODIUM 146 mmol/L (136-145)
[2017-12-29 11:39] LABS: ALBUMIN 1.9 g/dl (3.4-5.0); ANION GAP 20 MMOL/L (8-16); BLOOD UREA NITROGEN 19 mg/dL (7-18); CALCIUM 8.7 mg/dL (8.5-10.1); CO2 17 mmol/L (21-32)
[2017-12-29 11:40] LABS: GLUCOSE,RANDOM 187 mg/dL (74-106)
[2017-12-29 11:41] LABS: URINE PROTEIN 2+ (NEGATIVE)
[2017-12-29 11:44] LABS: BILIRUBIN,TOTAL 0.8 mg/dL (0.2-1.0); CREATININE 2.6 mg/dL (0.7-1.3); SGOT/AST 77 U/L (15-37); SGPT/ALT 39 U/L (12-78)
[2017-12-29 11:47] LABS: ALK PHOS 89 U/L (45-117)
[2017-12-29 11:55] LABS: ARTERIAL BLD GAS O2 SATURATION 99.5 % (90-98.9); ARTERIAL BLOOD GAS BASE EXCESS -12.4 meq/l (-2-2); ARTERIAL BLOOD GAS PCO2 31.8 mmHg (35-45); ARTERIAL BLOOD GAS pH 7.25 (7.35-7.45)
[2017-12-29 12:06] LABS: ALLENS TEST POSITIVE
[2017-12-29] MEDS ORDERED: VASOPRESSIN 50 UNITS in SODIUM CHLORIDE 97.5 ML IVPB ONE (12:06)
[2017-12-29 12:10] LABS: CARBOXYHEMOGLOBIN 1.3 gm% (0.5-2.0)
[2017-12-29] MEDS ORDERED: VASOPRESSIN 50 UNITS in SODIUM CHLORIDE 97.5 ML IVPB SCH (12:15)
[2017-12-29] MEDS ORDERED: SODIUM CHLORIDE 1,000 ML IV ONE (12:20)
[2017-12-29 13:15] VITALS: TEMP 99.2
[2017-12-29] MEDS ORDERED: SODIUM CHLORIDE 1,000 ML IV SCH (13:15)
--- NOTE | 2017-12-29 13:26 | CONSULT ---
Consultation: REQUESTING PROVIDER: CONSULT REQUEST: ICU HISTORY OF PRESENT ILLNESS: The patient is a 62 year old male with a PMH DM, GERD, COPD, HTN, afib, and tracheostomy BIBA with respiratory distress from [facility]. Per [facility], he was hypotensive, systolic in 80s, in respiratory distress, unable to oxygenate, he pulled out his tracheostomy. He arrived in respiratory distress, ET tube was inserted. The patient had cardiac arrest in ED x 2 with ROSC, started on Levophed, Dopamine, Vasopressin. he is admitted to ICU for further monitoring. On arrival his BP was 91/74, HR 81 , mechanical ventilation. Family at bedside. REVIEW OF SYSTEMS: N/A PHYSICAL EXAMINATION Vital Signs - 24 hr 12/29/17 12/29/17 12/29/17 08:36 08:37 08:38 Temperature Pulse Rate Pulse Rate [ 86 97 H Apical] Respiratory 19 Rate Blood Pressure Blood Pressure 129/107 129/107 [Left Arm] O2 Sat by Pulse Oximetry (%) 12/29/17 12/29/17 12/29/17 08:40 08:44 08:50 Temperature 97.0 F L Pulse Rate 92 H Pulse Rate [ 100 H Apical] Respiratory 8 L 19 22 Rate Blood Pressure 129/107 Blood Pressure 129/107 [Left Arm] O2 Sat by Pulse 78 L Oximetry (%) 12/29/17 12/29/17 12/29/17 08:51 08:52 08:57 Temperature Pulse Rate Pulse Rate [ 87 67 Apical] Respiratory 15 15 Rate Blood Pressure Blood Pressure 57/18 57/18 88/51 [Left Arm] O2 Sat by Pulse 93 L 100 Oximetry (%) 12/29/17 12/29/17 12/29/17 09:05 09:07 09:08 Temperature Pulse Rate Pulse Rate [ 130 H Apical] Respiratory 21 Rate Blood Pressure 88/51 88/51 Blood Pressure 88/51 98/76 [Left Arm] O2 Sat by Pulse 84 L Oximetry (%) 12/29/17 12/29/17 12/29/17 09:16 09:21 09:26 Temperature Pulse Rate Pulse Rate [ 111 H 101 H 100 H Apical] Respiratory 19 24 Rate Blood Pressure 88/51 Blood Pressure 105/49 94/34 82/40 [Left Arm] O2 Sat by Pulse 84 L 84 L Oximetry (%) 09/06/1612/29/17 12/29/17 09:27 09:35 09:40 Temperature Pulse Rate Pulse Rate [ 100 H 94 H 90 Apical] Respiratory 21 21 16 Rate Blood Pressure Blood Pressure 82/50 58/35 61/29 [Left Arm] O2 Sat by Pulse 85 L 77 L 75 L Oximetry (%) 12/29/17 12/29/17 12/29/17 09:49 10:16 10:19 Temperature 97.2 F L 97.2 F L Pulse Rate Pulse Rate [ 90 94 H 92 H Apical] Respiratory 29 H 17 19 Rate Blood Pressure Blood Pressure 46/25 55/27 55/27 [Left Arm] O2 Sat by Pulse 88 L 100 Oximetry (%) 12/29/17 12/29/17 12/29/17 10:37 10:44 11:50 Temperature Pulse Rate 94 H 94 H Pulse Rate [ 95 H Apical] Respiratory 21 Rate Blood Pressure 58/35 64/37 Blood Pressure 55/37 [Left Arm] O2 Sat by Pulse 100 Oximetry (%) 12/29/17 12/29/17 12/29/17 12:04 12:09 12:16 Temperature Pulse Rate Pulse Rate [ 102 H 106 H 106 H Apical] Respiratory 21 32 H 23 Rate Blood Pressure Blood Pressure 97/56 105/58 94/64 [Left Arm] O2 Sat by Pulse 100 100 100 Oximetry (%) 12/29/17 12/29/17 12:58 13:14 Temperature 99.3 F 99.2 F Pulse Rate 108 H 92 H Pulse Rate [ Apical] Respiratory 23 16 Rate Blood Pressure 55/32 75/54 Blood Pressure [Left Arm] O2 Sat by Pulse 100 Oximetry (%) GENERAL: Not responsive, not following commands. HEAD: Normal with no signs of trauma. EYES: Pupils equal, dilated. EARS, NOSE, THROAT: Oropharynx clear without exudates. NECK: ET tube in the neck. LUNGS: Breath sounds equal, coarse, no wheezes. HEART: Distant hear sounds, normal S1 and S2 without murmur, rub or gallop. ABDOMEN: Obese, soft, nontender, not distended, normoactive bowel sounds, no guarding, no rebound, no masses. UPPER EXTREMITIES: 1+ pulses. No peripheral edema. LOWER EXTREMITIES: 1+ pulses. No peripheral edema. NEUROLOGICAL: Not following commands. SKIN: Warm, dry, normal turgor, no rashes. Laboratory Results - last 24 hr 12/29/17 12/29/17 12/29/17 08:59 08:59 08:59 WBC 6.6 RBC 3.80 L Hgb 10.0 L Hct 31.3 L MCV 82.3 MCH 26.3 MCHC 31.9 L RDW 19.1 H Plt Count 349 MPV 8.6 Absolute Neuts (auto) 5.5 Neutrophils % 82.7 Lymphocytes % 15.9 Monocytes % 0.8 L D Eosinophils % 0.4 Basophils % 0.2 Nucleated RBC % 0 PT with INR 20.40 H INR 1.81 H PTT (Actin FS) 31.1 Puncture Site ABG pH ABG pCO2 at Pt Temp ABG pO2 at Pt Temp ABG HCO3 ABG O2 Sat (Measured) ABG O2 Content ABG Base Excess Herbert Test Carboxyhemoglobin Methemoglobin Oxygen Flow Rate Vent Rate PEEP Pressure Support Vent Sodium Cancelled Potassium Cancelled Chloride Cancelled Carbon Dioxide Cancelled Anion Gap Cancelled BUN Cancelled Creatinine Cancelled Creat Clearance w eGFR Cancelled Random Glucose Cancelled Lactic Acid Calcium Cancelled Total Bilirubin Cancelled AST Cancelled ALT Cancelled Alkaline Phosphatase Cancelled Creatine Kinase Creatine Kinase Index CK-MB (CK-2) Troponin I Total Protein Cancelled Albumin Cancelled Urine Color Urine Appearance Urine pH Ur Specific [place] Urine Protein Urine Glucose (UA) Urine Ketones Urine Blood Urine Nitrite Urine Bilirubin Urine Urobilinogen Ur Leukocyte Esterase Urine WBC (Auto) Urine RBC (Auto) 12/29/17 12/29/17 12/29/17 08:59 10:45 10:56 WBC RBC Hgb Hct MCV MCH MCHC RDW Plt Count MPV Absolute Neuts (auto) Neutrophils % Lymphocytes % Monocytes % Eosinophils % Basophils % Nucleated RBC % PT with INR INR PTT (Actin FS) Puncture Site ABG pH ABG pCO2 at Pt Temp ABG pO2 at Pt Temp ABG HCO3 ABG O2 Sat (Measured) ABG O2 Content ABG Base Excess Herbert Test Carboxyhemoglobin Methemoglobin Oxygen Flow Rate Vent Rate PEEP Pressure Support Vent Sodium Potassium Chloride Carbon Dioxide Anion Gap BUN Creatinine Creat Clearance w eGFR Random Glucose Lactic Acid 9.4 H* 13.1 H* Calcium Total Bilirubin AST ALT Alkaline Phosphatase Creatine Kinase Creatine Kinase Index CK-MB (CK-2) Troponin I Total Protein Albumin Urine Color Red Urine Appearance Turbid Urine pH 8.0 D Ur Specific [place] 1.017 Urine Protein 2+ H Urine Glucose (UA) 1+ H Urine Ketones Negative Urine Blood 3+ H Urine Nitrite Negative Urine Bilirubin Negative Urine Urobilinogen Negative Ur Leukocyte Esterase Negative Urine WBC (Auto) None seen Urine RBC (Auto) >100 12/29/17 12/29/17 12/29/17 10:56 12:00 12:00 WBC RBC Hgb Hct MCV MCH MCHC RDW Plt Count MPV Absolute Neuts (auto) Neutrophils % Lymphocytes % Monocytes % Eosinophils % Basophils % Nucleated RBC % PT with INR INR PTT (Actin FS) Puncture Site Left radial ABG pH 7.25 L ABG pCO2 at Pt Temp 31.8 L ABG pO2 at Pt Temp 233.0 H* ABG HCO3 13.5 L* ABG O2 Sat (Measured) 99.5 H ABG O2 Content 14.3 L ABG Base Excess -12.4 L* Herbert Test Positive Carboxyhemoglobin 1.3 Methemoglobin 1.6 H Oxygen Flow Rate Yes Vent Rate 14 PEEP 0.0 Pressure Support Vent 450 Sodium 146 H Potassium 3.5 Chloride 109 H Carbon Dioxide 17 L D Anion Gap 20 H BUN 19 H Creatinine 2.6 H Creat Clearance w eGFR 24.98 Random Glucose 187 H D Lactic Acid Calcium 8.7 Total Bilirubin 0.8 AST 77 H D ALT 39 D Alkaline Phosphatase 89 Creatine Kinase 204 Creatine Kinase Index 2.5 CK-MB (CK-2) 5.18 H Troponin I 0.12 H D Total Protein 5.0 L D Albumin 1.9 L Urine Color Urine Appearance Urine pH Ur Specific [place] Urine Protein Urine Glucose (UA) Urine Ketones Urine Blood Urine Nitrite Urine Bilirubin Urine Urobilinogen Ur Leukocyte Esterase Urine WBC (Auto) Urine RBC (Auto) Active Medications Generic Name Dose Route Start Last Admin Trade Name Freq PRN Reason Stop Dose Admin Dopamine HCl/Dextrose 400,000 mcg in 250 mls @ 29.767 mls/hr 12/29/17 10:00 12/29/17 09:07 Dopamine 400 Mg/D5w - IVPB 20 mcg/kg/min TITR AJ 119.068 mls/hr Titration Protocol 5 MCG/KG/MIN Norepinephrine Bitartrate 8, 500 mls @ 17.86 mls/hr 12/29/17 10:00 12/29/17 10:45 000 mcg/ Dextrose IV 0.12 mcg/kg/min ASDIR AJ 75 mls/hr Titration Protocol 0.03 MCG/KG/MIN Vasopressin 50 units/ Sodium 100 mls @ 4 mls/hr 12/29/17 12:15 Chloride IVPB ASDIR AJ Protocol 2 UNITS/HR Sodium Chloride 1,000 mls @ 83 mls/hr 12/29/17 13:15 Normal Saline - IV ASDIR AJ ASSESSMENT/PLAN: The patient is a 62 year old male with a PMH DM, GERD, COPD, HTN, afib, and tracheostomy BIBA with respiratory distress from [facility]. Admitted to ICU s/ p cardiac arest x 2. s/p cardiac arrest hypoxic acute resp failure septic shock due to PNA elevated troponins lactic acidosis KADIE DM, GERD COPD HTN afib morbid obesity Plan: The patient arrived to ICU for further monitoring. After discussions with family that was present at bedside, they made the decision to stop all treatments and continue with comfort measures. DNR and comfort measures only documents were signed by Dr Knox and Dr Gibson that were also present at bedside. Morphine 4 mg IV push was ordered, followed by Morphine drip at rate 4 cc/hr. The family agreed to stop pressors, fluids and they don't wish Mr Diaz to have tube. Dispo: Thank you for this consultative opportunity. Discussed with Dr Knox. Problem List - Problems (1) CKD (chronic kidney disease) Code(s): N18.9 - CHRONIC KIDNEY DISEASE, UNSPECIFIED (2) Cardiac arrest Code(s): I46.9 - CARDIAC ARREST, CAUSE UNSPECIFIED (3) Diabetes Code(s): E11.9 - TYPE 2 DIABETES MELLITUS WITHOUT COMPLICATIONS (4) Elevated LFTs Code(s): R79.89 - OTHER SPECIFIED ABNORMAL FINDINGS OF BLOOD CHEMISTRY (5) Elevated creatine kinase Code(s): R74.8 - ABNORMAL LEVELS OF OTHER SERUM ENZYMES (6) Fever Code(s): R50.9 - FEVER, UNSPECIFIED (7) Hyperlipidemia Code(s): E78.5 - HYPERLIPIDEMIA, UNSPECIFIED (8) Morbid obesity Code(s): E66.01 - MORBID (SEVERE) OBESITY DUE TO EXCESS CALORIES (9) Respiratory failure Code(s): J96.90 - RESPIRATORY FAILURE, UNSP, UNSP W HYPOXIA OR HYPERCAPNIA (10) Sepsis Code(s): A41.9 - SEPSIS, UNSPECIFIED ORGANISM (11) Tracheostomy tube present Code(s): Z93.0 - TRACHEOSTOMY STATUS Visit type - Emergency Visit Emergency Visit: Yes ED Registration Date: 12/29/17 Care time: The patient presented to the Emergency Department on the above date and was hospitalized for further evaluation of their emergent condition. - New Patient This patient is new to me today: Yes Date on this admission: 12/29/17 - Critical Care Critical Care patient: Yes Total Critical Care Time (in minutes): 40 Critical Care Statement: The care of this patient involved high complexity decision making to prevent further life threatening deterioration of the patient 's condition and/or to evaluate & treat vital organ system(s) failure or risk of failure.
[2017-12-29 15:05] VITALS: PULSE 95
[2017-12-29 15:07] VITALS: BP 55/32
--- NOTE | 2017-12-29 15:14 | HP ---
Admitting History and Physical - Primary Care Physician PCP: Jaylyn Gibson - Admission History of Present Illness: Patient seen and examined in ICU Events noted/chart reviewed. In summary Patient 62yo male with extensive h/o HTN, diabetes , GERD, atrial fibrillation, COPD, chronic respiratory failure s/p tracheostomy who was transferred from the [facility] for respiratory distress and hypotension. patient given fluids/pressors in the ER Had cardiac arrest x 2 in the ER, size 6.0 ETT placed in stoma after trach dislodged. Case was discussed with emergency room physician earlier today Discussed with ICU team Also family at bedside--Discussed with family-- and daughters family requesting--- our treatment to be stopped--- they say as per patient's wishes wants him to be comfortable only Wants even tube out They report patient suffered a lot--for the last few months History Source: Family Member, Medical Record Limitations to Obtaining History: Clinical Condition - Past Medical History Renal/: No: Other Musculoskeletal: Yes: Other (sciatica) Endocrine: Yes: Diabetes Mellitus - Smoking History Smoking history: Unknown if ever smoked Have you smoked in the past 12 months: No - Alcohol/Substance Use Hx Alcohol Use: No - Social History ADL: Independent History of Recent Travel: No Home Medications - Allergies Allergies/Adverse Reactions: Allergies Allergy/AdvReac Type Severity Reaction Status Date / Time cyclobenzaprine Allergy Intermediate Rash Verified 12/29/17 08:49 aloe vera [From Flexall] Allergy Verified 12/29/17 08:49 iodine Allergy Verified 12/29/17 08:49 menthol [From Flexall] Allergy Verified 12/29/17 08:49 shellfish derived Allergy Verified 12/29/17 08:49 vitamin E (d-alpha Allergy Verified 12/29/17 08:49 tocopherol) [From Flexall] - Home Medications Home Medications: Ambulatory Orders Acetaminophen [Tylenol] 650 mg PO Q6H PRN 12/29/17 Acetylcysteine 200 mg MC QID 12/29/17 Amiodarone HCl 400 mg PO DAILY 12/29/17 Apixaban [Eliquis] 5 mg PO BID 12/29/17 Aspirin [Aspirin EC] 81 mg PO DAILY 12/29/17 Chlorhexidine Gluconate [Peridex -] 15 ml MM BID 12/29/17 Docusate Sodium 300 mg PO DAILY 12/29/17 Famotidine 20 mg PO DAILY 12/29/17 Gabapentin 100 mg PO TID 12/29/17 Insulin Lispro [Humalog] 0 unit SQ BID 12/29/17 Ipratropium [place] 0.2 mg IH QID 12/29/17 Metoprolol Tartrate 50 mg PO BID 12/29/17 Nystatin 1 each MC DAILY 12/29/17 Polyethylene Glycol 3350 [Miralax (For Bowel Prep) -] 17 gm PO DAILY 12/29/17 Sennosides [Senna] 2 tab PO DAILY 12/29/17 Review of Systems Unable to obtain ROS, reason: Clinical condition Physical Examination Vital Signs: Vital Signs Temperature 99.2 F 12/29/17 13:14 Pulse Rate 95 H 12/29/17 15:00 Respiratory Rate 30 H 12/29/17 15:00 Blood Pressure 55/32 12/29/17 14:40 O2 Sat by Pulse Oximetry (%) 80 L 12/29/17 13:47 Constitutional: Yes: Other (poorly responsive/) Neck: Yes: Supple, Other (status post trach--- went) Cardiovascular: Yes: Regular Rate and Rhythm Respiratory: Yes: Diminished Gastrointestinal: Yes: Soft Edema: LLE: Trace, RLE: Trace Neurological: Yes: Other (poorly responsive) Labs: CBC, BMP 12/29/17 08:59 12/29/17 10:56 Imaging - Results Chest X-ray: Report Reviewed EKG: Report Reviewed Problem List - Problems (1) Cardiac arrest Code(s): I46.9 - CARDIAC ARREST, CAUSE UNSPECIFIED (2) Respiratory failure Code(s): J96.90 - RESPIRATORY FAILURE, UNSP, UNSP W HYPOXIA OR HYPERCAPNIA (3) Sepsis Code(s): A41.9 - SEPSIS, UNSPECIFIED ORGANISM Qualifiers: Sepsis type: sepsis due to unspecified organism Qualified Code(s): A41.9 - Sepsis, unspecified organism (4) Tracheostomy tube present Code(s): Z93.0 - TRACHEOSTOMY STATUS Assessment/Plan s/p Cardiopulmonary Arrest Acute on Chronic Hypoxic Respiratory Failure Pneumonia Septic Shock lactic acidosis +Troponins likely Demand Ischemia Atrial Fibrillation with RVR - Discussed with pts family in detail - after discussions with family, they have decided on withdrawal of care and comfort measures - discussed with critical care team/ICU attending --Will respect patient and patient's family's wishes Patient is DNR/DNI Will follow cc time 40 min
[2017-12-29] MEDS ORDERED: morphine SULFATE 4 MG/ML VIAL IVPUSH ONE (15:15)
--- NOTE | 2017-12-29 15:28 | PN ---
Teaching Attending Note Name of Resident: Gayle Castano ATTENDING PHYSICIAN STATEMENT I saw and evaluated the patient. I reviewed the resident's note and discussed the case with the resident. I agree with the resident's findings and plan as documented. SUBJECTIVE: Pt seen and examined in the ER and ICU. Briefly, 62yo male with h/o HTN, DM, GERD, atrial fibrillation, COPD, chronic respiratory failure s/p tracheostomy [facility] and [facility]. Had cardiac arrest x 2 in the ER, size 6.0 ETT placed in stoma after trach dislodged. Currently in the ICU, on levophed, dopamine and vasopressin gtts OBJECTIVE: Vital Signs Period Temp Pulse Resp BP Sys/Edmondson Pulse Ox Last 24 Hr 97.0 F-99.3 F 67-130 8-32 46-129/18-107 75-100 Intake & Output 12/26/17 12/27/17 12/28/17 12/29/17 23:59 23:59 23:59 23:59 Weight 158.757 kg Gen: vented, tachypneic, poorly responsive Heart: tachycardic, regular Lung: decreased breath sounds at the bases Abd: soft, nontender Ext: no edema CBC, BMP 12/29/17 08:59 12/29/17 10:56 ABG Results ABG pH 7.25 (7.35-7.45) L 12/29/17 12:00 ABG pCO2 at Pt Temp 31.8 mmHg (35-45) L 12/29/17 12:00 ABG pO2 at Pt Temp 233.0 mmHg (80-100) H* 12/29/17 12:00 ABG HCO3 13.5 meq/L (22-26) L* 12/29/17 12:00 ABG O2 Sat (Measured) 99.5 % (90-98.9) H 12/29/17 12:00 ABG O2 Content 14.3 % vol (15-22) L 12/29/17 12:00 ABG Base Excess -12.4 meq/l (-2-2) L* 12/29/17 12:00 Troponin, BNP 12/29/17 10:56 Troponin I 0.12 H D Active Medications Dopamine HCl/Dextrose (Dopamine 400 Mg/D5w -) 400,000 mcg in 250 mls @ 29.767 mls/hr IVPB TITR AJ; Protocol Last Titration: 12/29/17 09:07 Dose: 20 mcg/kg/min, 119.068 mls/hr Norepinephrine Bitartrate 8, (000 mcg/ Dextrose) 500 mls @ 17.86 mls/hr IV ASDIR AJ; Protocol Last Titration: 12/29/17 10:45 Dose: 0.12 mcg/kg/min, 75 mls/hr Vasopressin 50 units/ Sodium (Chloride) 100 mls @ 4 mls/hr IVPB ASDIR AJ; Protocol Last Admin: 12/29/17 14:40 Dose: 6 units/hr, 12 mls/hr Sodium Chloride (Normal Saline -) 1,000 mls @ 83 mls/hr IV ASDIR AJ Last Admin: 12/29/17 14:44 Dose: 83 mls/hr Morphine Sulfate 100 mg/ (Sodium Chloride) 100 mls @ 4 mls/hr IVPB TITR AJ; Protocol ASSESSMENT AND PLAN: s/p Cardiopulmonary Arrest Acute on Chronic Hypoxic Respiratory Failure Pneumonia Septic Shock Acute Kidney Injury Lactic Acidosis +Troponins likely Demand Ischemia Atrial Fibrillation with RVR COPD - after discussions with family, they have decided on withdrawal of care and comfort measures - will start morphine gtt and titrate to RR <25 - once morphine started, can stop pressors and remove ETT - pt DNR/DNI critical care time spent in reviewing chart, evaluating patient and formulating plan 35 min
[2017-12-29] MEDS ORDERED: MORPHINE 100 MG in SODIUM CHLORIDE 98 ML IVPB SCH (15:30)
--- NOTE | 2017-12-29 16:54 | HOSP ---
Physical Examination Labs: CBC, BMP 12/29/17 08:59 12/29/17 10:56 Hospitalist Encounter Assessment: I was called to the ICU to see the patient for unresponsiveness. On physical examination the patient did not respond to verbal or physical stimuli. Heart sounds and breath sounds were absent. Central and Peripheral pulses were absent. Pupils were fixed and dilated. Corneal reflex was absent. The patient was pronounced at 14:37. Family was present and notified. Visit type - Emergency Visit Emergency Visit: Yes ED Registration Date: 12/29/17 Care time: The patient presented to the Emergency Department on the above date and was hospitalized for further evaluation of their emergent condition. - New Patient This patient is new to me today: Yes Date on this admission: 12/29/17 - Critical Care Critical Care patient: No
--- NOTE | 2017-12-30 13:34 | EKG ---
Test Reason : Blood Pressure : / mmHG Vent. Rate : 099 BPM Atrial Rate : 099 BPM P-R Int : 162 ms QRS Dur : 138 ms QT Int : 402 ms P-R-T Axes : 036 -62 087 degrees QTc Int : 515 ms NORMAL SINUS RHYTHM WITH SINUS ARRHYTHMIA LEFT AXIS DEVIATION LEFT BUNDLE BRANCH BLOCK ABNORMAL ECG WHEN COMPARED WITH ECG OF 29-DEC-2017 09:08, SINUS RHYTHM HAS REPLACED ATRIAL FIBRILLATION ST NO LONGER DEPRESSED IN LATERAL LEADS Confirmed by HONORIO ORO MD ([id number]) on 12/30/2017 1:34:32 PM Referred By: Confirmed By:HONORIO ORO MD
--- NOTE | 2017-12-31 11:05 | DS ---
Physical Examination Vital Signs: Vital Signs Temperature 99.2 F 12/29/17 13:14 Pulse Rate 95 H 12/29/17 15:00 Respiratory Rate 23 12/29/17 15:48 Blood Pressure 55/32 12/29/17 14:40 O2 Sat by Pulse Oximetry (%) 80 L 12/29/17 13:47 Labs: CBC, BMP 12/29/17 08:59 12/29/17 10:56 Discharge Summary Reason For Visit: RESPIRATORY DISTRESS Hospital Course: - pt arrested in [facility] and again in ICU Condition: - Instructions Disposition: - Home Medications Comprehensive Discharge Medication List: Ambulatory Orders Acetaminophen [Tylenol] 650 mg PO Q6H PRN 12/29/17 Acetylcysteine 200 mg MC QID 12/29/17 Amiodarone HCl 400 mg PO DAILY 12/29/17 Apixaban [Eliquis] 5 mg PO BID 12/29/17 Aspirin [Aspirin EC] 81 mg PO DAILY 12/29/17 Chlorhexidine Gluconate [Peridex -] 15 ml MM BID 12/29/17 Docusate Sodium 300 mg PO DAILY 12/29/17 Famotidine 20 mg PO DAILY 12/29/17 Gabapentin 100 mg PO TID 12/29/17 Insulin Lispro [Humalog] 0 unit SQ BID 12/29/17 Ipratropium [place] 0.2 mg IH QID 12/29/17 Metoprolol Tartrate 50 mg PO BID 12/29/17 Nystatin 1 each MC DAILY 12/29/17 Polyethylene Glycol 3350 [Miralax (For Bowel Prep) -] 17 gm PO DAILY 12/29/17 Sennosides [Senna] 2 tab PO DAILY 12/29/17
== END 2017-12-29 18:42 | disposition expired | DRG 871 ==
LOC: JER 08:36 → JERBED 10:28 → JICU 12:45
PROVIDERS: ADMIT Internal Medicine; ATTEND Internal Medicine
PROC: 06HN33Z Insertion of Infusion Device into Left Femoral Vein, Percutaneous Approach (ICD-10-PCS; principal; 2017-12-29)
PROC: 5A1935Z Respiratory Ventilation, Less than 24 Consecutive Hours (ICD-10-PCS; 2017-12-29)
PROC: 0BH17EZ Insertion of Endotracheal Airway into Trachea, Via Natural or Artificial Opening (ICD-10-PCS; 2017-12-29)
DX: A41.9 Sepsis, unspecified organism (principal); J96.21 Acute and chronic respiratory failure with hypoxia; J18.9 Pneumonia, unspecified organism; R65.21 Severe sepsis with septic shock; Z68.43 Body mass index [BMI] 50.0-59.9, adult; E87.2 Acidosis; N17.9 Acute kidney failure, unspecified; I24.8 Other forms of acute ischemic heart disease; I95.9 Hypotension, unspecified; I46.9 Cardiac arrest, cause unspecified; I48.91 Unspecified atrial fibrillation; I10 Essential (primary) hypertension; J44.9 Chronic obstructive pulmonary disease, unspecified; E11.9 Type 2 diabetes mellitus without complications; K21.9 Gastro-esophageal reflux disease without esophagitis; Z93.0 Tracheostomy status; Z79.4 Long term (current) use of insulin; F41.9 Anxiety disorder, unspecified; E66.9 Obesity, unspecified; Z66 Do not resuscitate
CPT/HCPCS: 36415; 36600; 71045-TC-FY; 80053; 81003; 81015; 82375; 82550; 82553; 82803; 83050; 83605; 84484; 85025; 85610; 85730; 87040; 87086; 87186; 93005; 93010; 99285-25; J7030